=== PATIENT | male | born 1970 | race Caucasian/White ===

== ENCOUNTER 2017-10-30 12:54 | Inpatient (IN) | payer OTHER ==
[2017-10-30 14:54] VITALS: BMI 31.2
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
[2017-10-30] MEDS ORDERED: P-EPHED 60MG/TRIPROLIDI 2.5MG TABLET PO PRN (19:47)
[2017-10-30] MEDS ORDERED: MAG HYDROX/AL HYDROX/SIMETH 30 ML UNIT-DOSE CUP PO PRN (19:47)
[2017-10-30] MEDS ORDERED: MENTHOL/PHENOL 1 EACH UD MM PRN (19:47)
[2017-10-30] MEDS ORDERED: chlordiazePOXIDE HCL 25 MG CAPSULE PO PRN (19:47)
[2017-10-30] MEDS ORDERED: MAGNESIUM CITRATE 300 ML BOTTLE PO PRN (19:47)
[2017-10-30] MEDS ORDERED: hydrOXYzine PAMOATE 50 MG CAPSULE (FP) PO PRN (19:47)
[2017-10-30] MEDS ORDERED: MAGNESIUM HYDROX 2400MG/30ML ORAL SUSPENSION 30 ML CUP PO PRN (19:47)
[2017-10-30] MEDS ORDERED: LOPERAMIDE HCL 2 MG CAPSULE PO PRN (19:47)
[2017-10-30] MEDS ORDERED: guaiFENesin/D-METHORPHAN HB 10 ML UNIT-DOSE CUPS PO PRN (19:47)
[2017-10-30] MEDS ORDERED: NICOTINE POLACRILEX 2 MG GUM BUC PRN (19:47)
[2017-10-30] MEDS ORDERED: chlordiazePOXIDE HCL 25 MG CAPSULE PO ONE (19:47)
[2017-10-30] MEDS ORDERED: HYDROCORTISONE 1% TOPICAL OINT 30 GM TUBE TP PRN (19:55)
[2017-10-30] MEDS: NICOTINE 14 MG/24 HOURS TOPICAL PATCH TD SCH (20:30)
[2017-10-30] MEDS: PHENYTOIN NA EXTENDED 100 MG CAPSULE (FP) PO SCH (22:31)
[2017-10-30] MEDS: THIAMINE HCL 100 MG TABLET (FP) PO SCH (22:31)
[2017-10-30] MEDS: chlordiazePOXIDE HCL 25 MG CAPSULE PO SCH (22:31)
[2017-10-31 01:59] LABS: URINE APPEARANCE CLEAR; URINE BILIRUBIN NEGATIVE (NEGATIVE); URINE BLOOD 1+ (NEGATIVE); URINE COLOR YELLOW; URINE GLUCOSE (UA) NEGATIVE (NEGATIVE); URINE KETONE NEGATIVE (NEGATIVE); URINE LEUK ESTERASE NEGATIVE (NEGATIVE); URINE NITRITE NEGATIVE (NEGATIVE); URINE PROTEIN NEGATIVE (NEGATIVE); URINE UROBILINOGEN 4.0 E.U/dl mg/dL (0.2-1.0)
[2017-10-31 02:25] LABS: URINE HYALINE CAST 13 /lpf; URINE MUCUS MODERATE
[2017-10-31] MEDS: chlordiazePOXIDE HCL 25 MG CAPSULE PO SCH ×4 (05:43→22:42)
[2017-10-31 10:41] LABS: HEMATOCRIT 42.8 % (35.4-49); HEMOGLOBIN 14.3 GM/dL (11.7-16.9); MCH 31.9 pg (25.7-33.7); MCHC 33.4 g/dl (32.0-35.9); MEAN CELL VOLUME 95.7 fl (80-96); MEAN PLT VOLUME 8.7 fl (7.5-11.1); PLATELET COUNT 220 K/MM3 (134-434); RBC 4.47 M/mm3 (4.00-5.60); RDW 13.3 % (11.9-15.9); WHITE BLOOD COUNT 6.9 K/mm3 (4.0-10.0)
[2017-10-31] MEDS: PHENYTOIN NA EXTENDED 100 MG CAPSULE (FP) PO SCH ×2 (10:48→22:42)
[2017-10-31] MEDS: NICOTINE 14 MG/24 HOURS TOPICAL PATCH TD SCH (10:49)
[2017-10-31] MEDS: PRENATAL VITAMINS W/ FOLIC ACID TABLET (FP) PO SCH (10:49)
[2017-10-31] MEDS: AMMONIUM LACTATE 12% LOTION 225 GM BOTTLE TP SCH (10:49)
[2017-10-31 11:13] LABS: ALBUMIN 3.5 g/dl (3.4-5.0); BLOOD UREA NITROGEN 13 mg/dL (7-18); CHLORIDE 104 mmol/L (98-107); POTASSIUM 3.6 mmol/L (3.5-5.1); SODIUM 140 mmol/L (136-145)
[2017-10-31 11:21] LABS: ALK PHOS 110 U/L (45-117); ANION GAP 7 (8-16); BILIRUBIN,TOTAL 0.4 mg/dL (0.2-1.0); CALCIUM 7.8 mg/dL (8.5-10.1); CO2 29 mmol/L (21-32); CREATININE 0.9 mg/dL (0.7-1.3); GLUCOSE,RANDOM 96 mg/dL (74-106); SGOT/AST 19 U/L (15-37); SGPT/ALT 43 U/L (12-78)
[2017-10-31] MEDS ORDERED: FLU VACCINE QUAD 60 MCG/0.5 ML (MDV 17-18) IM ONE (12:00)
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
--- NOTE | 2017-10-31 15:35 | PN ---
S CIWA - CIWA Score Nausea/Vomitin-No Nausea/No Vomiting Muscle Tremors: 4-Moderate,w/Arms Extend Anxiety: 3 Agitation: 3 Paroxysmal Sweats: 3 Orientation: 0-Oriented Tacttile Disturbances: 2-Mild Itch/Numbness/Burn Auditory Disturbances: 0-None Visual Disturbances: 0-None Headache: 3-Moderate CIWA-Ar Total Score: 18 BHS Progress Note (SOAP) Subjective: Anxious, Tremors, Body Aches, H/A, Interrupted Sleep, Fatigue, Sweating. Objective: PT. A & O X 3, OBSERVED AMBULATING ON UNIT. NO ACUTE DISTRESS. 10/31/17 15:33 Vital Signs Temperature 98.9 F 10/31/17 13:27 Pulse Rate 80 10/31/17 13:27 Respiratory Rate 18 10/31/17 13:27 Blood Pressure 110/78 10/31/17 13:27 O2 Sat by Pulse Oximetry (%) Laboratory Tests 10/30/17 10/31/17 10/31/17 22:54 07:50 07:50 WBC 6.9 D RBC 4.47 Hgb 14.3 Hct 42.8 MCV 95.7 MCH 31.9 MCHC 33.4 RDW 13.3 Plt Count 220 MPV 8.7 Sodium Potassium Chloride Carbon Dioxide Anion Gap BUN Creatinine Creat Clearance w eGFR Random Glucose Calcium Total Bilirubin AST ALT Alkaline Phosphatase Total Protein Albumin Urine Color Yellow Urine Appearance Clear Urine pH 6.0 Ur Specific [place] 1.021 Urine Protein Negative Urine Glucose (UA) Negative Urine Ketones Negative Urine Blood 1+ H Urine Nitrite Negative Urine Bilirubin Negative Urine Urobilinogen 4.0 e.u/dl Ur Leukocyte Esterase Negative Urine WBC (Auto) 1 Urine RBC (Auto) 9 Hyaline Casts 13 Urine Mucus Moderate RPR Titer HIV 1&2 Antibody Screen Negative HIV P24 Antigen Negative 10/31/17 10/31/17 07:50 07:50 WBC RBC Hgb Hct MCV MCH MCHC RDW Plt Count MPV Sodium 140 Potassium 3.6 Chloride 104 Carbon Dioxide 29 Anion Gap 7 L BUN 13 Creatinine 0.9 Creat Clearance w eGFR > 60 Random Glucose 96 D Calcium 7.8 L Total Bilirubin 0.4 D AST 19 D ALT 43 D Alkaline Phosphatase 110 D Total Protein 7.0 Albumin 3.5 Urine Color Urine Appearance Urine pH Ur Specific [place] Urine Protein Urine Glucose (UA) Urine Ketones Urine Blood Urine Nitrite Urine Bilirubin Urine Urobilinogen Ur Leukocyte Esterase Urine WBC (Auto) Urine RBC (Auto) Hyaline Casts Urine Mucus RPR Titer Nonreactive HIV 1&2 Antibody Screen HIV P24 Antigen LABS NOTED. HCV AB RESULT PENDING. 10/31/17 15:34 Assessment: 10/31/17 15:34 WITHDRAWAL SYMPTOMS. Plan: CONTINUE DETOX.
[2017-10-31] MEDS ORDERED: HALOPERIDOL 5 MG TABLET (FP) PO SCH (22:00)
[2017-10-31] MEDS: THIAMINE HCL 100 MG TABLET (FP) PO SCH (22:42)
[2017-11-01] MEDS: chlordiazePOXIDE HCL 25 MG CAPSULE PO SCH ×3 (05:26→17:33)
--- NOTE | 2017-11-01 13:21 | EKG ---
Test Reason : Blood Pressure : / mmHG Vent. Rate : 074 BPM Atrial Rate : 074 BPM P-R Int : 130 ms QRS Dur : 086 ms QT Int : 408 ms P-R-T Axes : 006 062 058 degrees QTc Int : 452 ms NORMAL SINUS RHYTHM NORMAL ECG WHEN COMPARED WITH ECG OF 02-OCT-2016 18:15, ST ELEVATION NOW PRESENT IN INFERIOR LEADS CLINICAL CORRELATION IS RECOMMENDED Confirmed by YANETH LAZCANO, FABRICIO ([id number]) on 11/01/2017 1:20:39 PM Referred By: Confirmed By:FABRICIO WOLFE MD
[2017-11-01] MEDS: PHENYTOIN NA EXTENDED 100 MG CAPSULE (FP) PO SCH ×2 (14:13→22:22)
[2017-11-01] MEDS: SERTRALINE HCL 50 MG TABLET (FP) PO SCH (14:14)
[2017-11-01] MEDS: PRENATAL VITAMINS W/ FOLIC ACID TABLET (FP) PO SCH (14:14)
[2017-11-01] MEDS: IBUPROFEN 400 MG TABLET (FP) PO PRN (14:15)
[2017-11-01] MEDS: AMMONIUM LACTATE 12% LOTION 225 GM BOTTLE TP SCH (14:16)
[2017-11-01] MEDS: NICOTINE 14 MG/24 HOURS TOPICAL PATCH TD SCH (14:16)
--- NOTE | 2017-11-01 14:35 | PN ---
S CIWA - CIWA Score Nausea/Vomitin-No Nausea/No Vomiting Muscle Tremors: 3 Anxiety: 3 Agitation: 2 Paroxysmal Sweats: 3 Orientation: 0-Oriented Tacttile Disturbances: 2-Mild Itch/Numbness/Burn Auditory Disturbances: 0-None Visual Disturbances: 0-None Headache: 3-Moderate CIWA-Ar Total Score: 16 BHS Progress Note (SOAP) Subjective: Tremors, Sweating, Tremors, Chills, H/A, Body Aches. Objective: PT A & O X 3, OBSERVED AMBULATING ON UNIT. NO ACUTE DISTRESS. 11/01/17 14:33 Vital Signs Temperature 97.2 F L 11/01/17 06:12 Pulse Rate 59 L 11/01/17 06:12 Respiratory Rate 18 11/01/17 06:12 Blood Pressure 101/67 11/01/17 06:12 O2 Sat by Pulse Oximetry (%) Laboratory Tests 10/30/17 10/31/17 10/31/17 22:54 07:50 07:50 WBC RBC Hgb Hct MCV MCH MCHC RDW Plt Count MPV Sodium Potassium Chloride Carbon Dioxide Anion Gap BUN Creatinine Creat Clearance w eGFR Random Glucose Calcium Total Bilirubin AST ALT Alkaline Phosphatase Total Protein Albumin Urine Color Yellow Urine Appearance Clear Urine pH 6.0 Ur Specific [place] 1.021 Urine Protein Negative Urine Glucose (UA) Negative Urine Ketones Negative Urine Blood 1+ H Urine Nitrite Negative Urine Bilirubin Negative Urine Urobilinogen 4.0 e.u/dl Ur Leukocyte Esterase Negative Urine WBC (Auto) 1 Urine RBC (Auto) 9 Hyaline Casts 13 Urine Mucus Moderate RPR Titer Hepatitis C Antibody 0.2 HIV 1&2 Antibody Screen Negative HIV P24 Antigen Negative 10/31/17 10/31/17 10/31/17 07:50 07:50 07:50 WBC 6.9 D RBC 4.47 Hgb 14.3 Hct 42.8 MCV 95.7 MCH 31.9 MCHC 33.4 RDW 13.3 Plt Count 220 MPV 8.7 Sodium 140 Potassium 3.6 Chloride 104 Carbon Dioxide 29 Anion Gap 7 L BUN 13 Creatinine 0.9 Creat Clearance w eGFR > 60 Random Glucose 96 D Calcium 7.8 L Total Bilirubin 0.4 D AST 19 D ALT 43 D Alkaline Phosphatase 110 D Total Protein 7.0 Albumin 3.5 Urine Color Urine Appearance Urine pH Ur Specific [place] Urine Protein Urine Glucose (UA) Urine Ketones Urine Blood Urine Nitrite Urine Bilirubin Urine Urobilinogen Ur Leukocyte Esterase Urine WBC (Auto) Urine RBC (Auto) Hyaline Casts Urine Mucus RPR Titer Nonreactive Hepatitis C Antibody HIV 1&2 Antibody Screen HIV P24 Antigen LABS NOTED. Assessment: 11/01/17 14:34 WITHDRAWAL SYMPTOMS. Plan: CONTINUE DETOX. INCREASE DAILY PO FLUID INTAKE.
[2017-11-01] MEDS: chlordiazePOXIDE 5 MG CAPSULE PO SCH (22:22)
[2017-11-01] MEDS: THIAMINE HCL 100 MG TABLET (FP) PO SCH (22:22)
[2017-11-01] MEDS: HALOPERIDOL 5 MG TABLET (FP) PO SCH ×2 (22:23→22:24)
[2017-11-02] MEDS: chlordiazePOXIDE 5 MG CAPSULE PO SCH ×3 (05:33→17:00)
[2017-11-02] MEDS: SERTRALINE HCL 50 MG TABLET (FP) PO SCH (10:40)
[2017-11-02] MEDS: PRENATAL VITAMINS W/ FOLIC ACID TABLET (FP) PO SCH (10:41)
[2017-11-02] MEDS: IBUPROFEN 400 MG TABLET (FP) PO PRN ×3 (10:41→23:09)
[2017-11-02] MEDS: NICOTINE 14 MG/24 HOURS TOPICAL PATCH TD SCH (10:44)
[2017-11-02] MEDS: AMMONIUM LACTATE 12% LOTION 225 GM BOTTLE TP SCH (10:44)
[2017-11-02] MEDS: PHENYTOIN NA EXTENDED 100 MG CAPSULE (FP) PO SCH ×2 (11:46→22:40)
--- NOTE | 2017-11-02 13:53 | PN ---
BHS Progress Note (SOAP) Subjective: WEAK POOR APPETITE SHAKES Objective: 11/02/17 13:47 SLEEPING IN BED, AROUSABLE TO VERBAL STIMULI NO ACUTE DISTRESS NOTED Vital Signs Temperature 98.3 F 11/02/17 09:19 Pulse Rate 63 11/02/17 09:19 Respiratory Rate 18 11/02/17 09:19 Blood Pressure 115/79 11/02/17 09:19 O2 Sat by Pulse Oximetry (%) NOTED Assessment: 11/02/17 13:49 WITHDRAWAL SX Plan: CONTINUE DETOX
[2017-11-02] MEDS: THIAMINE HCL 100 MG TABLET (FP) PO SCH (22:40)
[2017-11-02] MEDS: HALOPERIDOL 5 MG TABLET (FP) PO SCH (22:42)
[2017-11-02] MEDS: chlordiazePOXIDE HCL 10 MG CAPSULE PO SCH (22:42)
[2017-11-03] MEDS: ACETAMINOPHEN 325 MG TABLET (FP) PO PRN ×3 (03:15→19:47)
[2017-11-03] MEDS: chlordiazePOXIDE HCL 10 MG CAPSULE PO SCH ×2 (06:19→10:38)
[2017-11-03] MEDS: IBUPROFEN 400 MG TABLET (FP) PO PRN ×3 (06:19→22:27)
[2017-11-03] MEDS: PHENYTOIN NA EXTENDED 100 MG CAPSULE (FP) PO SCH ×2 (10:38→21:22)
[2017-11-03] MEDS: NICOTINE 14 MG/24 HOURS TOPICAL PATCH TD SCH (10:39)
[2017-11-03] MEDS: PRENATAL VITAMINS W/ FOLIC ACID TABLET (FP) PO SCH (10:39)
[2017-11-03] MEDS: AMMONIUM LACTATE 12% LOTION 225 GM BOTTLE TP SCH (10:39)
[2017-11-03] MEDS: SERTRALINE HCL 50 MG TABLET (FP) PO SCH (10:39)
--- NOTE | 2017-11-03 11:34 | DS ---
[facility] Detox Discharge Summary Admission Date: 10/30/17 Discharge Date: 11/03/17 - History Present History: Alcohol Dependence, Cocaine Dependence Additional Comments: PATIENT GOING TO [facility] ([place] [email or web address].[place] FOR AFTERCARE. PATIENT WAS DISCHARGED FROM DETOX UNIT IN STABLE MEDICAL CONDITION. Pertinent Past History: Asthma, Nicotine Dependence, Seizure disorder, Dehydration, History of Cancer, Rash, Depression, Schizoaffective Disorder, Anxiety, GERD, Low Back Pain. - Physical Exam Results Vital Signs: Vital Signs Temperature 98.6 F 11/03/17 09:15 Pulse Rate 63 11/03/17 09:15 Respiratory Rate 18 11/03/17 09:15 Blood Pressure 118/79 11/03/17 09:15 O2 Sat by Pulse Oximetry (%) Pertinent Admission Physical Exam Findings: WITHDRAWAL SYMPTOMS. Laboratory Tests 10/30/17 10/31/17 10/31/17 22:54 07:50 07:50 WBC RBC Hgb Hct MCV MCH MCHC RDW Plt Count MPV Sodium Potassium Chloride Carbon Dioxide Anion Gap BUN Creatinine Creat Clearance w eGFR Random Glucose Calcium Total Bilirubin AST ALT Alkaline Phosphatase Total Protein Albumin Urine Color Yellow Urine Appearance Clear Urine pH 6.0 Ur Specific [place] 1.021 Urine Protein Negative Urine Glucose (UA) Negative Urine Ketones Negative Urine Blood 1+ H Urine Nitrite Negative Urine Bilirubin Negative Urine Urobilinogen 4.0 e.u/dl Ur Leukocyte Esterase Negative Urine WBC (Auto) 1 Urine RBC (Auto) 9 Hyaline Casts 13 Urine Mucus Moderate RPR Titer Hepatitis C Antibody 0.2 HIV 1&2 Antibody Screen Negative HIV P24 Antigen Negative 10/31/17 10/31/17 10/31/17 07:50 07:50 07:50 WBC 6.9 D RBC 4.47 Hgb 14.3 Hct 42.8 MCV 95.7 MCH 31.9 MCHC 33.4 RDW 13.3 Plt Count 220 MPV 8.7 Sodium 140 Potassium 3.6 Chloride 104 Carbon Dioxide 29 Anion Gap 7 L BUN 13 Creatinine 0.9 Creat Clearance w eGFR > 60 Random Glucose 96 D Calcium 7.8 L Total Bilirubin 0.4 D AST 19 D ALT 43 D Alkaline Phosphatase 110 D Total Protein 7.0 Albumin 3.5 Urine Color Urine Appearance Urine pH Ur Specific [place] Urine Protein Urine Glucose (UA) Urine Ketones Urine Blood Urine Nitrite Urine Bilirubin Urine Urobilinogen Ur Leukocyte Esterase Urine WBC (Auto) Urine RBC (Auto) Hyaline Casts Urine Mucus RPR Titer Nonreactive Hepatitis C Antibody HIV 1&2 Antibody Screen HIV P24 Antigen LABS NOTED. - Treatment Hospital Course: Detox Protocol Followed, Detoxed Safely, Responded well, Discharged Condition Good, Rehab Referral Accepted Patient has Accepted a [facility] ([place]). - Medication Discharge Medications: Ambulatory Orders Phenytoin Na Extended [Dilantin -] 300 mg PO DAILY 10/28/17 Sertraline HCl [Zoloft -] 100 mg PO DAILY 10/28/17 Phenytoin Na Extended [Dilantin -] 200 mg PO HS 10/30/17 - Diagnosis (1) Dehydration Current Visit: Yes Status: Acute (2) Nicotine dependence Current Visit: Yes Status: Acute Qualifiers: Nicotine product type: cigarettes Substance use status: uncomplicated Qualified Code(s): F17.210 - Nicotine dependence, cigarettes, uncomplicated (3) Alcohol dependence with uncomplicated withdrawal Current Visit: Yes Status: Acute (4) Gastroesophageal reflux disease Current Visit: Yes Status: Chronic (5) Literacy level of illiterate Current Visit: Yes Status: Chronic (6) Obesity (BMI 30.0-34.9) Current Visit: Yes Status: Chronic (7) Cocaine dependence Current Visit: Yes Status: Acute Qualifiers: Substance use status: uncomplicated Qualified Code(s): F14.20 - Cocaine dependence, uncomplicated (8) Rash Current Visit: Yes Status: Acute (9) Weight loss Current Visit: Yes Status: Acute (10) Mental retardation Current Visit: Yes Status: Chronic (11) asthma Current Visit: Yes Status: Chronic (12) seizure disorder Current Visit: Yes Status: Chronic (13) Anxious mood Current Visit: Yes Status: Acute (14) Low back pain Current Visit: Yes Status: Chronic Qualifiers: Chronicity: chronic Back pain laterality: unspecified Sciatica presence: unspecified whether sciatica present Qualified Code(s): M54.5 - Low back pain ; G89.29 - Other chronic pain; G89.29 - Other chronic pain (15) Substance induced mood disorder Current Visit: Yes Status: Acute (16) Schizoaffective disorder Current Visit: Yes Status: Chronic Qualifiers: Schizoaffective disorder type: depressive Qualified Code(s): F25.1 - Schizoaffective disorder, depressive type - AMA Did Patient Leave Against Medical Advice: No
--- NOTE | 2017-11-03 11:39 | HP ---
ALEXANDER LAZCANO Rehab Assess/Revision - Admission History Admitted to Rehab from: [facility] [place] - Vital signs Vital Signs: Vital Signs Period Temp Pulse Resp BP Sys/Beaulieu Pulse Ox Last 24 Hr 97.4 F-99.1 F 63-79 17-18 110-121/73-83 - Findings Detox History & Physical reviewed: Yes Concur with findings: Yes Comments/Additional Findings: PATIENT'S MEDICAL / MEDICATION HISTORY REVIEWED PRIOR TO DISCHARGE FROM DETOX UNIT. PATIENT WAS DISCHARGED FROM DETOX UNIT TO BE TAKEN TO REHAB UNIT IN STABLE MEDICAL CONDITION. Inpatient Rehab Admission - Initial Determination Are CD services needed?: Yes Free of communicable disease: Yes Not in need of hospitalization: Yes - Rehab Admission Criteria Previous failed treatment: Yes Comorbidities: Yes Patient is meeting Inpatient Rehab admission criteria:: Yes
--- NOTE | 2017-11-03 13:21 | HP ---
Psychiatrist Admission - Data Date of interview: 11/03/17 Admission source: [facility] Identifying data: This is one of multiple inpatient rehabilitation admissions to for this 47 year old male who is single,a father of one, currently homeless and unemployed and supported on SSI benefits. Medical History: Asthma, Seizure, GERD, back pain. Smokes cigaretts 1PPD. Psychiatric History: Patient has long standing history of psychiatric illness, several hospitalizations to [facility], [facility] ([facility]) and most recently on 09/13 at [facility],carriesa diagnosis of Schizoaffective disorder, non-compliant with aftercare and medications, sttaes he obtains his medications visiting ERs, while at [facility] seen by and continued on Zoloft 100 mg po daily and Haldol 5 mg po hs. Patient unsure if he will stay in this treatment. Physical/Sexual Abuse/Trauma History: denies history of sexual, physical and verbal abuse. Vital Signs: Vital Signs - 24 hr 11/02/17 11/02/17 11/03/17 17:47 22:15 00:22 Temperature 97.7 F 99.1 F Pulse Rate 68 79 Respiratory 18 18 18 Rate Blood Pressure 110/73 121/83 11/03/17 11/03/17 11/03/17 03:30 06:38 09:15 Temperature 97.4 F L 98.6 F Pulse Rate 67 63 Respiratory 17 18 18 Rate Blood Pressure 115/82 118/79 Allergies/Adverse Reactions: Allergies Allergy/AdvReac Type Severity Reaction Status Date / Time tomato Allergy Severe Rash Verified 10/02/16 16:58 fish derived Allergy Intermediate Rash Verified 10/30/17 15:27 No Known Drug Allergies Allergy Verified 04/03/16 18:27 tomato sauce Allergy Severe Rash Uncoded 04/03/16 18:27 turkey Allergy Intermediate Rash Uncoded 10/30/17 15:27 Date of last physical exam: 10/30/17 Concur with the findings of this exam: Yes - Substance Abuse/Tx History Hx Alcohol Use: Yes Hx Substance Use: Yes Substance Use Type: Alcohol (vodka 1 pint daily), Cocaine ($80 daily ) Hx Substance Use Treatment: Yes (several detox/reha at [facility]) Mental Status Exam - Mental Status Exam Alert and Oriented to: Time, Place, Person Cognitive Function: Grossly Intact Patient Appearance: Unkempt Mood: Sad, Anxious Patient Behavior: Appropriate, Cooperative Speech Pattern: Clear, Appropriate Voice Loudness: Normal Thought Process: Goal Oriented Thought Disorder: Not Present Hallucinations: Denies Suicidal Ideation: Denies Homicidal Ideation: Denies Insight/Judgement: Fair Sleep: Fair Appetite: Fair Muscle strength/Tone: Normal Gait/Station: Normal Psychiatric Findings - Problem List ([place] 1, 2,3) (1) Cocaine dependence Current Visit: Yes Status: Acute Qualifiers: Substance use status: uncomplicated Qualified Code(s): F14.20 - Cocaine dependence, uncomplicated (2) Nicotine dependence Current Visit: Yes Status: Acute Qualifiers: Nicotine product type: cigarettes Substance use status: uncomplicated Qualified Code(s): F17.210 - Nicotine dependence, cigarettes, uncomplicated (3) Low back pain Current Visit: Yes Status: Chronic Qualifiers: Chronicity: chronic Back pain laterality: unspecified Sciatica presence: unspecified whether sciatica present Qualified Code(s): M54.5 - Low back pain ; G89.29 - Other chronic pain; G89.29 - Other chronic pain (4) Schizoaffective disorder Current Visit: Yes Status: Chronic Qualifiers: Schizoaffective disorder type: depressive Qualified Code(s): F25.1 - Schizoaffective disorder, depressive type (5) asthma Current Visit: Yes Status: Chronic (6) seizure disorder Current Visit: Yes Status: Chronic (7) Alcohol dependence Current Visit: No Status: Active - Initial Treatment Plan Initial Treatment Plan: will continue Haldol and Zoloft, monitor progress as needed.
[2017-11-03] MEDS: THIAMINE HCL 100 MG TABLET (FP) PO SCH (21:22)
[2017-11-03] MEDS: HALOPERIDOL 5 MG TABLET (FP) PO SCH (21:22)
[2017-11-03] MEDS ORDERED: BENZOCAINE 20 % GEL 9 GM TUBE MM PRN (22:48)
[2017-11-03] MEDS ORDERED: LIDOCAINE HCL 4% TOPICAL SOLN (50 ML/BOTTLE) MM ONE (23:05)
[2017-11-03] MEDS: LIDOCAINE VISCOUS 2% ORAL/TOP 20 ML UNIT-DOSE CUP MM PRN (23:21)
[2017-11-04] MEDS: LIDOCAINE VISCOUS 2% ORAL/TOP 20 ML UNIT-DOSE CUP MM PRN (04:30)
[2017-11-04] MEDS: IBUPROFEN 400 MG TABLET (FP) PO PRN (04:30)
[2017-11-04 06:38] VITALS: BP 126/79; PULSE 62; TEMP 98.1
[2017-11-04] MEDS: PRENATAL VITAMINS W/ FOLIC ACID TABLET (FP) PO SCH (09:45)
[2017-11-04] MEDS: SERTRALINE HCL 50 MG TABLET (FP) PO SCH (09:45)
[2017-11-04] MEDS: AMMONIUM LACTATE 12% LOTION 225 GM BOTTLE TP SCH (09:45)
[2017-11-04] MEDS: PHENYTOIN NA EXTENDED 100 MG CAPSULE (FP) PO SCH (09:45)
[2017-11-04] MEDS: NICOTINE 14 MG/24 HOURS TOPICAL PATCH TD SCH (09:45)
--- NOTE | 2017-11-04 09:55 | PN ---
[facility] Progress Note Note: Patient decided to leave treatment amguerrero, met with the patient to explore reasons for terminating treatment, reported that he was waiting for his money and did not plan to come to rehab.,states he will take his money and go to [place] to stay with his 27 year old daughter. Scripts for Zoloft and Haldol e-transferred to [facility]. Patient denies suicidal and homicidal thoughts, was encouraged to stay in treatment but adamant to leave.
== END 2017-11-04 10:05 | disposition left against medical advice (07) | DRG 894 ==
LOC: YASAS 12:54 → Y3N 17:36 → Y5N 11-03 12:29
PROVIDERS: ADMIT Internal Medicine; ATTEND Psychiatry & Neurology Psychiatry
PROC: HZ2ZZZZ Detoxification Services for Substance Abuse Treatment (ICD-10-PCS; principal; 2017-10-30)
PROC: HZ42ZZZ Group Counseling for Substance Abuse Treatment, Cognitive-Behavioral (ICD-10-PCS; 2017-11-03)
DX: F10.230 Alcohol dependence with withdrawal, uncomplicated (principal); F14.20 Cocaine dependence, uncomplicated; F17.210 Nicotine dependence, cigarettes, uncomplicated; F25.1 Schizoaffective disorder, depressive type; F19.24 Other psychoactive substance dependence with psychoactive substance-induced mood disorder; F41.9 Anxiety disorder, unspecified; E86.0 Dehydration; F79 Unspecified intellectual disabilities; J45.909 Unspecified asthma, uncomplicated; M54.5 Low back pain; G89.29 Other chronic pain; G40.909 Epilepsy, unspecified, not intractable, without status epilepticus; K21.9 Gastro-esophageal reflux disease without esophagitis; R21 Rash and other nonspecific skin eruption; E66.9 Obesity, unspecified; Z68.31 Body mass index [BMI] 31.0-31.9, adult; Z85.830 Personal history of malignant neoplasm of bone; Z55.0 Illiteracy and low-level literacy; Z91.013 Allergy to seafood; Z91.018 Allergy to other foods; Z87.898 Personal history of other specified conditions
CPT/HCPCS: 36415; 80053; 81003; 81015; 85027; 86593; 86803; 87389; 90688; 93005; 93010; G0008

== ENCOUNTER 2018-05-31 11:31 | Inpatient (IN) | payer OTHER ==
[2018-05-31 12:45] VITALS: BMI 32.9
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
[2018-05-31] MEDS ORDERED: NICOTINE POLACRILEX 2 MG GUM BC PRN (15:38)
[2018-05-31] MEDS ORDERED: MAGNESIUM HYDROX 2400MG/30ML ORAL SUSPENSION 30 ML CUP PO PRN (15:38)
[2018-05-31] MEDS ORDERED: ACETAMINOPHEN 325 MG TABLET (FP) PO PRN (15:38)
[2018-05-31] MEDS ORDERED: MENTHOL/PHENOL 1 EACH UD MM PRN (15:38)
[2018-05-31] MEDS ORDERED: hydrOXYzine PAMOATE 50 MG CAPSULE (FP) PO PRN (15:38)
[2018-05-31] MEDS ORDERED: LOPERAMIDE HCL 2 MG CAPSULE PO PRN (15:38)
[2018-05-31] MEDS ORDERED: MAGNESIUM CITRATE 300 ML BOTTLE PO PRN (15:38)
[2018-05-31] MEDS ORDERED: chlordiazePOXIDE HCL 25 MG CAPSULE PO PRN (15:38)
[2018-05-31] MEDS ORDERED: IBUPROFEN 400 MG TABLET (FP) PO PRN (15:38)
[2018-05-31] MEDS ORDERED: guaiFENesin/D-METHORPHAN HB 10 ML UNIT-DOSE CUPS PO PRN (15:38)
[2018-05-31] MEDS ORDERED: P-EPHED 60MG/TRIPROLIDI 2.5MG TABLET PO PRN (15:38)
[2018-05-31] MEDS ORDERED: ALBUTEROL SO4 8 GM HFA INHALER IH SCH (15:45)
[2018-05-31] MEDS ORDERED: PHENYTOIN NA EXTENDED 100 MG CAPSULE (FP) PO ONE (16:45)
[2018-05-31] MEDS: ASPIRIN COATED 81 MG TABLET.EC PO SCH (17:28)
[2018-05-31] MEDS: chlordiazePOXIDE HCL 25 MG CAPSULE PO SCH ×2 (17:28→22:27)
[2018-05-31] MEDS: NICOTINE 14 MG/24 HOURS TOPICAL PATCH TD SCH (17:30)
[2018-05-31] MEDS: ALBUTEROL SO4 8 GM HFA INHALER IH PRN (17:40)
[2018-05-31] MEDS: CHOLECALCIFEROL (VITAMIN D3) 1,000 UNIT TABLET (FP) PO SCH (17:48)
[2018-05-31] MEDS: THIAMINE HCL 100 MG TABLET (FP) PO SCH (22:26)
[2018-05-31] MEDS: PHENYTOIN NA EXTENDED 100 MG CAPSULE (FP) PO SCH (22:27)
[2018-06-01 00:16] LABS: URINE APPEARANCE CLEAR; URINE BILIRUBIN NEGATIVE (<2.0 mg/dL); URINE COLOR YELLOW; URINE GLUCOSE (UA) NEGATIVE (NEGATIVE); URINE KETONE NEGATIVE (NEGATIVE); URINE LEUK ESTERASE NEGATIVE (NEGATIVE); URINE NITRITE NEGATIVE (NEGATIVE); URINE PROTEIN NEGATIVE (NEGATIVE); URINE UROBILINOGEN NEGATIVE mg/dL (0.2-1.0)
[2018-06-01] MEDS: chlordiazePOXIDE HCL 25 MG CAPSULE PO SCH ×4 (05:24→22:25)
[2018-06-01] MEDS: ASPIRIN COATED 81 MG TABLET.EC PO SCH (10:05)
[2018-06-01] MEDS: PRENATAL VITAMINS W/ FOLIC ACID TABLET (FP) PO SCH (10:05)
[2018-06-01] MEDS: PHENYTOIN NA EXTENDED 100 MG CAPSULE (FP) PO SCH ×2 (10:05→22:25)
[2018-06-01] MEDS: NICOTINE 14 MG/24 HOURS TOPICAL PATCH TD SCH (10:06)
[2018-06-01 10:15] LABS: HEMATOCRIT 40.8 % (35.4-49); HEMOGLOBIN 13.6 GM/dL (11.7-16.9); MCH 31.5 pg (25.7-33.7); MCHC 33.5 g/dl (32.0-35.9); MEAN CELL VOLUME 94.2 fl (80-96); MEAN PLT VOLUME 8.5 fl (7.5-11.1); PLATELET COUNT 181 K/MM3 (134-434); RBC 4.33 M/mm3 (4.00-5.60); RDW 13.5 % (11.9-15.9); WHITE BLOOD COUNT 5.4 K/mm3 (4.0-10.0)
[2018-06-01] MEDS: CHOLECALCIFEROL (VITAMIN D3) 1,000 UNIT TABLET (FP) PO SCH (10:21)
[2018-06-01] MEDS ORDERED: ONDANSETRON *ODT* 4 MG TABLET SL PRN (10:58)
--- NOTE | 2018-06-01 10:58 | PN ---
S CIWA - CIWA Score Nausea/Vomitin-No Nausea/No Vomiting Muscle Tremors: 4-Moderate,w/Arms Extend Anxiety: 4-Mod. Anxious/Guarded Agitation: 4-Moderately Restless Paroxysmal Sweats: 1-Minimal Palms Moist Orientation: 0-Oriented Tacttile Disturbances: 0-None Auditory Disturbances: 0-None Visual Disturbances: 0-None Headache: 0-None Present CIWA-Ar Total Score: 13 BHS Progress Note (SOAP) Subjective: ANXIETY,SWEATS,BODY ACHES,NAUSEA,INTERMITTENT SLEEP. Objective: 06/01/18 10:57 Vital Signs 06/01/18 06/01/18 06/01/18 03:44 05:54 06:30 Temperature 97.3 F L Pulse Rate 58 L Respiratory 20 18 18 Rate Blood Pressure 111/66 06/01/18 09:39 Temperature 97.4 F L Pulse Rate 73 Respiratory 18 Rate Blood Pressure 124/78 Laboratory Tests 05/31/18 06/01/18 23:27 07:00 WBC 5.4 RBC 4.33 Hgb 13.6 Hct 40.8 MCV 94.2 MCH 31.5 MCHC 33.5 RDW 13.5 Plt Count 181 MPV 8.5 D Urine Color Yellow Urine Appearance Clear Urine pH 5.0 Ur Specific [place] 1.021 Urine Protein Negative Urine Glucose (UA) Negative Urine Ketones Negative Urine Blood Negative Urine Nitrite Negative Urine Bilirubin Negative Urine Urobilinogen Negative Ur Leukocyte Esterase Negative Assessment: 06/01/18 10:57 WITHDRAWAL SX Plan: CONTINUE DETOX MOTRIN PRN ZOFRAN PRN
[2018-06-01 11:05] LABS: ALBUMIN 3.2 g/dl (3.4-5.0); ALK PHOS 84 U/L (45-117); ANION GAP 7 MMOL/L (8-16); BILIRUBIN,TOTAL 0.3 mg/dL (0.2-1.0); BLOOD UREA NITROGEN 11 mg/dL (7-18); CALCIUM 7.8 mg/dL (8.5-10.1); CHLORIDE 106 mmol/L (98-107); CO2 29 mmol/L (21-32); CREATININE 0.8 mg/dL (0.7-1.3); GLUCOSE,RANDOM 87 mg/dL (74-106); POTASSIUM 3.9 mmol/L (3.5-5.1); SGOT/AST 18 U/L (15-37); SGPT/ALT 28 U/L (12-78); SODIUM 142 mmol/L (136-145); TOT PROT 6.7 g/dl (6.4-8.2)
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
--- NOTE | 2018-06-01 16:33 | EKG ---
Test Reason : Blood Pressure : / mmHG Vent. Rate : 077 BPM Atrial Rate : 077 BPM P-R Int : 128 ms QRS Dur : 084 ms QT Int : 406 ms P-R-T Axes : 056 000 019 degrees QTc Int : 459 ms NORMAL SINUS RHYTHM NORMAL ECG WHEN COMPARED WITH ECG OF 04-APR-2018 13:54, NO SIGNIFICANT CHANGE WAS FOUND Confirmed by Marin Lynne ([id number]) on 06/01/2018 4:32:41 PM Referred By: Confirmed By:Marin Lynne
[2018-06-01] MEDS: THIAMINE HCL 100 MG TABLET (FP) PO SCH (22:25)
[2018-06-01] MEDS: traZODone HCL 50 MG TABLET (FP) PO SCH (22:25)
[2018-06-02] MEDS: chlordiazePOXIDE HCL 25 MG CAPSULE PO SCH ×2 (05:21→10:43)
[2018-06-02] MEDS: PRENATAL VITAMINS W/ FOLIC ACID TABLET (FP) PO SCH (10:42)
[2018-06-02] MEDS: NICOTINE 14 MG/24 HOURS TOPICAL PATCH TD SCH (10:42)
[2018-06-02] MEDS: ASPIRIN COATED 81 MG TABLET.EC PO SCH (10:42)
[2018-06-02] MEDS: PHENYTOIN NA EXTENDED 100 MG CAPSULE (FP) PO SCH ×2 (10:42→22:29)
[2018-06-02] MEDS: CHOLECALCIFEROL (VITAMIN D3) 1,000 UNIT TABLET (FP) PO SCH (10:43)
[2018-06-02] MEDS: SERTRALINE HCL 50 MG TABLET (FP) PO SCH (10:43)
--- NOTE | 2018-06-02 12:41 | PN ---
S CIWA - CIWA Score Nausea/Vomitin-No Nausea/No Vomiting Muscle Tremors: 4-Moderate,w/Arms Extend Anxiety: 4-Mod. Anxious/Guarded Agitation: 4-Moderately Restless Paroxysmal Sweats: 1-Minimal Palms Moist Orientation: 0-Oriented Tacttile Disturbances: 0-None Auditory Disturbances: 0-None Visual Disturbances: 0-None Headache: 0-None Present CIWA-Ar Total Score: 13 BHS Progress Note (SOAP) Subjective: ANXIETY,SWEATS,FATIGUE. Objective: 06/02/18 12:40 Vital Signs 06/02/18 06/02/18 06/02/18 06:21 06:30 09:20 Temperature 97.0 F L 98.2 F Pulse Rate 64 64 Respiratory 20 18 18 Rate Blood Pressure 102/57 93/57 Laboratory Tests 05/31/18 06/01/18 06/01/18 23:27 07:00 07:00 WBC 5.4 RBC 4.33 Hgb 13.6 Hct 40.8 MCV 94.2 MCH 31.5 MCHC 33.5 RDW 13.5 Plt Count 181 MPV 8.5 D Sodium Potassium Chloride Carbon Dioxide Anion Gap BUN Creatinine Creat Clearance w eGFR Random Glucose Calcium Total Bilirubin AST ALT Alkaline Phosphatase Total Protein Albumin Urine Color Yellow Urine Appearance Clear Urine pH 5.0 Ur Specific [place] 1.021 Urine Protein Negative Urine Glucose (UA) Negative Urine Ketones Negative Urine Blood Negative Urine Nitrite Negative Urine Bilirubin Negative Urine Urobilinogen Negative Ur Leukocyte Esterase Negative Phenytoin RPR Titer HIV 1&2 Antibody Screen Negative HIV P24 Antigen Negative 06/01/18 06/01/18 06/01/18 07:00 07:00 07:00 WBC RBC Hgb Hct MCV MCH MCHC RDW Plt Count MPV Sodium 142 Potassium 3.9 Chloride 106 Carbon Dioxide 29 Anion Gap 7 L BUN 11 Creatinine 0.8 Creat Clearance w eGFR > 60 Random Glucose 87 D Calcium 7.8 L Total Bilirubin 0.3 AST 18 ALT 28 Alkaline Phosphatase 84 Total Protein 6.7 Albumin 3.2 L Urine Color Urine Appearance Urine pH Ur Specific [place] Urine Protein Urine Glucose (UA) Urine Ketones Urine Blood Urine Nitrite Urine Bilirubin Urine Urobilinogen Ur Leukocyte Esterase Phenytoin 3.9 L D RPR Titer Nonreactive HIV 1&2 Antibody Screen HIV P24 Antigen Assessment: 06/02/18 12:41 WITHDRAWAL SX Plan: CONTINUE DETOX
[2018-06-02] MEDS ORDERED: PHENYTOIN NA EXTENDED 100 MG CAPSULE (FP) PO ONE (15:07)
[2018-06-02] MEDS: chlordiazePOXIDE 5 MG CAPSULE PO SCH ×2 (18:31→22:29)
[2018-06-02] MEDS: THIAMINE HCL 100 MG TABLET (FP) PO SCH (22:27)
[2018-06-02] MEDS: traZODone HCL 50 MG TABLET (FP) PO SCH (22:29)
[2018-06-03] MEDS: chlordiazePOXIDE 5 MG CAPSULE PO SCH (05:35)
[2018-06-03] MEDS: PHENYTOIN NA EXTENDED 100 MG CAPSULE (FP) PO SCH ×2 (10:38→22:12)
[2018-06-03] MEDS: PRENATAL VITAMINS W/ FOLIC ACID TABLET (FP) PO SCH (10:38)
[2018-06-03] MEDS: ASPIRIN COATED 81 MG TABLET.EC PO SCH (10:38)
[2018-06-03] MEDS: SERTRALINE HCL 50 MG TABLET (FP) PO SCH (10:38)
[2018-06-03] MEDS: chlordiazePOXIDE HCL 10 MG CAPSULE PO SCH ×3 (10:38→22:12)
[2018-06-03] MEDS: NICOTINE 14 MG/24 HOURS TOPICAL PATCH TD SCH (10:39)
[2018-06-03] MEDS: CHOLECALCIFEROL (VITAMIN D3) 1,000 UNIT TABLET (FP) PO SCH (10:39)
--- NOTE | 2018-06-03 12:48 | PN ---
BHS Progress Note (SOAP) Subjective: ANXIETY,FATIGUE. OOB AMBULATING WITH STEADY GAIT. DETOX PROCEEDING SWELL. Objective: 06/03/18 12:48 Vital Signs 06/03/18 06/03/18 06/03/18 06:22 06:30 10:31 Temperature 97.8 F 97.4 F L Pulse Rate 63 52 L Respiratory 18 18 18 Rate Blood Pressure 106/70 100/58 Laboratory Tests 05/31/18 06/01/18 06/01/18 23:27 07:00 07:00 WBC 5.4 RBC 4.33 Hgb 13.6 Hct 40.8 MCV 94.2 MCH 31.5 MCHC 33.5 RDW 13.5 Plt Count 181 MPV 8.5 D Sodium Potassium Chloride Carbon Dioxide Anion Gap BUN Creatinine Creat Clearance w eGFR Random Glucose Calcium Total Bilirubin AST ALT Alkaline Phosphatase Total Protein Albumin Urine Color Yellow Urine Appearance Clear Urine pH 5.0 Ur Specific [place] 1.021 Urine Protein Negative Urine Glucose (UA) Negative Urine Ketones Negative Urine Blood Negative Urine Nitrite Negative Urine Bilirubin Negative Urine Urobilinogen Negative Ur Leukocyte Esterase Negative Phenytoin RPR Titer HIV 1&2 Antibody Screen Negative HIV P24 Antigen Negative 06/01/18 06/01/18 06/01/18 07:00 07:00 07:00 WBC RBC Hgb Hct MCV MCH MCHC RDW Plt Count MPV Sodium 142 Potassium 3.9 Chloride 106 Carbon Dioxide 29 Anion Gap 7 L BUN 11 Creatinine 0.8 Creat Clearance w eGFR > 60 Random Glucose 87 D Calcium 7.8 L Total Bilirubin 0.3 AST 18 ALT 28 Alkaline Phosphatase 84 Total Protein 6.7 Albumin 3.2 L Urine Color Urine Appearance Urine pH Ur Specific [place] Urine Protein Urine Glucose (UA) Urine Ketones Urine Blood Urine Nitrite Urine Bilirubin Urine Urobilinogen Ur Leukocyte Esterase Phenytoin 3.9 L D RPR Titer Nonreactive HIV 1&2 Antibody Screen HIV P24 Antigen Assessment: 06/03/18 12:48 WITHDRAWAL SX Plan: CONTINUE DETOX
[2018-06-03] MEDS ORDERED: chlordiazePOXIDE HCL 10 MG CAPSULE PO SCH (17:00)
[2018-06-03] MEDS: traZODone HCL 50 MG TABLET (FP) PO SCH (22:12)
[2018-06-03] MEDS: THIAMINE HCL 100 MG TABLET (FP) PO SCH (22:12)
[2018-06-03] MEDS: CYCLOBENZAPRINE HCL 10 MG TABLET (FP) PO PRN (23:21)
[2018-06-04] MEDS: chlordiazePOXIDE HCL 10 MG CAPSULE PO SCH (07:24)
[2018-06-04] MEDS: NICOTINE 14 MG/24 HOURS TOPICAL PATCH TD SCH (10:56)
[2018-06-04] MEDS: SERTRALINE HCL 50 MG TABLET (FP) PO SCH (10:57)
[2018-06-04] MEDS: PHENYTOIN NA EXTENDED 100 MG CAPSULE (FP) PO SCH ×2 (10:57→22:13)
[2018-06-04] MEDS: ASPIRIN COATED 81 MG TABLET.EC PO SCH (10:57)
[2018-06-04] MEDS: PRENATAL VITAMINS W/ FOLIC ACID TABLET (FP) PO SCH (10:57)
[2018-06-04] MEDS: CHOLECALCIFEROL (VITAMIN D3) 1,000 UNIT TABLET (FP) PO SCH (10:57)
--- NOTE | 2018-06-04 12:39 | PN ---
BHS Progress Note (SOAP) Subjective: DETOX COMPLETED. ALERT O X 3. NAD. PT REFERRED TO REHAB [facility] TODAY. Objective: 06/04/18 12:34 Vital Signs 06/04/18 06/04/18 06/04/18 06:28 06:30 09:48 Temperature 97.6 F 97.4 F L Pulse Rate 70 61 Respiratory 18 18 18 Rate Blood Pressure 100/70 86/55 06/04/18 10:48 Temperature Pulse Rate 65 Respiratory 18 Rate Blood Pressure 114/80 Laboratory Tests 05/31/18 06/01/18 06/01/18 23:27 07:00 07:00 WBC 5.4 RBC 4.33 Hgb 13.6 Hct 40.8 MCV 94.2 MCH 31.5 MCHC 33.5 RDW 13.5 Plt Count 181 MPV 8.5 D Sodium Potassium Chloride Carbon Dioxide Anion Gap BUN Creatinine Creat Clearance w eGFR Random Glucose Calcium Total Bilirubin AST ALT Alkaline Phosphatase Total Protein Albumin Urine Color Yellow Urine Appearance Clear Urine pH 5.0 Ur Specific [place] 1.021 Urine Protein Negative Urine Glucose (UA) Negative Urine Ketones Negative Urine Blood Negative Urine Nitrite Negative Urine Bilirubin Negative Urine Urobilinogen Negative Ur Leukocyte Esterase Negative Phenytoin RPR Titer HIV 1&2 Antibody Screen Negative HIV P24 Antigen Negative 06/01/18 06/01/18 06/01/18 07:00 07:00 07:00 WBC RBC Hgb Hct MCV MCH MCHC RDW Plt Count MPV Sodium 142 Potassium 3.9 Chloride 106 Carbon Dioxide 29 Anion Gap 7 L BUN 11 Creatinine 0.8 Creat Clearance w eGFR > 60 Random Glucose 87 D Calcium 7.8 L Total Bilirubin 0.3 AST 18 ALT 28 Alkaline Phosphatase 84 Total Protein 6.7 Albumin 3.2 L Urine Color Urine Appearance Urine pH Ur Specific [place] Urine Protein Urine Glucose (UA) Urine Ketones Urine Blood Urine Nitrite Urine Bilirubin Urine Urobilinogen Ur Leukocyte Esterase Phenytoin 3.9 L D RPR Titer Nonreactive HIV 1&2 Antibody Screen HIV P24 Antigen Assessment: 06/04/18 12:34 MEDICALLY STABLE Plan: D/C PT TODAY
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
[2018-06-04] MEDS: traZODone HCL 50 MG TABLET (FP) PO SCH (22:13)
[2018-06-04] MEDS: THIAMINE HCL 100 MG TABLET (FP) PO SCH (22:13)
[2018-06-05] MEDS: MAG HYDROX/AL HYDROX/SIMETH 30 ML UNIT-DOSE CUP PO PRN (03:25)
[2018-06-05] MEDS: ASPIRIN COATED 81 MG TABLET.EC PO SCH (09:31)
[2018-06-05] MEDS: NICOTINE 14 MG/24 HOURS TOPICAL PATCH TD SCH (09:31)
[2018-06-05] MEDS: PHENYTOIN NA EXTENDED 100 MG CAPSULE (FP) PO SCH ×2 (09:31→21:16)
[2018-06-05] MEDS: PRENATAL VITAMINS W/ FOLIC ACID TABLET (FP) PO SCH (09:31)
[2018-06-05] MEDS: SERTRALINE HCL 50 MG TABLET (FP) PO SCH (09:31)
[2018-06-05] MEDS: CHOLECALCIFEROL (VITAMIN D3) 1,000 UNIT TABLET (FP) PO SCH (09:31)
[2018-06-05] MEDS: CYCLOBENZAPRINE HCL 10 MG TABLET (FP) PO PRN (09:33)
[2018-06-05] MEDS: THIAMINE HCL 100 MG TABLET (FP) PO SCH (21:16)
[2018-06-05] MEDS: traZODone HCL 50 MG TABLET (FP) PO SCH (21:16)
[2018-06-06] MEDS: MAG HYDROX/AL HYDROX/SIMETH 30 ML UNIT-DOSE CUP PO PRN (02:46)
[2018-06-06] MEDS: ASPIRIN COATED 81 MG TABLET.EC PO SCH (09:30)
[2018-06-06] MEDS: PRENATAL VITAMINS W/ FOLIC ACID TABLET (FP) PO SCH (09:30)
[2018-06-06] MEDS: SERTRALINE HCL 50 MG TABLET (FP) PO SCH (09:30)
[2018-06-06] MEDS: NICOTINE 14 MG/24 HOURS TOPICAL PATCH TD SCH (09:31)
[2018-06-06] MEDS: PHENYTOIN NA EXTENDED 100 MG CAPSULE (FP) PO SCH ×2 (09:31→21:03)
[2018-06-06] MEDS: ALBUTEROL SO4 8 GM HFA INHALER IH PRN (09:31)
[2018-06-06] MEDS: CHOLECALCIFEROL (VITAMIN D3) 1,000 UNIT TABLET (FP) PO SCH (09:31)
[2018-06-06] MEDS: PANTOPRAZOLE 40 MG TABLET (FP) PO SCH (17:06)
[2018-06-06] MEDS: traZODone HCL 50 MG TABLET (FP) PO SCH (21:04)
[2018-06-06] MEDS: THIAMINE HCL 100 MG TABLET (FP) PO SCH (21:04)
[2018-06-06] MEDS: MELATONIN 5 MG TABLETS PO PRN (21:04)
[2018-06-07] MEDS: MAG HYDROX/AL HYDROX/SIMETH 30 ML UNIT-DOSE CUP PO PRN (05:18)
[2018-06-07] MEDS: ALBUTEROL SO4 8 GM HFA INHALER IH PRN ×3 (05:19→21:51)
[2018-06-07] MEDS: NICOTINE 14 MG/24 HOURS TOPICAL PATCH TD SCH (09:41)
[2018-06-07] MEDS: SERTRALINE HCL 50 MG TABLET (FP) PO SCH (09:41)
[2018-06-07] MEDS: PRENATAL VITAMINS W/ FOLIC ACID TABLET (FP) PO SCH (09:41)
[2018-06-07] MEDS: ASPIRIN COATED 81 MG TABLET.EC PO SCH (09:41)
[2018-06-07] MEDS: CHOLECALCIFEROL (VITAMIN D3) 1,000 UNIT TABLET (FP) PO SCH (09:41)
[2018-06-07] MEDS: PANTOPRAZOLE 40 MG TABLET (FP) PO SCH ×2 (09:42→21:50)
[2018-06-07] MEDS: PHENYTOIN NA EXTENDED 100 MG CAPSULE (FP) PO SCH ×2 (09:42→21:50)
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
--- NOTE | 2018-06-07 15:13 | PN ---
S Progress Note Note: Vital Signs Temperature 98.3 F 06/07/18 06:48 Pulse Rate 78 06/07/18 06:48 Respiratory Rate 18 06/07/18 06:48 Blood Pressure 121/85 06/07/18 06:48 O2 Sat by Pulse Oximetry (%) Patient c/o of acid reflux currently on protonix 40mg qd in AM with no relief, reports worsening symptoms in the night hours. Patient Aox3, no distress no adventitious breath sounds full ROM GERD Plan: continue protonix in AM Ranitidine 150 mg at night low acid diet HOB elevated increase po fluids continue to monitor Patient to follow up with primary care provider upon discharge.
[2018-06-07] MEDS: traZODone HCL 50 MG TABLET (FP) PO SCH (21:50)
[2018-06-07] MEDS: THIAMINE HCL 100 MG TABLET (FP) PO SCH (21:50)
[2018-06-07] MEDS: MELATONIN 5 MG TABLETS PO PRN (21:50)
[2018-06-07] MEDS ORDERED: RANITIDINE HCL 150 MG TABLET (FP) PO SCH (22:00)
[2018-06-08] MEDS: PRENATAL VITAMINS W/ FOLIC ACID TABLET (FP) PO SCH (09:58)
[2018-06-08] MEDS: ASPIRIN COATED 81 MG TABLET.EC PO SCH (09:58)
[2018-06-08] MEDS: PHENYTOIN NA EXTENDED 100 MG CAPSULE (FP) PO SCH ×2 (09:58→21:29)
[2018-06-08] MEDS: NICOTINE 14 MG/24 HOURS TOPICAL PATCH TD SCH (09:58)
[2018-06-08] MEDS: CHOLECALCIFEROL (VITAMIN D3) 1,000 UNIT TABLET (FP) PO SCH (09:58)
[2018-06-08] MEDS: PANTOPRAZOLE 40 MG TABLET (FP) PO SCH ×2 (09:58→21:29)
[2018-06-08] MEDS: SERTRALINE HCL 50 MG TABLET (FP) PO SCH (09:58)
[2018-06-08] MEDS: ALBUTEROL SO4 8 GM HFA INHALER IH PRN (09:59)
[2018-06-08] MEDS: MELATONIN 5 MG TABLETS PO PRN (21:28)
[2018-06-08] MEDS: THIAMINE HCL 100 MG TABLET (FP) PO SCH (21:28)
[2018-06-08] MEDS: traZODone HCL 50 MG TABLET (FP) PO SCH (21:29)
[2018-06-09] MEDS: ALBUTEROL SO4 8 GM HFA INHALER IH PRN ×3 (02:13→21:37)
[2018-06-09] MEDS: PANTOPRAZOLE 40 MG TABLET (FP) PO SCH ×2 (09:42→21:36)
[2018-06-09] MEDS: CHOLECALCIFEROL (VITAMIN D3) 1,000 UNIT TABLET (FP) PO SCH (09:42)
[2018-06-09] MEDS: PRENATAL VITAMINS W/ FOLIC ACID TABLET (FP) PO SCH (09:42)
[2018-06-09] MEDS: SERTRALINE HCL 50 MG TABLET (FP) PO SCH (09:42)
[2018-06-09] MEDS: ASPIRIN COATED 81 MG TABLET.EC PO SCH (09:42)
[2018-06-09] MEDS: PHENYTOIN NA EXTENDED 100 MG CAPSULE (FP) PO SCH ×2 (09:42→21:36)
[2018-06-09] MEDS: NICOTINE 14 MG/24 HOURS TOPICAL PATCH TD SCH (09:43)
[2018-06-09] MEDS: traZODone HCL 50 MG TABLET (FP) PO SCH (21:36)
[2018-06-09] MEDS: THIAMINE HCL 100 MG TABLET (FP) PO SCH (21:36)
[2018-06-09] MEDS: CYCLOBENZAPRINE HCL 10 MG TABLET (FP) PO PRN (21:36)
[2018-06-09] MEDS: MELATONIN 5 MG TABLETS PO PRN (21:37)
[2018-06-10 06:43] VITALS: BP 121/78; PULSE 67; TEMP 97.9
[2018-06-10] MEDS: PRENATAL VITAMINS W/ FOLIC ACID TABLET (FP) PO SCH (09:56)
[2018-06-10] MEDS: ASPIRIN COATED 81 MG TABLET.EC PO SCH (09:57)
[2018-06-10] MEDS: CHOLECALCIFEROL (VITAMIN D3) 1,000 UNIT TABLET (FP) PO SCH (09:57)
[2018-06-10] MEDS: PANTOPRAZOLE 40 MG TABLET (FP) PO SCH ×2 (09:57→21:21)
[2018-06-10] MEDS: SERTRALINE HCL 50 MG TABLET (FP) PO SCH (09:57)
[2018-06-10] MEDS: PHENYTOIN NA EXTENDED 100 MG CAPSULE (FP) PO SCH ×2 (09:57→21:22)
[2018-06-10] MEDS: NICOTINE 14 MG/24 HOURS TOPICAL PATCH TD SCH (09:57)
[2018-06-10] MEDS: THIAMINE HCL 100 MG TABLET (FP) PO SCH (21:21)
[2018-06-10] MEDS: MELATONIN 5 MG TABLETS PO PRN (21:22)
[2018-06-10] MEDS: CYCLOBENZAPRINE HCL 10 MG TABLET (FP) PO PRN (21:22)
[2018-06-10] MEDS: traZODone HCL 50 MG TABLET (FP) PO SCH (21:22)
[2018-06-10] MEDS: ALBUTEROL SO4 8 GM HFA INHALER IH PRN (21:23)
--- NOTE | 2018-06-11 09:35 | PN ---
Psychiatric Progress Note Vital Signs: Vital Signs Period Temp Pulse Resp BP Sys/Beaulieu Pulse Ox Last 24 Hr 20-20 Date of Session: 06/11/18 Chief Complaint:: Discharge Note HPI: Patient addressing Alcohol and Cocaine Dependence comorbid with Nicotine Dependence, Substance-Induced Mood Disorder and Substance-Induced Sleep Disorder ROS: Asthma, GERD, LBP, Obesity Current Medications: Active Medications Generic Name Dose Route Start Last Admin Trade Name Freq PRN Reason Stop Dose Admin Acetaminophen 650 mg 05/31/18 15:38 Tylenol - PO Q4H PRN FEVER Al Hydroxide/Mg Hydroxide 30 ml 05/31/18 15:38 06/07/18 05:18 Mylanta Oral Suspension - PO 30 ml Q6H PRN Administration DYSPEPSIA Albuterol Sulfate 2 puff 05/31/18 15:51 06/10/18 21:23 Ventolin Hfa Inhaler - IH 2 puff Q4H PRN Administration SHORTNESS OF BREATH Aspirin 81 mg 05/31/18 15:45 06/10/18 09:57 Ecotrin - PO 81 mg DAILY ANGEL Administration Cholecalciferol 1,000 unit 05/31/18 16:00 06/10/18 09:57 Vitamin D3 - PO 1,000 unit DAILY ANGEL Administration Cyclobenzaprine HCl 10 mg 06/03/18 22:56 06/10/18 21:22 Flexeril - PO 10 mg TID PRN Administration MUSCLE SPASMS Eucalyptus/Menthol/Phenol/Sorbitol 1 each 05/31/18 15:38 Cepastat Lozenge - MM Q4H PRN SORE THROAT Guaifenesin 10 ml 05/31/18 15:38 Robitussin Dm - PO Q6H PRN COUGH Hydroxyzine Pamoate 50 mg 05/31/18 15:38 Vistaril - PO Q4H PRN AGITATION Ibuprofen 400 mg 05/31/18 15:38 Motrin - PO Q6H PRN PAIN LEVEL 4-6 Loperamide HCl 4 mg 05/31/18 15:38 Imodium - PO Q6H PRN DIARRHEA Magnesium Citrate 300 ml 05/31/18 15:38 Citroma - PO Q48H PRN CONSTIPATION Magnesium Hydroxide 30 ml 05/31/18 15:38 Milk Of Magnesia - PO DAILY PRN CONSTIPATION Melatonin 5 mg 05/31/18 22:00 06/10/18 21:22 Melatonin PO 5 mg HS PRN Administration INSOMNIA Nicotine 14 mg 05/31/18 16:45 06/10/18 09:57 Nicoderm Patch - TD Not Given DAILY ANGEL Nicotine Polacrilex 2 mg 05/31/18 15:38 Nicorette Gum - BC Q2H PRN NICOTINE REPLACEMENT RX Pantoprazole Sodium 40 mg 06/07/18 22:00 06/10/18 21:21 Protonix - PO 40 mg BID ANGEL Administration Phenytoin Sodium 300 mg 06/01/18 10:00 06/10/18 09:57 Dilantin - PO 300 mg DAILY ANGEL Administration Phenytoin Sodium 200 mg 05/31/18 22:00 06/10/18 21:22 Dilantin - PO 200 mg HS ANGEL Administration Multivit/Folic Acid/Iron 1 tab 06/01/18 10:00 06/10/18 09:56 Vitamins (Sjr) - PO 1 tab DAILY ANGEL Administration Pseudoephedrine/Triprolidine 1 combo 05/31/18 15:38 Actifed - PO TID PRN NASAL CONGESTION Sertraline HCl 50 mg 06/02/18 10:00 06/10/18 09:57 Zoloft - PO 50 mg DAILY ANGEL Administration Thiamine HCl 100 mg 05/31/18 22:00 06/10/18 21:21 Vitamin B1 - PO 100 mg HS ANGEL Administration Trazodone HCl 50 mg 06/01/18 22:00 06/10/18 21:22 Desyrel - PO 50 mg HS ANGEL Administration Current Side Effect: No Lab tests ordered: Yes Lab tests reviewed: Yes Provider note:: Patient has completed this program today. He has met his treatment goals and will continue to address his issues in outpatient treatment at [facility] 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 He responded well to Trazadone 50 mg po HS. Script for 30 days supply of that medication is electronically transmitted to [facility] pharmacy at [address] [place] [id number]. He is stable for discharge today Total face to face time:: 35 Mental Status Exam - Mental Status Exam Alert and Oriented to: Time, Place, Person Cognitive Function: Fair Patient Appearance: Well Groomed Mood: Hopeful, Euthymic Affect: Appropriate Patient Behavior: Cooperative Speech Pattern: Clear Voice Loudness: Normal Thought Process: Intact, Goal Oriented Thought Disorder: Not Present Hallucinations: Denies Suicidal Ideation: Denies Homicidal Ideation: Denies Insight/Judgement: Fair Sleep: Fair Appetite: Good Muscle strength/Tone: Normal Gait/Station: Normal Psychiatric Treatment Plan - Problem List (1) Alcohol dependence Current Visit: Yes (2) Cocaine dependence Current Visit: Yes Qualifiers: Substance use status: uncomplicated Qualified Code(s): F14.20 - Cocaine dependence, uncomplicated (3) Nicotine dependence Current Visit: Yes Qualifiers: Nicotine product type: cigarettes Substance use status: in withdrawal Qualified Code(s): F17.213 - Nicotine dependence, cigarettes, with withdrawal (4) Schizoaffective disorder Current Visit: No Qualifiers: Schizoaffective disorder type: depressive Qualified Code(s): F25.1 - Schizoaffective disorder, depressive type (5) Substance induced mood disorder Current Visit: Yes (6) Substance-induced sleep disorder Current Visit: Yes (7) Literacy level of illiterate Current Visit: No (8) Mental retardation Current Visit: No (9) Asthma Current Visit: Yes Qualifiers: Asthma severity: unspecified severity Asthma persistence: unspecified Asthma complication type: unspecified Qualified Code(s): J45.909 - Unspecified asthma, uncomplicated (10) Gastroesophageal reflux disease Current Visit: Yes (11) Low back pain Current Visit: Yes Qualifiers: Chronicity: chronic Back pain laterality: unspecified Sciatica presence: unspecified whether sciatica present Qualified Code(s): M54.5 - Low back pain ; G89.29 - Other chronic pain (12) Obesity (BMI 30.0-34.9) Current Visit: Yes (13) seizure disorder Current Visit: Yes Initial treatment plan: Patient will be discharged today and referred to [facility] for outpatient treatment
[2018-06-11] MEDS: PRENATAL VITAMINS W/ FOLIC ACID TABLET (FP) PO SCH (09:54)
[2018-06-11] MEDS: ASPIRIN COATED 81 MG TABLET.EC PO SCH (09:54)
[2018-06-11] MEDS: SERTRALINE HCL 50 MG TABLET (FP) PO SCH (09:54)
[2018-06-11] MEDS: PANTOPRAZOLE 40 MG TABLET (FP) PO SCH (09:54)
[2018-06-11] MEDS: CHOLECALCIFEROL (VITAMIN D3) 1,000 UNIT TABLET (FP) PO SCH (09:54)
[2018-06-11] MEDS: PHENYTOIN NA EXTENDED 100 MG CAPSULE (FP) PO SCH (09:54)
[2018-06-11] MEDS: NICOTINE 14 MG/24 HOURS TOPICAL PATCH TD SCH (09:54)
== END 2018-06-11 09:57 | disposition home or self-care (01) | DRG 895 ==
LOC: YASAS 11:31 → Y3N 16:39 → Y3W 06-04 13:19
PROVIDERS: ATTEND Psychiatry & Neurology Psychiatry
PROC: HZ2ZZZZ Detoxification Services for Substance Abuse Treatment (ICD-10-PCS; 2018-05-31)
PROC: HZ43ZZZ Group Counseling for Substance Abuse Treatment, 12-Step (ICD-10-PCS; principal; 2018-06-04)
DX: F10.20 Alcohol dependence, uncomplicated (principal); F14.20 Cocaine dependence, uncomplicated; F19.282 Other psychoactive substance dependence with psychoactive substance-induced sleep disorder; F17.213 Nicotine dependence, cigarettes, with withdrawal; F19.24 Other psychoactive substance dependence with psychoactive substance-induced mood disorder; F25.1 Schizoaffective disorder, depressive type; F79 Unspecified intellectual disabilities; G47.00 Insomnia, unspecified; G40.909 Epilepsy, unspecified, not intractable, without status epilepticus; J45.909 Unspecified asthma, uncomplicated; K21.9 Gastro-esophageal reflux disease without esophagitis; M54.5 Low back pain; G89.29 Other chronic pain; E66.9 Obesity, unspecified; Z68.32 Body mass index [BMI] 32.0-32.9, adult; Z85.830 Personal history of malignant neoplasm of bone; Z55.0 Illiteracy and low-level literacy; Z91.013 Allergy to seafood; Z91.018 Allergy to other foods
CPT/HCPCS: 36415; 80053; 80185; 81003; 85027; 86593; 87389; 93005; 93010

== ENCOUNTER 2018-09-10 11:57 | Inpatient (IN) | payer OTHER ==
[2018-09-10 12:13] VITALS: BMI 33.5
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
[2018-09-10] MEDS ORDERED: MAGNESIUM HYDROX 2400MG/30ML ORAL SUSPENSION 30 ML CUP PO PRN (13:35)
[2018-09-10] MEDS ORDERED: ACETAMINOPHEN 325 MG TABLET (FP) PO PRN (13:35)
[2018-09-10] MEDS ORDERED: chlordiazePOXIDE HCL 25 MG CAPSULE PO PRN (13:35)
[2018-09-10] MEDS ORDERED: guaiFENesin/D-METHORPHAN HB 10 ML UNIT-DOSE CUPS PO PRN (13:35)
[2018-09-10] MEDS ORDERED: MAGNESIUM CITRATE 300 ML BOTTLE PO PRN (13:35)
[2018-09-10] MEDS ORDERED: MENTHOL/PHENOL 1 EACH UD MM PRN (13:35)
[2018-09-10] MEDS ORDERED: IBUPROFEN 400 MG TABLET (FP) PO PRN (13:35)
[2018-09-10] MEDS ORDERED: P-EPHED 60MG/TRIPROLIDI 2.5MG TABLET PO PRN (13:35)
[2018-09-10] MEDS ORDERED: hydrOXYzine HCL 25 MG TABLET (FP) PO PRN (13:37)
[2018-09-10] MEDS ORDERED: ALBUTEROL SO4 8 GM HFA INHALER IH PRN (13:37)
[2018-09-10] MEDS ORDERED: METOPROLOL TARTRATE 25 MG TABLET (FP) PO ONE (16:00)
[2018-09-10] MEDS: chlordiazePOXIDE HCL 25 MG CAPSULE PO SCH ×2 (17:53→22:36)
[2018-09-10] MEDS ORDERED: MELATONIN 5 MG TABLETS PO PRN (22:00)
[2018-09-10] MEDS: PHENYTOIN NA EXTENDED 100 MG CAPSULE (FP) PO SCH (22:35)
[2018-09-10] MEDS: THIAMINE HCL 100 MG TABLET (FP) PO SCH (22:35)
[2018-09-11] MEDS: chlordiazePOXIDE HCL 25 MG CAPSULE PO SCH ×4 (06:29→22:47)
[2018-09-11] MEDS: PRENATAL VITAMINS W/ FOLIC ACID TABLET (FP) PO SCH (10:46)
[2018-09-11] MEDS: ASPIRIN COATED 81 MG TABLET.EC PO SCH (10:46)
[2018-09-11] MEDS: PHENYTOIN NA EXTENDED 100 MG CAPSULE (FP) PO SCH ×2 (10:46→22:47)
[2018-09-11 10:57] LABS: ALBUMIN 3.9 g/dl (3.4-5.0); ALK PHOS 105 U/L (45-117); ANION GAP 7 MMOL/L (8-16); BILIRUBIN,TOTAL 0.5 mg/dL (0.2-1); BLOOD UREA NITROGEN 14 mg/dL (7-18); CALCIUM 8.7 mg/dL (8.5-10.1); CHLORIDE 105 mmol/L (98-107); CO2 27 mmol/L (21-32); CREATININE 1.2 mg/dL (0.55-1.3); GLUCOSE,RANDOM 119 mg/dL (74-106); SGOT/AST 33 U/L (15-37); SGPT/ALT 33 U/L (13-61); SODIUM 139 mmol/L (136-145); TOT PROT 7.5 g/dl (6.4-8.2)
[2018-09-11 11:04] LABS: HEMATOCRIT 40.7 % (35.4-49); HEMOGLOBIN 14.3 GM/dL (11.7-16.9); MCH 33.1 pg (25.7-33.7); MCHC 35.2 g/dl (32.0-35.9); MEAN CELL VOLUME 94.2 fl (80-96); MEAN PLT VOLUME 10.2 fl (7.5-11.1); PLATELET COUNT 237 K/MM3 (134-434); RBC 4.32 M/mm3 (4.00-5.60); RDW 13.5 % (11.9-15.9); WHITE BLOOD COUNT 8.1 K/mm3 (4.0-10.0)
--- NOTE | 2018-09-11 14:46 | PN ---
S CIWA - CIWA Score Nausea/Vomitin-Mild Nausea/No Vomiting Muscle Tremors: 4-Moderate,w/Arms Extend Anxiety: 1-Mildly Anxious Agitation: 2 Paroxysmal Sweats: 2 Orientation: 0-Oriented Tacttile Disturbances: 0-None Auditory Disturbances: 0-None Visual Disturbances: 0-None Headache: 1-Very Mild CIWA-Ar Total Score: 11 [facility] Progress Note (SOAP) Subjective: Pt states he is feeling tremulous- on alcohol detox protocol, day #1 Vital Signs - 24 hr 09/10/18 09/10/18 09/11/18 18:40 22:16 00:30 Temperature 98.4 F 97.8 F Pulse Rate 77 68 Respiratory 18 18 18 Rate Blood Pressure 137/83 132/81 09/11/18 09/11/18 09/11/18 03:30 06:58 09:48 Temperature 98.4 F Pulse Rate 63 62 Respiratory 18 18 20 Rate Blood Pressure 115/50 L 103/53 L 09/11/18 14:23 Temperature 98.1 F Pulse Rate 65 Respiratory 18 Rate Blood Pressure 107/54 L Laboratory Tests 09/11/18 09/11/18 05:30 05:30 WBC 8.1 RBC 4.32 Hgb 14.3 Hct 40.7 MCV 94.2 MCH 33.1 MCHC 35.2 RDW 13.5 Plt Count 237 D MPV 10.2 D Sodium 139 Potassium 4.0 Chloride 105 Carbon Dioxide 27 Anion Gap 7 L BUN 14 Creatinine 1.2 Creat Clearance w eGFR > 60 Random Glucose 119 H Calcium 8.7 Total Bilirubin 0.5 AST 33 ALT 33 Alkaline Phosphatase 105 Total Protein 7.5 Albumin 3.9 a/p: AUD: continue alcohol detox protocol, prn clonidine and vistaril for Sx
[2018-09-11] MEDS ORDERED: cloNIDine HCL 0.1 MG TABLET PO PRN (15:10)
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
[2018-09-11] MEDS: traZODone HCL 50 MG TABLET (FP) PO SCH (22:46)
[2018-09-11] MEDS: BENZTROPINE MESYLATE 1 MG TABLET (FP) PO SCH (22:46)
[2018-09-11] MEDS: HALOPERIDOL 1 MG TABLET (FP) PO SCH (22:47)
[2018-09-11] MEDS: THIAMINE HCL 100 MG TABLET (FP) PO SCH (23:13)
[2018-09-12] MEDS: chlordiazePOXIDE HCL 25 MG CAPSULE PO SCH ×2 (06:14→10:41)
--- NOTE | 2018-09-12 10:08 | PN ---
[facility] CIWA - CIWA Score Nausea/Vomitin-Mild Nausea/No Vomiting Muscle Tremors: 3 Anxiety: 2 Agitation: 3 Paroxysmal Sweats: 1-Minimal Palms Moist Orientation: 0-Oriented Tacttile Disturbances: 0-None Auditory Disturbances: 0-None Visual Disturbances: 0-None Headache: 1-Very Mild CIWA-Ar Total Score: 11 S Progress Note (SOAP) Subjective: tremor sweat headaches seizure since age 3 with unknown origin last seizure episode "I do not know" Objective: 09/12/18 10:06 Vital Signs Temperature 97.7 F 09/12/18 04:00 Pulse Rate 69 09/12/18 04:00 Respiratory Rate 20 09/12/18 04:00 Blood Pressure 105/63 09/12/18 04:00 O2 Sat by Pulse Oximetry (%) Laboratory Last Values WBC 8.1 K/mm3 (4.0-10.0) 09/11/18 05:30 RBC 4.32 M/mm3 (4.00-5.60) 09/11/18 05:30 Hgb 14.3 GM/dL (11.7-16.9) 09/11/18 05:30 Hct 40.7 % (35.4-49) 09/11/18 05:30 MCV 94.2 fl (80-96) 09/11/18 05:30 MCH 33.1 pg (25.7-33.7) 09/11/18 05:30 MCHC 35.2 g/dl (32.0-35.9) 09/11/18 05:30 RDW 13.5 % (11.9-15.9) 09/11/18 05:30 Plt Count 237 K/MM3 (134-434) D 09/11/18 05:30 MPV 10.2 fl (7.5-11.1) D 09/11/18 05:30 Sodium 139 mmol/L (136-145) 09/11/18 05:30 Potassium 4.0 mmol/L (3.5-5.1) 09/11/18 05:30 Chloride 105 mmol/L (98-107) 09/11/18 05:30 Carbon Dioxide 27 mmol/L (21-32) 09/11/18 05:30 Anion Gap 7 MMOL/L (8-16) L 09/11/18 05:30 BUN 14 mg/dL (7-18) 09/11/18 05:30 Creatinine 1.2 mg/dL (0.55-1.3) 09/11/18 05:30 Creat Clearance w eGFR > 60 (>60) 09/11/18 05:30 Random Glucose 119 mg/dL (74-106) H 09/11/18 05:30 Calcium 8.7 mg/dL (8.5-10.1) 09/11/18 05:30 Total Bilirubin 0.5 mg/dL (0.2-1) 09/11/18 05:30 AST 33 U/L (15-37) 09/11/18 05:30 ALT 33 U/L (13-61) 09/11/18 05:30 Alkaline Phosphatase 105 U/L (45-117) 09/11/18 05:30 Total Protein 7.5 g/dl (6.4-8.2) 09/11/18 05:30 Albumin 3.9 g/dl (3.4-5.0) 09/11/18 05:30 lab noted dilantin serum level pending Assessment: 09/12/18 10:07 alcohol withdrawal sx Plan: continue alcohol detox dilantin level pending
[2018-09-12] MEDS: PRENATAL VITAMINS W/ FOLIC ACID TABLET (FP) PO SCH (10:40)
[2018-09-12] MEDS: HALOPERIDOL 1 MG TABLET (FP) PO SCH ×2 (10:41→22:11)
[2018-09-12] MEDS: PHENYTOIN NA EXTENDED 100 MG CAPSULE (FP) PO SCH ×2 (10:41→22:12)
[2018-09-12] MEDS: SERTRALINE HCL 50 MG TABLET (FP) PO SCH (10:41)
[2018-09-12] MEDS: ASPIRIN COATED 81 MG TABLET.EC PO SCH (10:41)
[2018-09-12] MEDS: BENZTROPINE MESYLATE 1 MG TABLET (FP) PO SCH ×2 (10:42→22:11)
[2018-09-12] MEDS: chlordiazePOXIDE 5 MG CAPSULE PO SCH ×2 (17:03→22:11)
[2018-09-12] MEDS: THIAMINE HCL 100 MG TABLET (FP) PO SCH (22:11)
[2018-09-12] MEDS: traZODone HCL 50 MG TABLET (FP) PO SCH (22:11)
[2018-09-13] MEDS: MAG HYDROX/AL HYDROX/SIMETH 30 ML UNIT-DOSE CUP PO PRN (00:54)
[2018-09-13] MEDS: chlordiazePOXIDE 5 MG CAPSULE PO SCH ×2 (06:08→10:27)
[2018-09-13] MEDS: PRENATAL VITAMINS W/ FOLIC ACID TABLET (FP) PO SCH (10:27)
[2018-09-13] MEDS: PHENYTOIN NA EXTENDED 100 MG CAPSULE (FP) PO SCH ×2 (10:27→22:24)
[2018-09-13] MEDS: HALOPERIDOL 1 MG TABLET (FP) PO SCH ×2 (10:27→22:24)
[2018-09-13] MEDS: SERTRALINE HCL 50 MG TABLET (FP) PO SCH (10:28)
[2018-09-13] MEDS: BENZTROPINE MESYLATE 1 MG TABLET (FP) PO SCH ×2 (10:28→22:24)
[2018-09-13] MEDS: ASPIRIN COATED 81 MG TABLET.EC PO SCH (10:28)
--- NOTE | 2018-09-13 10:57 | PN ---
[facility] Progress Note Note: PATIENT CONTINUES WITH DETOX REGIMEN. PATIENT C/O NIGHT SWEATS, ANXIETY AND INTERRUPTED SLEEP. Vital Signs Temperature 96.8 F L 09/13/18 09:03 Pulse Rate 68 09/13/18 09:03 Respiratory Rate 18 09/13/18 09:03 Blood Pressure 103/56 L 09/13/18 09:03 O2 Sat by Pulse Oximetry (%) Laboratory Tests 09/11/18 09/11/18 09/11/18 05:30 05:30 05:30 WBC 8.1 RBC 4.32 Hgb 14.3 Hct 40.7 MCV 94.2 MCH 33.1 MCHC 35.2 RDW 13.5 Plt Count 237 D MPV 10.2 D Sodium 139 Potassium 4.0 Chloride 105 Carbon Dioxide 27 Anion Gap 7 L BUN 14 Creatinine 1.2 Creat Clearance w eGFR > 60 Random Glucose 119 H Calcium 8.7 Total Bilirubin 0.5 AST 33 ALT 33 Alkaline Phosphatase 105 Total Protein 7.5 Albumin 3.9 Phenytoin RPR Titer Nonreactive 09/13/18 07:00 WBC RBC Hgb Hct MCV MCH MCHC RDW Plt Count MPV Sodium Potassium Chloride Carbon Dioxide Anion Gap BUN Creatinine Creat Clearance w eGFR Random Glucose Calcium Total Bilirubin AST ALT Alkaline Phosphatase Total Protein Albumin Phenytoin 6.2 L RPR Titer PE: ALERT AND ORIENTED X 3 SKIN WARM, MILD MOISTURE TO BACK AND CHEST EXT FULL ROM, MILD TREMORS FELT AMB AD LEXA +ANXIETY A/P: WITHDRAWAL SX CONTINUE DETOX REGIMEN ENCOURAGE ORAL FLUIDS CONTINUE TO MONITOR FOR D/C IN AM
[2018-09-13] MEDS: chlordiazePOXIDE HCL 10 MG CAPSULE PO SCH ×2 (17:18→22:24)
[2018-09-13] MEDS: traZODone HCL 50 MG TABLET (FP) PO SCH (22:24)
[2018-09-13] MEDS: THIAMINE HCL 100 MG TABLET (FP) PO SCH (22:24)
[2018-09-14] MEDS: MAG HYDROX/AL HYDROX/SIMETH 30 ML UNIT-DOSE CUP PO PRN (01:02)
[2018-09-14] MEDS: chlordiazePOXIDE HCL 10 MG CAPSULE PO SCH ×2 (06:38→10:13)
--- NOTE | 2018-09-14 08:50 | DS ---
[facility] Discharge Summary Admission Date: 09/10/18 Discharge Date: 09/14/18 - History Present History: Alcohol Dependence, Cocaine Dependence - Physical Exam Results Vital Signs: Vital Signs Temperature 97.7 F 09/14/18 06:10 Pulse Rate 73 09/14/18 06:10 Respiratory Rate 18 09/14/18 06:10 Blood Pressure 139/85 09/14/18 06:10 O2 Sat by Pulse Oximetry (%) - Treatment Hospital Course: Detox Protocol Followed, Detoxed Safely, Responded well, Discharged Condition Good, Rehab Referral Accepted - Medication Discharge Medications: Ambulatory Orders Folic Acid - 1 mg PO DAILY 05/31/18 Sertraline HCl [Zoloft -] 50 mg PO DAILY 05/31/18 Cholecalciferol (Vitamin D3) [Vitamin D3 -] 1,000 unit PO DAILY #30 tab Ibuprofen 600 mg PO Q6H PRN #90 tablet 06/11/18 Omeprazole 40 mg PO DAILY #30 capsule. 06/11/18 traZODone HCL [Trazodone HCl] 50 mg PO HS #30 tablet 06/11/18 Albuterol Sulfate Inhaler - [Ventolin HFA Inhaler -] 1 - 2 inh PO Q4H #1 inhaler 09/13/18 Aspirin [Aspirin EC] 81 mg PO DAILY #14 tablet. 09/13/18 Phenytoin Na Extended [Dilantin -] 200 mg PO HS #14 capsule 09/13/18 Phenytoin Na Extended [Dilantin -] 300 mg PO DAILY #30 capsule 09/13/18 - AMA Did Patient Leave Against Medical Advice: No (referred to inpatient rehab)
[2018-09-14] MEDS: PRENATAL VITAMINS W/ FOLIC ACID TABLET (FP) PO SCH (09:16)
[2018-09-14] MEDS: BENZTROPINE MESYLATE 1 MG TABLET (FP) PO SCH (09:17)
[2018-09-14] MEDS: PHENYTOIN NA EXTENDED 100 MG CAPSULE (FP) PO SCH (09:18)
[2018-09-14] MEDS: HALOPERIDOL 1 MG TABLET (FP) PO SCH (09:18)
[2018-09-14] MEDS: ASPIRIN COATED 81 MG TABLET.EC PO SCH (09:18)
[2018-09-14] MEDS: SERTRALINE HCL 50 MG TABLET (FP) PO SCH (09:19)
[2018-09-14 09:23] VITALS: BP 129/96; PULSE 80; TEMP 97.9
== END 2018-09-14 13:18 | disposition home or self-care (01) | DRG 897 ==
LOC: YASAS 11:57 → Y6N 15:50
PROC: HZ2ZZZZ Detoxification Services for Substance Abuse Treatment (ICD-10-PCS; principal; 2018-09-10)
DX: F19.230 Other psychoactive substance dependence with withdrawal, uncomplicated (principal); F14.20 Cocaine dependence, uncomplicated; F10.230 Alcohol dependence with withdrawal, uncomplicated; F17.213 Nicotine dependence, cigarettes, with withdrawal; F25.9 Schizoaffective disorder, unspecified; F19.24 Other psychoactive substance dependence with psychoactive substance-induced mood disorder; G40.909 Epilepsy, unspecified, not intractable, without status epilepticus; G47.00 Insomnia, unspecified; J45.909 Unspecified asthma, uncomplicated; K21.9 Gastro-esophageal reflux disease without esophagitis; M54.5 Low back pain; G89.29 Other chronic pain; R00.0 Tachycardia, unspecified; Z85.830 Personal history of malignant neoplasm of bone; Z91.14 Patient's other noncompliance with medication regimen; Z86.14 Personal history of Methicillin resistant Staphylococcus aureus infection; Z91.013 Allergy to seafood
CPT/HCPCS: 36415; 80053; 80185; 85027; 86593; J0735

== ENCOUNTER 2018-12-02 18:38 | Inpatient (IN) | payer MEDICARE, OTHER ==
[2018-12-02 20:15] VITALS: BMI 34.5
[2018-12-02] MEDS ORDERED: MELATONIN 5 MG TABLETS PO PRN (22:00)
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
[2018-12-02] MEDS ORDERED: guaiFENesin 200 MG/10 ML 10 ML UNIT-DOSE CUPS PO PRN (23:32)
[2018-12-02] MEDS ORDERED: MENTHOL/PHENOL 1 EACH UD MM PRN (23:32)
[2018-12-02] MEDS ORDERED: MAGNESIUM CITRATE 300 ML BOTTLE PO PRN (23:32)
[2018-12-02] MEDS ORDERED: NICOTINE POLACRILEX 2 MG GUM BC PRN (23:32)
[2018-12-02] MEDS ORDERED: LOPERAMIDE HCL 2 MG CAPSULE PO PRN (23:32)
[2018-12-02] MEDS ORDERED: P-EPHED 60MG/TRIPROLIDI 2.5MG TABLET PO PRN (23:32)
[2018-12-02] MEDS ORDERED: MAGNESIUM HYDROX 2400MG/30ML ORAL SUSPENSION 30 ML CUP PO PRN (23:32)
[2018-12-03] MEDS ORDERED: TUBERCULIN PPD 5 TU/0.1ML VIAL ID ONE (07:05)
[2018-12-03] MEDS: MAG HYDROX/AL HYDROX/SIMETH 30 ML UNIT-DOSE CUP PO PRN (08:33)
[2018-12-03] MEDS ORDERED: PT OWN MED DRAWER 7, Y5N ONE ×3 (08:49→15:26)
[2018-12-03] MEDS: ASPIRIN COATED 81 MG TABLET.EC PO SCH (10:14)
[2018-12-03] MEDS: PRENATAL VITAMINS W/ FOLIC ACID TABLET (FP) PO SCH (10:14)
[2018-12-03] MEDS: ALBUTEROL SO4 8 GM HFA INHALER IH PRN (10:17)
[2018-12-03] MEDS: NICOTINE 14 MG/24 HOURS TOPICAL PATCH TD SCH (10:18)
[2018-12-03] MEDS: CHOLECALCIFEROL (VITAMIN D3) 1,000 UNIT TABLET (FP) PO SCH (10:31)
[2018-12-03 10:58] LABS: HEMATOCRIT 41.8 % (35.4-49); HEMOGLOBIN 14.9 GM/dL (11.7-16.9); MCH 33.9 pg (25.7-33.7); MCHC 35.6 g/dl (32.0-35.9); MEAN CELL VOLUME 95.3 fl (80-96); PLATELET COUNT 208 K/MM3 (134-434); RBC 4.39 M/mm3 (4.00-5.60); WHITE BLOOD COUNT 6.2 K/mm3 (4.0-10.0)
[2018-12-03 11:17] LABS: ALBUMIN 3.4 g/dl (3.4-5.0); ALK PHOS 95 U/L (45-117); ANION GAP 5 MMOL/L (8-16); BILIRUBIN,TOTAL 0.2 mg/dL (0.2-1); BLOOD UREA NITROGEN 7 mg/dL (7-18); CALCIUM 7.9 mg/dL (8.5-10.1); CHLORIDE 106 mmol/L (98-107); CO2 30 mmol/L (21-32); GLUCOSE,RANDOM 94 mg/dL (74-106); POTASSIUM 4.3 mmol/L (3.5-5.1); SGOT/AST 12 U/L (15-37); SGPT/ALT 21 U/L (13-61); SODIUM 142 mmol/L (136-145); TOT PROT 6.7 g/dl (6.4-8.2)
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
[2018-12-03] MEDS ORDERED: HALOPERIDOL 2 MG TABLET PO PRN (13:47)
[2018-12-03] MEDS ORDERED: PHENYTOIN NA EXTENDED 100 MG CAPSULE (FP) PO SCH ×2 (14:30→22:00)
[2018-12-03] MEDS: PHENYTOIN NA EXTENDED 100 MG CAPSULE (FP) PO SCH ×2 (15:42→23:29)
[2018-12-03] MEDS: FLUTICASONE PROP 0.05% 16 GM NASAL SPRAY NS SCH (15:42)
--- NOTE | 2018-12-03 16:30 | PN ---
[facility] Progress Note Note: PATIENT REPORTED HAVING MEDICATIONS IN BELONGINGS AND STATED HE TAKES DILANTIN 300MG QAM AND 200MG QPM TO TOTAL 500MG DAILY. PATIENT'S MEDICATIONS REVIEWED AND FOLLOWING PRESCRIPTIONS FROM [facility] RECONCILED: FLUTICASONE NASAL SPRAY, PEPCID 20MG BID (FORMULARY PROTONIX 40MG DAILY ORDERED), DILANTIN 100MG-TAKE 5 CAPSULES DAILY. DATES ON PRESCRIPTION BOTTLES 11/13/[address] ESPINAL. MEDICATIONS RECONCILE. DILANTIN LEVEL ORDERED. Vital Signs Temperature 97.9 F 12/03/18 07:07 Pulse Rate 78 12/03/18 07:07 Respiratory Rate 18 12/03/18 07:07 Blood Pressure 125/84 12/03/18 07:07 O2 Sat by Pulse Oximetry (%) Laboratory Tests 12/03/18 12/03/18 08:00 08:00 WBC 6.2 RBC 4.39 Hgb 14.9 Hct 41.8 MCV 95.3 MCH 33.9 H MCHC 35.6 RDW 13.0 Plt Count 208 MPV 9.0 D Sodium 142 Potassium 4.3 Chloride 106 Carbon Dioxide 30 Anion Gap 5 L BUN 7 Creatinine 1.0 Creat Clearance w eGFR > 60 Random Glucose 94 Calcium 7.9 L Total Bilirubin 0.2 AST 12 L ALT 21 Alkaline Phosphatase 95 Total Protein 6.7 Albumin 3.4
[2018-12-03] MEDS: BENZTROPINE MESYLATE 0.5 MG TABLET (FP) PO SCH (23:29)
[2018-12-03] MEDS: traZODone HCL 50 MG TABLET (FP) PO SCH (23:29)
[2018-12-03] MEDS: THIAMINE HCL 100 MG TABLET (FP) PO SCH (23:30)
[2018-12-04] MEDS: IBUPROFEN 400 MG TABLET (FP) PO PRN ×2 (00:28→23:22)
[2018-12-04 01:16] LABS: URINE APPEARANCE SLCLOUDY; URINE BILIRUBIN NEGATIVE (<2.0 mg/dL); URINE COLOR YELLOW; URINE GLUCOSE (UA) NEGATIVE (NEGATIVE); URINE KETONE NEGATIVE (NEGATIVE); URINE LEUK ESTERASE NEGATIVE (NEGATIVE); URINE NITRITE NEGATIVE (NEGATIVE); URINE PROTEIN NEGATIVE (NEGATIVE); URINE UROBILINOGEN NEGATIVE mg/dL (0.2-1.0)
[2018-12-04] MEDS: ASPIRIN COATED 81 MG TABLET.EC PO SCH (09:41)
[2018-12-04] MEDS: PRENATAL VITAMINS W/ FOLIC ACID TABLET (FP) PO SCH (09:41)
[2018-12-04] MEDS: PHENYTOIN NA EXTENDED 100 MG CAPSULE (FP) PO SCH ×2 (09:41→21:52)
[2018-12-04] MEDS: PANTOPRAZOLE 40 MG TABLET (FP) PO SCH (09:41)
[2018-12-04] MEDS: FLUTICASONE PROP 0.05% 16 GM NASAL SPRAY NS SCH (09:41)
[2018-12-04] MEDS: SERTRALINE HCL 50 MG TABLET (FP) PO SCH (09:41)
[2018-12-04] MEDS: CHOLECALCIFEROL (VITAMIN D3) 1,000 UNIT TABLET (FP) PO SCH (09:41)
[2018-12-04] MEDS: ALBUTEROL SO4 8 GM HFA INHALER IH PRN (09:42)
[2018-12-04] MEDS: NICOTINE 14 MG/24 HOURS TOPICAL PATCH TD SCH (09:44)
[2018-12-04] MEDS: BENZTROPINE MESYLATE 0.5 MG TABLET (FP) PO SCH ×2 (10:58→21:51)
[2018-12-04] MEDS: THIAMINE HCL 100 MG TABLET (FP) PO SCH (21:51)
[2018-12-04] MEDS: traZODone HCL 50 MG TABLET (FP) PO SCH (21:51)
[2018-12-05] MEDS: MAG HYDROX/AL HYDROX/SIMETH 30 ML UNIT-DOSE CUP PO PRN (03:41)
[2018-12-05] MEDS: CHOLECALCIFEROL (VITAMIN D3) 1,000 UNIT TABLET (FP) PO SCH (09:53)
[2018-12-05] MEDS: SERTRALINE HCL 50 MG TABLET (FP) PO SCH (09:53)
[2018-12-05] MEDS: ASPIRIN COATED 81 MG TABLET.EC PO SCH (09:53)
[2018-12-05] MEDS: PHENYTOIN NA EXTENDED 100 MG CAPSULE (FP) PO SCH ×2 (09:53→21:56)
[2018-12-05] MEDS: PRENATAL VITAMINS W/ FOLIC ACID TABLET (FP) PO SCH (09:53)
[2018-12-05] MEDS: FLUTICASONE PROP 0.05% 16 GM NASAL SPRAY NS SCH (09:53)
[2018-12-05] MEDS: BENZTROPINE MESYLATE 0.5 MG TABLET (FP) PO SCH ×2 (09:54→21:53)
[2018-12-05] MEDS: PANTOPRAZOLE 40 MG TABLET (FP) PO SCH (09:54)
[2018-12-05] MEDS: NICOTINE 14 MG/24 HOURS TOPICAL PATCH TD SCH (09:54)
--- NOTE | 2018-12-05 11:14 | PN ---
[facility] Progress Note Note: Vital Signs Temperature 97.2 F L 12/05/18 07:19 Pulse Rate 71 12/05/18 07:19 Respiratory Rate 18 12/05/18 07:19 Blood Pressure 127/91 12/05/18 07:19 O2 Sat by Pulse Oximetry (%) Laboratory Last Values WBC 6.2 K/mm3 (4.0-10.0) 12/03/18 08:00 RBC 4.39 M/mm3 (4.00-5.60) 12/03/18 08:00 Hgb 14.9 GM/dL (11.7-16.9) 12/03/18 08:00 Hct 41.8 % (35.4-49) 12/03/18 08:00 MCV 95.3 fl (80-96) 12/03/18 08:00 MCH 33.9 pg (25.7-33.7) H 12/03/18 08:00 MCHC 35.6 g/dl (32.0-35.9) 12/03/18 08:00 RDW 13.0 % (11.9-15.9) 12/03/18 08:00 Plt Count 208 K/MM3 (134-434) 12/03/18 08:00 MPV 9.0 fl (7.5-11.1) D 12/03/18 08:00 Sodium 142 mmol/L (136-145) 12/03/18 08:00 Potassium 4.3 mmol/L (3.5-5.1) 12/03/18 08:00 Chloride 106 mmol/L (98-107) 12/03/18 08:00 Carbon Dioxide 30 mmol/L (21-32) 12/03/18 08:00 Anion Gap 5 MMOL/L (8-16) L 12/03/18 08:00 BUN 7 mg/dL (7-18) 12/03/18 08:00 Creatinine 1.0 mg/dL (0.55-1.3) 12/03/18 08:00 Creat Clearance w eGFR > 60 (>60) 12/03/18 08:00 Random Glucose 94 mg/dL (74-106) 12/03/18 08:00 Calcium 7.9 mg/dL (8.5-10.1) L 12/03/18 08:00 Total Bilirubin 0.2 mg/dL (0.2-1) 12/03/18 08:00 AST 12 U/L (15-37) L 12/03/18 08:00 ALT 21 U/L (13-61) 12/03/18 08:00 Alkaline Phosphatase 95 U/L (45-117) 12/03/18 08:00 Total Protein 6.7 g/dl (6.4-8.2) 12/03/18 08:00 Albumin 3.4 g/dl (3.4-5.0) 12/03/18 08:00 Urine Color Yellow 12/04/18 00:30 Urine Appearance Slcloudy 12/04/18 00:30 Urine pH 6.0 (5.0-8.0) 12/04/18 00:30 Ur Specific [place] 1.021 (1.010-1.035) 12/04/18 00:30 Urine Protein Negative (NEGATIVE) 12/04/18 00:30 Urine Glucose (UA) Negative (NEGATIVE) 12/04/18 00:30 Urine Ketones Negative (NEGATIVE) 12/04/18 00:30 Urine Blood Negative (NEGATIVE) 12/04/18 00:30 Urine Nitrite Negative (NEGATIVE) 12/04/18 00:30 Urine Bilirubin Negative (<2.0 mg/dL) 12/04/18 00:30 Urine Urobilinogen Negative mg/dL (0.2-1.0) 12/04/18 00:30 Ur Leukocyte Esterase Negative (NEGATIVE) 12/04/18 00:30 Phenytoin 4.5 ug/ml (10.0-20.0) L 12/05/18 08:00 RPR Titer Nonreactive (NONREACTIVE) 12/03/18 08:00 HIV 1&2 Antibody Screen Negative 12/04/18 10:00 HIV P24 Antigen Negative 12/04/18 10:00 repeat dialantin levels in AM
[2018-12-05] MEDS: traZODone HCL 50 MG TABLET (FP) PO SCH (21:53)
[2018-12-05] MEDS: THIAMINE HCL 100 MG TABLET (FP) PO SCH (21:53)
[2018-12-06] MEDS: ACETAMINOPHEN 325 MG TABLET (FP) PO PRN ×2 (00:18→11:53)
[2018-12-06] MEDS: PHENYTOIN NA EXTENDED 100 MG CAPSULE (FP) PO SCH ×2 (10:27→21:31)
[2018-12-06] MEDS: PRENATAL VITAMINS W/ FOLIC ACID TABLET (FP) PO SCH (10:27)
[2018-12-06] MEDS: FLUTICASONE PROP 0.05% 16 GM NASAL SPRAY NS SCH (10:27)
[2018-12-06] MEDS: SERTRALINE HCL 50 MG TABLET (FP) PO SCH (10:28)
[2018-12-06] MEDS: PANTOPRAZOLE 40 MG TABLET (FP) PO SCH (10:28)
[2018-12-06] MEDS: BENZTROPINE MESYLATE 0.5 MG TABLET (FP) PO SCH (10:28)
[2018-12-06] MEDS: NICOTINE 14 MG/24 HOURS TOPICAL PATCH TD SCH (10:28)
[2018-12-06] MEDS: ASPIRIN COATED 81 MG TABLET.EC PO SCH (10:28)
[2018-12-06] MEDS ORDERED: PT OWN MED DRAWER 7, Y5N ONE (10:32)
[2018-12-06] MEDS ORDERED: COLLOIDAL OATMEAL 1 BAR EACH TP PRN (11:40)
[2018-12-06] MEDS: CHOLECALCIFEROL (VITAMIN D3) 1,000 UNIT TABLET (FP) PO SCH (11:54)
--- NOTE | 2018-12-06 11:59 | PN ---
S Progress Note Note: PATIENT C/O ITCHING TO OLD SCAR SITES ON LEFT ANTERIOR SIDE OF CHEST AREA AND DRY SKIN. PATIENT STATES SOAP PROVIDED WORSENS SYMPTOMS. Vital Signs Temperature 98 F 12/06/18 07:03 Pulse Rate 72 12/06/18 07:03 Respiratory Rate 18 12/06/18 07:03 Blood Pressure 120/85 12/06/18 07:03 O2 Sat by Pulse Oximetry (%) Laboratory Tests 12/03/18 12/03/18 12/03/18 08:00 08:00 08:00 WBC 6.2 RBC 4.39 Hgb 14.9 Hct 41.8 MCV 95.3 MCH 33.9 H MCHC 35.6 RDW 13.0 Plt Count 208 MPV 9.0 D Sodium 142 Potassium 4.3 Chloride 106 Carbon Dioxide 30 Anion Gap 5 L BUN 7 Creatinine 1.0 Creat Clearance w eGFR > 60 Random Glucose 94 Calcium 7.9 L Total Bilirubin 0.2 AST 12 L ALT 21 Alkaline Phosphatase 95 Total Protein 6.7 Albumin 3.4 Urine Color Urine Appearance Urine pH Ur Specific [place] Urine Protein Urine Glucose (UA) Urine Ketones Urine Blood Urine Nitrite Urine Bilirubin Urine Urobilinogen Ur Leukocyte Esterase Phenytoin RPR Titer Nonreactive HIV 1&2 Antibody Screen HIV P24 Antigen 12/04/18 12/04/18 12/05/18 00:30 10:00 08:00 WBC RBC Hgb Hct MCV MCH MCHC RDW Plt Count MPV Sodium Potassium Chloride Carbon Dioxide Anion Gap BUN Creatinine Creat Clearance w eGFR Random Glucose Calcium Total Bilirubin AST ALT Alkaline Phosphatase Total Protein Albumin Urine Color Yellow Urine Appearance Slcloudy Urine pH 6.0 Ur Specific [place] 1.021 Urine Protein Negative Urine Glucose (UA) Negative Urine Ketones Negative Urine Blood Negative Urine Nitrite Negative Urine Bilirubin Negative Urine Urobilinogen Negative Ur Leukocyte Esterase Negative Phenytoin 4.5 L RPR Titer HIV 1&2 Antibody Screen Negative HIV P24 Antigen Negative PE: ALERT AND ORIENTED X 3 SKIN WARM AND DRY, + OLD SCAR SITES WITH MILD SURROUNDING REDNESS @ LEFT ANTERIOR CHEST WALL AREA. NO VISIBLE OPEN AREAS NOTED, +DRY PATCHES ON ARMS EXT FULL ROM AMB AD LEXA A/P: PRURITIS DRY SKIN WILL ORDER HYDROCORTISONE 0.5% CREAM BID AVEENO SOAP MONITOR CLINICALLY
[2018-12-06] MEDS: HYDROCORTISONE 0.5% TOPICAL OINTMENT TUBE TP SCH ×2 (13:59→21:33)
--- NOTE | 2018-12-06 16:00 | PN ---
[facility] Progress Note Note: DILANTIN LEVEL INCREASED TO 7.3. STILL MILDLY LOW. WILL REPEAT LEVEL 12/09/18. Laboratory Tests 12/03/18 12/03/18 12/03/18 08:00 08:00 08:00 WBC 6.2 RBC 4.39 Hgb 14.9 Hct 41.8 MCV 95.3 MCH 33.9 H MCHC 35.6 RDW 13.0 Plt Count 208 MPV 9.0 D Sodium 142 Potassium 4.3 Chloride 106 Carbon Dioxide 30 Anion Gap 5 L BUN 7 Creatinine 1.0 Creat Clearance w eGFR > 60 Random Glucose 94 Calcium 7.9 L Total Bilirubin 0.2 AST 12 L ALT 21 Alkaline Phosphatase 95 Total Protein 6.7 Albumin 3.4 Urine Color Urine Appearance Urine pH Ur Specific [place] Urine Protein Urine Glucose (UA) Urine Ketones Urine Blood Urine Nitrite Urine Bilirubin Urine Urobilinogen Ur Leukocyte Esterase Phenytoin RPR Titer Nonreactive HIV 1&2 Antibody Screen HIV P24 Antigen 12/04/18 12/04/18 12/05/18 00:30 10:00 08:00 WBC RBC Hgb Hct MCV MCH MCHC RDW Plt Count MPV Sodium Potassium Chloride Carbon Dioxide Anion Gap BUN Creatinine Creat Clearance w eGFR Random Glucose Calcium Total Bilirubin AST ALT Alkaline Phosphatase Total Protein Albumin Urine Color Yellow Urine Appearance Slcloudy Urine pH 6.0 Ur Specific [place] 1.021 Urine Protein Negative Urine Glucose (UA) Negative Urine Ketones Negative Urine Blood Negative Urine Nitrite Negative Urine Bilirubin Negative Urine Urobilinogen Negative Ur Leukocyte Esterase Negative Phenytoin 4.5 L RPR Titer HIV 1&2 Antibody Screen Negative HIV P24 Antigen Negative 12/06/18 08:30 WBC RBC Hgb Hct MCV MCH MCHC RDW Plt Count MPV Sodium Potassium Chloride Carbon Dioxide Anion Gap BUN Creatinine Creat Clearance w eGFR Random Glucose Calcium Total Bilirubin AST ALT Alkaline Phosphatase Total Protein Albumin Urine Color Urine Appearance Urine pH Ur Specific [place] Urine Protein Urine Glucose (UA) Urine Ketones Urine Blood Urine Nitrite Urine Bilirubin Urine Urobilinogen Ur Leukocyte Esterase Phenytoin 7.3 L RPR Titer HIV 1&2 Antibody Screen HIV P24 Antigen
[2018-12-06] MEDS: THIAMINE HCL 100 MG TABLET (FP) PO SCH (21:30)
[2018-12-06] MEDS: IBUPROFEN 400 MG TABLET (FP) PO PRN (21:30)
[2018-12-06] MEDS: traZODone HCL 50 MG TABLET (FP) PO SCH (21:31)
[2018-12-06] MEDS: BENZTROPINE MESYLATE 1 MG TABLET (FP) PO SCH (21:33)
[2018-12-07 06:41] VITALS: BP 114/72; PULSE 61; TEMP 97.6
[2018-12-07] MEDS: HYDROCORTISONE 0.5% TOPICAL OINTMENT TUBE TP SCH (10:28)
[2018-12-07] MEDS: ASPIRIN COATED 81 MG TABLET.EC PO SCH (10:28)
[2018-12-07] MEDS: FLUTICASONE PROP 0.05% 16 GM NASAL SPRAY NS SCH (10:28)
[2018-12-07] MEDS: PRENATAL VITAMINS W/ FOLIC ACID TABLET (FP) PO SCH (10:28)
[2018-12-07] MEDS: PHENYTOIN NA EXTENDED 100 MG CAPSULE (FP) PO SCH (10:28)
[2018-12-07] MEDS: CHOLECALCIFEROL (VITAMIN D3) 1,000 UNIT TABLET (FP) PO SCH (10:28)
[2018-12-07] MEDS: PANTOPRAZOLE 40 MG TABLET (FP) PO SCH (10:28)
[2018-12-07] MEDS: SERTRALINE HCL 50 MG TABLET (FP) PO SCH (10:28)
[2018-12-07] MEDS: NICOTINE 14 MG/24 HOURS TOPICAL PATCH TD SCH (10:29)
[2018-12-07] MEDS: BENZTROPINE MESYLATE 1 MG TABLET (FP) PO SCH (10:29)
[2018-12-07] MEDS: IBUPROFEN 400 MG TABLET (FP) PO PRN (10:31)
[2018-12-07] MEDS ORDERED: HALOPERIDOL 5 MG TABLET (FP) PO PRN (10:48)
[2018-12-07] MEDS ORDERED: MINERAL OIL/PETROLAT/WATER TOPICAL CREAM 113 GM JAR TP PRN (15:03)
[2018-12-07] MEDS ORDERED: PT OWN MED DRAWER 7, Y5N ONE (20:32)
[2018-12-07] MEDS ORDERED: TOLNAFTATE 1% POWDER 45 GM POW TP SCH (22:00)
--- NOTE | 2018-12-07 23:51 | PN ---
S Progress Note Note: Vital Signs Temperature 97.6 F 12/07/18 06:40 Pulse Rate 61 12/07/18 06:40 Respiratory Rate 18 12/07/18 06:40 Blood Pressure 114/72 12/07/18 06:40 O2 Sat by Pulse Oximetry (%) Patient left AMA. Patient to follow up with attached referrals out patient . Patient in stable medical condition.
[2018-12-10] MEDS ORDERED: RISPERIDONE MICROSPHERES 25 MG/2 ML VIAL IM ONE (10:00)
== END 2018-12-07 20:30 | disposition left against medical advice (07) | DRG 894 ==
LOC: YASAS 18:38 → Y3W 23:41
PROVIDERS: ADMIT Neuromusculoskeletal Medicine & OMM; ATTEND Neuromusculoskeletal Medicine & OMM
PROC: HZ42ZZZ Group Counseling for Substance Abuse Treatment, Cognitive-Behavioral (ICD-10-PCS; principal; 2018-12-02)
DX: F10.20 Alcohol dependence, uncomplicated (principal); F14.20 Cocaine dependence, uncomplicated; F19.282 Other psychoactive substance dependence with psychoactive substance-induced sleep disorder; F17.210 Nicotine dependence, cigarettes, uncomplicated; F19.24 Other psychoactive substance dependence with psychoactive substance-induced mood disorder; F25.1 Schizoaffective disorder, depressive type; F31.9 Bipolar disorder, unspecified; J45.909 Unspecified asthma, uncomplicated; K21.9 Gastro-esophageal reflux disease without esophagitis; L85.3 Xerosis cutis; L29.8 Other pruritus; E66.9 Obesity, unspecified; Z68.34 Body mass index [BMI] 34.0-34.9, adult; Z91.018 Allergy to other foods; Z91.013 Allergy to seafood; Z86.69 Personal history of other diseases of the nervous system and sense organs
CPT/HCPCS: 36415; 80053; 80185; 81003; 85027; 86593; 87389; 90686; G0008

== ENCOUNTER 2019-01-31 20:07 | Inpatient (IN) | payer MEDICARE, OTHER ==
[2019-01-31 21:39] VITALS: BMI 32.1
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
[2019-02-01] MEDS ORDERED: BISMUTH SUBSALICYLATE 524 MG/30 ML UD PO PRN (01:21)
[2019-02-01] MEDS ORDERED: MAGNESIUM CITRATE 300 ML BOTTLE PO PRN (01:21)
[2019-02-01] MEDS ORDERED: MAGNESIUM HYDROX 2400MG/30ML ORAL SUSPENSION 30 ML CUP PO PRN (01:21)
[2019-02-01] MEDS ORDERED: chlordiazePOXIDE HCL 25 MG CAPSULE PO PRN (01:21)
[2019-02-01] MEDS ORDERED: MENTHOL/PHENOL 1 EACH UD MM PRN (01:21)
[2019-02-01] MEDS ORDERED: ACETAMINOPHEN 325 MG TABLET (FP) PO PRN ×2 (01:21)
[2019-02-01] MEDS ORDERED: MAG HYDROX/AL HYDROX/SIMETH 30 ML UNIT-DOSE CUP PO PRN (01:21)
[2019-02-01] MEDS ORDERED: hydrOXYzine PAMOATE 25 MG CAPSULE (FP) PO PRN (01:21)
[2019-02-01] MEDS: MELATONIN 5 MG TABLETS PO PRN (02:13)
[2019-02-01] MEDS: IBUPROFEN 400 MG TABLET (FP) PO PRN ×2 (02:14→22:48)
[2019-02-01] MEDS: ALBUTEROL SO4 8 GM HFA INHALER IH SCH ×6 (04:47→22:51)
[2019-02-01] MEDS: chlordiazePOXIDE HCL 25 MG CAPSULE PO SCH ×4 (06:16→22:46)
[2019-02-01] MEDS ORDERED: LIDOCAINE VISCOUS 2% ORAL/TOP 20 ML UNIT-DOSE CUP MM PRN (08:46)
[2019-02-01] MEDS: PHENYTOIN NA EXTENDED 100 MG CAPSULE (FP) PO SCH ×2 (10:08→22:46)
[2019-02-01] MEDS: PRENATAL VITAMINS W/ FOLIC ACID TABLET (FP) PO SCH (10:09)
[2019-02-01] MEDS: ASPIRIN COATED 81 MG TABLET.EC PO SCH (10:09)
[2019-02-01] MEDS: AMOXICILLIN 500 MG CAPSULE (FP) PO SCH ×2 (10:12→22:46)
--- NOTE | 2019-02-01 10:17 | PN ---
S CIWA - CIWA Score Nausea/Vomitin-Mild Nausea/No Vomiting Muscle Tremors: 4-Moderate,w/Arms Extend Anxiety: 3 Agitation: 2 Paroxysmal Sweats: 1-Minimal Palms Moist Orientation: 1-Uncertain about Date Tacttile Disturbances: 0-None Auditory Disturbances: 0-None Visual Disturbances: 0-None Headache: 2-Mild CIWA-Ar Total Score: 14 [facility] Progress Note (SOAP) Subjective: right lower tooth cracked x "months" no bleed mild swell erythematous, 5/10 pain amoxicillin 500 mg + lidocain oral rinse can chew regular food and tolerate fluid well Objective: 02/01/19 10:16 Vital Signs Temperature 97.2 F L 02/01/19 09:12 Pulse Rate 79 02/01/19 09:12 Respiratory Rate 20 02/01/19 09:12 Blood Pressure 132/88 02/01/19 09:12 O2 Sat by Pulse Oximetry (%) 02/01/19 10:16 lab pending Assessment: 02/01/19 10:16 alcohol withdrawal sx 02/01/19 10:17 gum abscess Plan: continue detox
[2019-02-01] MEDS: CHOLECALCIFEROL (VITAMIN D3) 1,000 UNIT TABLET (FP) PO SCH (10:36)
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
[2019-02-01] MEDS: THIAMINE HCL 100 MG TABLET (FP) PO SCH (22:46)
[2019-02-02] MEDS: ALBUTEROL SO4 8 GM HFA INHALER IH SCH ×6 (04:06→22:46)
[2019-02-02] MEDS: chlordiazePOXIDE HCL 25 MG CAPSULE PO SCH ×4 (06:07→22:41)
[2019-02-02] MEDS: AMOXICILLIN 500 MG CAPSULE (FP) PO SCH (10:56)
[2019-02-02] MEDS: SERTRALINE HCL 50 MG TABLET (FP) PO SCH (11:00)
[2019-02-02] MEDS: CHOLECALCIFEROL (VITAMIN D3) 1,000 UNIT TABLET (FP) PO SCH (11:00)
[2019-02-02] MEDS: ASPIRIN COATED 81 MG TABLET.EC PO SCH (11:00)
[2019-02-02] MEDS: PRENATAL VITAMINS W/ FOLIC ACID TABLET (FP) PO SCH (11:00)
[2019-02-02] MEDS: PHENYTOIN NA EXTENDED 100 MG CAPSULE (FP) PO SCH ×2 (11:00→22:41)
[2019-02-02 12:32] LABS: ALBUMIN 3.4 g/dl (3.4-5.0); ALK PHOS 71 U/L (45-117); ANION GAP 7 MMOL/L (8-16); BILIRUBIN,TOTAL 0.5 mg/dL (0.2-1); BLOOD UREA NITROGEN 8 mg/dL (7-18); CALCIUM 8.1 mg/dL (8.5-10.1); CHLORIDE 108 mmol/L (98-107); CO2 28 mmol/L (21-32); GLUCOSE,RANDOM 86 mg/dL (74-106); POTASSIUM 3.5 mmol/L (3.5-5.1); SGOT/AST 14 U/L (15-37); SGPT/ALT 23 U/L (13-61); SODIUM 143 mmol/L (136-145); TOT PROT 6.6 g/dl (6.4-8.2)
[2019-02-02 12:49] LABS: HEMATOCRIT 40.9 % (35.4-49); HEMOGLOBIN 13.8 GM/dL (11.7-16.9); MCH 32.4 pg (25.7-33.7); MCHC 33.8 g/dl (32.0-35.9); MEAN CELL VOLUME 95.9 fl (80-96); PLATELET COUNT 267 K/MM3 (134-434); RBC 4.26 M/mm3 (4.00-5.60); RDW 14.7 % (11.9-15.9); WHITE BLOOD COUNT 5.4 K/mm3 (4.0-10.0)
--- NOTE | 2019-02-02 13:53 | PN ---
[facility] - CIWA Score Nausea/Vomitin-No Nausea/No Vomiting Muscle Tremors: 2 Anxiety: 4-Mod. Anxious/Guarded Agitation: 0-Normal Activity Paroxysmal Sweats: 2 Orientation: 2-Disoriented Date<2 days Tacttile Disturbances: 2-Mild Itch/Numbness/Burn Auditory Disturbances: 0-None Visual Disturbances: 1-Very Mild Sensitivity Headache: 0-None Present CIWA-Ar Total Score: 13 BHS Progress Note (SOAP) Subjective: Sweating, Anxious, Tremors. Objective: PATIENT A & O X 2 (UNCERTAIN ABOUT CURRENT DAY / DATE). IN NO ACUTE DISTRESS. 02/02/19 13:54 Vital Signs Temperature 98.5 F 02/02/19 10:54 Pulse Rate 73 02/02/19 10:54 Respiratory Rate 18 02/02/19 10:54 Blood Pressure 112/87 02/02/19 10:54 O2 Sat by Pulse Oximetry (%) Laboratory Tests 02/02/19 02/02/19 07:30 07:30 WBC 5.4 RBC 4.26 Hgb 13.8 Hct 40.9 MCV 95.9 MCH 32.4 MCHC 33.8 RDW 14.7 D Plt Count 267 D MPV 9.0 Sodium 143 Potassium 3.5 Chloride 108 H Carbon Dioxide 28 Anion Gap 7 L BUN 8 Creatinine 1.0 Creat Clearance w eGFR 79.09 Random Glucose 86 Calcium 8.1 L Total Bilirubin 0.5 AST 14 L ALT 23 Alkaline Phosphatase 71 Total Protein 6.6 Albumin 3.4 LABS NOTED. Assessment: 02/02/19 13:55 WITHDRAWAL SYMPTOMS. HYPOCALCEMIA. 02/02/19 13:56 Plan: CONTINUE DETOX. INCREASE DAILY PO FLUID / WATER INTAKE. OSCAL, 500 MG PO BID FOR HYPOCALCEMIA.
[2019-02-02] MEDS: IBUPROFEN 400 MG TABLET (FP) PO PRN ×2 (14:20→22:43)
[2019-02-02] MEDS: CALCIUM 500MG/VIT-D 200 UNITS COMBO TABLET (FP) PO SCH ×2 (15:39→22:42)
[2019-02-02] MEDS: METHOCARBAMOL 500 MG TABLET PO PRN (22:42)
[2019-02-02] MEDS: THIAMINE HCL 100 MG TABLET (FP) PO SCH (22:42)
[2019-02-02] MEDS: MELATONIN 5 MG TABLETS PO PRN (22:42)
[2019-02-03] MEDS: ALBUTEROL SO4 8 GM HFA INHALER IH SCH ×2 (02:09→06:10)
[2019-02-03] MEDS ORDERED: chlordiazePOXIDE HCL 10 MG CAPSULE PO PRN (05:00)
[2019-02-03] MEDS: chlordiazePOXIDE HCL 10 MG CAPSULE PO SCH ×4 (06:09→22:19)
[2019-02-03] MEDS ORDERED: ALBUTEROL SO4 8 GM HFA INHALER IH PRN (08:35)
[2019-02-03] MEDS: SERTRALINE HCL 50 MG TABLET (FP) PO SCH (10:30)
[2019-02-03] MEDS: PRENATAL VITAMINS W/ FOLIC ACID TABLET (FP) PO SCH (10:30)
[2019-02-03] MEDS: CALCIUM 500MG/VIT-D 200 UNITS COMBO TABLET (FP) PO SCH ×2 (10:30→22:20)
[2019-02-03] MEDS: CHOLECALCIFEROL (VITAMIN D3) 1,000 UNIT TABLET (FP) PO SCH (10:30)
[2019-02-03] MEDS: ASPIRIN COATED 81 MG TABLET.EC PO SCH (10:30)
[2019-02-03] MEDS: PHENYTOIN NA EXTENDED 100 MG CAPSULE (FP) PO SCH ×2 (10:30→22:20)
[2019-02-03] MEDS: IBUPROFEN 400 MG TABLET (FP) PO PRN ×2 (10:32→22:19)
--- NOTE | 2019-02-03 10:50 | PN ---
S CIWA - CIWA Score Nausea/Vomitin-Mild Nausea/No Vomiting Muscle Tremors: 3 Anxiety: 1-Mildly Anxious Agitation: 2 Paroxysmal Sweats: 1-Minimal Palms Moist Orientation: 1-Uncertain about Date Tacttile Disturbances: 0-None Auditory Disturbances: 0-None Visual Disturbances: 0-None Headache: 1-Very Mild CIWA-Ar Total Score: 10 S Progress Note (SOAP) Subjective: doing ok with librium protocol Objective: 02/03/19 10:52 Vital Signs Temperature 97.4 F L 02/03/19 09:01 Pulse Rate 75 02/03/19 09:01 Respiratory Rate 18 02/03/19 09:01 Blood Pressure 128/89 02/03/19 09:01 O2 Sat by Pulse Oximetry (%) Laboratory Last Values WBC 5.4 K/mm3 (4.0-10.0) 02/02/19 07:30 RBC 4.26 M/mm3 (4.00-5.60) 02/02/19 07:30 Hgb 13.8 GM/dL (11.7-16.9) 02/02/19 07:30 Hct 40.9 % (35.4-49) 02/02/19 07:30 MCV 95.9 fl (80-96) 02/02/19 07:30 MCH 32.4 pg (25.7-33.7) 02/02/19 07:30 MCHC 33.8 g/dl (32.0-35.9) 02/02/19 07:30 RDW 14.7 % (11.9-15.9) D 02/02/19 07:30 Plt Count 267 K/MM3 (134-434) D 02/02/19 07:30 MPV 9.0 fl (7.5-11.1) 02/02/19 07:30 Sodium 143 mmol/L (136-145) 02/02/19 07:30 Potassium 3.5 mmol/L (3.5-5.1) 02/02/19 07:30 Chloride 108 mmol/L (98-107) H 02/02/19 07:30 Carbon Dioxide 28 mmol/L (21-32) 02/02/19 07:30 Anion Gap 7 MMOL/L (8-16) L 02/02/19 07:30 BUN 8 mg/dL (7-18) 02/02/19 07:30 Creatinine 1.0 mg/dL (0.55-1.3) 02/02/19 07:30 Creat Clearance w eGFR 79.09 (>60) 02/02/19 07:30 Random Glucose 86 mg/dL (74-106) 02/02/19 07:30 Calcium 8.1 mg/dL (8.5-10.1) L 02/02/19 07:30 Total Bilirubin 0.5 mg/dL (0.2-1) 02/02/19 07:30 AST 14 U/L (15-37) L 02/02/19 07:30 ALT 23 U/L (13-61) 02/02/19 07:30 Alkaline Phosphatase 71 U/L (45-117) 02/02/19 07:30 Total Protein 6.6 g/dl (6.4-8.2) 02/02/19 07:30 Albumin 3.4 g/dl (3.4-5.0) 02/02/19 07:30 RPR Titer Nonreactive (NONREACTIVE) 02/02/19 07:30 lab noted Assessment: 02/03/19 10:52 alcohol withdrawal sx 02/03/19 10:52 asthma Plan: continue detox ventolin prn
[2019-02-03] MEDS: THIAMINE HCL 100 MG TABLET (FP) PO SCH (22:19)
[2019-02-03] MEDS: METHOCARBAMOL 500 MG TABLET PO PRN (22:19)
[2019-02-03] MEDS: MELATONIN 5 MG TABLETS PO PRN (22:20)
[2019-02-04] MEDS ORDERED: chlordiazePOXIDE HCL 10 MG CAPSULE PO SCH (05:00)
[2019-02-04 09:24] VITALS: BP 126/88; PULSE 64; TEMP 98.2
[2019-02-04] MEDS: CALCIUM 500MG/VIT-D 200 UNITS COMBO TABLET (FP) PO SCH (09:25)
[2019-02-04] MEDS: PHENYTOIN NA EXTENDED 100 MG CAPSULE (FP) PO SCH (09:26)
[2019-02-04] MEDS: ASPIRIN COATED 81 MG TABLET.EC PO SCH (09:26)
[2019-02-04] MEDS: PRENATAL VITAMINS W/ FOLIC ACID TABLET (FP) PO SCH (09:27)
[2019-02-04] MEDS: CHOLECALCIFEROL (VITAMIN D3) 1,000 UNIT TABLET (FP) PO SCH (09:27)
[2019-02-04] MEDS: SERTRALINE HCL 50 MG TABLET (FP) PO SCH (09:27)
[2019-02-04] MEDS: IBUPROFEN 400 MG TABLET (FP) PO PRN (09:34)
--- NOTE | 2019-02-04 17:49 | PN ---
S CIWA - CIWA Score Nausea/Vomitin-No Nausea/No Vomiting Muscle Tremors: None Anxiety: 3 Agitation: 2 Paroxysmal Sweats: 1-Minimal Palms Moist Orientation: 0-Oriented Tacttile Disturbances: 1-Very Mild Itch/Numbness Auditory Disturbances: 0-None Visual Disturbances: 1-Very Mild Sensitivity Headache: 0-None Present CIWA-Ar Total Score: 8 BHS Progress Note (SOAP) Subjective: Anxious, Sweating. Objective: PATIENT A & O X 3, OBSERVED AMBULATING ON UNIT UNASSISTED. IN NO ACUTE DISTRESS. 02/04/19 17:47 Vital Signs Temperature 98.2 F 02/04/19 09:24 Pulse Rate 64 02/04/19 09:24 Respiratory Rate 18 02/04/19 09:24 Blood Pressure 126/88 02/04/19 09:24 O2 Sat by Pulse Oximetry (%) Laboratory Tests 02/02/19 02/02/19 02/02/19 07:30 07:30 07:30 WBC 5.4 RBC 4.26 Hgb 13.8 Hct 40.9 MCV 95.9 MCH 32.4 MCHC 33.8 RDW 14.7 D Plt Count 267 D MPV 9.0 Sodium 143 Potassium 3.5 Chloride 108 H Carbon Dioxide 28 Anion Gap 7 L BUN 8 Creatinine 1.0 Creat Clearance w eGFR 79.09 Random Glucose 86 Calcium 8.1 L Total Bilirubin 0.5 AST 14 L ALT 23 Alkaline Phosphatase 71 Total Protein 6.6 Albumin 3.4 RPR Titer Nonreactive LABS NOTED. Assessment: 02/04/19 17:47 COMPLETION OF DETOX REGIMEN. Plan: PATIENT REPORTS THAT CURRENT WITHDRAWAL / DETOX SYMPTOMS ARE MILD IN DEGREE AND THAT HE IS TOLERATING THEM WELL. PATIENT ELECTS TO LEAVE DETOX UNIT TODAY.
--- NOTE | 2019-02-04 17:55 | DS ---
[facility] Detox Discharge Summary Admission Date: 01/31/19 Discharge Date: 02/04/19 - History Present History: Alcohol Dependence, Cocaine Dependence Additional Comments: PATIENT REFERRED TO [facility] [employer] [facility] ([place], [place]) FOR AFTERCARE AND TO [facility] ([place], [place]) FOR HOUSING. PATIENT ADVISED TO FOLLOW-UP WITH JIG INSPECTOR SOON POSSIBLE AFTER DISCHARGE FROM DETOX UNIT FOR GENERAL MEDICAL ASSESSMENT AND FOR HISTORY OF SEIZURES. PATIENT VERBALIZED UNDERSTANDING OF RECOMMENDATION. PRESCRIPTION FOR PHENYTOIN (BOTH FOR AM AND HS DOSES) SENT TO [email or web address] ([place], [place] ), AT PATIENT'S REQUEST FOR AFTERCARE UNTIL HE IS ABLE TO GET IN FOR CONSULTATION WITH JIG INSPECTOR. PATIENT WAS DISCHARGED FROM DETOX UNIT IN STABLE MEDICAL CONDITION. Pertinent Past History: History Of Seizure, Asthma, Depression, G.E.R.D., History Of Bone Cancer, Asthma , Bipolar Disorder, Nicotine Dependence, Schizoaffective Disorder. - Physical Exam Results Vital Signs: Vital Signs Temperature 98.2 F 02/04/19 09:24 Pulse Rate 64 02/04/19 09:24 Respiratory Rate 18 02/04/19 09:24 Blood Pressure 126/88 02/04/19 09:24 O2 Sat by Pulse Oximetry (%) Pertinent Admission Physical Exam Findings: WITHDRAWAL SYMPTOMS. Laboratory Tests 02/02/19 02/02/19 02/02/19 07:30 07:30 07:30 WBC 5.4 RBC 4.26 Hgb 13.8 Hct 40.9 MCV 95.9 MCH 32.4 MCHC 33.8 RDW 14.7 D Plt Count 267 D MPV 9.0 Sodium 143 Potassium 3.5 Chloride 108 H Carbon Dioxide 28 Anion Gap 7 L BUN 8 Creatinine 1.0 Creat Clearance w eGFR 79.09 Random Glucose 86 Calcium 8.1 L Total Bilirubin 0.5 AST 14 L ALT 23 Alkaline Phosphatase 71 Total Protein 6.6 Albumin 3.4 RPR Titer Nonreactive LABS NOTED. - Treatment Hospital Course: Detox Protocol Followed, Detoxed Safely, Responded well, Discharged Condition Good Patient has Accepted a Rehab Referral to: PT. REFERRED TO [facility] ([place], [place]) - Medication Discharge Medications: Ambulatory Orders Folic Acid - 1 mg PO DAILY 05/31/18 Sertraline HCl [Zoloft -] 50 mg PO DAILY 05/31/18 Cholecalciferol (Vitamin D3) [Vitamin D3 -] 1,000 unit PO DAILY #30 tab Ibuprofen 600 mg PO Q6H PRN #90 tablet 06/11/18 Omeprazole 40 mg PO DAILY #30 capsule. 06/11/18 traZODone HCL [Trazodone HCl] 50 mg PO HS #30 tablet 06/11/18 Aspirin [Aspirin EC] 81 mg PO DAILY #14 tablet. 09/13/18 Albuterol Sulfate Inhaler - [Ventolin HFA Inhaler -] 1 - 2 inh PO Q4H PRN #1 inhaler 02/04/19 Phenytoin Na Extended [Dilantin -] 200 mg PO HS #30 capsule 02/04/19 Phenytoin Na Extended [Dilantin -] 300 mg PO DAILY #30 capsule 02/04/19 - Diagnosis (1) Alcohol dependence with uncomplicated withdrawal Status: Acute (2) Asthma Status: Chronic Qualifiers: Asthma severity: unspecified severity Asthma persistence: unspecified Asthma complication type: unspecified Qualified Code(s): J45.909 - Unspecified asthma, uncomplicated (3) Cocaine dependence Status: Chronic Qualifiers: Substance use status: uncomplicated Qualified Code(s): F14.20 - Cocaine dependence, uncomplicated (4) Depression Status: Chronic Qualifiers: Depression Type: unspecified Qualified Code(s): F32.9 - Major depressive disorder, single episode, unspecified (5) GERD (gastroesophageal reflux disease) Status: Chronic Qualifiers: Esophagitis presence: without esophagitis Qualified Code(s): K21.9 - Gastro -esophageal reflux disease without esophagitis (6) Noncompliance by refusing intervention or support Status: Chronic (7) Seizures Status: Chronic (8) Nicotine dependence Status: Chronic Qualifiers: Nicotine product type: cigarettes Substance use status: uncomplicated Qualified Code(s): F17.210 - Nicotine dependence, cigarettes, uncomplicated (9) Non-compliant patient Status: Chronic (10) Schizoaffective disorder Status: Chronic Qualifiers: Schizoaffective disorder type: depressive Qualified Code(s): F25.1 - Schizoaffective disorder, depressive type (11) Substance induced mood disorder Status: Chronic - AMA Did Patient Leave Against Medical Advice: No
== END 2019-02-04 09:42 | disposition home or self-care (01) | DRG 897 ==
LOC: YASAS 20:07 → Y3N 23:58
PROVIDERS: ADMIT Surgery; ATTEND Surgery
PROC: HZ2ZZZZ Detoxification Services for Substance Abuse Treatment (ICD-10-PCS; principal; 2019-01-31)
DX: F10.230 Alcohol dependence with withdrawal, uncomplicated (principal); F14.20 Cocaine dependence, uncomplicated; K12.2 Cellulitis and abscess of mouth; C41.9 Malignant neoplasm of bone and articular cartilage, unspecified; F17.210 Nicotine dependence, cigarettes, uncomplicated; F32.9 Major depressive disorder, single episode, unspecified; F25.9 Schizoaffective disorder, unspecified; F19.24 Other psychoactive substance dependence with psychoactive substance-induced mood disorder; K21.9 Gastro-esophageal reflux disease without esophagitis; G40.909 Epilepsy, unspecified, not intractable, without status epilepticus; E83.51 Hypocalcemia; J45.909 Unspecified asthma, uncomplicated; Z91.19 Patient's noncompliance with other medical treatment and regimen; Z91.013 Allergy to seafood; Z91.048 Other nonmedicinal substance allergy status
CPT/HCPCS: 36415; 80053; 85027; 86593

== ENCOUNTER 2019-02-06 19:00 | Inpatient (IN) | payer MEDICARE, OTHER ==
[2019-02-06 19:23] VITALS: BMI 33.2
--- NOTE | 2019-02-06 20:02 | HP ---
[facility]EX[facility]CANO Rehab Assess/Revision - Admission History Admitted to Rehab from: [facility] Date of Admission to Rehab: 02/06/19 - Vital signs Vital Signs: Vital Signs Period Temp Pulse Resp BP Sys/Beaulieu Pulse Ox Last 24 Hr 98.2 F-98.2 F 74-74 18-18 134-134/92-92 - Findings Detox History & Physical reviewed: Yes Concur with findings: Yes Comments/Additional Findings: patient completed detox from alcohol and cocaine dependence at [facility] from. 01/31/19 to 02/04/19 ,history of seizure,astma,gerd, depression. patient returned for further level of care,medically clear to be admitted to rehab Inpatient Rehab Admission - Rehab Decision to Admit Inpatient rehab admission?: Yes - Initial Determination Are CD services needed?: Yes Free of communicable disease: Yes Not in need of hospitalization: Yes - Rehab Admission Criteria Previous failed treatment: Yes Poor recovery environment: Yes Comorbidities: Yes Lacks judgement: No Patient is meeting Inpatient Rehab admission criteria:: Yes
[2019-02-06] MEDS ORDERED: LOPERAMIDE HCL 2 MG CAPSULE PO PRN (20:14)
[2019-02-06] MEDS ORDERED: MAGNESIUM HYDROX 2400MG/30ML ORAL SUSPENSION 30 ML CUP PO PRN (20:14)
[2019-02-06] MEDS ORDERED: IBUPROFEN 400 MG TABLET (FP) PO PRN (20:14)
[2019-02-06] MEDS ORDERED: MAGNESIUM CITRATE 300 ML BOTTLE PO PRN (20:14)
[2019-02-06] MEDS ORDERED: P-EPHED 60MG/TRIPROLIDI 2.5MG TABLET PO PRN (20:14)
[2019-02-06] MEDS ORDERED: guaiFENesin 200 MG/10 ML 10 ML UNIT-DOSE CUPS PO PRN (20:14)
[2019-02-06] MEDS ORDERED: MENTHOL/PHENOL 1 EACH UD MM PRN (20:14)
[2019-02-06] MEDS ORDERED: ACETAMINOPHEN 325 MG TABLET (FP) PO PRN (20:14)
[2019-02-06] MEDS: traZODone HCL 50 MG TABLET (FP) PO SCH (22:30)
[2019-02-06] MEDS: THIAMINE HCL 100 MG TABLET (FP) PO SCH (22:30)
[2019-02-06] MEDS: PHENYTOIN NA EXTENDED 100 MG CAPSULE (FP) PO SCH (22:30)
[2019-02-07] MEDS: IBUPROFEN 600 MG TABLET (FP) PO PRN ×2 (00:59→22:51)
[2019-02-07] MEDS: ASPIRIN COATED 81 MG TABLET.EC PO SCH (10:03)
[2019-02-07] MEDS: SERTRALINE HCL 50 MG TABLET (FP) PO SCH (10:03)
[2019-02-07] MEDS: PRENATAL VITAMINS W/ FOLIC ACID TABLET (FP) PO SCH (10:05)
[2019-02-07] MEDS: NICOTINE 21 MG/24 HOURS TOPICAL PATCH TD SCH (10:05)
[2019-02-07] MEDS: ALBUTEROL SO4 8 GM HFA INHALER IH PRN (10:05)
--- NOTE | 2019-02-07 10:46 | PN ---
[facility] Progress Note Note: LAB NOTIFICATION DILANTIN LEVEL 2.9. PATIENT ON TREATMENT FOR SZD WITH DILANTIN 200MG DAILY, 300MG HS. ASYMPTOMATIC. WILL REPEAT LEVEL IN AM. Laboratory Tests 02/07/19 08:20 Phenytoin 2.9 L Laboratory Tests 02/07/19 08:20 Phenytoin 2.9 L Vital Signs Temperature 97.3 F L 02/07/19 07:19 Pulse Rate 69 02/07/19 07:19 Respiratory Rate 18 02/07/19 07:19 Blood Pressure 127/80 02/07/19 07:19 O2 Sat by Pulse Oximetry (%)
[2019-02-07] MEDS: PHENYTOIN NA EXTENDED 100 MG CAPSULE (FP) PO SCH ×2 (11:52→21:55)
[2019-02-07] MEDS: CHOLECALCIFEROL (VIT D3) 1,000 UNIT (25 MCG) TABLET PO SCH (11:52)
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
[2019-02-07] MEDS: risperiDONE 1 MG TABLET (FP) PO SCH (14:58)
[2019-02-07] MEDS: THIAMINE HCL 100 MG TABLET (FP) PO SCH (21:55)
[2019-02-07] MEDS: traZODone HCL 50 MG TABLET (FP) PO SCH (21:55)
[2019-02-08] MEDS: MAG HYDROX/AL HYDROX/SIMETH 30 ML UNIT-DOSE CUP PO PRN (01:16)
[2019-02-08] MEDS: PHENYTOIN NA EXTENDED 100 MG CAPSULE (FP) PO SCH ×2 (09:54→21:29)
[2019-02-08] MEDS: CHOLECALCIFEROL (VIT D3) 1,000 UNIT (25 MCG) TABLET PO SCH (09:55)
[2019-02-08] MEDS: SERTRALINE HCL 50 MG TABLET (FP) PO SCH (09:55)
[2019-02-08] MEDS: risperiDONE 1 MG TABLET (FP) PO SCH (09:55)
[2019-02-08] MEDS: PRENATAL VITAMINS W/ FOLIC ACID TABLET (FP) PO SCH (09:55)
[2019-02-08] MEDS: NICOTINE 21 MG/24 HOURS TOPICAL PATCH TD SCH (09:55)
[2019-02-08] MEDS: ASPIRIN COATED 81 MG TABLET.EC PO SCH (09:55)
[2019-02-08] MEDS: traZODone HCL 50 MG TABLET (FP) PO SCH (21:28)
[2019-02-08] MEDS: THIAMINE HCL 100 MG TABLET (FP) PO SCH (21:28)
[2019-02-08] MEDS: IBUPROFEN 600 MG TABLET (FP) PO PRN (21:29)
[2019-02-08] MEDS: MELATONIN 5 MG TABLETS PO PRN (21:29)
[2019-02-09] MEDS: MAG HYDROX/AL HYDROX/SIMETH 30 ML UNIT-DOSE CUP PO PRN ×2 (02:11→21:23)
[2019-02-09] MEDS: CHOLECALCIFEROL (VIT D3) 1,000 UNIT (25 MCG) TABLET PO SCH (09:58)
[2019-02-09] MEDS: ASPIRIN COATED 81 MG TABLET.EC PO SCH (09:58)
[2019-02-09] MEDS: PRENATAL VITAMINS W/ FOLIC ACID TABLET (FP) PO SCH (09:58)
[2019-02-09] MEDS: SERTRALINE HCL 50 MG TABLET (FP) PO SCH (09:58)
[2019-02-09] MEDS: risperiDONE 1 MG TABLET (FP) PO SCH (09:59)
[2019-02-09] MEDS: PHENYTOIN NA EXTENDED 100 MG CAPSULE (FP) PO SCH ×2 (09:59→21:22)
[2019-02-09] MEDS: NICOTINE 21 MG/24 HOURS TOPICAL PATCH TD SCH (09:59)
[2019-02-09] MEDS: MELATONIN 5 MG TABLETS PO PRN (21:21)
[2019-02-09] MEDS: THIAMINE HCL 100 MG TABLET (FP) PO SCH (21:21)
[2019-02-09] MEDS: traZODone HCL 50 MG TABLET (FP) PO SCH (21:22)
[2019-02-09] MEDS: IBUPROFEN 600 MG TABLET (FP) PO PRN (22:08)
[2019-02-10] MEDS ORDERED: PT OWN MED DRAWER 7, Y5N ONE ×2 (09:20→10:06)
[2019-02-10] MEDS: SODIUM CHLORIDE NASAL SPRAY 44 ML BOTTLE NS PRN (10:00)
[2019-02-10] MEDS: PRENATAL VITAMINS W/ FOLIC ACID TABLET (FP) PO SCH (10:02)
[2019-02-10] MEDS: IBUPROFEN 600 MG TABLET (FP) PO PRN ×2 (10:02→21:11)
[2019-02-10] MEDS: SERTRALINE HCL 50 MG TABLET (FP) PO SCH (10:02)
[2019-02-10] MEDS: NICOTINE 21 MG/24 HOURS TOPICAL PATCH TD SCH (10:02)
[2019-02-10] MEDS: PHENYTOIN NA EXTENDED 100 MG CAPSULE (FP) PO SCH ×2 (10:03→21:10)
[2019-02-10] MEDS: ASPIRIN COATED 81 MG TABLET.EC PO SCH (10:03)
[2019-02-10] MEDS: CHOLECALCIFEROL (VIT D3) 1,000 UNIT (25 MCG) TABLET PO SCH (10:03)
[2019-02-10] MEDS: risperiDONE 1 MG TABLET (FP) PO SCH (10:31)
[2019-02-10] MEDS: THIAMINE HCL 100 MG TABLET (FP) PO SCH (21:10)
[2019-02-10] MEDS: traZODone HCL 50 MG TABLET (FP) PO SCH (21:10)
[2019-02-10] MEDS: MELATONIN 5 MG TABLETS PO PRN (21:11)
[2019-02-10] MEDS: MAG HYDROX/AL HYDROX/SIMETH 30 ML UNIT-DOSE CUP PO PRN (22:47)
--- NOTE | 2019-02-11 09:36 | PN ---
[facility] Progress Note Note: PATIENT SEEN FOR C/O OPEN AREA TO LEFT PLANTAR ASPECT OF FOOT. PATIENT STATES PRIOR TO ADMISSION HE WAS WEARING WET SNEAKERS WHICH CAUSED BLISTER TO FOOT WHICH HAS NOW OPENED. PATIENT DENIES REDNESS, SWELLING AND PAIN TO LEFT FOOT. Laboratory Tests 02/07/19 02/08/19 08:20 08:00 Phenytoin 2.9 L 4.2 L Vital Signs Temperature 98.2 F 02/11/19 07:12 Pulse Rate 61 02/11/19 07:12 Respiratory Rate 18 02/11/19 07:12 Blood Pressure 131/78 02/11/19 07:12 O2 Sat by Pulse Oximetry (%) PE: ALERT AND ORIENTED X 3 SKIN WARM AND DRY +PERRLA, EOMS INTACT BL EXT FULL ROM, SMALL OPEN BLISTER TO PLANTAR ASPECT OF FOOT, NO LOCALIZED SWELLING REDNESS OR DISCHARGE A/P: WILL START BACITRACIN TP TO OPEN BLISTER DAILY X 7 DAYS OPEN TOE SHOE LABS APPRECIATED WILL REPEAT DILANTIN LEVEL IN AM MONITOR CLINICALLY
[2019-02-11] MEDS: NICOTINE 21 MG/24 HOURS TOPICAL PATCH TD SCH (09:38)
[2019-02-11] MEDS: PRENATAL VITAMINS W/ FOLIC ACID TABLET (FP) PO SCH (09:39)
[2019-02-11] MEDS: SERTRALINE HCL 50 MG TABLET (FP) PO SCH (09:39)
[2019-02-11] MEDS: CHOLECALCIFEROL (VIT D3) 1,000 UNIT (25 MCG) TABLET PO SCH (09:39)
[2019-02-11] MEDS: risperiDONE 1 MG TABLET (FP) PO SCH (09:39)
[2019-02-11] MEDS: PHENYTOIN NA EXTENDED 100 MG CAPSULE (FP) PO SCH ×2 (09:39→21:25)
[2019-02-11] MEDS: ASPIRIN COATED 81 MG TABLET.EC PO SCH (09:39)
[2019-02-11] MEDS: IBUPROFEN 600 MG TABLET (FP) PO PRN ×2 (09:41→21:25)
[2019-02-11] MEDS: ALBUTEROL SO4 8 GM HFA INHALER IH PRN (09:42)
[2019-02-11] MEDS: BACITRACIN 0.9 GM PACKET TP SCH (10:50)
[2019-02-11] MEDS: THIAMINE HCL 100 MG TABLET (FP) PO SCH (21:24)
[2019-02-11] MEDS: traZODone HCL 50 MG TABLET (FP) PO SCH (21:25)
[2019-02-11] MEDS: MELATONIN 5 MG TABLETS PO PRN (21:25)
[2019-02-12] MEDS: MAG HYDROX/AL HYDROX/SIMETH 30 ML UNIT-DOSE CUP PO PRN (00:36)
[2019-02-12] MEDS: SERTRALINE HCL 50 MG TABLET (FP) PO SCH (09:45)
[2019-02-12] MEDS: NICOTINE 21 MG/24 HOURS TOPICAL PATCH TD SCH (09:45)
[2019-02-12] MEDS: PRENATAL VITAMINS W/ FOLIC ACID TABLET (FP) PO SCH (09:46)
[2019-02-12] MEDS: PHENYTOIN NA EXTENDED 100 MG CAPSULE (FP) PO SCH ×2 (09:46→21:14)
[2019-02-12] MEDS: ASPIRIN COATED 81 MG TABLET.EC PO SCH (09:46)
[2019-02-12] MEDS: risperiDONE 1 MG TABLET (FP) PO SCH (09:46)
[2019-02-12] MEDS: CHOLECALCIFEROL (VIT D3) 1,000 UNIT (25 MCG) TABLET PO SCH (09:47)
[2019-02-12] MEDS: IBUPROFEN 600 MG TABLET (FP) PO PRN ×2 (09:49→21:15)
[2019-02-12] MEDS: BACITRACIN 0.9 GM PACKET TP SCH (11:00)
[2019-02-12] MEDS: traZODone HCL 50 MG TABLET (FP) PO SCH (21:14)
[2019-02-12] MEDS: THIAMINE HCL 100 MG TABLET (FP) PO SCH (21:14)
[2019-02-13] MEDS: MAG HYDROX/AL HYDROX/SIMETH 30 ML UNIT-DOSE CUP PO PRN ×2 (00:33→23:19)
[2019-02-13] MEDS: NICOTINE 21 MG/24 HOURS TOPICAL PATCH TD SCH (09:46)
[2019-02-13] MEDS: BACITRACIN 0.9 GM PACKET TP SCH (09:46)
[2019-02-13] MEDS: CHOLECALCIFEROL (VIT D3) 1,000 UNIT (25 MCG) TABLET PO SCH (09:47)
[2019-02-13] MEDS: PHENYTOIN NA EXTENDED 100 MG CAPSULE (FP) PO SCH ×2 (09:47→21:41)
[2019-02-13] MEDS: ASPIRIN COATED 81 MG TABLET.EC PO SCH (09:47)
[2019-02-13] MEDS: risperiDONE 1 MG TABLET (FP) PO SCH (09:47)
[2019-02-13] MEDS: SERTRALINE HCL 50 MG TABLET (FP) PO SCH (09:47)
[2019-02-13] MEDS: IBUPROFEN 600 MG TABLET (FP) PO PRN ×2 (09:48→21:41)
[2019-02-13] MEDS: PRENATAL VITAMINS W/ FOLIC ACID TABLET (FP) PO SCH (09:48)
[2019-02-13] MEDS: MELATONIN 5 MG TABLETS PO PRN (21:39)
[2019-02-13] MEDS: THIAMINE HCL 100 MG TABLET (FP) PO SCH (21:39)
[2019-02-13] MEDS: traZODone HCL 50 MG TABLET (FP) PO SCH (21:39)
[2019-02-14] MEDS ORDERED: PT OWN MED DRAWER 7, Y5N ONE (09:02)
[2019-02-14] MEDS: BACITRACIN 0.9 GM PACKET TP SCH (10:22)
[2019-02-14] MEDS: risperiDONE 1 MG TABLET (FP) PO SCH (10:22)
[2019-02-14] MEDS: NICOTINE 21 MG/24 HOURS TOPICAL PATCH TD SCH (10:22)
[2019-02-14] MEDS: SERTRALINE HCL 50 MG TABLET (FP) PO SCH (10:22)
[2019-02-14] MEDS: SODIUM CHLORIDE NASAL SPRAY 44 ML BOTTLE NS PRN (10:22)
[2019-02-14] MEDS: CHOLECALCIFEROL (VIT D3) 1,000 UNIT (25 MCG) TABLET PO SCH (10:22)
[2019-02-14] MEDS: ASPIRIN COATED 81 MG TABLET.EC PO SCH (10:22)
[2019-02-14] MEDS: PRENATAL VITAMINS W/ FOLIC ACID TABLET (FP) PO SCH (10:22)
[2019-02-14] MEDS: PHENYTOIN NA EXTENDED 100 MG CAPSULE (FP) PO SCH ×2 (10:22→21:41)
[2019-02-14] MEDS: PANTOPRAZOLE 40 MG TABLET (FP) PO SCH (10:23)
[2019-02-14] MEDS: IBUPROFEN 600 MG TABLET (FP) PO PRN ×2 (10:25→23:21)
[2019-02-14] MEDS: THIAMINE HCL 100 MG TABLET (FP) PO SCH (21:41)
[2019-02-14] MEDS: traZODone HCL 50 MG TABLET (FP) PO SCH (21:42)
[2019-02-14] MEDS: MELATONIN 5 MG TABLETS PO PRN (21:42)
[2019-02-14] MEDS: MAG HYDROX/AL HYDROX/SIMETH 30 ML UNIT-DOSE CUP PO PRN (23:22)
[2019-02-15] MEDS: PRENATAL VITAMINS W/ FOLIC ACID TABLET (FP) PO SCH (10:00)
[2019-02-15] MEDS: risperiDONE 1 MG TABLET (FP) PO SCH (10:00)
[2019-02-15] MEDS: PANTOPRAZOLE 40 MG TABLET (FP) PO SCH (10:00)
[2019-02-15] MEDS: ASPIRIN COATED 81 MG TABLET.EC PO SCH (10:00)
[2019-02-15] MEDS: SERTRALINE HCL 50 MG TABLET (FP) PO SCH (10:01)
[2019-02-15] MEDS: CHOLECALCIFEROL (VIT D3) 1,000 UNIT (25 MCG) TABLET PO SCH (10:01)
[2019-02-15] MEDS: NICOTINE 21 MG/24 HOURS TOPICAL PATCH TD SCH (10:01)
[2019-02-15] MEDS: PHENYTOIN NA EXTENDED 100 MG CAPSULE (FP) PO SCH ×2 (10:01→21:41)
[2019-02-15] MEDS: SODIUM CHLORIDE NASAL SPRAY 44 ML BOTTLE NS PRN (10:02)
[2019-02-15] MEDS: ALBUTEROL SO4 8 GM HFA INHALER IH PRN (10:03)
[2019-02-15] MEDS: BACITRACIN 0.9 GM PACKET TP SCH (10:05)
[2019-02-15] MEDS: IBUPROFEN 600 MG TABLET (FP) PO PRN (14:31)
--- NOTE | 2019-02-15 16:16 | PN ---
[facility] Progress Note (SOAP) Subjective: Complaining of rash to back and arms. Objective: Rash on back and arms. On arms it is circular and appears to be related to wherever the nicoderm patch was applied. On his back there is red raised bumps scattered across shoulders. Laboratory Last Values Phenytoin 9.4 ug/ml (10.0-20.0) L 02/14/19 08:35 Vital Signs (72 hours) 02/13/19 02/13/19 02/14/19 03:30 07:30 00:30 Temperature 98.5 F Pulse Rate 73 Respiratory 18 18 20 Rate Blood Pressure 159/98 02/14/19 02/14/19 02/15/19 03:30 07:47 03:30 Temperature 97.2 F L Pulse Rate 62 Respiratory 20 18 20 Rate Blood Pressure 134/91 02/15/19 07:46 Temperature 96.5 F L Pulse Rate 63 Respiratory 18 Rate Blood Pressure 133/81 02/15/19 16:13 Assessment: allergic rash 02/15/19 16:15 Plan: Benadryl rash given and nicoderm patch discontinued.
[2019-02-15] MEDS: hydrOXYzine PAMOATE 50 MG CAPSULE (FP) PO PRN (21:40)
[2019-02-15] MEDS: MELATONIN 5 MG TABLETS PO PRN (21:40)
[2019-02-15] MEDS: traZODone HCL 50 MG TABLET (FP) PO SCH (21:41)
[2019-02-15] MEDS: NICOTINE 14 MG/24 HOURS TOPICAL PATCH TD SCH (21:42)
[2019-02-15] MEDS: THIAMINE HCL 100 MG TABLET (FP) PO SCH (21:42)
[2019-02-16] MEDS: IBUPROFEN 600 MG TABLET (FP) PO PRN ×2 (00:37→21:37)
[2019-02-16] MEDS: MAG HYDROX/AL HYDROX/SIMETH 30 ML UNIT-DOSE CUP PO PRN (00:38)
[2019-02-16] MEDS: PRENATAL VITAMINS W/ FOLIC ACID TABLET (FP) PO SCH (09:53)
[2019-02-16] MEDS: ASPIRIN COATED 81 MG TABLET.EC PO SCH (09:53)
[2019-02-16] MEDS: SERTRALINE HCL 50 MG TABLET (FP) PO SCH (09:53)
[2019-02-16] MEDS: CHOLECALCIFEROL (VIT D3) 1,000 UNIT (25 MCG) TABLET PO SCH (09:53)
[2019-02-16] MEDS: PANTOPRAZOLE 40 MG TABLET (FP) PO SCH (09:53)
[2019-02-16] MEDS: PHENYTOIN NA EXTENDED 100 MG CAPSULE (FP) PO SCH ×2 (09:53→21:36)
[2019-02-16] MEDS: risperiDONE 1 MG TABLET (FP) PO SCH (09:53)
[2019-02-16] MEDS: SODIUM CHLORIDE NASAL SPRAY 44 ML BOTTLE NS PRN (09:55)
[2019-02-16] MEDS: ALBUTEROL SO4 8 GM HFA INHALER IH PRN (09:55)
[2019-02-16] MEDS: NICOTINE 14 MG/24 HOURS TOPICAL PATCH TD SCH (10:12)
[2019-02-16] MEDS: BACITRACIN 0.9 GM PACKET TP SCH (11:35)
[2019-02-16] MEDS: MELATONIN 5 MG TABLETS PO PRN (21:35)
[2019-02-16] MEDS: hydrOXYzine PAMOATE 50 MG CAPSULE (FP) PO PRN (21:35)
[2019-02-16] MEDS: THIAMINE HCL 100 MG TABLET (FP) PO SCH (21:35)
[2019-02-16] MEDS: traZODone HCL 50 MG TABLET (FP) PO SCH (22:59)
[2019-02-17] MEDS: MAG HYDROX/AL HYDROX/SIMETH 30 ML UNIT-DOSE CUP PO PRN (00:54)
[2019-02-17] MEDS: risperiDONE 1 MG TABLET (FP) PO SCH (09:53)
[2019-02-17] MEDS: ASPIRIN COATED 81 MG TABLET.EC PO SCH (09:53)
[2019-02-17] MEDS: NICOTINE 14 MG/24 HOURS TOPICAL PATCH TD SCH (09:53)
[2019-02-17] MEDS: SERTRALINE HCL 50 MG TABLET (FP) PO SCH (09:53)
[2019-02-17] MEDS: PANTOPRAZOLE 40 MG TABLET (FP) PO SCH (09:53)
[2019-02-17] MEDS: BACITRACIN 0.9 GM PACKET TP SCH (09:53)
[2019-02-17] MEDS: PRENATAL VITAMINS W/ FOLIC ACID TABLET (FP) PO SCH (09:53)
[2019-02-17] MEDS: hydrOXYzine PAMOATE 50 MG CAPSULE (FP) PO PRN (09:53)
[2019-02-17] MEDS: PHENYTOIN NA EXTENDED 100 MG CAPSULE (FP) PO SCH ×2 (09:54→21:35)
[2019-02-17] MEDS: SODIUM CHLORIDE NASAL SPRAY 44 ML BOTTLE NS PRN ×2 (09:56→21:34)
[2019-02-17] MEDS: CHOLECALCIFEROL (VIT D3) 1,000 UNIT (25 MCG) TABLET PO SCH (11:01)
[2019-02-17] MEDS: IBUPROFEN 600 MG TABLET (FP) PO PRN ×2 (12:02→21:34)
[2019-02-17] MEDS: THIAMINE HCL 100 MG TABLET (FP) PO SCH (21:32)
[2019-02-17] MEDS: traZODone HCL 50 MG TABLET (FP) PO SCH (21:34)
[2019-02-17] MEDS: ALBUTEROL SO4 8 GM HFA INHALER IH PRN (21:36)
[2019-02-17] MEDS: MELATONIN 5 MG TABLETS PO PRN (21:36)
[2019-02-18] MEDS: ASPIRIN COATED 81 MG TABLET.EC PO SCH (09:42)
[2019-02-18] MEDS: SERTRALINE HCL 50 MG TABLET (FP) PO SCH (09:42)
[2019-02-18] MEDS: IBUPROFEN 600 MG TABLET (FP) PO PRN ×2 (09:42→21:46)
[2019-02-18] MEDS: CHOLECALCIFEROL (VIT D3) 1,000 UNIT (25 MCG) TABLET PO SCH (09:42)
[2019-02-18] MEDS: PHENYTOIN NA EXTENDED 100 MG CAPSULE (FP) PO SCH ×2 (09:42→21:45)
[2019-02-18] MEDS: risperiDONE 1 MG TABLET (FP) PO SCH (09:43)
[2019-02-18] MEDS: PANTOPRAZOLE 40 MG TABLET (FP) PO SCH (09:44)
[2019-02-18] MEDS: PRENATAL VITAMINS W/ FOLIC ACID TABLET (FP) PO SCH (09:44)
[2019-02-18] MEDS: hydrOXYzine PAMOATE 50 MG CAPSULE (FP) PO PRN ×2 (09:44→21:44)
[2019-02-18] MEDS: NICOTINE 14 MG/24 HOURS TOPICAL PATCH TD SCH (09:44)
[2019-02-18] MEDS: SODIUM CHLORIDE NASAL SPRAY 44 ML BOTTLE NS PRN (09:46)
[2019-02-18] MEDS: MELATONIN 5 MG TABLETS PO PRN (21:44)
[2019-02-18] MEDS: THIAMINE HCL 100 MG TABLET (FP) PO SCH (21:45)
[2019-02-18] MEDS: traZODone HCL 50 MG TABLET (FP) PO SCH (21:46)
[2019-02-19] MEDS: IBUPROFEN 600 MG TABLET (FP) PO PRN ×3 (03:26→21:29)
[2019-02-19] MEDS: PRENATAL VITAMINS W/ FOLIC ACID TABLET (FP) PO SCH (10:01)
[2019-02-19] MEDS: PHENYTOIN NA EXTENDED 100 MG CAPSULE (FP) PO SCH ×2 (10:01→21:28)
[2019-02-19] MEDS: risperiDONE 1 MG TABLET (FP) PO SCH (10:01)
[2019-02-19] MEDS: ASPIRIN COATED 81 MG TABLET.EC PO SCH (10:01)
[2019-02-19] MEDS: PANTOPRAZOLE 40 MG TABLET (FP) PO SCH (10:01)
[2019-02-19] MEDS: NICOTINE 14 MG/24 HOURS TOPICAL PATCH TD SCH (10:01)
[2019-02-19] MEDS: CHOLECALCIFEROL (VIT D3) 1,000 UNIT (25 MCG) TABLET PO SCH (10:01)
[2019-02-19] MEDS: SERTRALINE HCL 50 MG TABLET (FP) PO SCH (10:01)
[2019-02-19] MEDS: SODIUM CHLORIDE NASAL SPRAY 44 ML BOTTLE NS PRN (10:04)
[2019-02-19] MEDS: ALBUTEROL SO4 8 GM HFA INHALER IH PRN (10:04)
[2019-02-19] MEDS: traZODone HCL 50 MG TABLET (FP) PO SCH (21:28)
[2019-02-19] MEDS: THIAMINE HCL 100 MG TABLET (FP) PO SCH (21:31)
[2019-02-20] MEDS: IBUPROFEN 600 MG TABLET (FP) PO PRN ×3 (03:22→21:48)
[2019-02-20] MEDS: PHENYTOIN NA EXTENDED 100 MG CAPSULE (FP) PO SCH ×2 (09:58→21:46)
[2019-02-20] MEDS: SERTRALINE HCL 50 MG TABLET (FP) PO SCH (09:58)
[2019-02-20] MEDS: CHOLECALCIFEROL (VIT D3) 1,000 UNIT (25 MCG) TABLET PO SCH (09:58)
[2019-02-20] MEDS: risperiDONE 1 MG TABLET (FP) PO SCH (09:58)
[2019-02-20] MEDS: ASPIRIN COATED 81 MG TABLET.EC PO SCH (09:58)
[2019-02-20] MEDS: PANTOPRAZOLE 40 MG TABLET (FP) PO SCH (09:58)
[2019-02-20] MEDS: NICOTINE 14 MG/24 HOURS TOPICAL PATCH TD SCH (09:58)
[2019-02-20] MEDS: PRENATAL VITAMINS W/ FOLIC ACID TABLET (FP) PO SCH (09:58)
[2019-02-20] MEDS: ALBUTEROL SO4 8 GM HFA INHALER IH PRN ×2 (09:59→21:46)
[2019-02-20] MEDS: SODIUM CHLORIDE NASAL SPRAY 44 ML BOTTLE NS PRN (10:00)
[2019-02-20] MEDS: THIAMINE HCL 100 MG TABLET (FP) PO SCH (21:46)
[2019-02-20] MEDS: traZODone HCL 50 MG TABLET (FP) PO SCH (21:47)
[2019-02-21] MEDS: MAG HYDROX/AL HYDROX/SIMETH 30 ML UNIT-DOSE CUP PO PRN (01:24)
[2019-02-21] MEDS: IBUPROFEN 600 MG TABLET (FP) PO PRN ×2 (06:40→19:57)
[2019-02-21] MEDS: PRENATAL VITAMINS W/ FOLIC ACID TABLET (FP) PO SCH (09:49)
[2019-02-21] MEDS: PHENYTOIN NA EXTENDED 100 MG CAPSULE (FP) PO SCH ×2 (09:49→21:22)
[2019-02-21] MEDS: ASPIRIN COATED 81 MG TABLET.EC PO SCH (09:49)
[2019-02-21] MEDS: SERTRALINE HCL 50 MG TABLET (FP) PO SCH (09:49)
[2019-02-21] MEDS: ALBUTEROL SO4 8 GM HFA INHALER IH PRN (09:50)
[2019-02-21] MEDS: CHOLECALCIFEROL (VIT D3) 1,000 UNIT (25 MCG) TABLET PO SCH (09:50)
[2019-02-21] MEDS: SODIUM CHLORIDE NASAL SPRAY 44 ML BOTTLE NS PRN (09:50)
[2019-02-21] MEDS: PANTOPRAZOLE 40 MG TABLET (FP) PO SCH (09:50)
[2019-02-21] MEDS: risperiDONE 1 MG TABLET (FP) PO SCH (09:50)
[2019-02-21] MEDS: NICOTINE 14 MG/24 HOURS TOPICAL PATCH TD SCH (10:28)
[2019-02-21] MEDS: THIAMINE HCL 100 MG TABLET (FP) PO SCH (21:21)
[2019-02-21] MEDS: traZODone HCL 50 MG TABLET (FP) PO SCH (21:22)
[2019-02-21] MEDS: MELATONIN 5 MG TABLETS PO PRN (21:22)
[2019-02-22] MEDS: IBUPROFEN 600 MG TABLET (FP) PO PRN ×3 (02:47→21:33)
[2019-02-22] MEDS: hydrOXYzine PAMOATE 50 MG CAPSULE (FP) PO PRN ×2 (04:05→09:59)
[2019-02-22] MEDS ORDERED: COLLOIDAL OATMEAL 1 BAR EACH TP PRN (09:03)
[2019-02-22] MEDS: SERTRALINE HCL 50 MG TABLET (FP) PO SCH (09:59)
[2019-02-22] MEDS: PANTOPRAZOLE 40 MG TABLET (FP) PO SCH (09:59)
[2019-02-22] MEDS: risperiDONE 1 MG TABLET (FP) PO SCH (09:59)
[2019-02-22] MEDS: PRENATAL VITAMINS W/ FOLIC ACID TABLET (FP) PO SCH (09:59)
[2019-02-22] MEDS: CHOLECALCIFEROL (VIT D3) 1,000 UNIT (25 MCG) TABLET PO SCH (09:59)
[2019-02-22] MEDS: PHENYTOIN NA EXTENDED 100 MG CAPSULE (FP) PO SCH ×2 (09:59→21:32)
[2019-02-22] MEDS: NICOTINE 14 MG/24 HOURS TOPICAL PATCH TD SCH (10:00)
[2019-02-22] MEDS: ASPIRIN COATED 81 MG TABLET.EC PO SCH (10:00)
[2019-02-22] MEDS: THIAMINE HCL 100 MG TABLET (FP) PO SCH (21:31)
[2019-02-22] MEDS: traZODone HCL 50 MG TABLET (FP) PO SCH (21:32)
[2019-02-22] MEDS: MELATONIN 5 MG TABLETS PO PRN (21:32)
[2019-02-23] MEDS: MAG HYDROX/AL HYDROX/SIMETH 30 ML UNIT-DOSE CUP PO PRN (00:40)
[2019-02-23] MEDS: IBUPROFEN 600 MG TABLET (FP) PO PRN ×3 (03:20→21:16)
[2019-02-23] MEDS: PHENYTOIN NA EXTENDED 100 MG CAPSULE (FP) PO SCH ×2 (09:55→21:15)
[2019-02-23] MEDS: ASPIRIN COATED 81 MG TABLET.EC PO SCH (09:55)
[2019-02-23] MEDS: risperiDONE 1 MG TABLET (FP) PO SCH (09:55)
[2019-02-23] MEDS: CHOLECALCIFEROL (VIT D3) 1,000 UNIT (25 MCG) TABLET PO SCH (09:55)
[2019-02-23] MEDS: PANTOPRAZOLE 40 MG TABLET (FP) PO SCH (09:55)
[2019-02-23] MEDS: PRENATAL VITAMINS W/ FOLIC ACID TABLET (FP) PO SCH (09:55)
[2019-02-23] MEDS: SERTRALINE HCL 50 MG TABLET (FP) PO SCH (09:55)
[2019-02-23] MEDS: SODIUM CHLORIDE NASAL SPRAY 44 ML BOTTLE NS PRN (09:56)
[2019-02-23] MEDS: ALBUTEROL SO4 8 GM HFA INHALER IH PRN ×2 (09:56→21:16)
[2019-02-23] MEDS: NICOTINE 14 MG/24 HOURS TOPICAL PATCH TD SCH (09:59)
--- NOTE | 2019-02-23 11:47 | PN ---
[facility] Progress Note Note: Evaluation of rash: resolving- no redness noted, patient reports decreased itchiness with benadryl cream. Continue treatment of allergic dermatitis.
[2019-02-23] MEDS: THIAMINE HCL 100 MG TABLET (FP) PO SCH (21:14)
[2019-02-23] MEDS: MELATONIN 5 MG TABLETS PO PRN (21:15)
[2019-02-23] MEDS: traZODone HCL 50 MG TABLET (FP) PO SCH (21:16)
[2019-02-24] MEDS: ALBUTEROL SO4 8 GM HFA INHALER IH PRN ×2 (03:28→09:48)
[2019-02-24] MEDS: IBUPROFEN 600 MG TABLET (FP) PO PRN ×3 (03:28→21:29)
[2019-02-24] MEDS: CHOLECALCIFEROL (VIT D3) 1,000 UNIT (25 MCG) TABLET PO SCH (09:44)
[2019-02-24] MEDS: PRENATAL VITAMINS W/ FOLIC ACID TABLET (FP) PO SCH (09:44)
[2019-02-24] MEDS: risperiDONE 1 MG TABLET (FP) PO SCH (09:44)
[2019-02-24] MEDS: PHENYTOIN NA EXTENDED 100 MG CAPSULE (FP) PO SCH ×2 (09:44→21:28)
[2019-02-24] MEDS: PANTOPRAZOLE 40 MG TABLET (FP) PO SCH (09:45)
[2019-02-24] MEDS: NICOTINE 14 MG/24 HOURS TOPICAL PATCH TD SCH (09:45)
[2019-02-24] MEDS: SERTRALINE HCL 50 MG TABLET (FP) PO SCH (09:45)
[2019-02-24] MEDS: ASPIRIN COATED 81 MG TABLET.EC PO SCH (09:45)
[2019-02-24] MEDS: hydrOXYzine PAMOATE 50 MG CAPSULE (FP) PO PRN ×2 (09:46→21:28)
[2019-02-24] MEDS: SODIUM CHLORIDE NASAL SPRAY 44 ML BOTTLE NS PRN (09:48)
--- NOTE | 2019-02-24 12:13 | PN ---
[facility] Progress Note (SOAP) Subjective: patient is being discharged tomorrow. Objective: A+O x3; No neurological deficits noted, heart sounds regular, lungs clear, ABD obese, non-tender, non-distended, +BS 02/24/19 12:12 Vital Signs (72 hours) 02/22/19 02/22/19 02/23/19 03:30 06:36 07:00 Temperature 98.6 F 97.9 F Pulse Rate 64 69 Respiratory 18 18 18 Rate Blood Pressure 119/80 123/87 02/24/19 02/24/19 07:13 09:54 Temperature 98 F Pulse Rate 71 76 Respiratory 18 17 Rate Blood Pressure 127/89 129/78 Assessment: Medically stable for discharge Discharge DX; Bone cancer ETOH dependence Seizure GERD LBP Plan: Plans on going to [place] and will seek aftercare and medical care there. Prescriptions transmitted to pharmacy.
--- NOTE | 2019-02-24 15:10 | PN ---
[facility] Progress Note Note: Patient is scheduled for discharge tomorrow. Scripts for 30 days supply of medications(Zoloft 50 mg/day, Trazadone 50 mg/hs, Risperdal 1 mg/day) will be electronically transmitted to [facility] at [address] [place] [address]
[2019-02-24] MEDS: traZODone HCL 50 MG TABLET (FP) PO SCH (21:28)
[2019-02-24] MEDS: MELATONIN 5 MG TABLETS PO PRN (21:28)
[2019-02-24] MEDS: THIAMINE HCL 100 MG TABLET (FP) PO SCH (21:28)
[2019-02-25] MEDS: SODIUM CHLORIDE NASAL SPRAY 44 ML BOTTLE NS PRN (02:10)
[2019-02-25 06:40] VITALS: BP 126/86; PULSE 75; TEMP 98.5
== END 2019-02-25 06:45 | disposition home or self-care (01) | DRG 895 ==
LOC: YASAS 19:00 → Y3W 20:01
PROVIDERS: ADMIT Neuromusculoskeletal Medicine & OMM; ATTEND Neuromusculoskeletal Medicine & OMM
PROC: HZ42ZZZ Group Counseling for Substance Abuse Treatment, Cognitive-Behavioral (ICD-10-PCS; principal; 2019-02-06)
DX: F10.20 Alcohol dependence, uncomplicated (principal); F14.20 Cocaine dependence, uncomplicated; F19.282 Other psychoactive substance dependence with psychoactive substance-induced sleep disorder; F17.210 Nicotine dependence, cigarettes, uncomplicated; F25.1 Schizoaffective disorder, depressive type; F19.24 Other psychoactive substance dependence with psychoactive substance-induced mood disorder; G40.909 Epilepsy, unspecified, not intractable, without status epilepticus; K21.9 Gastro-esophageal reflux disease without esophagitis; J45.909 Unspecified asthma, uncomplicated; M54.5 Low back pain; G89.29 Other chronic pain; R21 Rash and other nonspecific skin eruption; E66.9 Obesity, unspecified; Z68.33 Body mass index [BMI] 33.0-33.9, adult; Z85.830 Personal history of malignant neoplasm of bone
CPT/HCPCS: 36415; 80185; J2794

== ENCOUNTER 2019-03-19 15:26 | Inpatient (IN) | payer MEDICARE, OTHER ==
[2019-03-19 17:45] VITALS: BMI 33.9
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
[2019-03-19] MEDS ORDERED: MAGNESIUM CITRATE 300 ML BOTTLE PO PRN (20:39)
[2019-03-19] MEDS ORDERED: IBUPROFEN 400 MG TABLET (FP) PO PRN (20:39)
[2019-03-19] MEDS ORDERED: NICOTINE POLACRILEX 2 MG GUM BUC PRN (20:39)
[2019-03-19] MEDS ORDERED: MAG HYDROX/AL HYDROX/SIMETH 30 ML UNIT-DOSE CUP PO PRN (20:39)
[2019-03-19] MEDS ORDERED: METHOCARBAMOL 500 MG TABLET PO PRN (20:39)
[2019-03-19] MEDS ORDERED: MAGNESIUM HYDROX 2400MG/30ML ORAL SUSPENSION 30 ML CUP PO PRN (20:39)
[2019-03-19] MEDS ORDERED: BISMUTH SUBSALICYLATE 524 MG/30 ML UD PO PRN (20:39)
[2019-03-19] MEDS ORDERED: MENTHOL/PHENOL 1 EACH UD MM PRN (20:39)
[2019-03-19] MEDS ORDERED: hydrOXYzine PAMOATE 25 MG CAPSULE (FP) PO PRN (20:39)
[2019-03-19] MEDS ORDERED: ACETAMINOPHEN 325 MG TABLET (FP) PO PRN ×2 (20:39)
[2019-03-19] MEDS ORDERED: chlordiazePOXIDE HCL 25 MG CAPSULE PO PRN (20:39)
[2019-03-19] MEDS ORDERED: ALBUTEROL SO4 8 GM HFA INHALER IH PRN (20:44)
[2019-03-19] MEDS ORDERED: MELATONIN 5 MG TABLETS PO PRN (22:00)
[2019-03-19] MEDS: chlordiazePOXIDE HCL 25 MG CAPSULE PO SCH (22:04)
[2019-03-19] MEDS: THIAMINE HCL 100 MG TABLET (FP) PO SCH (22:04)
[2019-03-19] MEDS: PHENYTOIN NA EXTENDED 100 MG CAPSULE (FP) PO SCH (22:04)
[2019-03-20] MEDS: chlordiazePOXIDE HCL 25 MG CAPSULE PO SCH ×4 (06:33→22:18)
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
[2019-03-20] MEDS: PRENATAL VITAMINS W/ FOLIC ACID TABLET (FP) PO SCH (10:19)
[2019-03-20] MEDS: PHENYTOIN NA EXTENDED 100 MG CAPSULE (FP) PO SCH ×2 (10:19→22:19)
[2019-03-20] MEDS: NICOTINE 21 MG/24 HOURS TOPICAL PATCH TD SCH (10:20)
[2019-03-20] MEDS: ASPIRIN COATED 81 MG TABLET.EC PO SCH (10:20)
[2019-03-20 10:35] LABS: HEMATOCRIT 41.3 % (35.4-49); HEMOGLOBIN 14.1 GM/dL (11.7-16.9); MCH 32.6 pg (25.7-33.7); MCHC 34.1 g/dl (32.0-35.9); MEAN CELL VOLUME 95.5 fl (80-96); MEAN PLT VOLUME 9.1 fl (7.5-11.1); PLATELET COUNT 219 K/MM3 (134-434); RBC 4.33 M/mm3 (4.00-5.60); RDW 13.4 % (11.9-15.9); WHITE BLOOD COUNT 6.4 K/mm3 (4.0-10.0)
[2019-03-20 10:57] LABS: ALBUMIN 3.3 g/dl (3.4-5.0); BILIRUBIN,TOTAL 0.3 mg/dL (0.2-1); BLOOD UREA NITROGEN 8.4 mg/dL (7-18); CALCIUM 8.1 mg/dL (8.5-10.1); CREATININE 0.9 mg/dL (0.55-1.3); POTASSIUM 3.8 mmol/L (3.5-5.1); TOT PROT 6.5 g/dl (6.4-8.2)
--- NOTE | 2019-03-20 13:17 | PN ---
S CIWA - CIWA Score Nausea/Vomitin-Mild Nausea/No Vomiting Muscle Tremors: 2 Anxiety: 2 Agitation: 2 Paroxysmal Sweats: No Perspiration Orientation: 0-Oriented Tacttile Disturbances: 0-None Auditory Disturbances: 0-None Visual Disturbances: 1-Very Mild Sensitivity Headache: 1-Very Mild CIWA-Ar Total Score: 9 BHS Progress Note (SOAP) Subjective: anxious, sweating, poor sleep Objective: 03/20/19 13:15 Vital Signs - 24 hr 03/19/19 03/19/19 03/20/19 17:30 22:13 00:32 Temperature 97.7 F 97.8 F Pulse Rate 72 63 Respiratory 16 18 18 Rate Blood Pressure 109/68 129/90 03/20/19 03/20/19 03/20/19 03:30 06:28 09:18 Temperature 97.9 F 97.0 F L Pulse Rate 63 72 Respiratory 18 20 18 Rate Blood Pressure 96/60 128/89 03/20/19 13:10 Temperature 98.6 F Pulse Rate 79 Respiratory 18 Rate Blood Pressure 133/94 Laboratory Tests 03/20/19 03/20/19 03/20/19 08:00 08:00 08:00 WBC 6.4 RBC 4.33 Hgb 14.1 Hct 41.3 MCV 95.5 MCH 32.6 MCHC 34.1 RDW 13.4 Plt Count 219 MPV 9.1 Sodium 143 Potassium 3.8 Chloride 109 H Carbon Dioxide 28 Anion Gap 6 L BUN 8.4 Creatinine 0.9 Est GFR (CKD-EPI)AfAm 115.02 Est GFR (CKD-EPI)NonAf 99.24 Random Glucose 111 H Calcium 8.1 L Total Bilirubin 0.3 AST 22 ALT 26 Alkaline Phosphatase 88 Total Protein 6.5 Albumin 3.3 L Phenytoin RPR Titer Nonreactive HIV 1&2 Antibody Screen HIV P24 Antigen 03/20/19 03/20/19 08:00 08:00 WBC RBC Hgb Hct MCV MCH MCHC RDW Plt Count MPV Sodium Potassium Chloride Carbon Dioxide Anion Gap BUN Creatinine Est GFR (CKD-EPI)AfAm Est GFR (CKD-EPI)NonAf Random Glucose Calcium Total Bilirubin AST ALT Alkaline Phosphatase Total Protein Albumin Phenytoin 1.6 L RPR Titer HIV 1&2 Antibody Screen Negative HIV P24 Antigen Negative NOTE LOW DILANTIN Assessment: 06/23/19 13:16 ACUTE WITHDRAWAL SUBTHERAPEUTIC DILANTIN Plan: CONTINUE TAPER CONTINUE DILANTIN LOAD
[2019-03-20] MEDS: CHOLECALCIFEROL (VIT D3) 1,000 UNIT (25 MCG) TABLET PO SCH (14:47)
[2019-03-20] MEDS: traZODone HCL 50 MG TABLET (FP) PO SCH (22:18)
[2019-03-20] MEDS: THIAMINE HCL 100 MG TABLET (FP) PO SCH (22:18)
[2019-03-21] MEDS: chlordiazePOXIDE HCL 25 MG CAPSULE PO SCH ×3 (05:48→17:35)
[2019-03-21] MEDS: PRENATAL VITAMINS W/ FOLIC ACID TABLET (FP) PO SCH (10:41)
[2019-03-21] MEDS: risperiDONE 1 MG TABLET (FP) PO SCH (10:42)
[2019-03-21] MEDS: SERTRALINE HCL 50 MG TABLET (FP) PO SCH (10:42)
[2019-03-21] MEDS: PHENYTOIN NA EXTENDED 100 MG CAPSULE (FP) PO SCH ×2 (10:42→22:19)
[2019-03-21] MEDS: ASPIRIN COATED 81 MG TABLET.EC PO SCH (10:42)
[2019-03-21] MEDS: NICOTINE 21 MG/24 HOURS TOPICAL PATCH TD SCH (10:44)
[2019-03-21] MEDS: CHOLECALCIFEROL (VIT D3) 1,000 UNIT (25 MCG) TABLET PO SCH (11:42)
--- NOTE | 2019-03-21 14:50 | PN ---
S CIWA - CIWA Score Nausea/Vomitin-No Nausea/No Vomiting Muscle Tremors: 3 Anxiety: 2 Agitation: 1-Slight > Activity Paroxysmal Sweats: 3 Orientation: 0-Oriented Tacttile Disturbances: 2-Mild Itch/Numbness/Burn Auditory Disturbances: 1-Very Mild Visual Disturbances: 0-None Headache: 0-None Present CIWA-Ar Total Score: 12 BHS Progress Note (SOAP) Subjective: Sweating, Tremors, Interrupted Sleep. Objective: PATIENT A & O X 3, OBSERVED AMBULATING ON UNIT UNASSISTED. IN NO ACUTE DISTRESS. 03/21/19 14:51 Vital Signs Temperature 98.2 F 03/21/19 13:19 Pulse Rate 71 03/21/19 13:19 Respiratory Rate 18 03/21/19 13:19 Blood Pressure 120/75 03/21/19 13:19 O2 Sat by Pulse Oximetry (%) Laboratory Tests 03/20/19 03/20/19 03/20/19 08:00 08:00 08:00 WBC 6.4 RBC 4.33 Hgb 14.1 Hct 41.3 MCV 95.5 MCH 32.6 MCHC 34.1 RDW 13.4 Plt Count 219 MPV 9.1 Sodium 143 Potassium 3.8 Chloride 109 H Carbon Dioxide 28 Anion Gap 6 L BUN 8.4 Creatinine 0.9 Est GFR (CKD-EPI)AfAm 115.02 Est GFR (CKD-EPI)NonAf 99.24 Random Glucose 111 H Calcium 8.1 L Total Bilirubin 0.3 AST 22 ALT 26 Alkaline Phosphatase 88 Total Protein 6.5 Albumin 3.3 L Phenytoin RPR Titer Nonreactive HIV 1&2 Antibody Screen HIV P24 Antigen 03/20/19 03/20/19 08:00 08:00 WBC RBC Hgb Hct MCV MCH MCHC RDW Plt Count MPV Sodium Potassium Chloride Carbon Dioxide Anion Gap BUN Creatinine Est GFR (CKD-EPI)AfAm Est GFR (CKD-EPI)NonAf Random Glucose Calcium Total Bilirubin AST ALT Alkaline Phosphatase Total Protein Albumin Phenytoin 1.6 L RPR Titer HIV 1&2 Antibody Screen Negative HIV P24 Antigen Negative LABS NOTED. Assessment: 03/21/19 14:54 WITHDRAWAL SYMPTOMS. HYPOCALCEMIA. Plan: CONTINUE DETOX. OSCAL, 500 MG PO ATUL FOR LOW ADMISSION CALCIUM LEVEL.
[2019-03-21] MEDS: THIAMINE HCL 100 MG TABLET (FP) PO SCH (22:19)
[2019-03-21] MEDS: chlordiazePOXIDE HCL 10 MG CAPSULE PO SCH (22:19)
[2019-03-21] MEDS: CALCIUM 500MG/VIT-D 200 UNITS COMBO TABLET (FP) PO SCH (22:19)
[2019-03-21] MEDS: traZODone HCL 50 MG TABLET (FP) PO SCH (22:19)
[2019-03-21] MEDS ORDERED: chlordiazePOXIDE HCL 10 MG CAPSULE PO PRN (23:00)
[2019-03-22] MEDS: chlordiazePOXIDE HCL 10 MG CAPSULE PO SCH ×2 (05:40→10:09)
[2019-03-22] MEDS: PRENATAL VITAMINS W/ FOLIC ACID TABLET (FP) PO SCH (10:09)
[2019-03-22] MEDS: CALCIUM 500MG/VIT-D 200 UNITS COMBO TABLET (FP) PO SCH ×2 (10:09→21:27)
[2019-03-22] MEDS: PHENYTOIN NA EXTENDED 100 MG CAPSULE (FP) PO SCH ×2 (10:09→20:24)
[2019-03-22] MEDS: ASPIRIN COATED 81 MG TABLET.EC PO SCH (10:09)
[2019-03-22] MEDS: SERTRALINE HCL 50 MG TABLET (FP) PO SCH (10:09)
[2019-03-22] MEDS: risperiDONE 1 MG TABLET (FP) PO SCH ×2 (10:09→21:27)
[2019-03-22] MEDS: CHOLECALCIFEROL (VIT D3) 1,000 UNIT (25 MCG) TABLET PO SCH (10:10)
[2019-03-22] MEDS: NICOTINE 21 MG/24 HOURS TOPICAL PATCH TD SCH (10:11)
--- NOTE | 2019-03-22 11:15 | PN ---
S CIWA - CIWA Score Nausea/Vomitin-No Nausea/No Vomiting Muscle Tremors: None Anxiety: 2 Agitation: 2 Paroxysmal Sweats: 2 Orientation: 0-Oriented Tacttile Disturbances: 0-None Auditory Disturbances: 0-None Visual Disturbances: 0-None Headache: 0-None Present CIWA-Ar Total Score: 6 BHS Progress Note (SOAP) Subjective: Sweating, Interrupted Sleep. Patient reports that Current Withdrawal Symptoms are Mild in Degree and that he is currently them Relatively well. Objective: PATIENT A & X 3, OBSERVED AMBULATING ON UNIT. IN NO ACUTE DISTRESS. 03/22/19 11:16 Vital Signs Temperature 98.1 F 03/22/19 09:29 Pulse Rate 69 03/22/19 09:29 Respiratory Rate 18 03/22/19 09:29 Blood Pressure 127/92 03/22/19 09:29 O2 Sat by Pulse Oximetry (%) Laboratory Tests 03/20/19 03/20/19 03/20/19 08:00 08:00 08:00 WBC 6.4 RBC 4.33 Hgb 14.1 Hct 41.3 MCV 95.5 MCH 32.6 MCHC 34.1 RDW 13.4 Plt Count 219 MPV 9.1 Sodium 143 Potassium 3.8 Chloride 109 H Carbon Dioxide 28 Anion Gap 6 L BUN 8.4 Creatinine 0.9 Est GFR (CKD-EPI)AfAm 115.02 Est GFR (CKD-EPI)NonAf 99.24 Random Glucose 111 H Calcium 8.1 L Total Bilirubin 0.3 AST 22 ALT 26 Alkaline Phosphatase 88 Total Protein 6.5 Albumin 3.3 L Phenytoin RPR Titer Nonreactive HIV 1&2 Antibody Screen HIV P24 Antigen 03/20/19 03/20/19 08:00 08:00 WBC RBC Hgb Hct MCV MCH MCHC RDW Plt Count MPV Sodium Potassium Chloride Carbon Dioxide Anion Gap BUN Creatinine Est GFR (CKD-EPI)AfAm Est GFR (CKD-EPI)NonAf Random Glucose Calcium Total Bilirubin AST ALT Alkaline Phosphatase Total Protein Albumin Phenytoin 1.6 L RPR Titer HIV 1&2 Antibody Screen Negative HIV P24 Antigen Negative LABS NOTED. Assessment: 03/22/19 11:18 COMPLETION OF DETOX REGIMEN. Plan: SINCE PATIENT REPORTS THAT CURRENT WITHDRAWAL / DETOX SYMPTOMS ARE MINIMAL IN DEGREE AND THAT HE FEELS WELL OVERALL, AT PATIENTS REQUEST, HE WAS GRANTED AN EARLY DISCHARGE FROM DETOX UNIT TODAY SO THAT HE MAY PROCEED ON TO AFTERCARE PLAN - [facility] ([facility]).
--- NOTE | 2019-03-22 11:30 | DS ---
[facility] Detox Discharge Summary Admission Date: 03/19/19 Discharge Date: 03/22/19 - History Present History: Alcohol Dependence, Cocaine Dependence Additional Comments: PATIENT REPORTS THAT CURRENT WITHDRAWAL / DETOX SYMPTOMS ARE MINIMAL IN DEGREE AND THAT HE FEELS WELL OVERALL AT TIME OF DISCHARGE FROM DETOX UNIT. PATIENT GOING TO [facility] ([place], [place]) FOR AFTERCARE. PATIENT WAS DISCHARGED FROM DETOX UNIT TO BE TAKEN OVER TO REHAB UNIT IN STABLE MEDICAL CONDITION. Pertinent Past History: History Of Seizures, History Of lower Back Pain, History Of Bone Cancer, G.E.R.D., Schizoaffective Disorder (Bipolar Type), Asthma, Depression, Bipolar Disorder. - Physical Exam Results Vital Signs: Vital Signs Temperature 98.1 F 03/22/19 09:29 Pulse Rate 69 03/22/19 09:29 Respiratory Rate 18 03/22/19 09:29 Blood Pressure 127/92 03/22/19 09:29 O2 Sat by Pulse Oximetry (%) Pertinent Admission Physical Exam Findings: WITHDRAWAL SYMPTOMS. Laboratory Tests 03/20/19 03/20/19 03/20/19 08:00 08:00 08:00 WBC 6.4 RBC 4.33 Hgb 14.1 Hct 41.3 MCV 95.5 MCH 32.6 MCHC 34.1 RDW 13.4 Plt Count 219 MPV 9.1 Sodium 143 Potassium 3.8 Chloride 109 H Carbon Dioxide 28 Anion Gap 6 L BUN 8.4 Creatinine 0.9 Est GFR (CKD-EPI)AfAm 115.02 Est GFR (CKD-EPI)NonAf 99.24 Random Glucose 111 H Calcium 8.1 L Total Bilirubin 0.3 AST 22 ALT 26 Alkaline Phosphatase 88 Total Protein 6.5 Albumin 3.3 L Phenytoin RPR Titer Nonreactive HIV 1&2 Antibody Screen HIV P24 Antigen 03/20/19 03/20/19 08:00 08:00 WBC RBC Hgb Hct MCV MCH MCHC RDW Plt Count MPV Sodium Potassium Chloride Carbon Dioxide Anion Gap BUN Creatinine Est GFR (CKD-EPI)AfAm Est GFR (CKD-EPI)NonAf Random Glucose Calcium Total Bilirubin AST ALT Alkaline Phosphatase Total Protein Albumin Phenytoin 1.6 L RPR Titer HIV 1&2 Antibody Screen Negative HIV P24 Antigen Negative LABS NOTED. - Treatment Hospital Course: Detox Protocol Followed, Detoxed Safely, Responded well, Discharged Condition Good, Rehab Referral Accepted Patient has Accepted a Rehab Referral to: [facility] ([place], [place]). - Medication Discharge Medications: Ambulatory Orders traZODone HCL [Trazodone HCl] 50 mg PO HS #30 tablet 06/11/18 Albuterol Sulfate Inhaler - [Ventolin HFA Inhaler -] 1 - 2 inh PO Q4H PRN #1 inhaler 02/24/19 Aspirin [Aspirin EC] 81 mg PO DAILY #14 tablet. 02/24/19 Cholecalciferol (Vitamin D3) [Vitamin D3 -] 1,000 unit PO DAILY #30 tab Folic Acid - 1 mg PO DAILY #30 tablet 02/24/19 Ibuprofen 600 mg PO Q6H PRN #90 tablet 02/24/19 Omeprazole 40 mg PO DAILY #30 capsule. 02/24/19 Phenytoin Na Extended [Dilantin -] 200 mg PO HS #30 capsule 02/24/19 Phenytoin Na Extended [Dilantin -] 300 mg PO DAILY #30 capsule 02/24/19 Risperidone [Risperdal -] 1 mg PO DAILY #30 tablet 02/24/19 Sertraline HCl [Zoloft -] 50 mg PO DAILY #30 tablet 02/24/19 - Diagnosis (1) Alcohol dependence with uncomplicated withdrawal Current Visit: Yes Status: Acute (2) Asthma Current Visit: Yes Status: Chronic Qualifiers: Asthma severity: unspecified severity Asthma persistence: unspecified Asthma complication type: unspecified Qualified Code(s): J45.909 - Unspecified asthma, uncomplicated (3) Cocaine dependence Current Visit: Yes Status: Chronic Qualifiers: Substance use status: uncomplicated Qualified Code(s): F14.20 - Cocaine dependence, uncomplicated (4) Depression Current Visit: Yes Status: Chronic Qualifiers: Depression Type: unspecified Qualified Code(s): F32.9 - Major depressive disorder, single episode, unspecified (5) GERD (gastroesophageal reflux disease) Current Visit: Yes Status: Chronic Qualifiers: Esophagitis presence: without esophagitis Qualified Code(s): K21.9 - Gastro -esophageal reflux disease without esophagitis (6) Low back pain Current Visit: Yes Status: Chronic Qualifiers: Chronicity: chronic Back pain laterality: unspecified Sciatica presence: unspecified whether sciatica present Qualified Code(s): M54.5 - Low back pain ; G89.29 - Other chronic pain (7) Nicotine dependence Current Visit: Yes Status: Chronic Qualifiers: Nicotine product type: cigarettes Substance use status: uncomplicated Qualified Code(s): F17.210 - Nicotine dependence, cigarettes, uncomplicated (8) Obesity (BMI 30.0-34.9) Current Visit: Yes Status: Chronic (9) depression Current Visit: Yes Status: Chronic (10) seizure disorder Current Visit: Yes Status: Chronic (11) Bone cancer Current Visit: No Status: Resolved Qualifiers: Malignant neoplasm of bone location: unspecified location Qualified Code(s) : C41.9 - Malignant neoplasm of bone and articular cartilage, unspecified (12) Substance induced mood disorder Current Visit: Yes Status: Acute (13) Schizoaffective disorder, bipolar type Current Visit: Yes Status: Chronic - AMA Did Patient Leave Against Medical Advice: No
--- NOTE | 2019-03-22 11:38 | HP ---
[facility] Rehab Assess/Revision - Admission History Admitted to Rehab from: [facility] Date of Admission to Rehab: 03/22/2019 - Vital signs Vital Signs: Vital Signs Period Temp Pulse Resp BP Sys/Beaulieu Pulse Ox Last 24 Hr 97.3 F-98.7 F 60-80 18-18 117-127/75-92 - Findings Detox History & Physical reviewed: Yes Concur with findings: Yes Comments/Additional Findings: PATIENT'S MEDICAL / MEDICATION HISTORY REVIEWED PRIOR TO DISCHARGE FROM DETOX UNIT. PATIENT WAS DISCHARGED FROM DETOX UNIT TO BE TAKEN OVER TO REHAB UNIT IN STABLE MEDICAL CONDITION. Inpatient Rehab Admission - Rehab Decision to Admit Inpatient rehab admission?: Yes - Initial Determination Are CD services needed?: Yes Free of communicable disease: Yes Not in need of hospitalization: Yes - Rehab Admission Criteria Previous failed treatment: Yes Poor recovery environment: Yes Comorbidities: Yes Lacks judgement: No Patient is meeting Inpatient Rehab admission criteria:: Yes
[2019-03-22] MEDS ORDERED: MELATONIN 5 MG TABLETS PO PRN (14:43)
[2019-03-22] MEDS ORDERED: MAGNESIUM CITRATE 300 ML BOTTLE PO PRN (14:43)
[2019-03-22] MEDS ORDERED: BISMUTH SUBSALICYLATE 524 MG/30 ML UD PO PRN (14:43)
[2019-03-22] MEDS ORDERED: NICOTINE POLACRILEX 2 MG GUM BUC PRN (14:43)
[2019-03-22] MEDS ORDERED: MAGNESIUM HYDROX 2400MG/30ML ORAL SUSPENSION 30 ML CUP PO PRN (14:43)
[2019-03-22] MEDS ORDERED: ACETAMINOPHEN 325 MG TABLET (FP) PO PRN ×2 (14:43)
[2019-03-22] MEDS ORDERED: MENTHOL/PHENOL 1 EACH UD MM PRN (14:43)
[2019-03-22] MEDS: ALBUTEROL SO4 8 GM HFA INHALER IH PRN (21:25)
[2019-03-22] MEDS: THIAMINE HCL 100 MG TABLET (FP) PO SCH (21:25)
[2019-03-22] MEDS: traZODone HCL 50 MG TABLET (FP) PO SCH (21:28)
[2019-03-22] MEDS ORDERED: chlordiazePOXIDE HCL 10 MG CAPSULE PO SCH (23:00)
[2019-03-23] MEDS: MAG HYDROX/AL HYDROX/SIMETH 30 ML UNIT-DOSE CUP PO PRN (04:29)
[2019-03-23] MEDS: PHENYTOIN NA EXTENDED 100 MG CAPSULE (FP) PO SCH ×2 (07:18→22:16)
[2019-03-23] MEDS: ASPIRIN COATED 81 MG TABLET.EC PO SCH (10:22)
[2019-03-23] MEDS: CHOLECALCIFEROL (VIT D3) 1,000 UNIT (25 MCG) TABLET PO SCH (10:23)
[2019-03-23] MEDS: PRENATAL VITAMINS W/ FOLIC ACID TABLET (FP) PO SCH (10:24)
[2019-03-23] MEDS: CALCIUM 500MG/VIT-D 200 UNITS COMBO TABLET (FP) PO SCH ×2 (10:24→22:17)
[2019-03-23] MEDS: SERTRALINE HCL 50 MG TABLET (FP) PO SCH (10:25)
[2019-03-23] MEDS: NICOTINE 21 MG/24 HOURS TOPICAL PATCH TD SCH (11:25)
[2019-03-23] MEDS: IBUPROFEN 400 MG TABLET (FP) PO PRN (11:36)
[2019-03-23] MEDS: risperiDONE 1 MG TABLET (FP) PO SCH (22:17)
[2019-03-23] MEDS: traZODone HCL 50 MG TABLET (FP) PO SCH (22:17)
[2019-03-23] MEDS: THIAMINE HCL 100 MG TABLET (FP) PO SCH (22:18)
[2019-03-24] MEDS: MAG HYDROX/AL HYDROX/SIMETH 30 ML UNIT-DOSE CUP PO PRN (02:51)
[2019-03-24] MEDS: PHENYTOIN NA EXTENDED 100 MG CAPSULE (FP) PO SCH ×2 (07:27→19:57)
[2019-03-24] MEDS: ASPIRIN COATED 81 MG TABLET.EC PO SCH (09:50)
[2019-03-24] MEDS: CALCIUM 500MG/VIT-D 200 UNITS COMBO TABLET (FP) PO SCH ×2 (09:50→21:31)
[2019-03-24] MEDS: SERTRALINE HCL 50 MG TABLET (FP) PO SCH (09:50)
[2019-03-24] MEDS: PRENATAL VITAMINS W/ FOLIC ACID TABLET (FP) PO SCH (09:50)
[2019-03-24] MEDS: CHOLECALCIFEROL (VIT D3) 1,000 UNIT (25 MCG) TABLET PO SCH (09:50)
[2019-03-24] MEDS: ALBUTEROL SO4 8 GM HFA INHALER IH PRN (09:51)
[2019-03-24] MEDS: NICOTINE 21 MG/24 HOURS TOPICAL PATCH TD SCH (09:52)
--- NOTE | 2019-03-24 13:54 | PN ---
[facility] Progress Note Note: pt refusing nicotine patch due to skin irritation. Vital Signs - 24 hr 03/24/19 03/24/19 03/24/19 00:30 03:30 06:40 Temperature 97.6 F Pulse Rate 70 Respiratory 18 20 18 Rate Blood Pressure 138/93 Laboratory Tests 03/20/19 03/20/19 03/20/19 08:00 08:00 08:00 WBC 6.4 RBC 4.33 Hgb 14.1 Hct 41.3 MCV 95.5 MCH 32.6 MCHC 34.1 RDW 13.4 Plt Count 219 MPV 9.1 Sodium 143 Potassium 3.8 Chloride 109 H Carbon Dioxide 28 Anion Gap 6 L BUN 8.4 Creatinine 0.9 Est GFR (CKD-EPI)AfAm 115.02 Est GFR (CKD-EPI)NonAf 99.24 Random Glucose 111 H Calcium 8.1 L Total Bilirubin 0.3 AST 22 ALT 26 Alkaline Phosphatase 88 Total Protein 6.5 Albumin 3.3 L Phenytoin RPR Titer Nonreactive HIV 1&2 Antibody Screen HIV P24 Antigen 03/20/19 03/20/19 08:00 08:00 WBC RBC Hgb Hct MCV MCH MCHC RDW Plt Count MPV Sodium Potassium Chloride Carbon Dioxide Anion Gap BUN Creatinine Est GFR (CKD-EPI)AfAm Est GFR (CKD-EPI)NonAf Random Glucose Calcium Total Bilirubin AST ALT Alkaline Phosphatase Total Protein Albumin Phenytoin 1.6 L RPR Titer HIV 1&2 Antibody Screen Negative HIV P24 Antigen Negative Skin:Left deltoid area with echymotic rash. No open skin or drainage. d/c nicotine patch.
[2019-03-24] MEDS: risperiDONE 1 MG TABLET (FP) PO SCH (21:31)
[2019-03-24] MEDS: traZODone HCL 50 MG TABLET (FP) PO SCH (21:31)
[2019-03-24] MEDS: THIAMINE HCL 100 MG TABLET (FP) PO SCH (21:31)
[2019-03-25] MEDS: MAG HYDROX/AL HYDROX/SIMETH 30 ML UNIT-DOSE CUP PO PRN (01:55)
[2019-03-25] MEDS: IBUPROFEN 400 MG TABLET (FP) PO PRN ×2 (06:03→23:38)
[2019-03-25] MEDS: PHENYTOIN NA EXTENDED 100 MG CAPSULE (FP) PO SCH ×2 (07:03→20:00)
[2019-03-25] MEDS: CHOLECALCIFEROL (VIT D3) 1,000 UNIT (25 MCG) TABLET PO SCH (10:02)
[2019-03-25] MEDS: ASPIRIN COATED 81 MG TABLET.EC PO SCH (10:02)
[2019-03-25] MEDS: CALCIUM 500MG/VIT-D 200 UNITS COMBO TABLET (FP) PO SCH (10:02)
[2019-03-25] MEDS: PRENATAL VITAMINS W/ FOLIC ACID TABLET (FP) PO SCH (10:02)
[2019-03-25] MEDS: SERTRALINE HCL 50 MG TABLET (FP) PO SCH (10:03)
[2019-03-25] MEDS: traZODone HCL 50 MG TABLET (FP) PO SCH (21:19)
[2019-03-25] MEDS: risperiDONE 1 MG TABLET (FP) PO SCH (21:19)
[2019-03-25] MEDS: THIAMINE HCL 100 MG TABLET (FP) PO SCH (21:19)
[2019-03-26] MEDS: MAG HYDROX/AL HYDROX/SIMETH 30 ML UNIT-DOSE CUP PO PRN (01:26)
[2019-03-26] MEDS: PHENYTOIN NA EXTENDED 100 MG CAPSULE (FP) PO SCH ×2 (07:39→21:52)
[2019-03-26] MEDS: IBUPROFEN 400 MG TABLET (FP) PO PRN ×2 (07:40→21:54)
[2019-03-26] MEDS: PRENATAL VITAMINS W/ FOLIC ACID TABLET (FP) PO SCH (09:40)
[2019-03-26] MEDS: ALBUTEROL SO4 8 GM HFA INHALER IH PRN (09:40)
[2019-03-26] MEDS: CHOLECALCIFEROL (VIT D3) 1,000 UNIT (25 MCG) TABLET PO SCH (09:40)
[2019-03-26] MEDS: SERTRALINE HCL 50 MG TABLET (FP) PO SCH (09:40)
[2019-03-26] MEDS: ASPIRIN COATED 81 MG TABLET.EC PO SCH (09:40)
[2019-03-26] MEDS: THIAMINE HCL 100 MG TABLET (FP) PO SCH (21:53)
[2019-03-26] MEDS: risperiDONE 1 MG TABLET (FP) PO SCH (21:53)
[2019-03-26] MEDS: traZODone HCL 50 MG TABLET (FP) PO SCH (21:53)
[2019-03-27] MEDS: MAG HYDROX/AL HYDROX/SIMETH 30 ML UNIT-DOSE CUP PO PRN (02:38)
[2019-03-27] MEDS: IBUPROFEN 400 MG TABLET (FP) PO PRN ×2 (06:21→19:13)
[2019-03-27] MEDS: ALBUTEROL SO4 8 GM HFA INHALER IH PRN ×2 (06:22→21:33)
[2019-03-27] MEDS: PHENYTOIN NA EXTENDED 100 MG CAPSULE (FP) PO SCH ×2 (07:01→21:30)
[2019-03-27] MEDS: CHOLECALCIFEROL (VIT D3) 1,000 UNIT (25 MCG) TABLET PO SCH (10:41)
[2019-03-27] MEDS: ASPIRIN COATED 81 MG TABLET.EC PO SCH (10:41)
[2019-03-27] MEDS: PRENATAL VITAMINS W/ FOLIC ACID TABLET (FP) PO SCH (10:41)
[2019-03-27] MEDS: SERTRALINE HCL 50 MG TABLET (FP) PO SCH (10:41)
[2019-03-27] MEDS: risperiDONE 1 MG TABLET (FP) PO SCH (21:32)
[2019-03-27] MEDS: traZODone HCL 50 MG TABLET (FP) PO SCH (21:32)
[2019-03-27] MEDS: THIAMINE HCL 100 MG TABLET (FP) PO SCH (21:32)
[2019-03-28] MEDS: MAG HYDROX/AL HYDROX/SIMETH 30 ML UNIT-DOSE CUP PO PRN (00:41)
[2019-03-28] MEDS: IBUPROFEN 400 MG TABLET (FP) PO PRN (05:54)
[2019-03-28] MEDS: ALBUTEROL SO4 8 GM HFA INHALER IH PRN (05:56)
[2019-03-28 06:56] VITALS: BP 116/78; PULSE 68; TEMP 98.2
[2019-03-28] MEDS: PHENYTOIN NA EXTENDED 100 MG CAPSULE (FP) PO SCH (07:22)
[2019-03-28] MEDS: PRENATAL VITAMINS W/ FOLIC ACID TABLET (FP) PO SCH (09:04)
[2019-03-28] MEDS: CHOLECALCIFEROL (VIT D3) 1,000 UNIT (25 MCG) TABLET PO SCH (09:04)
[2019-03-28] MEDS: SERTRALINE HCL 50 MG TABLET (FP) PO SCH (09:04)
--- NOTE | 2019-03-28 12:35 | PN ---
[facility] Progress Note Note: NOTIFIED BY RN PATIENT REQUESTED TO SIGN OUT AMA. PATIENT ADMITTED TO REHAB FOR ETOH DEPENDENCE AFTER COMPLETING DETOX HERE AT [facility]. PATIENT STATED TO BROKE MAN " I WANT TO GO. I AM TIRED OF BEING HERE". PATIENT ENCOURAGED TO STAY IN REHAB AND COMPLETE TREATMENT AND EXPLAINED RISK FACTORS WITH SIGNING OUT AMA ( RELAPSE , OVERDOSE AND ) BUT PATIENT REFUSED TO STAY IN TREATMENT. PATIENT REVIEWED LABS AND INFORMED DILANTIN LEVEL WAS LOW AND RISKS OF SEIZURES WITH NONCOMPLIANCE. PATIENT REPORTED TO BROKE MAN HE WILL FOLLOW UP WITH PCP TODAY. PATIENT IS MEDICALLY STABLE AT THIS TIME AND DENIES SI/HI. PATIENT ENCOURAGE TO ATTEND GROUP MEETINGS/AA AND TO SEEK MEDICAL ATTENTION FOR SEIZURES, CHEST PAIN , SOB AND DIZZINESS. Vital Signs Temperature 98.2 F 03/28/19 06:55 Pulse Rate 68 03/28/19 06:55 Respiratory Rate 18 03/28/19 06:55 Blood Pressure 116/78 03/28/19 06:55 O2 Sat by Pulse Oximetry (%) Laboratory Tests 03/20/19 03/20/19 03/20/19 08:00 08:00 08:00 WBC 6.4 RBC 4.33 Hgb 14.1 Hct 41.3 MCV 95.5 MCH 32.6 MCHC 34.1 RDW 13.4 Plt Count 219 MPV 9.1 Sodium 143 Potassium 3.8 Chloride 109 H Carbon Dioxide 28 Anion Gap 6 L BUN 8.4 Creatinine 0.9 Est GFR (CKD-EPI)AfAm 115.02 Est GFR (CKD-EPI)NonAf 99.24 Random Glucose 111 H Calcium 8.1 L Total Bilirubin 0.3 AST 22 ALT 26 Alkaline Phosphatase 88 Total Protein 6.5 Albumin 3.3 L Phenytoin RPR Titer Nonreactive HIV 1&2 Antibody Screen HIV P24 Antigen 03/20/19 03/20/19 08:00 08:00 WBC RBC Hgb Hct MCV MCH MCHC RDW Plt Count MPV Sodium Potassium Chloride Carbon Dioxide Anion Gap BUN Creatinine Est GFR (CKD-EPI)AfAm Est GFR (CKD-EPI)NonAf Random Glucose Calcium Total Bilirubin AST ALT Alkaline Phosphatase Total Protein Albumin Phenytoin 1.6 L RPR Titer HIV 1&2 Antibody Screen Negative HIV P24 Antigen Negative Ambulatory Orders traZODone HCL [Trazodone HCl] 50 mg PO HS #30 tablet 06/11/18 Aspirin [Aspirin EC] 81 mg PO DAILY #14 tablet. 02/24/19 Cholecalciferol (Vitamin D3) [Vitamin D3 -] 1,000 unit PO DAILY #30 tab Folic Acid - 1 mg PO DAILY #30 tablet 02/24/19 Ibuprofen 600 mg PO Q6H PRN #90 tablet 02/24/19 Omeprazole 40 mg PO DAILY #30 capsule. 02/24/19 Risperidone [Risperdal -] 1 mg PO DAILY #30 tablet 02/24/19 Sertraline HCl [Zoloft -] 50 mg PO DAILY #30 tablet 02/24/19 Albuterol Sulfate Inhaler - [Ventolin HFA Inhaler -] 1 - 2 inh PO Q4H PRN #1 inhaler 03/28/19 Multivit-Min/Iron/Folic Acid/K [Multi-Day Plus Minerals Tablet] 1 each PO DAILY #30 tablet 03/28/19 Phenytoin Na Extended [Dilantin -] 200 mg PO HS #30 capsule 03/28/19 Phenytoin Na Extended [Dilantin -] 300 mg PO DAILY #30 capsule 03/28/19
== END 2019-03-28 09:10 | disposition left against medical advice (07) | DRG 894 ==
LOC: YASAS 15:26 → Y3N 21:08 → Y3W 03-22 12:37
PROVIDERS: ADMIT Surgery; ATTEND Psychiatry & Neurology Psychiatry
PROC: HZ2ZZZZ Detoxification Services for Substance Abuse Treatment (ICD-10-PCS; principal; 2019-03-19)
PROC: HZ42ZZZ Group Counseling for Substance Abuse Treatment, Cognitive-Behavioral (ICD-10-PCS; 2019-03-22)
DX: F10.230 Alcohol dependence with withdrawal, uncomplicated (principal); F14.20 Cocaine dependence, uncomplicated; F17.210 Nicotine dependence, cigarettes, uncomplicated; F32.9 Major depressive disorder, single episode, unspecified; F25.0 Schizoaffective disorder, bipolar type; F19.24 Other psychoactive substance dependence with psychoactive substance-induced mood disorder; G40.909 Epilepsy, unspecified, not intractable, without status epilepticus; J45.909 Unspecified asthma, uncomplicated; K21.9 Gastro-esophageal reflux disease without esophagitis; M54.5 Low back pain; G89.29 Other chronic pain; E83.51 Hypocalcemia; E66.9 Obesity, unspecified; Z68.33 Body mass index [BMI] 33.0-33.9, adult; Z85.830 Personal history of malignant neoplasm of bone; Z92.21 Personal history of antineoplastic chemotherapy; Z91.013 Allergy to seafood
CPT/HCPCS: 36415; 80053; 80185; 85027; 86593; 87389; J2794

== ENCOUNTER 2019-09-06 22:35 | Inpatient (IN) | payer BC, MEDICARE, OTHER ==
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
[2019-09-06] MEDS ORDERED: MAGNESIUM CITRATE 300 ML BOTTLE PO PRN (23:01)
[2019-09-06] MEDS ORDERED: MENTHOL/PHENOL 1 EACH UD MM PRN (23:01)
[2019-09-06] MEDS ORDERED: guaiFENesin 200 MG/10 ML 10 ML UNIT-DOSE CUPS PO PRN (23:01)
[2019-09-06] MEDS ORDERED: METHOCARBAMOL 500 MG TABLET PO PRN (23:01)
[2019-09-06] MEDS ORDERED: ACETAMINOPHEN 325 MG TABLET (FP) PO PRN (23:01)
[2019-09-06] MEDS ORDERED: ONDANSETRON *ODT* 4 MG TABLET SL PRN (23:01)
[2019-09-06] MEDS ORDERED: MELATONIN 5 MG TABLETS PO PRN (23:01)
[2019-09-06] MEDS ORDERED: LORazepam 1 MG TABLET PO PRN (23:01)
[2019-09-06] MEDS ORDERED: DICYCLOMINE HCL 10 MG CAPSULE PO PRN (23:01)
[2019-09-06] MEDS ORDERED: BISMUTH SUBSALICYLATE 524 MG/30 ML UD PO PRN (23:01)
[2019-09-06] MEDS ORDERED: IBUPROFEN 400 MG TABLET (FP) PO PRN (23:01)
[2019-09-06] MEDS ORDERED: MAGNESIUM HYDROX 2400MG/30ML ORAL SUSPENSION 30 ML CUP PO PRN (23:01)
[2019-09-06] MEDS ORDERED: P-EPHED 60MG/TRIPROLIDI 2.5MG TABLET PO PRN (23:01)
[2019-09-06] MEDS ORDERED: MAG HYDROX/AL HYDROX/SIMETH 30 ML UNIT-DOSE CUP PO PRN (23:01)
[2019-09-06] MEDS ORDERED: hydrOXYzine PAMOATE 25 MG CAPSULE (FP) PO PRN (23:01)
[2019-09-06] MEDS ORDERED: NICOTINE POLACRILEX 2 MG GUM BUC PRN (23:01)
[2019-09-06 23:11] VITALS: BMI 31.5
[2019-09-07] MEDS: LORazepam 2 MG TABLET PO SCH ×5 (00:38→22:29)
--- NOTE | 2019-09-07 10:11 | PN ---
S CIWA - CIWA Score Nausea/Vomitin-Mild Nausea/No Vomiting Muscle Tremors: 2 Anxiety: 2 Agitation: 2 Paroxysmal Sweats: No Perspiration Orientation: 0-Oriented Tacttile Disturbances: 1-Very Mild Itch/Numbness Auditory Disturbances: 0-None Visual Disturbances: 0-None Headache: 2-Mild CIWA-Ar Total Score: 10 BHS Progress Note (SOAP) Subjective: alert,irritable,anxious,interrupted sleep,tremor,pain in the body Objective: 09/07/19 10:09 Vital Signs Temperature 97.5 F L 09/07/19 09:23 Pulse Rate 61 09/07/19 09:23 Respiratory Rate 20 09/07/19 09:23 Blood Pressure 122/65 09/07/19 09:23 O2 Sat by Pulse Oximetry (%) 09/07/19 10:10 lab pending Assessment: 09/07/19 10:10 withdrawal symptom Plan: continue detox ativan regimen
[2019-09-07] MEDS: NICOTINE 21 MG/24 HOURS TOPICAL PATCH TD SCH (10:21)
[2019-09-07] MEDS: PRENATAL VITAMINS W/ FOLIC ACID TABLET (FP) PO SCH (10:21)
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
[2019-09-07 11:46] LABS: HEMATOCRIT 42.5 % (35.4-49); HEMOGLOBIN 14.5 GM/dL (11.7-16.9); MCH 32.9 pg (25.7-33.7); MCHC 34.1 g/dl (32.0-35.9); MEAN CELL VOLUME 96.4 fl (80-96); MEAN PLT VOLUME 9.2 fl (7.5-11.1); PLATELET COUNT 218 K/MM3 (134-434); RDW 13.4 % (11.9-15.9); WHITE BLOOD COUNT 6.4 K/mm3 (4.0-10.0)
--- NOTE | 2019-09-07 11:51 | EKG ---
Test Reason : Blood Pressure : / mmHG Vent. Rate : 063 BPM Atrial Rate : 063 BPM P-R Int : 122 ms QRS Dur : 082 ms QT Int : 422 ms P-R-T Axes : 064 009 008 degrees QTc Int : 431 ms NORMAL SINUS RHYTHM NORMAL ECG WHEN COMPARED WITH ECG OF 31-MAY-2018 17:07, NO SIGNIFICANT CHANGE WAS FOUND Confirmed by TATYANA ESTRADA MD ([id number]) on 09/07/2019 11:51:31 AM Referred By: Arun Alex Confirmed By:TATYANA ESTRADA MD
[2019-09-07 11:54] LABS: ALBUMIN 3.2 g/dl (3.4-5.0); BILIRUBIN,TOTAL 0.2 mg/dL (0.2-1); CALCIUM 7.8 mg/dL (8.5-10.1); CREATININE 0.8 mg/dL (0.55-1.3); POTASSIUM 3.7 mmol/L (3.5-5.1); TOT PROT 5.9 g/dl (6.4-8.2)
[2019-09-07] MEDS: SERTRALINE HCL 50 MG TABLET (FP) PO SCH (12:33)
[2019-09-07] MEDS: risperiDONE 1 MG TABLET (FP) PO SCH (12:33)
[2019-09-07] MEDS: traZODone HCL 50 MG TABLET (FP) PO SCH (22:29)
[2019-09-07] MEDS: THIAMINE HCL 100 MG TABLET (FP) PO SCH (22:29)
[2019-09-08] MEDS: LORazepam 1 MG TABLET PO SCH ×4 (06:38→22:27)
--- NOTE | 2019-09-08 10:51 | PN ---
[facility] CIWA - CIWA Score Nausea/Vomitin-Mild Nausea/No Vomiting Muscle Tremors: 3 Anxiety: 2 Agitation: 2 Paroxysmal Sweats: No Perspiration Orientation: 0-Oriented Tacttile Disturbances: 1-Very Mild Itch/Numbness Auditory Disturbances: 0-None Visual Disturbances: 0-None Headache: 2-Mild CIWA-Ar Total Score: 11 S Progress Note (SOAP) Subjective: alert,irritable,anxious,interrupted sleep,tremor Objective: 09/08/19 10:54 Vital Signs Temperature 97.9 F 09/08/19 10:00 Pulse Rate 68 09/08/19 10:00 Respiratory Rate 18 09/08/19 10:00 Blood Pressure 135/75 09/08/19 10:00 O2 Sat by Pulse Oximetry (%) 09/08/19 10:56 Laboratory Last Values WBC 6.4 K/mm3 (4.0-10.0) 09/07/19 08:00 RBC 4.40 M/mm3 (4.00-5.60) 09/07/19 08:00 Hgb 14.5 GM/dL (11.7-16.9) 09/07/19 08:00 Hct 42.5 % (35.4-49) 09/07/19 08:00 MCV 96.4 fl (80-96) H 09/07/19 08:00 MCH 32.9 pg (25.7-33.7) 09/07/19 08:00 MCHC 34.1 g/dl (32.0-35.9) 09/07/19 08:00 RDW 13.4 % (11.9-15.9) 09/07/19 08:00 Plt Count 218 K/MM3 (134-434) 09/07/19 08:00 MPV 9.2 fl (7.5-11.1) 09/07/19 08:00 Sodium 142 mmol/L (136-145) 09/07/19 08:00 Potassium 3.7 mmol/L (3.5-5.1) 09/07/19 08:00 Chloride 107 mmol/L (98-107) 09/07/19 08:00 Carbon Dioxide 29 mmol/L (21-32) 09/07/19 08:00 Anion Gap 5 MMOL/L (8-16) L 09/07/19 08:00 BUN 8.0 mg/dL (7-18) 09/07/19 08:00 Creatinine 0.8 mg/dL (0.55-1.3) 09/07/19 08:00 Est GFR (CKD-EPI)AfAm 119.88 09/07/19 08:00 Est GFR (CKD-EPI)NonAf 103.43 09/07/19 08:00 Random Glucose 90 mg/dL (74-106) 09/07/19 08:00 Calcium 7.8 mg/dL (8.5-10.1) L 09/07/19 08:00 Total Bilirubin 0.2 mg/dL (0.2-1) 09/07/19 08:00 AST 20 U/L (15-37) 09/07/19 08:00 ALT 34 U/L (13-61) 09/07/19 08:00 Alkaline Phosphatase 68 U/L (45-117) 09/07/19 08:00 Total Protein 5.9 g/dl (6.4-8.2) L 09/07/19 08:00 Albumin 3.2 g/dl (3.4-5.0) L 09/07/19 08:00 RPR Titer Nonreactive (NONREACTIVE) 09/07/19 08:00 Assessment: 09/08/19 10:56 withdrawal symptom Plan: continue detox ativan regimen
[2019-09-08] MEDS: NICOTINE 21 MG/24 HOURS TOPICAL PATCH TD SCH (11:00)
[2019-09-08] MEDS: risperiDONE 1 MG TABLET (FP) PO SCH (11:00)
[2019-09-08] MEDS: PRENATAL VITAMINS W/ FOLIC ACID TABLET (FP) PO SCH (11:00)
[2019-09-08] MEDS: SERTRALINE HCL 50 MG TABLET (FP) PO SCH (11:00)
[2019-09-08 17:02] LABS: PH,URINE 7.5 (5.0-8.0); URINE APPEARANCE CLEAR; URINE BILIRUBIN NEGATIVE (NEGATIVE); URINE COLOR YELLOW; URINE GLUCOSE (UA) NEGATIVE (NEGATIVE); URINE KETONE NEGATIVE (NEGATIVE); URINE LEUK ESTERASE NEGATIVE (NEGATIVE); URINE NITRITE NEGATIVE (NEGATIVE); URINE PROTEIN NEGATIVE (NEGATIVE)
[2019-09-08] MEDS: traZODone HCL 50 MG TABLET (FP) PO SCH (22:27)
[2019-09-08] MEDS: THIAMINE HCL 100 MG TABLET (FP) PO SCH (22:27)
[2019-09-08] MEDS ORDERED: PHENYTOIN NA EXTENDED 100 MG CAPSULE (FP) PO ONE (23:34)
[2019-09-09] MEDS ORDERED: LORazepam 0.5 MG TABLET PO PRN
[2019-09-09] MEDS: LORazepam 0.5 MG TABLET PO SCH ×4 (06:40→22:34)
[2019-09-09] MEDS: SERTRALINE HCL 50 MG TABLET (FP) PO SCH (10:21)
[2019-09-09] MEDS: risperiDONE 1 MG TABLET (FP) PO SCH (10:21)
[2019-09-09] MEDS: PRENATAL VITAMINS W/ FOLIC ACID TABLET (FP) PO SCH (10:21)
[2019-09-09] MEDS: NICOTINE 21 MG/24 HOURS TOPICAL PATCH TD SCH (10:21)
[2019-09-09] MEDS ORDERED: ALBUTEROL SO4 8 GM HFA INHALER IH PRN (11:02)
[2019-09-09] MEDS ORDERED: PHENYTOIN NA EXTENDED 100 MG CAPSULE (FP) PO ONE (15:15)
--- NOTE | 2019-09-09 15:19 | PN ---
[facility] Progress Note Note: pt states he has a h/o seizure and his last one was over a year ago. His last dilantin result is 1.6. a discussion was made and pt has no PCP in [facility] his last PCP is in [place]. Pt will be place on Dilantin 100mg tid. pt will be d/c tomorrow and is encouraged to see a PCP or connect with a PCP in [facility]. pt in agreement.
--- NOTE | 2019-09-09 15:26 | PN ---
S CIWA - CIWA Score Nausea/Vomitin-No Nausea/No Vomiting Muscle Tremors: 2 Anxiety: 1-Mildly Anxious Agitation: 1-Slight > Activity Paroxysmal Sweats: No Perspiration Orientation: 0-Oriented Tacttile Disturbances: 0-None Auditory Disturbances: 0-None Visual Disturbances: 0-None Headache: 0-None Present CIWA-Ar Total Score: 4 BHS Progress Note (SOAP) Subjective: feeling better I need my dilantin Objective: 09/09/19 15:25 Vital Signs Temperature 98.3 F 09/09/19 13:55 Pulse Rate 58 L 09/09/19 13:55 Respiratory Rate 18 09/09/19 13:55 Blood Pressure 114/69 09/09/19 13:55 O2 Sat by Pulse Oximetry (%) Laboratory Tests 09/07/19 09/07/19 09/07/19 08:00 08:00 08:00 WBC 6.4 RBC 4.40 Hgb 14.5 Hct 42.5 MCV 96.4 H MCH 32.9 MCHC 34.1 RDW 13.4 Plt Count 218 MPV 9.2 Sodium 142 Potassium 3.7 Chloride 107 Carbon Dioxide 29 Anion Gap 5 L BUN 8.0 Creatinine 0.8 Est GFR (CKD-EPI)AfAm 119.88 Est GFR (CKD-EPI)NonAf 103.43 Random Glucose 90 Calcium 7.8 L Total Bilirubin 0.2 AST 20 ALT 34 Alkaline Phosphatase 68 Total Protein 5.9 L Albumin 3.2 L Urine Color Urine Appearance Urine pH Ur Specific [place] Urine Protein Urine Glucose (UA) Urine Ketones Urine Blood Urine Nitrite Urine Bilirubin Urine Urobilinogen Ur Leukocyte Esterase Phenytoin RPR Titer Nonreactive 09/08/19 09/09/19 16:00 08:43 WBC RBC Hgb Hct MCV MCH MCHC RDW Plt Count MPV Sodium Potassium Chloride Carbon Dioxide Anion Gap BUN Creatinine Est GFR (CKD-EPI)AfAm Est GFR (CKD-EPI)NonAf Random Glucose Calcium Total Bilirubin AST ALT Alkaline Phosphatase Total Protein Albumin Urine Color Yellow Urine Appearance Clear Urine pH 7.5 D Ur Specific [place] 1.020 Urine Protein Negative Urine Glucose (UA) Negative Urine Ketones Negative Urine Blood Negative Urine Nitrite Negative Urine Bilirubin Negative Urine Urobilinogen 1.0 Ur Leukocyte Esterase Negative Phenytoin 1.6 RPR Titer labs noted aaox3 ambulating no acute distress Assessment: 09/09/19 15:25 mild withdrawals Plan: continue detox dilantin ordered d/c in am
[2019-09-09] MEDS: PHENYTOIN NA EXTENDED 100 MG CAPSULE (FP) PO SCH (22:34)
[2019-09-09] MEDS: traZODone HCL 50 MG TABLET (FP) PO SCH (22:34)
[2019-09-09] MEDS: THIAMINE HCL 100 MG TABLET (FP) PO SCH (22:34)
[2019-09-10] MEDS ORDERED: LORazepam 0.5 MG TABLET PO ONE (05:00)
[2019-09-10] MEDS: PHENYTOIN NA EXTENDED 100 MG CAPSULE (FP) PO SCH (05:08)
[2019-09-10 05:54] VITALS: BP 120/74; PULSE 57; TEMP 97.7
[2019-09-10] MEDS: NICOTINE 21 MG/24 HOURS TOPICAL PATCH TD SCH (10:22)
[2019-09-10] MEDS: risperiDONE 1 MG TABLET (FP) PO SCH (10:24)
[2019-09-10] MEDS: SERTRALINE HCL 50 MG TABLET (FP) PO SCH (10:24)
[2019-09-10] MEDS: PRENATAL VITAMINS W/ FOLIC ACID TABLET (FP) PO SCH (10:24)
--- NOTE | 2019-09-10 11:43 | DS ---
[facility] Detox Discharge Summary Admission Date: 09/06/19 Discharge Date: 09/10/19 - History Present History: Alcohol Dependence Pertinent Past History: Pt here for alcohol detox. Says he came here directly from [place] where he is currently residing- homeless. Pt states that he has no medicare insurance. Pt states he has no money to pay for medications. Says he would like to go to rehab- and plans to come back next week. pt on dilantin- no recent seizures and h/o asthma - Physical Exam Results Vital Signs: Vital Signs Temperature 97.7 F 09/10/19 05:52 Pulse Rate 57 L 09/10/19 06:26 Respiratory Rate 20 09/10/19 06:26 Blood Pressure 120/74 09/10/19 05:52 O2 Sat by Pulse Oximetry (%) - Treatment Hospital Course: Detox Protocol Followed, Detoxed Safely - Medication Discharge Medications: Ambulatory Orders traZODone HCL [Trazodone HCl] 50 mg PO HS #30 tablet 06/11/18 Aspirin [Aspirin EC] 81 mg PO DAILY #14 tablet. 02/24/19 Cholecalciferol (Vitamin D3) [Vitamin D3 -] 1,000 unit PO DAILY #30 tab Folic Acid - 1 mg PO DAILY #30 tablet 02/24/19 Ibuprofen 600 mg PO Q6H PRN #90 tablet 02/24/19 Omeprazole 40 mg PO DAILY #30 capsule. 02/24/19 Risperidone [Risperdal -] 1 mg PO DAILY #30 tablet 02/24/19 Sertraline HCl [Zoloft -] 50 mg PO DAILY #30 tablet 02/24/19 Albuterol Sulfate Inhaler - [Ventolin HFA Inhaler -] 1 - 2 inh PO Q4H PRN #1 inhaler 03/28/19 Multivit-Min/Iron/Folic Acid/K [Multi-Day Plus Minerals Tablet] 1 each PO DAILY #30 tablet 03/28/19 Phenytoin Na Extended [Dilantin -] 200 mg PO HS #30 capsule 03/28/19 Phenytoin Na Extended [Dilantin -] 300 mg PO DAILY #30 capsule 03/28/19 - AMA Did Patient Leave Against Medical Advice: No
== END 2019-09-10 12:00 | disposition home or self-care (01) | DRG 897 ==
LOC: YASAS 22:35 → Y6N 23:34
PROVIDERS: ADMIT Allergy & Immunology; ATTEND Allergy & Immunology
PROC: HZ2ZZZZ Detoxification Services for Substance Abuse Treatment (ICD-10-PCS; principal; 2019-09-06)
DX: F10.230 Alcohol dependence with withdrawal, uncomplicated (principal); F14.20 Cocaine dependence, uncomplicated; F19.282 Other psychoactive substance dependence with psychoactive substance-induced sleep disorder; F17.210 Nicotine dependence, cigarettes, uncomplicated; F25.1 Schizoaffective disorder, depressive type; F19.24 Other psychoactive substance dependence with psychoactive substance-induced mood disorder; J45.909 Unspecified asthma, uncomplicated; K21.9 Gastro-esophageal reflux disease without esophagitis; G40.909 Epilepsy, unspecified, not intractable, without status epilepticus; M54.5 Low back pain; G89.29 Other chronic pain; E66.9 Obesity, unspecified; Z68.31 Body mass index [BMI] 31.0-31.9, adult; Z85.830 Personal history of malignant neoplasm of bone; Z92.21 Personal history of antineoplastic chemotherapy; Z91.013 Allergy to seafood; Z91.018 Allergy to other foods; Z59.0 Homelessness
CPT/HCPCS: 36415; 80053; 80185; 81003; 85027; 86593; 93005; 93010; J2794

== ENCOUNTER 2019-09-19 15:41 | Inpatient (IN) | payer BC ==
[2019-09-19 17:54] VITALS: BMI 30.8
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
[2019-09-19] MEDS ORDERED: ALBUTEROL SO4 8 GM HFA INHALER IH PRN (21:55)
[2019-09-19] MEDS ORDERED: chlordiazePOXIDE HCL 10 MG CAPSULE PO PRN (21:56)
[2019-09-19] MEDS ORDERED: BISMUTH SUBSALICYLATE 524 MG/30 ML UD PO PRN (21:56)
[2019-09-19] MEDS ORDERED: MAG HYDROX/AL HYDROX/SIMETH 30 ML UNIT-DOSE CUP PO PRN (21:56)
[2019-09-19] MEDS ORDERED: MAGNESIUM HYDROX 2400MG/30ML ORAL SUSPENSION 30 ML CUP PO PRN (21:56)
[2019-09-19] MEDS ORDERED: IBUPROFEN 400 MG TABLET (FP) PO PRN (21:56)
[2019-09-19] MEDS ORDERED: NICOTINE POLACRILEX 2 MG GUM BUC PRN (21:56)
[2019-09-19] MEDS ORDERED: MELATONIN 5 MG TABLETS PO PRN (21:56)
[2019-09-19] MEDS ORDERED: MAGNESIUM CITRATE 300 ML BOTTLE PO PRN (21:56)
[2019-09-19] MEDS ORDERED: ACETAMINOPHEN 325 MG TABLET (FP) PO PRN ×2 (21:56)
[2019-09-19] MEDS: PHENYTOIN NA EXTENDED 100 MG CAPSULE (FP) PO SCH (22:56)
[2019-09-19] MEDS: guaiFENesin 200 MG/10 ML 10 ML UNIT-DOSE CUPS PO SCH (22:56)
[2019-09-19] MEDS: chlordiazePOXIDE HCL 25 MG CAPSULE PO SCH (22:56)
[2019-09-19] MEDS: METHOCARBAMOL 500 MG TABLET PO PRN (22:56)
[2019-09-19] MEDS: THIAMINE HCL 100 MG TABLET (FP) PO SCH (22:57)
[2019-09-19] MEDS: ALBUTEROL SO4 2.5/IPRATROPIUM 0.5 INH SOL 3 ML VIAL.NEB. NEB SCH (23:27)
[2019-09-20] MEDS: chlordiazePOXIDE HCL 25 MG CAPSULE PO SCH ×3 (05:39→22:39)
[2019-09-20] MEDS: guaiFENesin 200 MG/10 ML 10 ML UNIT-DOSE CUPS PO SCH ×4 (05:39→22:40)
[2019-09-20] MEDS: ALBUTEROL SO4 2.5/IPRATROPIUM 0.5 INH SOL 3 ML VIAL.NEB. NEB SCH (05:41)
[2019-09-20] MEDS: PHENYTOIN NA EXTENDED 100 MG CAPSULE (FP) PO SCH ×2 (10:26→22:40)
[2019-09-20] MEDS: PRENATAL VITAMINS W/ FOLIC ACID TABLET (FP) PO SCH (10:26)
[2019-09-20] MEDS: NICOTINE 14 MG/24 HOURS TOPICAL PATCH TD SCH (10:27)
--- NOTE | 2019-09-20 11:09 | PN ---
S CIWA - CIWA Score Nausea/Vomitin-No Nausea/No Vomiting Muscle Tremors: 2 Anxiety: 3 Agitation: 2 Paroxysmal Sweats: 3 Orientation: 0-Oriented Tacttile Disturbances: 0-None Auditory Disturbances: 0-None Visual Disturbances: 0-None Headache: 2-Mild CIWA-Ar Total Score: 12 BHS Progress Note (SOAP) Subjective: c/o sweats, interrupted sleep, anxiety, and headache. Objective: 09/20/19 11:07 Vital Signs 09/20/19 09/20/19 06:15 09:08 Temperature 97.0 F L 96.8 F L Pulse Rate 65 72 Respiratory 18 17 Rate Blood Pressure 120/81 121/78 Assessment: 09/20/19 11:08 AOX3, in no acute respiratory distress. Full ROM, ambulating in the unit. Withdrawal symptoms. Plan: continue detox.
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
[2019-09-20] MEDS: traZODone HCL 50 MG TABLET (FP) PO SCH (22:39)
[2019-09-20] MEDS: METHOCARBAMOL 500 MG TABLET PO PRN (22:40)
[2019-09-20] MEDS: THIAMINE HCL 100 MG TABLET (FP) PO SCH (22:40)
[2019-09-21] MEDS: chlordiazePOXIDE 5 MG CAPSULE PO SCH ×3 (05:33→22:40)
[2019-09-21] MEDS: guaiFENesin 200 MG/10 ML 10 ML UNIT-DOSE CUPS PO SCH ×3 (05:34→17:41)
[2019-09-21] MEDS: PHENYTOIN NA EXTENDED 100 MG CAPSULE (FP) PO SCH ×2 (10:23→22:40)
[2019-09-21] MEDS: PRENATAL VITAMINS W/ FOLIC ACID TABLET (FP) PO SCH (10:23)
[2019-09-21] MEDS: NICOTINE 14 MG/24 HOURS TOPICAL PATCH TD SCH (10:23)
[2019-09-21] MEDS: risperiDONE 1 MG TABLET (FP) PO SCH (10:23)
[2019-09-21] MEDS: SERTRALINE HCL 50 MG TABLET (FP) PO SCH (10:24)
--- NOTE | 2019-09-21 11:01 | PN ---
S CIWA - CIWA Score Nausea/Vomitin-Mild Nausea/No Vomiting Muscle Tremors: 3 Anxiety: 2 Agitation: 1-Slight > Activity Paroxysmal Sweats: 2 Orientation: 0-Oriented Tacttile Disturbances: 0-None Auditory Disturbances: 0-None Visual Disturbances: 0-None Headache: 0-None Present CIWA-Ar Total Score: 9 BHS Progress Note (SOAP) Subjective: 49 years old male admitted on 09/19/19 for alcohol withdrawal sx management treating with librium detox regimen feeling ok today encourage the patient to attend groups and meetings that behavior and psychosocial therapies are part of recovery Objective: 09/21/19 11:04 Vital Signs Temperature 96.4 F L 09/21/19 09:13 Pulse Rate 72 09/21/19 09:13 Respiratory Rate 18 09/21/19 09:13 Blood Pressure 125/81 09/21/19 09:13 O2 Sat by Pulse Oximetry (%) 09/21/19 11:05 lab see 09/07/19 09/21/19 11:06 repeat admission lab is not necessary at this time Assessment: 09/21/19 11:06 alcohol withdrawal Plan: librium regimen
[2019-09-21] MEDS: traZODone HCL 50 MG TABLET (FP) PO SCH (22:40)
[2019-09-21] MEDS: METHOCARBAMOL 500 MG TABLET PO PRN (22:40)
[2019-09-21] MEDS: THIAMINE HCL 100 MG TABLET (FP) PO SCH (22:40)
[2019-09-21] MEDS: MENTHOL/PHENOL 1 EACH UD MM PRN (22:44)
[2019-09-22] MEDS ORDERED: chlordiazePOXIDE HCL 10 MG CAPSULE PO PRN
[2019-09-22] MEDS: chlordiazePOXIDE HCL 10 MG CAPSULE PO SCH ×3 (06:01→22:39)
[2019-09-22] MEDS: MENTHOL/PHENOL 1 EACH UD MM PRN ×2 (06:02→10:56)
--- NOTE | 2019-09-22 10:45 | PN ---
S CIWA - CIWA Score Nausea/Vomitin-No Nausea/No Vomiting Muscle Tremors: None Anxiety: 2 Agitation: 0-Normal Activity Paroxysmal Sweats: 2 Orientation: 0-Oriented Tacttile Disturbances: 0-None Auditory Disturbances: 0-None Visual Disturbances: 0-None Headache: 0-None Present CIWA-Ar Total Score: 4 BHS Progress Note (SOAP) Subjective: c/o mild withdrawal symptoms. Objective: 09/22/19 10:40 Vital Signs 09/22/19 09/22/19 09/22/19 03:30 06:04 09:16 Temperature 97.5 F L 97.8 F Pulse Rate 54 L 63 Respiratory 18 18 18 Rate Blood Pressure 121/78 119/83 Assessment: 09/22/19 10:40 AOX3, in no acute respiratory distress. Full ROM, ambulating in the unit. Mild Withdrawal symptoms. For d/c tomorrow. Plan: continue detox. D/C in AM.
[2019-09-22] MEDS: NICOTINE 14 MG/24 HOURS TOPICAL PATCH TD SCH (10:51)
[2019-09-22] MEDS: PRENATAL VITAMINS W/ FOLIC ACID TABLET (FP) PO SCH (10:51)
[2019-09-22] MEDS: risperiDONE 1 MG TABLET (FP) PO SCH (10:52)
[2019-09-22] MEDS: SERTRALINE HCL 50 MG TABLET (FP) PO SCH (10:52)
[2019-09-22] MEDS: PHENYTOIN NA EXTENDED 100 MG CAPSULE (FP) PO SCH ×2 (12:41→22:38)
[2019-09-22] MEDS: traZODone HCL 50 MG TABLET (FP) PO SCH (22:38)
[2019-09-22] MEDS: THIAMINE HCL 100 MG TABLET (FP) PO SCH (22:39)
[2019-09-23] MEDS ORDERED: chlordiazePOXIDE HCL 10 MG CAPSULE PO ONE (05:00)
[2019-09-23 09:21] VITALS: BP 117/79; PULSE 64
[2019-09-23] MEDS: SERTRALINE HCL 50 MG TABLET (FP) PO SCH (10:37)
[2019-09-23] MEDS: risperiDONE 1 MG TABLET (FP) PO SCH (10:37)
[2019-09-23] MEDS: PRENATAL VITAMINS W/ FOLIC ACID TABLET (FP) PO SCH (10:37)
[2019-09-23] MEDS: PHENYTOIN NA EXTENDED 100 MG CAPSULE (FP) PO SCH (10:37)
[2019-09-23] MEDS: NICOTINE 14 MG/24 HOURS TOPICAL PATCH TD SCH (10:39)
[2019-09-23] MEDS: METHOCARBAMOL 500 MG TABLET PO PRN (10:53)
--- NOTE | 2019-09-23 11:17 | DS ---
[facility] Detox Discharge Summary Admission Date: 09/19/19 Discharge Date: 09/23/19 - History Present History: Alcohol Dependence, Cocaine Dependence Additional Comments: Pt is medically cleared and discharged to [facility] for continued management. Pt completed the detox protocol. Pt is encouraged to follow through with the rehab protocol. Pt verbalized understanding. Pt is alert and verbally responsive and in no acute respiratory distress. Pertinent Past History: h/o asthma, seizures, alcohol, and cocaine use disorder. - Physical Exam Results Vital Signs: Vital Signs Temperature 99.1 F 09/23/19 09:20 Pulse Rate 64 09/23/19 09:20 Respiratory Rate 18 09/23/19 09:20 Blood Pressure 117/79 09/23/19 09:20 O2 Sat by Pulse Oximetry (%) Vital Signs 09/23/19 09/23/19 09/23/19 03:30 06:10 09:20 Temperature 97 F L 99.1 F Pulse Rate 54 L 64 Respiratory 18 18 18 Rate Blood Pressure 105/70 117/79 Vital Signs 09/23/19 09/23/19 09:20 13:15 Temperature 99.1 F 98.0 F Pulse Rate 64 64 Respiratory 18 18 Rate Blood Pressure 117/79 117/79 Pertinent Admission Physical Exam Findings: withdrawal symptoms. - Treatment Hospital Course: Detox Protocol Followed, Detoxed Safely, Responded well, Discharged Condition Good, Rehab Referral Accepted Patient has Accepted a Rehab Referral to: [facility]. - Medication Discharge Medications: Ambulatory Orders traZODone HCL [Trazodone HCl] 50 mg PO HS #30 tablet 06/11/18 Ibuprofen 600 mg PO Q6H PRN #90 tablet 02/24/19 Omeprazole 40 mg PO DAILY #30 capsule. 02/24/19 Risperidone [Risperdal -] 1 mg PO DAILY #30 tablet 02/24/19 Sertraline HCl [Zoloft -] 50 mg PO DAILY #30 tablet 02/24/19 Phenytoin Na Extended [Dilantin -] 300 mg PO DAILY #30 capsule 03/28/19 Albuterol Sulfate Inhaler - [Ventolin HFA Inhaler -] 1 - 2 inh PO Q4H PRN #1 inhaler 09/10/19 Multivit-Min/Iron/Folic Acid/K [Multi-Day Plus Minerals Tablet] 1 each PO DAILY #30 tablet 09/10/19 Phenytoin Na Extended [Dilantin -] 200 mg PO HS #30 capsule 09/10/19 - Diagnosis (1) Alcohol dependence with uncomplicated withdrawal Current Visit: Yes Status: Acute (2) Asthma Current Visit: Yes Status: Acute Qualifiers: Asthma severity: mild Asthma persistence: unspecified Asthma complication type: unspecified Qualified Code(s): J45.909 - Unspecified asthma , uncomplicated (3) Cocaine dependence Current Visit: Yes Status: Chronic Qualifiers: Substance use status: uncomplicated Qualified Code(s): F14.20 - Cocaine dependence, uncomplicated (4) Gastroesophageal reflux disease Current Visit: Yes Status: Chronic (5) Nicotine dependence Current Visit: Yes Status: Chronic Qualifiers: Nicotine product type: cigarettes Substance use status: uncomplicated Qualified Code(s): F17.210 - Nicotine dependence, cigarettes, uncomplicated (6) seizure disorder Current Visit: Yes Status: Chronic (7) Low back pain Current Visit: No Status: Chronic Qualifiers: Chronicity: chronic Back pain laterality: unspecified Sciatica presence: unspecified whether sciatica present Qualified Code(s): M54.5 - Low back pain ; G89.29 - Other chronic pain (8) Bone cancer Current Visit: No Status: Resolved Qualifiers: Malignant neoplasm of bone location: unspecified location Qualified Code(s) : C41.9 - Malignant neoplasm of bone and articular cartilage, unspecified (9) Mental retardation Current Visit: No Status: Ruled-out - AMA Did Patient Leave Against Medical Advice: No
[2019-09-23 13:16] VITALS: TEMP 98
== END 2019-09-23 13:46 | disposition other institution (70) | DRG 897 ==
LOC: YASAS 15:41 → Y3N 21:21
PROVIDERS: ADMIT Allergy & Immunology; ATTEND Allergy & Immunology
PROC: HZ2ZZZZ Detoxification Services for Substance Abuse Treatment (ICD-10-PCS; principal; 2019-09-19)
DX: F10.230 Alcohol dependence with withdrawal, uncomplicated (principal); F14.20 Cocaine dependence, uncomplicated; F17.210 Nicotine dependence, cigarettes, uncomplicated; F19.24 Other psychoactive substance dependence with psychoactive substance-induced mood disorder; F25.9 Schizoaffective disorder, unspecified; J45.909 Unspecified asthma, uncomplicated; K21.9 Gastro-esophageal reflux disease without esophagitis; M54.5 Low back pain; G89.29 Other chronic pain; G40.909 Epilepsy, unspecified, not intractable, without status epilepticus; G47.00 Insomnia, unspecified; Z85.830 Personal history of malignant neoplasm of bone; E66.9 Obesity, unspecified; Z68.30 Body mass index [BMI] 30.0-30.9, adult; Z91.018 Allergy to other foods; Z91.19 Patient's noncompliance with other medical treatment and regimen; Z56.0 Unemployment, unspecified; Z59.0 Homelessness
CPT/HCPCS: 94640; J2794

== ENCOUNTER 2019-10-02 12:08 | Inpatient (IN) | payer BC ==
[2019-10-02 12:49] VITALS: BMI 29.7
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
[2019-10-02] MEDS ORDERED: chlordiazePOXIDE HCL 25 MG CAPSULE PO PRN (15:10)
[2019-10-02] MEDS ORDERED: BISMUTH SUBSALICYLATE 524 MG/30 ML UD PO PRN (15:10)
[2019-10-02] MEDS ORDERED: MAG HYDROX/AL HYDROX/SIMETH 30 ML UNIT-DOSE CUP PO PRN (15:10)
[2019-10-02] MEDS ORDERED: MAGNESIUM CITRATE 300 ML BOTTLE PO PRN (15:10)
[2019-10-02] MEDS ORDERED: MAGNESIUM HYDROX 2400MG/30ML ORAL SUSPENSION 30 ML CUP PO PRN (15:10)
[2019-10-02] MEDS ORDERED: ACETAMINOPHEN 325 MG TABLET (FP) PO PRN ×2 (15:10)
[2019-10-02] MEDS ORDERED: hydrOXYzine PAMOATE 25 MG CAPSULE (FP) PO PRN (15:10)
[2019-10-02] MEDS ORDERED: MELATONIN 5 MG TABLETS PO PRN (15:10)
[2019-10-02] MEDS ORDERED: IBUPROFEN 400 MG TABLET (FP) PO PRN (15:10)
[2019-10-02] MEDS ORDERED: METHOCARBAMOL 500 MG TABLET PO PRN (15:10)
[2019-10-02] MEDS ORDERED: ALBUTEROL SO4 8 GM HFA INHALER IH PRN (15:17)
[2019-10-02] MEDS ORDERED: PHENYTOIN NA EXTENDED 100 MG CAPSULE (FP) PO ONE (16:15)
[2019-10-02] MEDS: chlordiazePOXIDE HCL 25 MG CAPSULE PO SCH ×2 (17:15→22:40)
[2019-10-02] MEDS: THIAMINE HCL 100 MG TABLET (FP) PO SCH (22:40)
[2019-10-02] MEDS: PHENYTOIN NA EXTENDED 100 MG CAPSULE (FP) PO SCH (22:40)
[2019-10-02] MEDS: MENTHOL/PHENOL 1 EACH UD MM PRN (23:35)
[2019-10-03] MEDS: MENTHOL/PHENOL 1 EACH UD MM PRN (05:21)
[2019-10-03] MEDS: chlordiazePOXIDE HCL 25 MG CAPSULE PO SCH ×4 (05:21→22:11)
[2019-10-03 09:53] LABS: HEMATOCRIT 44.4 % (35.4-49); HEMOGLOBIN 14.9 GM/dL (11.7-16.9); MCH 32.9 pg (25.7-33.7); MCHC 33.7 g/dl (32.0-35.9); MEAN CELL VOLUME 97.8 fl (80-96); MEAN PLT VOLUME 9.1 fl (7.5-11.1); PLATELET COUNT 252 K/MM3 (134-434); RBC 4.54 M/mm3 (4.00-5.60); RDW 14.3 % (11.9-15.9); WHITE BLOOD COUNT 9.3 K/mm3 (4.0-10.0)
[2019-10-03 10:03] LABS: ALBUMIN 3.3 g/dl (3.4-5.0); BILIRUBIN,TOTAL 0.4 mg/dL (0.2-1); BLOOD UREA NITROGEN 7.7 mg/dL (7-18); CALCIUM 8.7 mg/dL (8.5-10.1); CREATININE 0.9 mg/dL (0.55-1.3); POTASSIUM 3.9 mmol/L (3.5-5.1); TOT PROT 6.6 g/dl (6.4-8.2)
[2019-10-03] MEDS: PRENATAL VITAMINS W/ FOLIC ACID TABLET (FP) PO SCH (10:15)
[2019-10-03] MEDS: NICOTINE 21 MG/24 HOURS TOPICAL PATCH TD SCH (10:16)
[2019-10-03] MEDS: PHENYTOIN NA EXTENDED 100 MG CAPSULE (FP) PO SCH ×2 (10:16→22:09)
[2019-10-03] MEDS: FAMOTIDINE 20 MG TABLET PO SCH (10:16)
--- NOTE | 2019-10-03 12:18 | PN ---
[facility] CIWA - CIWA Score Nausea/Vomitin-Mild Nausea/No Vomiting Muscle Tremors: 2 Anxiety: 4-Mod. Anxious/Guarded Agitation: 3 Paroxysmal Sweats: 2 Orientation: 1-Uncertain about Date Tacttile Disturbances: 0-None Auditory Disturbances: 0-None Visual Disturbances: 0-None Headache: 0-None Present CIWA-Ar Total Score: 13 S Progress Note (SOAP) Subjective: 49 years old male admitted on 10/02/19 for alcohol withdrawal sx management treating with librium detox regimen doing ok today ate breakfast and lunch tolerated food and fluid well feeling tired resting in bed encourage to attend groups and meetings while in detox Objective: 10/03/19 12:17 Vital Signs Temperature 97.0 F L 10/03/19 09:01 Pulse Rate 64 10/03/19 09:01 Respiratory Rate 18 10/03/19 09:01 Blood Pressure 119/77 10/03/19 09:01 O2 Sat by Pulse Oximetry (%) Laboratory Last Values WBC 9.3 K/mm3 (4.0-10.0) 10/03/19 08:15 RBC 4.54 M/mm3 (4.00-5.60) 10/03/19 08:15 Hgb 14.9 GM/dL (11.7-16.9) 10/03/19 08:15 Hct 44.4 % (35.4-49) 10/03/19 08:15 MCV 97.8 fl (80-96) H 10/03/19 08:15 MCH 32.9 pg (25.7-33.7) 10/03/19 08:15 MCHC 33.7 g/dl (32.0-35.9) 10/03/19 08:15 RDW 14.3 % (11.9-15.9) 10/03/19 08:15 Plt Count 252 K/MM3 (134-434) 10/03/19 08:15 MPV 9.1 fl (7.5-11.1) 10/03/19 08:15 Sodium 142 mmol/L (136-145) 10/03/19 08:15 Potassium 3.9 mmol/L (3.5-5.1) 10/03/19 08:15 Chloride 108 mmol/L (98-107) H 10/03/19 08:15 Carbon Dioxide 29 mmol/L (21-32) 10/03/19 08:15 Anion Gap 6 MMOL/L (8-16) L 10/03/19 08:15 BUN 7.7 mg/dL (7-18) 10/03/19 08:15 Creatinine 0.9 mg/dL (0.55-1.3) 10/03/19 08:15 Est GFR (CKD-EPI)AfAm 114.21 10/03/19 08:15 Est GFR (CKD-EPI)NonAf 98.54 10/03/19 08:15 Random Glucose 93 mg/dL (74-106) 10/03/19 08:15 Calcium 8.7 mg/dL (8.5-10.1) 10/03/19 08:15 Total Bilirubin 0.4 mg/dL (0.2-1) 10/03/19 08:15 AST 24 U/L (15-37) 10/03/19 08:15 ALT 37 U/L (13-61) 10/03/19 08:15 Alkaline Phosphatase 86 U/L (45-117) 10/03/19 08:15 Total Protein 6.6 g/dl (6.4-8.2) 10/03/19 08:15 Albumin 3.3 g/dl (3.4-5.0) L 10/03/19 08:15 Phenytoin 4.2 10/03/19 08:15 RPR Titer Nonreactive (NONREACTIVE) 10/03/19 08:15 lab noted Assessment: 10/03/19 12:18 alcohol withdrawal Plan: librium regimen
[2019-10-03 15:09] LABS: PH,URINE 6.5 (5.0-8.0); URINE APPEARANCE CLEAR; URINE BILIRUBIN NEGATIVE (NEGATIVE); URINE COLOR YELLOW; URINE GLUCOSE (UA) NEGATIVE (NEGATIVE); URINE KETONE NEGATIVE (NEGATIVE); URINE LEUK ESTERASE NEGATIVE (NEGATIVE); URINE NITRITE NEGATIVE (NEGATIVE); URINE PROTEIN NEGATIVE (NEGATIVE); URINE UROBILINOGEN 0.2 mg/dL (0.2-1.0)
[2019-10-03] MEDS: THIAMINE HCL 100 MG TABLET (FP) PO SCH (22:09)
[2019-10-04] MEDS: MENTHOL/PHENOL 1 EACH UD MM PRN ×2 (03:40→10:28)
[2019-10-04] MEDS: chlordiazePOXIDE HCL 25 MG CAPSULE PO SCH ×4 (04:54→22:28)
[2019-10-04] MEDS: FAMOTIDINE 20 MG TABLET PO SCH (10:26)
[2019-10-04] MEDS: NICOTINE 21 MG/24 HOURS TOPICAL PATCH TD SCH (10:26)
[2019-10-04] MEDS: PHENYTOIN NA EXTENDED 100 MG CAPSULE (FP) PO SCH ×2 (10:26→22:27)
[2019-10-04] MEDS: PRENATAL VITAMINS W/ FOLIC ACID TABLET (FP) PO SCH (10:26)
--- NOTE | 2019-10-04 11:38 | PN ---
[facility] CIWA - CIWA Score Nausea/Vomitin-No Nausea/No Vomiting Muscle Tremors: 1-None Visible, but [place] Anxiety: 4-Mod. Anxious/Guarded Agitation: 3 Paroxysmal Sweats: 1-Minimal Palms Moist Orientation: 0-Oriented Tacttile Disturbances: 3-Moderate Itch/Numb/Burn Auditory Disturbances: 0-None Visual Disturbances: 0-None Headache: 0-None Present CIWA-Ar Total Score: 12 S Progress Note (SOAP) Subjective: 49 years old male admitted on 09/30/19 for alcohol withdrawal sx mangement treating with librium detox regimenb ate breakfast ambulating on hallway feeling ok today less anxious Objective: 10/04/19 11:30 Vital Signs Temperature 96.2 F L 10/04/19 09:20 Pulse Rate 66 10/04/19 09:20 Respiratory Rate 18 10/04/19 09:20 Blood Pressure 110/78 10/04/19 09:20 O2 Sat by Pulse Oximetry (%) Laboratory Last Values WBC 9.3 K/mm3 (4.0-10.0) 10/03/19 08:15 RBC 4.54 M/mm3 (4.00-5.60) 10/03/19 08:15 Hgb 14.9 GM/dL (11.7-16.9) 10/03/19 08:15 Hct 44.4 % (35.4-49) 10/03/19 08:15 MCV 97.8 fl (80-96) H 10/03/19 08:15 MCH 32.9 pg (25.7-33.7) 10/03/19 08:15 MCHC 33.7 g/dl (32.0-35.9) 10/03/19 08:15 RDW 14.3 % (11.9-15.9) 10/03/19 08:15 Plt Count 252 K/MM3 (134-434) 10/03/19 08:15 MPV 9.1 fl (7.5-11.1) 10/03/19 08:15 Sodium 142 mmol/L (136-145) 10/03/19 08:15 Potassium 3.9 mmol/L (3.5-5.1) 10/03/19 08:15 Chloride 108 mmol/L (98-107) H 10/03/19 08:15 Carbon Dioxide 29 mmol/L (21-32) 10/03/19 08:15 Anion Gap 6 MMOL/L (8-16) L 10/03/19 08:15 BUN 7.7 mg/dL (7-18) 10/03/19 08:15 Creatinine 0.9 mg/dL (0.55-1.3) 10/03/19 08:15 Est GFR (CKD-EPI)AfAm 114.21 10/03/19 08:15 Est GFR (CKD-EPI)NonAf 98.54 10/03/19 08:15 Random Glucose 93 mg/dL (74-106) 10/03/19 08:15 Calcium 8.7 mg/dL (8.5-10.1) 10/03/19 08:15 Total Bilirubin 0.4 mg/dL (0.2-1) 10/03/19 08:15 AST 24 U/L (15-37) 10/03/19 08:15 ALT 37 U/L (13-61) 10/03/19 08:15 Alkaline Phosphatase 86 U/L (45-117) 10/03/19 08:15 Total Protein 6.6 g/dl (6.4-8.2) 10/03/19 08:15 Albumin 3.3 g/dl (3.4-5.0) L 10/03/19 08:15 Urine Color Yellow 10/03/19 10:45 Urine Appearance Clear 10/03/19 10:45 Urine pH 6.5 (5.0-8.0) 10/03/19 10:45 Ur Specific [place] 1.010 (1.010-1.035) 10/03/19 10:45 Urine Protein Negative (NEGATIVE) 10/03/19 10:45 Urine Glucose (UA) Negative (NEGATIVE) 10/03/19 10:45 Urine Ketones Negative (NEGATIVE) 10/03/19 10:45 Urine Blood Negative (NEGATIVE) 10/03/19 10:45 Urine Nitrite Negative (NEGATIVE) 10/03/19 10:45 Urine Bilirubin Negative (NEGATIVE) 10/03/19 10:45 Urine Urobilinogen 0.2 mg/dL (0.2-1.0) 10/03/19 10:45 Ur Leukocyte Esterase Negative (NEGATIVE) 10/03/19 10:45 Phenytoin 4.2 10/03/19 08:15 RPR Titer Nonreactive (NONREACTIVE) 10/03/19 08:15 lab noted 10/04/19 11:38 dilantin serum 4.2 300 mg po dilantin x 1 repeat tomorrow Assessment: 10/04/19 11:38 alcohol withdrawal Plan: librium regimen
[2019-10-04] MEDS ORDERED: PHENYTOIN NA EXTENDED 100 MG CAPSULE (FP) PO ONE (12:05)
[2019-10-04] MEDS: THIAMINE HCL 100 MG TABLET (FP) PO SCH (22:27)
[2019-10-05] MEDS ORDERED: chlordiazePOXIDE HCL 10 MG CAPSULE PO PRN
[2019-10-05] MEDS: chlordiazePOXIDE HCL 10 MG CAPSULE PO SCH ×2 (06:18→10:13)
[2019-10-05] MEDS: FAMOTIDINE 20 MG TABLET PO SCH (10:13)
[2019-10-05] MEDS: PHENYTOIN NA EXTENDED 100 MG CAPSULE (FP) PO SCH (10:13)
[2019-10-05] MEDS: PRENATAL VITAMINS W/ FOLIC ACID TABLET (FP) PO SCH (10:13)
[2019-10-05] MEDS: NICOTINE 21 MG/24 HOURS TOPICAL PATCH TD SCH (10:15)
--- NOTE | 2019-10-05 11:22 | PN ---
[facility] CIWA - CIWA Score Nausea/Vomitin-Mild Nausea/No Vomiting Muscle Tremors: 2 Anxiety: 2 Agitation: 2 Paroxysmal Sweats: 1-Minimal Palms Moist Orientation: 0-Oriented Tacttile Disturbances: 0-None Auditory Disturbances: 0-None Visual Disturbances: 0-None Headache: 0-None Present CIWA-Ar Total Score: 8 S Progress Note (SOAP) Subjective: 49 years old male admitted on 10/02/19 for alcohol withdrawal sx management treating with librium detox regimen long history of seizure disorder treated with dilantin repeat toxicology pending Objective: 10/05/19 11:22 Vital Signs Temperature 97.6 F 10/05/19 09:20 Pulse Rate 63 10/05/19 09:20 Respiratory Rate 18 10/05/19 09:20 Blood Pressure 98/52 L 10/05/19 09:20 O2 Sat by Pulse Oximetry (%) Laboratory Last Values WBC 9.3 K/mm3 (4.0-10.0) 10/03/19 08:15 RBC 4.54 M/mm3 (4.00-5.60) 10/03/19 08:15 Hgb 14.9 GM/dL (11.7-16.9) 10/03/19 08:15 Hct 44.4 % (35.4-49) 10/03/19 08:15 MCV 97.8 fl (80-96) H 10/03/19 08:15 MCH 32.9 pg (25.7-33.7) 10/03/19 08:15 MCHC 33.7 g/dl (32.0-35.9) 10/03/19 08:15 RDW 14.3 % (11.9-15.9) 10/03/19 08:15 Plt Count 252 K/MM3 (134-434) 10/03/19 08:15 MPV 9.1 fl (7.5-11.1) 10/03/19 08:15 Sodium 142 mmol/L (136-145) 10/03/19 08:15 Potassium 3.9 mmol/L (3.5-5.1) 10/03/19 08:15 Chloride 108 mmol/L (98-107) H 10/03/19 08:15 Carbon Dioxide 29 mmol/L (21-32) 10/03/19 08:15 Anion Gap 6 MMOL/L (8-16) L 10/03/19 08:15 BUN 7.7 mg/dL (7-18) 10/03/19 08:15 Creatinine 0.9 mg/dL (0.55-1.3) 10/03/19 08:15 Est GFR (CKD-EPI)AfAm 114.21 10/03/19 08:15 Est GFR (CKD-EPI)NonAf 98.54 10/03/19 08:15 Random Glucose 93 mg/dL (74-106) 10/03/19 08:15 Calcium 8.7 mg/dL (8.5-10.1) 10/03/19 08:15 Total Bilirubin 0.4 mg/dL (0.2-1) 10/03/19 08:15 AST 24 U/L (15-37) 10/03/19 08:15 ALT 37 U/L (13-61) 10/03/19 08:15 Alkaline Phosphatase 86 U/L (45-117) 10/03/19 08:15 Total Protein 6.6 g/dl (6.4-8.2) 10/03/19 08:15 Albumin 3.3 g/dl (3.4-5.0) L 10/03/19 08:15 Urine Color Yellow 10/03/19 10:45 Urine Appearance Clear 10/03/19 10:45 Urine pH 6.5 (5.0-8.0) 10/03/19 10:45 Ur Specific [place] 1.010 (1.010-1.035) 10/03/19 10:45 Urine Protein Negative (NEGATIVE) 10/03/19 10:45 Urine Glucose (UA) Negative (NEGATIVE) 10/03/19 10:45 Urine Ketones Negative (NEGATIVE) 10/03/19 10:45 Urine Blood Negative (NEGATIVE) 10/03/19 10:45 Urine Nitrite Negative (NEGATIVE) 10/03/19 10:45 Urine Bilirubin Negative (NEGATIVE) 10/03/19 10:45 Urine Urobilinogen 0.2 mg/dL (0.2-1.0) 10/03/19 10:45 Ur Leukocyte Esterase Negative (NEGATIVE) 10/03/19 10:45 Phenytoin 4.2 10/03/19 08:15 RPR Titer Nonreactive (NONREACTIVE) 10/03/19 08:15 lab noted Assessment: 10/05/19 11:22 alcohol withdrawal Plan: librium regimen
[2019-10-05 13:17] VITALS: BP 119/86; PULSE 74; TEMP 97.5
--- NOTE | 2019-10-05 14:07 | DS ---
[facility] Detox Discharge Summary Admission Date: 10/02/19 Discharge Date: 10/05/19 - History Present History: Alcohol Dependence Additional Comments: 49 years old male admitted on 10/02/19 for alcohol withdrawal sx management treating with librium detox regimen patient is alert oriented x 3 speech clearly coherently ambulating with steady gait patient insists to leave the detox unit without apparent reason case discussed with the nurse against medical advice is appropriated - Physical Exam Results Vital Signs: Vital Signs Temperature 97.5 F L 10/05/19 13:14 Pulse Rate 74 10/05/19 13:14 Respiratory Rate 18 10/05/19 13:14 Blood Pressure 119/86 10/05/19 13:14 O2 Sat by Pulse Oximetry (%) Pertinent Admission Physical Exam Findings: alcohol withdrawal Laboratory Last Values WBC 9.3 K/mm3 (4.0-10.0) 10/03/19 08:15 RBC 4.54 M/mm3 (4.00-5.60) 10/03/19 08:15 Hgb 14.9 GM/dL (11.7-16.9) 10/03/19 08:15 Hct 44.4 % (35.4-49) 10/03/19 08:15 MCV 97.8 fl (80-96) H 10/03/19 08:15 MCH 32.9 pg (25.7-33.7) 10/03/19 08:15 MCHC 33.7 g/dl (32.0-35.9) 10/03/19 08:15 RDW 14.3 % (11.9-15.9) 10/03/19 08:15 Plt Count 252 K/MM3 (134-434) 10/03/19 08:15 MPV 9.1 fl (7.5-11.1) 10/03/19 08:15 Sodium 142 mmol/L (136-145) 10/03/19 08:15 Potassium 3.9 mmol/L (3.5-5.1) 10/03/19 08:15 Chloride 108 mmol/L (98-107) H 10/03/19 08:15 Carbon Dioxide 29 mmol/L (21-32) 10/03/19 08:15 Anion Gap 6 MMOL/L (8-16) L 10/03/19 08:15 BUN 7.7 mg/dL (7-18) 10/03/19 08:15 Creatinine 0.9 mg/dL (0.55-1.3) 10/03/19 08:15 Est GFR (CKD-EPI)AfAm 114.21 10/03/19 08:15 Est GFR (CKD-EPI)NonAf 98.54 10/03/19 08:15 Random Glucose 93 mg/dL (74-106) 10/03/19 08:15 Calcium 8.7 mg/dL (8.5-10.1) 10/03/19 08:15 Total Bilirubin 0.4 mg/dL (0.2-1) 10/03/19 08:15 AST 24 U/L (15-37) 10/03/19 08:15 ALT 37 U/L (13-61) 10/03/19 08:15 Alkaline Phosphatase 86 U/L (45-117) 10/03/19 08:15 Total Protein 6.6 g/dl (6.4-8.2) 10/03/19 08:15 Albumin 3.3 g/dl (3.4-5.0) L 10/03/19 08:15 Urine Color Yellow 10/03/19 10:45 Urine Appearance Clear 10/03/19 10:45 Urine pH 6.5 (5.0-8.0) 10/03/19 10:45 Ur Specific [place] 1.010 (1.010-1.035) 10/03/19 10:45 Urine Protein Negative (NEGATIVE) 10/03/19 10:45 Urine Glucose (UA) Negative (NEGATIVE) 10/03/19 10:45 Urine Ketones Negative (NEGATIVE) 10/03/19 10:45 Urine Blood Negative (NEGATIVE) 10/03/19 10:45 Urine Nitrite Negative (NEGATIVE) 10/03/19 10:45 Urine Bilirubin Negative (NEGATIVE) 10/03/19 10:45 Urine Urobilinogen 0.2 mg/dL (0.2-1.0) 10/03/19 10:45 Ur Leukocyte Esterase Negative (NEGATIVE) 10/03/19 10:45 Phenytoin 4.2 10/03/19 08:15 RPR Titer Nonreactive (NONREACTIVE) 10/03/19 08:15 lab noted phenytoin repeat pending - Treatment Hospital Course: Detox Protocol Followed Patient has Accepted a Rehab Referral to: community support approach - Medication Discharge Medications: Ambulatory Orders traZODone HCL [Trazodone HCl] 50 mg PO HS #30 tablet 06/11/18 Ibuprofen 600 mg PO Q6H PRN #90 tablet 02/24/19 Omeprazole 40 mg PO DAILY #30 capsule. 02/24/19 Risperidone [Risperdal -] 1 mg PO DAILY #30 tablet 02/24/19 Sertraline HCl [Zoloft -] 50 mg PO DAILY #30 tablet 02/24/19 Phenytoin Na Extended [Dilantin -] 300 mg PO DAILY #30 capsule 03/28/19 Albuterol Sulfate Inhaler - [Ventolin HFA Inhaler -] 1 - 2 inh PO Q4H PRN #1 inhaler 09/10/19 Multivit-Min/Iron/Folic Acid/K [Multi-Day Plus Minerals Tablet] 1 each PO DAILY #30 tablet 09/10/19 Phenytoin Na Extended [Dilantin -] 200 mg PO HS #30 capsule 09/10/19 - Diagnosis (1) Alcohol dependence with uncomplicated withdrawal Current Visit: Yes Status: Acute (2) Asthma Current Visit: Yes Status: Chronic Qualifiers: Asthma severity: mild Asthma persistence: intermittent Asthma complication type: unspecified Qualified Code(s): J45.20 - Mild intermittent asthma, uncomplicated (3) GERD (gastroesophageal reflux disease) Current Visit: Yes Status: Chronic Qualifiers: Esophagitis presence: without esophagitis Qualified Code(s): K21.9 - Gastro -esophageal reflux disease without esophagitis (4) Nicotine dependence Current Visit: Yes Status: Acute Qualifiers: Nicotine product type: cigarettes Substance use status: in withdrawal Qualified Code(s): F17.213 - Nicotine dependence, cigarettes, with withdrawal (5) Seizures Current Visit: Yes Status: Chronic (6) Substance induced mood disorder Current Visit: Yes Status: Suspected (7) Uncomplicated alcohol withdrawal without perceptual disturbances Current Visit: Yes Status: Acute - AMA Did Patient Leave Against Medical Advice: Yes
[2019-10-06] MEDS ORDERED: chlordiazePOXIDE HCL 10 MG CAPSULE PO SCH (05:00)
[2019-10-07] MEDS ORDERED: chlordiazePOXIDE HCL 10 MG CAPSULE PO ONE (05:00)
== END 2019-10-05 12:20 | disposition left against medical advice (07) | DRG 894 ==
LOC: YASAS 12:08 → Y3N 16:06
PROVIDERS: ADMIT Allergy & Immunology; ATTEND Allergy & Immunology
PROC: HZ2ZZZZ Detoxification Services for Substance Abuse Treatment (ICD-10-PCS; principal; 2019-10-02)
DX: F10.230 Alcohol dependence with withdrawal, uncomplicated (principal); F14.20 Cocaine dependence, uncomplicated; C41.9 Malignant neoplasm of bone and articular cartilage, unspecified; F17.210 Nicotine dependence, cigarettes, uncomplicated; F31.9 Bipolar disorder, unspecified; F19.24 Other psychoactive substance dependence with psychoactive substance-induced mood disorder; G40.909 Epilepsy, unspecified, not intractable, without status epilepticus; J45.20 Mild intermittent asthma, uncomplicated; K21.9 Gastro-esophageal reflux disease without esophagitis; E86.0 Dehydration; G47.00 Insomnia, unspecified; Z91.018 Allergy to other foods; Z59.0 Homelessness
CPT/HCPCS: 36415; 80053; 80185; 81003; 85027; 86593

== ENCOUNTER 2019-11-12 08:12 | Inpatient (IN) | payer OTHER ==
--- NOTE | 2019-11-12 08:41 | BHS.RME ---
Substance Use & Tx History - Substance Use History Alcohol Substance amount: 3pints of vodka/6 packs of 16 ozs of beer Frequency of use: Daily Substance route: Oral Date of Last Use: 11/12/19 Cocaine (Crack) Substance amount: 200$ Frequency of use: Less than 3 times per week Substance route: Inhalation (ex: sniffing or snorting) Date of Last Use: 11/12/19 Physical/Psych/Mental Status - Behavior Eye Contact: Normal - Cooperativeness Cooperativeness: Cooperative - Thinking Thought Processes: Logical Thought content: Future oriented - Physical Health Problems Is patient presently having any pain?: Yes Does patient presently have any injuries (include location): No Does patient currently have a fever: No CIWA Nausea/Vomitin-Mild Nausea/No Vomiting (inpatient detox from alcohol) Muscle Tremors: 2 Anxiety: 3 Agitation: 3 Paroxysmal Sweats: 1-Minimal Palms Moist Orientation: 0-Oriented Tacttile Disturbances: 1-Very Mild Itch/Numbness Auditory Disturbances: 0-None Visual Disturbances: 0-None Headache: 2-Mild CIWA-Ar Total Score: 13
[2019-11-12 09:17] VITALS: BMI 29.2
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
[2019-11-12] MEDS ORDERED: hydrOXYzine PAMOATE 25 MG CAPSULE (FP) PO PRN (09:40)
[2019-11-12] MEDS ORDERED: chlordiazePOXIDE HCL 25 MG CAPSULE PO ONE (09:40)
[2019-11-12] MEDS ORDERED: MAGNESIUM HYDROX 2400MG/30ML ORAL SUSPENSION 30 ML CUP PO PRN (09:40)
[2019-11-12] MEDS ORDERED: chlordiazePOXIDE HCL 25 MG CAPSULE PO PRN (09:40)
[2019-11-12] MEDS ORDERED: BISMUTH SUBSALICYLATE 524 MG/30 ML UD PO PRN (09:40)
[2019-11-12] MEDS ORDERED: ACETAMINOPHEN 325 MG TABLET (FP) PO PRN ×2 (09:40)
[2019-11-12] MEDS ORDERED: MELATONIN 5 MG TABLETS PO PRN (09:40)
[2019-11-12] MEDS ORDERED: MENTHOL/PHENOL 1 EACH UD MM PRN (09:40)
[2019-11-12] MEDS ORDERED: MAGNESIUM CITRATE 300 ML BOTTLE PO PRN (09:40)
[2019-11-12] MEDS ORDERED: METHOCARBAMOL 500 MG TABLET PO PRN (09:40)
[2019-11-12] MEDS ORDERED: MAG HYDROX/AL HYDROX/SIMETH 30 ML UNIT-DOSE CUP PO PRN (09:40)
[2019-11-12] MEDS ORDERED: ALBUTEROL SO4 HFA INHALER IH PRN (09:43)
[2019-11-12] MEDS ORDERED: COLLOIDAL OATMEAL 1 BAR EACH TP PRN (09:45)
[2019-11-12] MEDS: PANTOPRAZOLE 20 MG TABLET PO SCH (11:39)
[2019-11-12] MEDS: PHENYTOIN NA EXTENDED 100 MG CAPSULE (FP) PO SCH ×2 (11:40→22:28)
[2019-11-12] MEDS: chlordiazePOXIDE HCL 25 MG CAPSULE PO SCH ×3 (11:40→22:28)
[2019-11-12] MEDS: ASPIRIN 81 MG CHEWABLE TABLETS PO SCH (11:40)
[2019-11-12] MEDS: PRENATAL VITAMINS W/ FOLIC ACID TABLET (FP) PO SCH (11:41)
[2019-11-12] MEDS: NICOTINE 21 MG/24 HOURS TOPICAL PATCH TD SCH (11:41)
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
[2019-11-12 17:01] LABS: HEMATOCRIT 40.7 % (35.4-49); MCHC 34.5 g/dl (32.0-35.9); MEAN CELL VOLUME 95.6 fl (80-96); MEAN PLT VOLUME 10.3 fl (7.5-11.1); PLATELET COUNT 222 K/MM3 (134-434); RBC 4.25 M/mm3 (4.00-5.60); RDW 13.4 % (11.9-15.9); WHITE BLOOD COUNT 10.8 K/mm3 (4.0-10.0)
[2019-11-12 17:12] LABS: BILIRUBIN,TOTAL 0.7 mg/dL (0.2-1); BLOOD UREA NITROGEN 12.6 mg/dL (7-18); CALCIUM 8.5 mg/dL (8.5-10.1); POTASSIUM 3.7 mmol/L (3.5-5.1); TOT PROT 7.4 g/dl (6.4-8.2)
[2019-11-12] MEDS: THIAMINE HCL 100 MG TABLET (FP) PO SCH (22:28)
[2019-11-13] MEDS: chlordiazePOXIDE HCL 25 MG CAPSULE PO SCH ×4 (06:28→22:47)
[2019-11-13] MEDS: PANTOPRAZOLE 20 MG TABLET PO SCH (10:41)
[2019-11-13] MEDS: ASPIRIN 81 MG CHEWABLE TABLETS PO SCH (10:41)
[2019-11-13] MEDS: NICOTINE 21 MG/24 HOURS TOPICAL PATCH TD SCH (10:42)
[2019-11-13] MEDS: PRENATAL VITAMINS W/ FOLIC ACID TABLET (FP) PO SCH (10:42)
[2019-11-13] MEDS: PHENYTOIN NA EXTENDED 100 MG CAPSULE (FP) PO SCH ×2 (11:00→22:46)
--- NOTE | 2019-11-13 15:02 | PN ---
S CIWA - CIWA Score Nausea/Vomitin-Mild Nausea/No Vomiting Muscle Tremors: 4-Moderate,w/Arms Extend Anxiety: 3 Agitation: 0-Normal Activity Paroxysmal Sweats: 2 Orientation: 0-Oriented Tacttile Disturbances: 0-None Auditory Disturbances: 0-None Visual Disturbances: 1-Very Mild Sensitivity Headache: 1-Very Mild CIWA-Ar Total Score: 12 BHS Progress Note (SOAP) Subjective: 49 years old male admitted on 11/12/19 for alcohol withdrawal sx management treating with librum detox regiment feeling ok today ambulating on hallway social with peers in day room long history of seizure disorder treated with dilantin dilantin serum level ordered will adjust dosage accordingly Objective: 11/13/19 15:05 Vital Signs Temperature 98.3 F 11/13/19 13:19 Pulse Rate 83 11/13/19 13:19 Respiratory Rate 18 11/13/19 13:19 Blood Pressure 116/81 11/13/19 13:19 O2 Sat by Pulse Oximetry (%) Laboratory Last Values WBC 10.8 K/mm3 (4.0-10.0) H 11/12/19 09:50 RBC 4.25 M/mm3 (4.00-5.60) 11/12/19 09:50 Hgb 14.0 GM/dL (11.7-16.9) 11/12/19 09:50 Hct 40.7 % (35.4-49) 11/12/19 09:50 MCV 95.6 fl (80-96) 11/12/19 09:50 MCH 33.0 pg (25.7-33.7) 11/12/19 09:50 MCHC 34.5 g/dl (32.0-35.9) 11/12/19 09:50 RDW 13.4 % (11.9-15.9) 11/12/19 09:50 Plt Count 222 K/MM3 (134-434) 11/12/19 09:50 MPV 10.3 fl (7.5-11.1) D 11/12/19 09:50 Sodium 137 mmol/L (136-145) 11/12/19 09:50 Potassium 3.7 mmol/L (3.5-5.1) 11/12/19 09:50 Chloride 104 mmol/L (98-107) 11/12/19 09:50 Carbon Dioxide 26 mmol/L (21-32) 11/12/19 09:50 Anion Gap 8 MMOL/L (8-16) 11/12/19 09:50 BUN 12.6 mg/dL (7-18) 11/12/19 09:50 Creatinine 1.0 mg/dL (0.55-1.3) 11/12/19 09:50 Est GFR (CKD-EPI)AfAm 100.55 11/12/19 09:50 Est GFR (CKD-EPI)NonAf 86.76 11/12/19 09:50 Random Glucose 132 mg/dL (74-106) H 11/12/19 09:50 Calcium 8.5 mg/dL (8.5-10.1) 11/12/19 09:50 Total Bilirubin 0.7 mg/dL (0.2-1) 11/12/19 09:50 AST 53 U/L (15-37) H 11/12/19 09:50 ALT 39 U/L (13-61) 11/12/19 09:50 Alkaline Phosphatase 99 U/L (45-117) 11/12/19 09:50 Total Protein 7.4 g/dl (6.4-8.2) 11/12/19 09:50 Albumin 4.0 g/dl (3.4-5.0) 11/12/19 09:50 RPR Titer Nonreactive (NONREACTIVE) 11/12/19 09:50 lab noted Assessment: 11/13/19 15:06 alcohol withdrawal Plan: librium regiment
[2019-11-13] MEDS: THIAMINE HCL 100 MG TABLET (FP) PO SCH (22:46)
[2019-11-14] MEDS: chlordiazePOXIDE HCL 25 MG CAPSULE PO SCH ×4 (06:01→22:21)
[2019-11-14] MEDS: PANTOPRAZOLE 20 MG TABLET PO SCH (10:05)
[2019-11-14] MEDS: ASPIRIN 81 MG CHEWABLE TABLETS PO SCH (10:05)
[2019-11-14] MEDS: PRENATAL VITAMINS W/ FOLIC ACID TABLET (FP) PO SCH (10:06)
[2019-11-14] MEDS: NICOTINE 21 MG/24 HOURS TOPICAL PATCH TD SCH (10:08)
[2019-11-14] MEDS: PHENYTOIN NA EXTENDED 100 MG CAPSULE (FP) PO SCH ×2 (11:19→22:20)
--- NOTE | 2019-11-14 13:22 | PN ---
[facility] CIWA - CIWA Score Nausea/Vomitin-No Nausea/No Vomiting Muscle Tremors: 3 Anxiety: 3 Agitation: 0-Normal Activity Paroxysmal Sweats: 2 Orientation: 1-Uncertain about Date Tacttile Disturbances: 0-None Auditory Disturbances: 0-None Visual Disturbances: 1-Very Mild Sensitivity Headache: 0-None Present CIWA-Ar Total Score: 10 S Progress Note (SOAP) Subjective: 49 years old male admitted on 11/12/19 for alcohol withdrawal sx management treating with librium detox regiment reports taking dilantin for seizure taking 300mg am 200mg hs toxicology 1.9 300mg dilantin po x 1 repeat serum level Objective: 11/14/19 13:28 Vital Signs Temperature 97.5 F L 11/14/19 12:44 Pulse Rate 81 11/14/19 12:44 Respiratory Rate 16 11/14/19 12:44 Blood Pressure 125/83 11/14/19 12:44 O2 Sat by Pulse Oximetry (%) Laboratory Last Values WBC 10.8 K/mm3 (4.0-10.0) H 11/12/19 09:50 RBC 4.25 M/mm3 (4.00-5.60) 11/12/19 09:50 Hgb 14.0 GM/dL (11.7-16.9) 11/12/19 09:50 Hct 40.7 % (35.4-49) 11/12/19 09:50 MCV 95.6 fl (80-96) 11/12/19 09:50 MCH 33.0 pg (25.7-33.7) 11/12/19 09:50 MCHC 34.5 g/dl (32.0-35.9) 11/12/19 09:50 RDW 13.4 % (11.9-15.9) 11/12/19 09:50 Plt Count 222 K/MM3 (134-434) 11/12/19 09:50 MPV 10.3 fl (7.5-11.1) D 11/12/19 09:50 Sodium 137 mmol/L (136-145) 11/12/19 09:50 Potassium 3.7 mmol/L (3.5-5.1) 11/12/19 09:50 Chloride 104 mmol/L (98-107) 11/12/19 09:50 Carbon Dioxide 26 mmol/L (21-32) 11/12/19 09:50 Anion Gap 8 MMOL/L (8-16) 11/12/19 09:50 BUN 12.6 mg/dL (7-18) 11/12/19 09:50 Creatinine 1.0 mg/dL (0.55-1.3) 11/12/19 09:50 Est GFR (CKD-EPI)AfAm 100.55 11/12/19 09:50 Est GFR (CKD-EPI)NonAf 86.76 11/12/19 09:50 Random Glucose 132 mg/dL (74-106) H 11/12/19 09:50 Calcium 8.5 mg/dL (8.5-10.1) 11/12/19 09:50 Total Bilirubin 0.7 mg/dL (0.2-1) 11/12/19 09:50 AST 53 U/L (15-37) H 11/12/19 09:50 ALT 39 U/L (13-61) 11/12/19 09:50 Alkaline Phosphatase 99 U/L (45-117) 11/12/19 09:50 Total Protein 7.4 g/dl (6.4-8.2) 11/12/19 09:50 Albumin 4.0 g/dl (3.4-5.0) 11/12/19 09:50 Phenytoin 1.9 11/14/19 05:30 RPR Titer Nonreactive (NONREACTIVE) 11/12/19 09:50 lab noted Assessment: 11/14/19 13:29 alcohol withdrawal Plan: librium regiment
[2019-11-14] MEDS ORDERED: PHENYTOIN NA EXTENDED 100 MG CAPSULE (FP) PO SCH (13:55)
[2019-11-14] MEDS ORDERED: PHENYTOIN NA EXTENDED 100 MG CAPSULE (FP) PO ONE (14:00)
[2019-11-14] MEDS: THIAMINE HCL 100 MG TABLET (FP) PO SCH (22:20)
[2019-11-15] MEDS ORDERED: chlordiazePOXIDE HCL 10 MG CAPSULE PO PRN
[2019-11-15] MEDS ORDERED: chlordiazePOXIDE HCL 10 MG CAPSULE PO SCH (05:00)
--- NOTE | 2019-11-15 09:08 | PN ---
S CIWA - CIWA Score Nausea/Vomitin-No Nausea/No Vomiting Muscle Tremors: 1-None Visible, but [place] Anxiety: 1-Mildly Anxious Agitation: 3 Paroxysmal Sweats: 1-Minimal Palms Moist Orientation: 0-Oriented Tacttile Disturbances: 0-None Auditory Disturbances: 0-None Visual Disturbances: 0-None Headache: 0-None Present CIWA-Ar Total Score: 6 BHS Progress Note (SOAP) Subjective: 49 years old male admitted on 11/12/19 for alcohol withdrawal sx management treating with librium detox regiment ate breakfast tolerated food and fluid well "I am resting" limited conversation with staff irritable Objective: 11/15/19 09:07 Vital Signs Temperature 97.1 F L 11/15/19 06:09 Pulse Rate 62 11/15/19 06:09 Respiratory Rate 18 11/15/19 06:30 Blood Pressure 100/66 11/15/19 06:09 O2 Sat by Pulse Oximetry (%) Laboratory Last Values WBC 10.8 K/mm3 (4.0-10.0) H 11/12/19 09:50 RBC 4.25 M/mm3 (4.00-5.60) 11/12/19 09:50 Hgb 14.0 GM/dL (11.7-16.9) 11/12/19 09:50 Hct 40.7 % (35.4-49) 11/12/19 09:50 MCV 95.6 fl (80-96) 11/12/19 09:50 MCH 33.0 pg (25.7-33.7) 11/12/19 09:50 MCHC 34.5 g/dl (32.0-35.9) 11/12/19 09:50 RDW 13.4 % (11.9-15.9) 11/12/19 09:50 Plt Count 222 K/MM3 (134-434) 11/12/19 09:50 MPV 10.3 fl (7.5-11.1) D 11/12/19 09:50 Sodium 137 mmol/L (136-145) 11/12/19 09:50 Potassium 3.7 mmol/L (3.5-5.1) 11/12/19 09:50 Chloride 104 mmol/L (98-107) 11/12/19 09:50 Carbon Dioxide 26 mmol/L (21-32) 11/12/19 09:50 Anion Gap 8 MMOL/L (8-16) 11/12/19 09:50 BUN 12.6 mg/dL (7-18) 11/12/19 09:50 Creatinine 1.0 mg/dL (0.55-1.3) 11/12/19 09:50 Est GFR (CKD-EPI)AfAm 100.55 11/12/19 09:50 Est GFR (CKD-EPI)NonAf 86.76 11/12/19 09:50 Random Glucose 132 mg/dL (74-106) H 11/12/19 09:50 Calcium 8.5 mg/dL (8.5-10.1) 11/12/19 09:50 Total Bilirubin 0.7 mg/dL (0.2-1) 11/12/19 09:50 AST 53 U/L (15-37) H 11/12/19 09:50 ALT 39 U/L (13-61) 11/12/19 09:50 Alkaline Phosphatase 99 U/L (45-117) 11/12/19 09:50 Total Protein 7.4 g/dl (6.4-8.2) 11/12/19 09:50 Albumin 4.0 g/dl (3.4-5.0) 11/12/19 09:50 Phenytoin 1.9 11/14/19 05:30 RPR Titer Nonreactive (NONREACTIVE) 11/12/19 09:50 lab noted Assessment: 11/15/19 09:07 alcohol withdrawal Plan: librium regiment
[2019-11-15 09:23] VITALS: BP 111/80; PULSE 61; TEMP 97.4
--- NOTE | 2019-11-15 14:26 | DS ---
[facility] Detox Discharge Summary Admission Date: 11/12/19 Discharge Date: 11/15/19 - History Present History: Alcohol Dependence Additional Comments: 49 years old male admitted on 11/12/19 for alcohol withdrawal sx management treated wtih librium detox regiment according to 3N counselor clinical chemical supervisor that upon admission contract for safety was signed to maintain therapeutic environment patient has seizure treated with dilantin, patient reject repeat dilantin serum level "I do not like needle" patient did not attend behavior and psychosocial therapies groups and meetings while in detox patient demands to use the phone 20/04 disregard medication times and group times multiple verbal warning patient refuses to give up the phone multidisciplinary team (nurse procedure manager, counselor chemical supervisor, the nurse, the counselor) approach toe deescalate the patient patient is alert oriented x 3 goal -directed behavior speech clearly coherently reengage with the patient to support Mr Kraus's detox process patient became aggressive threatening and verbally abusive to staffers patient became violent and unable to calm refuses to meet with the staff encourage to follow up with [facility] was called and the nurse prepared necessary paper work and escorted off the unit members of the team agree that administrative discharge is necessary at this time for the safety of the staff and other patients on board Pertinent Past History: time for discharge 1 hour 18 minutes - Physical Exam Results Vital Signs: Vital Signs Temperature 97.4 F L 11/15/19 08:43 Pulse Rate 61 11/15/19 08:43 Respiratory Rate 18 11/15/19 08:43 Blood Pressure 111/80 11/15/19 08:43 O2 Sat by Pulse Oximetry (%) Pertinent Admission Physical Exam Findings: alcohol withdrawal Laboratory Last Values WBC 10.8 K/mm3 (4.0-10.0) H 11/12/19 09:50 RBC 4.25 M/mm3 (4.00-5.60) 11/12/19 09:50 Hgb 14.0 GM/dL (11.7-16.9) 11/12/19 09:50 Hct 40.7 % (35.4-49) 11/12/19 09:50 MCV 95.6 fl (80-96) 11/12/19 09:50 MCH 33.0 pg (25.7-33.7) 11/12/19 09:50 MCHC 34.5 g/dl (32.0-35.9) 11/12/19 09:50 RDW 13.4 % (11.9-15.9) 11/12/19 09:50 Plt Count 222 K/MM3 (134-434) 11/12/19 09:50 MPV 10.3 fl (7.5-11.1) D 11/12/19 09:50 Sodium 137 mmol/L (136-145) 11/12/19 09:50 Potassium 3.7 mmol/L (3.5-5.1) 11/12/19 09:50 Chloride 104 mmol/L (98-107) 11/12/19 09:50 Carbon Dioxide 26 mmol/L (21-32) 11/12/19 09:50 Anion Gap 8 MMOL/L (8-16) 11/12/19 09:50 BUN 12.6 mg/dL (7-18) 11/12/19 09:50 Creatinine 1.0 mg/dL (0.55-1.3) 11/12/19 09:50 Est GFR (CKD-EPI)AfAm 100.55 11/12/19 09:50 Est GFR (CKD-EPI)NonAf 86.76 11/12/19 09:50 Random Glucose 132 mg/dL (74-106) H 11/12/19 09:50 Calcium 8.5 mg/dL (8.5-10.1) 11/12/19 09:50 Total Bilirubin 0.7 mg/dL (0.2-1) 11/12/19 09:50 AST 53 U/L (15-37) H 11/12/19 09:50 ALT 39 U/L (13-61) 11/12/19 09:50 Alkaline Phosphatase 99 U/L (45-117) 11/12/19 09:50 Total Protein 7.4 g/dl (6.4-8.2) 11/12/19 09:50 Albumin 4.0 g/dl (3.4-5.0) 11/12/19 09:50 Phenytoin 9.5 11/15/19 09:10 RPR Titer Nonreactive (NONREACTIVE) 11/12/19 09:50 Vital Signs Temperature 97.4 F L 11/15/19 08:43 Pulse Rate 61 11/15/19 08:43 Respiratory Rate 18 11/15/19 08:43 Blood Pressure 111/80 11/15/19 08:43 O2 Sat by Pulse Oximetry (%) lab noted - Treatment Hospital Course: Detox Protocol Followed, Detoxed Safely, Responded well, Discharged Condition Good, Rehab Referral Accepted Patient has Accepted a Rehab Referral to: [facility] - Medication Discharge Medications: Ambulatory Orders traZODone HCL [Trazodone HCl] 50 mg PO HS #30 tablet 06/11/18 Ibuprofen 600 mg PO Q6H PRN #90 tablet 02/24/19 Omeprazole 40 mg PO DAILY #30 capsule. 02/24/19 Risperidone [Risperdal -] 1 mg PO DAILY #30 tablet 02/24/19 Sertraline HCl [Zoloft -] 50 mg PO DAILY #30 tablet 02/24/19 Phenytoin Na Extended [Dilantin -] 300 mg PO DAILY #30 capsule 03/28/19 Albuterol Sulfate Inhaler - [Ventolin HFA Inhaler -] 1 - 2 inh PO Q4H PRN #1 inhaler 09/10/19 Multivit-Min/Iron/Folic Acid/K [Multi-Day Plus Minerals Tablet] 1 each PO DAILY #30 tablet 09/10/19 Phenytoin Na Extended [Dilantin -] 200 mg PO HS #30 capsule 09/10/19 Aspirin [ASA -] 81 mg PO DAILY 11/12/19 - Diagnosis (1) Alcohol dependence with uncomplicated withdrawal Status: Acute (2) Asthma Status: Chronic Qualifiers: Asthma severity: mild Asthma persistence: intermittent Asthma complication type: unspecified Qualified Code(s): J45.20 - Mild intermittent asthma, uncomplicated (3) GERD (gastroesophageal reflux disease) Status: Chronic Qualifiers: Esophagitis presence: without esophagitis Qualified Code(s): K21.9 - Gastro -esophageal reflux disease without esophagitis (4) Nicotine dependence Status: Acute Qualifiers: Nicotine product type: cigarettes Substance use status: in withdrawal Qualified Code(s): F17.213 - Nicotine dependence, cigarettes, with withdrawal (5) Substance induced mood disorder Status: Suspected (6) seizure disorder Status: Chronic (7) Substance induced mood disorder Status: Suspected - AMA Did Patient Leave Against Medical Advice: No CIWA Score - CIWA Score Nausea/Vomitin-No Nausea/No Vomiting Muscle Tremors: 1-None Visible, but [place] Anxiety: 0-No Anxiety, at Ease Agitation: 2 Paroxysmal Sweats: 1-Minimal Palms Moist Orientation: 0-Oriented Tacttile Disturbances: 0-None Auditory Disturbances: 0-None Visual Disturbances: 0-None Headache: 0-None Present CIWA-Ar Total Score: 4
[2019-11-16] MEDS ORDERED: chlordiazePOXIDE HCL 10 MG CAPSULE PO SCH (05:00)
[2019-11-17] MEDS ORDERED: chlordiazePOXIDE HCL 10 MG CAPSULE PO ONE (05:00)
== END 2019-11-15 12:27 | disposition home or self-care (01) | DRG 897 ==
LOC: YASAS 08:12 → Y3N 10:28
PROVIDERS: ADMIT Allergy & Immunology; ATTEND Allergy & Immunology
PROC: HZ2ZZZZ Detoxification Services for Substance Abuse Treatment (ICD-10-PCS; principal; 2019-11-12)
DX: F10.230 Alcohol dependence with withdrawal, uncomplicated (principal); F14.20 Cocaine dependence, uncomplicated; F17.213 Nicotine dependence, cigarettes, with withdrawal; F19.24 Other psychoactive substance dependence with psychoactive substance-induced mood disorder; F25.9 Schizoaffective disorder, unspecified; F91.8 Other conduct disorders; K21.9 Gastro-esophageal reflux disease without esophagitis; G40.909 Epilepsy, unspecified, not intractable, without status epilepticus; J45.909 Unspecified asthma, uncomplicated; M54.5 Low back pain; G89.29 Other chronic pain; R21 Rash and other nonspecific skin eruption; Z85.830 Personal history of malignant neoplasm of bone; Z92.23 Personal history of estrogen therapy; Z91.14 Patient's other noncompliance with medication regimen; Z91.018 Allergy to other foods; Z91.5 Personal history of self-harm
CPT/HCPCS: 36415; 80053; 80185; 85027; 86593

== ENCOUNTER 2020-04-23 13:27 | Inpatient (IN) | payer BC, OTHER ==
--- NOTE | 2020-04-23 14:09 | BHS.RME ---
Substance Use & Tx History - Substance Use History Barbiturate Substance amount: 3/5 vodka Frequency of use: Daily Substance route: Oral Date of Last Use: 04/23/20 Nicotine Substance amount: 1 pack Frequency of use: Daily Substance route: Oral Date of Last Use: 04/23/20 Physical/Psych/Mental Status - Behavior General Behavior: Increased activity (restlessness, agitation) Eye Contact: Normal - Cooperativeness Cooperativeness: Cooperative - Thinking Thought Processes: Tight, Logical, Goal Directed - Physical Health Problems Is patient presently having any pain?: No Does patient presently have any injuries (include location): No Does patient currently have a fever: No Is patient : No CIWA Nausea/Vomitin-No Nausea/No Vomiting Muscle Tremors: 1-None Visible, but [place] Anxiety: 0-No Anxiety, at Ease Agitation: 0-Normal Activity Paroxysmal Sweats: 1-Minimal Palms Moist Orientation: 0-Oriented Tacttile Disturbances: 0-None Auditory Disturbances: 0-None Visual Disturbances: 0-None Headache: 0-None Present CIWA-Ar Total Score: 2
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
[2020-04-23] MEDS ORDERED: ALBUTEROL SO4 HFA INHALER IH PRN (15:45)
[2020-04-23] MEDS ORDERED: IBUPROFEN 400 MG TABLET (FP) PO PRN (15:47)
[2020-04-23] MEDS ORDERED: MAGNESIUM CITRATE 300 ML BOTTLE PO PRN (15:47)
[2020-04-23] MEDS ORDERED: BISMUTH SUBSALICYLATE 524 MG/30 ML UD PO PRN (15:47)
[2020-04-23] MEDS ORDERED: ONDANSETRON *ODT* 4 MG TABLET SL PRN (15:47)
[2020-04-23] MEDS ORDERED: MAGNESIUM HYDROX 2400MG/30ML ORAL SUSPENSION 30 ML CUP PO PRN (15:47)
[2020-04-23] MEDS ORDERED: ACETAMINOPHEN 325 MG TABLET (FP) PO PRN ×2 (15:47)
[2020-04-23] MEDS ORDERED: MENTHOL/PHENOL 1 EACH UD MM PRN (15:47)
[2020-04-23] MEDS ORDERED: chlordiazePOXIDE HCL 25 MG CAPSULE PO PRN (15:47)
[2020-04-23] MEDS ORDERED: NICOTINE POLACRILEX 2 MG GUM BUC PRN (15:47)
[2020-04-23] MEDS ORDERED: MAG HYDROX/AL HYDROX/SIMETH 30 ML UNIT-DOSE CUP PO PRN (15:47)
[2020-04-23] MEDS ORDERED: METHOCARBAMOL 500 MG TABLET PO PRN (15:47)
[2020-04-23 16:50] VITALS: BMI 34.8
[2020-04-23] MEDS: hydrOXYzine PAMOATE 25 MG CAPSULE (FP) PO SCH ×2 (17:52→23:00)
[2020-04-23] MEDS: chlordiazePOXIDE HCL 25 MG CAPSULE PO SCH ×2 (17:52→23:45)
[2020-04-23] MEDS: ASPIRIN 81 MG CHEWABLE TABLETS PO SCH (17:52)
[2020-04-23] MEDS: BETAMETHASONE DIPR 0.05% CREAM 15 GM TUBE TP SCH (23:00)
[2020-04-23] MEDS: THIAMINE HCL 100 MG TABLET (FP) PO SCH (23:00)
[2020-04-23] MEDS: MELATONIN 5 MG TABLETS PO SCH (23:00)
[2020-04-24] MEDS: hydrOXYzine PAMOATE 25 MG CAPSULE (FP) PO SCH (05:40)
[2020-04-24] MEDS: chlordiazePOXIDE HCL 25 MG CAPSULE PO SCH ×4 (05:40→22:25)
[2020-04-24] MEDS ORDERED: ALBUTEROL SO4 HFA INHALER IH PRN (08:53)
--- NOTE | 2020-04-24 09:02 | PN ---
S CIWA - CIWA Score Nausea/Vomitin-No Nausea/No Vomiting Muscle Tremors: 2 Anxiety: 2 Agitation: 3 Paroxysmal Sweats: 3 Orientation: 0-Oriented Tacttile Disturbances: 0-None Auditory Disturbances: 0-None Visual Disturbances: 0-None Headache: 0-None Present CIWA-Ar Total Score: 10 S Progress Note (SOAP) Subjective: sweats restless interrupted sleep agitation Objective: 04/24/20 08:57 Vital Signs Temperature 97.5 F L 04/24/20 05:23 Pulse Rate 56 L 04/24/20 05:23 Respiratory Rate 18 04/24/20 05:23 Blood Pressure 111/67 04/24/20 05:23 O2 Sat by Pulse Oximetry (%) 98 04/24/20 05:23 labs pending [id number] ambulating no acute distress Assessment: 04/24/20 08:57 withdrawals Plan: continue detox pending labs
[2020-04-24 10:00] LABS: HEMATOCRIT 42.1 % (35.4-49); MCH 31.9 pg (25.7-33.7); MCHC 33.2 g/dl (32.0-35.9); MEAN CELL VOLUME 96.1 fl (80-96); MEAN PLT VOLUME 9.7 fl (7.5-11.1); PLATELET COUNT 212 K/MM3 (134-434); RBC 4.38 M/mm3 (4.00-5.60); RDW 13.8 % (11.9-15.9); WHITE BLOOD COUNT 6.1 K/mm3 (4.0-10.0)
[2020-04-24 10:04] LABS: ALBUMIN 3.1 g/dl (3.4-5.0); BILIRUBIN,TOTAL 0.3 mg/dL (0.2-1); BLOOD UREA NITROGEN 9.5 mg/dL (7-18); CALCIUM 8.4 mg/dL (8.5-10.1); CREATININE 0.8 mg/dL (0.55-1.3); POTASSIUM 3.9 mmol/L (3.5-5.1); TOT PROT 6.4 g/dl (6.4-8.2)
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
[2020-04-24] MEDS: SERTRALINE HCL 50 MG TABLET (FP) PO SCH (10:50)
[2020-04-24] MEDS: PANTOPRAZOLE 40 MG TABLET PO SCH (10:50)
[2020-04-24] MEDS: ASPIRIN 81 MG CHEWABLE TABLETS PO SCH (10:50)
[2020-04-24] MEDS: PHENYTOIN NA EXTENDED 100 MG CAPSULE (FP) PO SCH (10:50)
[2020-04-24] MEDS: PRENATAL VITAMINS W/ FOLIC ACID TABLET (FP) PO SCH (10:51)
[2020-04-24] MEDS: BETAMETHASONE DIPR 0.05% CREAM 15 GM TUBE TP SCH ×2 (14:21→22:24)
[2020-04-24] MEDS: THIAMINE HCL 100 MG TABLET (FP) PO SCH (22:25)
[2020-04-24] MEDS: MELATONIN 5 MG TABLETS PO SCH (22:25)
[2020-04-24] MEDS: risperiDONE 2 MG TABLET PO SCH (22:25)
[2020-04-24] MEDS: ATORVASTATIN CA 20 MG TABLET (FP) PO SCH (22:25)
[2020-04-25] MEDS: chlordiazePOXIDE HCL 25 MG CAPSULE PO SCH ×4 (05:19→22:06)
[2020-04-25] MEDS ORDERED: PHENYTOIN NA EXTENDED 100 MG CAPSULE (FP) PO ONE (08:44)
--- NOTE | 2020-04-25 10:26 | PN ---
S CIWA - CIWA Score Nausea/Vomitin Muscle Tremors: 2 Anxiety: 2 Agitation: 2 Paroxysmal Sweats: No Perspiration Orientation: 0-Oriented Tacttile Disturbances: 1-Very Mild Itch/Numbness Auditory Disturbances: 0-None Visual Disturbances: 0-None Headache: 1-Very Mild CIWA-Ar Total Score: 10 S Progress Note (SOAP) Subjective: alert,irritable,anxious,interrupted sleep,tremor,nausea,interrupted sleep Objective: 04/25/20 10:23 Vital Signs Temperature 98.2 F 04/25/20 08:40 Pulse Rate 62 04/25/20 08:40 Respiratory Rate 20 04/25/20 08:40 Blood Pressure 119/79 04/25/20 08:40 O2 Sat by Pulse Oximetry (%) 98 04/25/20 08:40 Laboratory Last Values WBC 6.1 K/mm3 (4.0-10.0) 04/24/20 08:00 RBC 4.38 M/mm3 (4.00-5.60) 04/24/20 08:00 Hgb 14.0 GM/dL (11.7-16.9) 04/24/20 08:00 Hct 42.1 % (35.4-49) 04/24/20 08:00 MCV 96.1 fl (80-96) H 04/24/20 08:00 MCH 31.9 pg (25.7-33.7) 04/24/20 08:00 MCHC 33.2 g/dl (32.0-35.9) 04/24/20 08:00 RDW 13.8 % (11.9-15.9) 04/24/20 08:00 Plt Count 212 K/MM3 (134-434) 04/24/20 08:00 MPV 9.7 fl (7.5-11.1) D 04/24/20 08:00 Sodium 142 mmol/L (136-145) 04/24/20 08:00 Potassium 3.9 mmol/L (3.5-5.1) 04/24/20 08:00 Chloride 109 mmol/L (98-107) H 04/24/20 08:00 Carbon Dioxide 28 mmol/L (21-32) 04/24/20 08:00 Anion Gap 5 MMOL/L (8-16) L 04/24/20 08:00 BUN 9.5 mg/dL (7-18) 04/24/20 08:00 Creatinine 0.8 mg/dL (0.55-1.3) 04/24/20 08:00 Est GFR (CKD-EPI)AfAm 119.88 04/24/20 08:00 Est GFR (CKD-EPI)NonAf 103.43 04/24/20 08:00 Random Glucose 85 mg/dL (74-106) 04/24/20 08:00 Calcium 8.4 mg/dL (8.5-10.1) L 04/24/20 08:00 Total Bilirubin 0.3 mg/dL (0.2-1) 04/24/20 08:00 AST 18 U/L (15-37) 04/24/20 08:00 ALT 17 U/L (13-61) 04/24/20 08:00 Alkaline Phosphatase 69 U/L (45-117) 04/24/20 08:00 Total Protein 6.4 g/dl (6.4-8.2) 04/24/20 08:00 Albumin 3.1 g/dl (3.4-5.0) L 04/24/20 08:00 Phenytoin <3.0 04/24/20 08:00 Syphilis Serology Non-reactive (NONREACTIVE) 04/24/20 08:00 COVID-19 (ALEXIA) Not detected (Not Detected) 04/23/20 17:30 Assessment: 04/25/20 10:24 withdrawal symptom Plan: continue detox librium regimen,dilantin level is < 3,to give loading dose of dilantin 300 mgs po now then 100 mgs po tid,seizure precaution,repeat ilantin level in am
[2020-04-25] MEDS: ASPIRIN 81 MG CHEWABLE TABLETS PO SCH (11:14)
[2020-04-25] MEDS: SERTRALINE HCL 50 MG TABLET (FP) PO SCH (11:14)
[2020-04-25] MEDS: PHENYTOIN NA EXTENDED 100 MG CAPSULE (FP) PO SCH (11:14)
[2020-04-25] MEDS: BETAMETHASONE DIPR 0.05% CREAM 15 GM TUBE TP SCH ×2 (11:15→22:05)
[2020-04-25] MEDS: PANTOPRAZOLE 40 MG TABLET PO SCH (11:15)
[2020-04-25] MEDS: PRENATAL VITAMINS W/ FOLIC ACID TABLET (FP) PO SCH (11:15)
[2020-04-25] MEDS: risperiDONE 2 MG TABLET PO SCH (22:05)
[2020-04-25] MEDS: ATORVASTATIN CA 20 MG TABLET (FP) PO SCH (22:05)
[2020-04-25] MEDS: THIAMINE HCL 100 MG TABLET (FP) PO SCH (22:05)
[2020-04-25] MEDS: MELATONIN 5 MG TABLETS PO SCH (22:14)
[2020-04-26] MEDS ORDERED: chlordiazePOXIDE HCL 10 MG CAPSULE PO PRN
[2020-04-26] MEDS: chlordiazePOXIDE HCL 10 MG CAPSULE PO SCH ×3 (05:27→18:00)
[2020-04-26] MEDS: PHENYTOIN NA EXTENDED 100 MG CAPSULE (FP) PO SCH (10:43)
[2020-04-26] MEDS: ASPIRIN 81 MG CHEWABLE TABLETS PO SCH (10:44)
[2020-04-26] MEDS: PANTOPRAZOLE 40 MG TABLET PO SCH (10:44)
[2020-04-26] MEDS: PRENATAL VITAMINS W/ FOLIC ACID TABLET (FP) PO SCH (10:44)
[2020-04-26] MEDS: SERTRALINE HCL 50 MG TABLET (FP) PO SCH (10:44)
[2020-04-26] MEDS: BETAMETHASONE DIPR 0.05% CREAM 15 GM TUBE TP SCH (10:45)
--- NOTE | 2020-04-26 11:52 | PN ---
S CIWA - CIWA Score Nausea/Vomitin-Mild Nausea/No Vomiting Muscle Tremors: 2 Anxiety: 2 Agitation: 2 Paroxysmal Sweats: No Perspiration Orientation: 0-Oriented Tacttile Disturbances: 1-Very Mild Itch/Numbness Auditory Disturbances: 0-None Visual Disturbances: 0-None Headache: 1-Very Mild CIWA-Ar Total Score: 9 BHS Progress Note (SOAP) Subjective: alert,irritable,anxious,interrupted sleep,tremor Objective: 04/26/20 11:49 Vital Signs Temperature 98.2 F 04/26/20 09:07 Pulse Rate 67 04/26/20 09:07 Respiratory Rate 04/26/20 09:07 Blood Pressure 129/86 04/26/20 09:07 O2 Sat by Pulse Oximetry (%) 97 04/26/20 09:07 04/26/20 11:54 dilantin level 0.4 Assessment: 04/26/20 11:52 withdrawal symptom Plan: continue detox librium regimen,dilantin 300 mgs po daily,seizure precaution
[2020-04-26 18:17] VITALS: BP 145/90; PULSE 68; TEMP 97.8
--- NOTE | 2020-04-26 19:58 | DS ---
[facility] Detox Discharge Summary Admission Date: 04/23/20 Discharge Date: 04/26/20 (AMA) - History Present History: Alcohol Dependence, Cocaine Dependence Additional Comments: Patient seen and examined, alert and oriented x 3. Full ROM, ambulatory without assistance. Skin warm to touch. Wants to leave to leave now because he has things to do. Pertinent Past History: History of GERD, Seizure, asthma, Bone cancer, Throat cancer, Osteoarthritis, alcohol, cocaine and nicotine use disorder. - Physical Exam Results Vital Signs: Vital Signs Temperature 97.8 F 04/26/20 17:05 Pulse Rate 68 04/26/20 17:05 Respiratory Rate 04/26/20 17:05 Blood Pressure 145/90 04/26/20 17:05 O2 Sat by Pulse Oximetry (%) 98 04/26/20 17:05 Pertinent Admission Physical Exam Findings: Withdrawal symptoms. - Medication Discharge Medications: Ambulatory Orders Ibuprofen 600 mg PO Q6H PRN #90 tablet 02/24/19 Sertraline HCl [Zoloft -] 50 mg PO DAILY #30 tablet 02/24/19 Phenytoin Na Extended [Dilantin -] 300 mg PO DAILY #30 capsule 03/28/19 Albuterol Sulfate Inhaler - [Ventolin HFA Inhaler -] 1 - 2 inh PO Q4H PRN #1 inhaler 09/10/19 Multivit-Min/Iron/Folic Acid/K [Multi-Day Plus Minerals Tablet] 1 each PO DAILY #30 tablet 09/10/19 Aspirin [ASA -] 81 mg PO DAILY 11/12/19 Pantoprazole Sodium [Protonix -] 40 mg PO DAILY tablet.ec 01/04/20 Atorvastatin Calcium [Lipitor] 20 mg PO HS 04/23/20 Famotidine 20 mg PO BID 04/23/20 Risperidone [Risperdal] 2 mg PO HS 04/23/20 - Diagnosis (1) Alcohol dependence with uncomplicated withdrawal Current Visit: No Status: Acute (2) Nicotine dependence Current Visit: No Status: Chronic Qualifiers: Nicotine product type: cigarettes Substance use status: uncomplicated Qualified Code(s): F17.210 - Nicotine dependence, cigarettes, uncomplicated (3) Alcohol dependence Current Visit: No Status: Chronic (4) Cocaine dependence Current Visit: No Status: Chronic Qualifiers: Substance use status: uncomplicated Qualified Code(s): F14.20 - Cocaine dependence, uncomplicated (5) GERD (gastroesophageal reflux disease) Current Visit: No Status: Chronic Qualifiers: Esophagitis presence: without esophagitis Qualified Code(s): K21.9 - Gastro-esophageal reflux disease without esophagitis (6) Seizures Current Visit: No Status: Chronic (7) Bone cancer Current Visit: No Status: Resolved Qualifiers: Malignant neoplasm of bone location: unspecified location Qualified Code(s): C41.9 - Malignant neoplasm of bone and articular cartilage, unspecified - AMA Did Patient Leave Against Medical Advice: Yes
[2020-04-27] MEDS ORDERED: chlordiazePOXIDE HCL 10 MG CAPSULE PO SCH (05:00)
[2020-04-28] MEDS ORDERED: chlordiazePOXIDE HCL 10 MG CAPSULE PO ONE (05:00)
== END 2020-04-26 20:07 | disposition left against medical advice (07) | DRG 894 ==
LOC: YASAS 13:27 → Y6N 16:41
PROVIDERS: ADMIT Allergy & Immunology; ATTEND Allergy & Immunology
PROC: HZ2ZZZZ Detoxification Services for Substance Abuse Treatment (ICD-10-PCS; principal; 2020-04-23)
DX: F10.230 Alcohol dependence with withdrawal, uncomplicated (principal); F14.20 Cocaine dependence, uncomplicated; F19.282 Other psychoactive substance dependence with psychoactive substance-induced sleep disorder; F17.210 Nicotine dependence, cigarettes, uncomplicated; F25.9 Schizoaffective disorder, unspecified; F19.24 Other psychoactive substance dependence with psychoactive substance-induced mood disorder; G40.909 Epilepsy, unspecified, not intractable, without status epilepticus; K21.9 Gastro-esophageal reflux disease without esophagitis; J45.20 Mild intermittent asthma, uncomplicated; M19.042 Primary osteoarthritis, left hand; M19.041 Primary osteoarthritis, right hand; E78.5 Hyperlipidemia, unspecified; R21 Rash and other nonspecific skin eruption; E66.9 Obesity, unspecified; Z68.34 Body mass index [BMI] 34.0-34.9, adult; Z85.830 Personal history of malignant neoplasm of bone; Z85.818 Personal history of malignant neoplasm of other sites of lip, oral cavity, and pharynx; Z91.5 Personal history of self-harm; Z91.018 Allergy to other foods
CPT/HCPCS: 36415; 80053; 80185; 85027; 86780; U0003

== ENCOUNTER 2020-05-30 19:18 | Inpatient (IN) | payer BC, OTHER ==
[2020-05-30 19:54] VITALS: BMI 31.9
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
[2020-05-30] MEDS ORDERED: chlordiazePOXIDE HCL 25 MG CAPSULE PO PRN (20:57)
[2020-05-30] MEDS ORDERED: MAG HYDROX/AL HYDROX/SIMETH 30 ML UNIT-DOSE CUP PO PRN (20:57)
[2020-05-30] MEDS ORDERED: NICOTINE POLACRILEX 2 MG GUM BUC PRN (20:57)
[2020-05-30] MEDS ORDERED: MAGNESIUM HYDROX 2400MG/30ML ORAL SUSPENSION 30 ML CUP PO PRN (20:57)
[2020-05-30] MEDS ORDERED: METHOCARBAMOL 500 MG TABLET PO PRN (20:57)
[2020-05-30] MEDS ORDERED: MAGNESIUM CITRATE 300 ML BOTTLE PO PRN (20:57)
[2020-05-30] MEDS ORDERED: MENTHOL/PHENOL 1 EACH UD MM PRN (20:57)
[2020-05-30] MEDS ORDERED: ACETAMINOPHEN 325 MG TABLET (FP) PO PRN ×2 (20:57)
[2020-05-30] MEDS ORDERED: IBUPROFEN 400 MG TABLET (FP) PO PRN (20:57)
[2020-05-30] MEDS ORDERED: BISMUTH SUBSALICYLATE 524 MG/30 ML UD PO PRN (20:57)
[2020-05-30] MEDS ORDERED: hydrOXYzine PAMOATE 25 MG CAPSULE (FP) PO PRN (20:57)
[2020-05-30] MEDS ORDERED: COLCHICINE 0.6 MG CAP PO ONE (21:08)
[2020-05-30] MEDS ORDERED: ALBUTEROL SO4 HFA INHALER IH PRN (22:35)
[2020-05-31] MEDS: chlordiazePOXIDE HCL 25 MG CAPSULE PO SCH ×5 (01:08→23:19)
[2020-05-31] MEDS: ONDANSETRON *ODT* 4 MG TABLET SL ONE ×2 (01:08→01:09)
[2020-05-31] MEDS: THIAMINE HCL 100 MG TABLET (FP) PO SCH ×2 (01:09→23:19)
[2020-05-31] MEDS: MELATONIN 5 MG TABLETS PO SCH ×2 (01:12→23:19)
[2020-05-31] MEDS ORDERED: COLCHICINE 0.6 MG CAP PO ONE (06:00)
[2020-05-31] MEDS: PRENATAL VITAMINS W/ FOLIC ACID TABLET (FP) PO SCH (10:24)
[2020-05-31] MEDS: PHENYTOIN NA EXTENDED 100 MG CAPSULE (FP) PO SCH (10:24)
[2020-05-31] MEDS: ASPIRIN 81 MG CHEWABLE TABLETS PO SCH (10:25)
[2020-05-31] MEDS: NICOTINE 21 MG/24 HOURS TOPICAL PATCH TD SCH (10:25)
[2020-05-31] MEDS: PANTOPRAZOLE 40 MG TABLET PO SCH (10:25)
[2020-05-31 11:01] LABS: HEMATOCRIT 42.3 % (35.4-49); HEMOGLOBIN 14.2 GM/dL (11.7-16.9); MCH 33.4 pg (25.7-33.7); MCHC 33.7 g/dl (32.0-35.9); MEAN CELL VOLUME 99.1 fl (80-96); PLATELET COUNT 202 K/MM3 (134-434); RBC 4.26 M/mm3 (4.00-5.60); RDW 14.1 % (11.9-15.9); WHITE BLOOD COUNT 5.6 K/mm3 (4.0-10.0)
[2020-05-31 11:05] LABS: ALBUMIN 3.2 g/dl (3.4-5.0); BILIRUBIN,TOTAL 0.2 mg/dL (0.2-1); BLOOD UREA NITROGEN 11.4 mg/dL (7-18); CALCIUM 8.3 mg/dL (8.5-10.1); CREATININE 0.9 mg/dL (0.55-1.3); TOT PROT 6.4 g/dl (6.4-8.2)
--- NOTE | 2020-05-31 14:12 | PN ---
S CIWA - CIWA Score Nausea/Vomitin Muscle Tremors: 2 Anxiety: 2 Agitation: 2 Paroxysmal Sweats: 1-Minimal Palms Moist Orientation: 0-Oriented Tacttile Disturbances: 1-Very Mild Itch/Numbness Auditory Disturbances: 0-None Visual Disturbances: 0-None Headache: 2-Mild CIWA-Ar Total Score: 12 S Progress Note (SOAP) Subjective: alert,irritable,anxious,interrupted sleep,tremor,aching pain in the body and back,nausea Objective: 05/31/20 14:11 Vital Signs Temperature 97.8 F 05/31/20 12:59 Pulse Rate 58 L 05/31/20 12:59 Respiratory Rate 18 05/31/20 12:59 Blood Pressure 117/68 05/31/20 12:59 O2 Sat by Pulse Oximetry (%) 96 05/31/20 12:59 Laboratory Last Values WBC 5.6 K/mm3 (4.0-10.0) 05/31/20 08:10 RBC 4.26 M/mm3 (4.00-5.60) 05/31/20 08:10 Hgb 14.2 GM/dL (11.7-16.9) 05/31/20 08:10 Hct 42.3 % (35.4-49) 05/31/20 08:10 MCV 99.1 fl (80-96) H 05/31/20 08:10 MCH 33.4 pg (25.7-33.7) 05/31/20 08:10 MCHC 33.7 g/dl (32.0-35.9) 05/31/20 08:10 RDW 14.1 % (11.9-15.9) 05/31/20 08:10 Plt Count 202 K/MM3 (134-434) 05/31/20 08:10 MPV 10.0 fl (7.5-11.1) 05/31/20 08:10 Sodium 142 mmol/L (136-145) 05/31/20 08:10 Potassium 4.0 mmol/L (3.5-5.1) 05/31/20 08:10 Chloride 109 mmol/L (98-107) H 05/31/20 08:10 Carbon Dioxide 27 mmol/L (21-32) 05/31/20 08:10 Anion Gap 6 MMOL/L (8-16) L 05/31/20 08:10 BUN 11.4 mg/dL (7-18) 05/31/20 08:10 Creatinine 0.9 mg/dL (0.55-1.3) 05/31/20 08:10 Est GFR (CKD-EPI)AfAm 114.21 05/31/20 08:10 Est GFR (CKD-EPI)NonAf 98.54 05/31/20 08:10 Random Glucose 94 mg/dL (74-106) 05/31/20 08:10 Calcium 8.3 mg/dL (8.5-10.1) L 05/31/20 08:10 Total Bilirubin 0.2 mg/dL (0.2-1) 05/31/20 08:10 AST 21 U/L (15-37) 05/31/20 08:10 ALT 31 U/L (13-61) 05/31/20 08:10 Alkaline Phosphatase 68 U/L (45-117) 05/31/20 08:10 Total Protein 6.4 g/dl (6.4-8.2) 05/31/20 08:10 Albumin 3.2 g/dl (3.4-5.0) L 05/31/20 08:10 Syphilis Serology Non-reactive (NONREACTIVE) 05/31/20 08:10 Assessment: 05/31/20 14:12 withdrawal symptom Plan: continue detox librium regimen,seizure precaution,dilantin 300 mgs po daily,dilantin level pending,hydration,fluid
[2020-05-31 21:39] LABS: PH,URINE 5.5 (5.0-8.0); URINE APPEARANCE CLEAR; URINE BILIRUBIN NEGATIVE (NEGATIVE); URINE COLOR YELLOW; URINE GLUCOSE (UA) NEGATIVE (NEGATIVE); URINE KETONE NEGATIVE (NEGATIVE); URINE LEUK ESTERASE NEGATIVE (NEGATIVE); URINE NITRITE NEGATIVE (NEGATIVE); URINE PROTEIN NEGATIVE (NEGATIVE)
[2020-05-31] MEDS ORDERED: ATORVASTATIN CA 20 MG TABLET (FP) PO SCH (22:00)
[2020-05-31] MEDS: COLCHICINE 0.6 MG CAP PO SCH (23:19)
[2020-06-01] MEDS: chlordiazePOXIDE HCL 25 MG CAPSULE PO SCH ×2 (06:10→15:01)
[2020-06-01 09:26] VITALS: BP 103/62; PULSE 61; TEMP 98.2
[2020-06-01] MEDS: PANTOPRAZOLE 40 MG TABLET PO SCH (10:37)
[2020-06-01] MEDS: COLCHICINE 0.6 MG CAP PO SCH (10:37)
[2020-06-01] MEDS: ASPIRIN 81 MG CHEWABLE TABLETS PO SCH (10:37)
[2020-06-01] MEDS: PRENATAL VITAMINS W/ FOLIC ACID TABLET (FP) PO SCH (10:37)
[2020-06-01] MEDS: PHENYTOIN NA EXTENDED 100 MG CAPSULE (FP) PO SCH (10:37)
--- NOTE | 2020-06-01 13:44 | PN ---
[facility] Progress Note Note: patient misbehave ,aggressive behavior,disruptive the unit,threatening the staff,conference call,Alexander Shrestha,counselor,Tala Khan [employer] involuntary discharged escort off the unit by securities left the unit in stable condition
--- NOTE | 2020-06-01 13:45 | DS ---
[facility] Detox Discharge Summary Admission Date: 05/30/20 Discharge Date: 06/01/20 - History Present History: Alcohol Dependence Additional Comments: patient misbehave,aggressive behavior,disruptive the unit,threatening the staff,conference called,business development director Tala Talamantes , Alexander Shrestha counselor,Zaida Pitts, patient refused to see Dr Mata escorted off the unit by securities involuntary discharge Pertinent Past History: seizure gerd - Physical Exam Results Vital Signs: Vital Signs Temperature 98.2 F 06/01/20 08:35 Pulse Rate 61 06/01/20 08:35 Respiratory Rate 18 06/01/20 08:35 Blood Pressure 103/62 06/01/20 08:35 O2 Sat by Pulse Oximetry (%) 99 06/01/20 06:00 Pertinent Admission Physical Exam Findings: withdrawal sign and symptom Vital Signs Temperature 98.2 F 06/01/20 08:35 Pulse Rate 61 06/01/20 08:35 Respiratory Rate 18 06/01/20 08:35 Blood Pressure 103/62 06/01/20 08:35 O2 Sat by Pulse Oximetry (%) 99 06/01/20 06:00 Laboratory Last Values WBC 5.6 K/mm3 (4.0-10.0) 05/31/20 08:10 RBC 4.26 M/mm3 (4.00-5.60) 05/31/20 08:10 Hgb 14.2 GM/dL (11.7-16.9) 05/31/20 08:10 Hct 42.3 % (35.4-49) 05/31/20 08:10 MCV 99.1 fl (80-96) H 05/31/20 08:10 MCH 33.4 pg (25.7-33.7) 05/31/20 08:10 MCHC 33.7 g/dl (32.0-35.9) 05/31/20 08:10 RDW 14.1 % (11.9-15.9) 05/31/20 08:10 Plt Count 202 K/MM3 (134-434) 05/31/20 08:10 MPV 10.0 fl (7.5-11.1) 05/31/20 08:10 Sodium 142 mmol/L (136-145) 05/31/20 08:10 Potassium 4.0 mmol/L (3.5-5.1) 05/31/20 08:10 Chloride 109 mmol/L (98-107) H 05/31/20 08:10 Carbon Dioxide 27 mmol/L (21-32) 05/31/20 08:10 Anion Gap 6 MMOL/L (8-16) L 05/31/20 08:10 BUN 11.4 mg/dL (7-18) 05/31/20 08:10 Creatinine 0.9 mg/dL (0.55-1.3) 05/31/20 08:10 Est GFR (CKD-EPI)AfAm 114.21 05/31/20 08:10 Est GFR (CKD-EPI)NonAf 98.54 05/31/20 08:10 Random Glucose 94 mg/dL (74-106) 05/31/20 08:10 Calcium 8.3 mg/dL (8.5-10.1) L 05/31/20 08:10 Total Bilirubin 0.2 mg/dL (0.2-1) 05/31/20 08:10 AST 21 U/L (15-37) 05/31/20 08:10 ALT 31 U/L (13-61) 05/31/20 08:10 Alkaline Phosphatase 68 U/L (45-117) 05/31/20 08:10 Total Protein 6.4 g/dl (6.4-8.2) 05/31/20 08:10 Albumin 3.2 g/dl (3.4-5.0) L 05/31/20 08:10 Urine Color Yellow 05/31/20 17:56 Urine Appearance Clear 05/31/20 17:56 Urine pH 5.5 (5.0-8.0) 05/31/20 17:56 Ur Specific Blum 1.020 (1.010-1.035) 05/31/20 17:56 Urine Protein Negative (NEGATIVE) 05/31/20 17:56 Urine Glucose (UA) Negative (NEGATIVE) 05/31/20 17:56 Urine Ketones Negative (NEGATIVE) 05/31/20 17:56 Urine Blood Negative (NEGATIVE) 05/31/20 17:56 Urine Nitrite Negative (NEGATIVE) 05/31/20 17:56 Urine Bilirubin Negative (NEGATIVE) 05/31/20 17:56 Urine Urobilinogen 1.0 mg/dL (0.2-1.0) 05/31/20 17:56 Ur Leukocyte Esterase Negative (NEGATIVE) 05/31/20 17:56 Phenytoin <0.4 05/31/20 08:55 Syphilis Serology Non-reactive (NONREACTIVE) 05/31/20 08:10 COVID-19 (ALEXIA) Not detected (Not Detected) 05/30/20 22:40 - Medication Discharge Medications: Ambulatory Orders Ibuprofen 600 mg PO Q6H PRN #90 tablet 02/24/19 Sertraline HCl [Zoloft -] 50 mg PO DAILY #30 tablet 02/24/19 Phenytoin Na Extended [Dilantin -] 300 mg PO DAILY #30 capsule 03/28/19 Albuterol Sulfate Inhaler - [Ventolin HFA Inhaler -] 1 - 2 inh PO Q4H PRN #1 inhaler 09/10/19 Multivit-Min/Iron/Folic Acid/K [Multi-Day Plus Minerals Tablet] 1 each PO DAILY #30 tablet 09/10/19 Aspirin [ASA -] 81 mg PO DAILY 11/12/19 Pantoprazole Sodium [Protonix -] 40 mg PO DAILY tablet.ec 01/04/20 Atorvastatin Calcium [Lipitor] 20 mg PO HS 04/23/20 Risperidone [Risperdal] 2 mg PO HS 04/23/20 - Diagnosis (1) Alcohol dependence with uncomplicated withdrawal Current Visit: Yes Status: Acute (2) Non compliance w medication regimen Current Visit: Yes Status: Chronic (3) History of bipolar disorder Current Visit: Yes Status: Acute (4) Cocaine dependence Current Visit: Yes Status: Chronic Qualifiers: Substance use status: uncomplicated Qualified Code(s): F14.20 - Cocaine dependence, uncomplicated (5) GERD (gastroesophageal reflux disease) Current Visit: Yes Status: Chronic Qualifiers: Esophagitis presence: without esophagitis Qualified Code(s): K21.9 - Gastro-esophageal reflux disease without esophagitis (6) History of asthma Current Visit: Yes Status: Chronic (7) Nicotine dependence Current Visit: Yes Status: Chronic Qualifiers: Nicotine product type: cigarettes Substance use status: uncomplicated Qualified Code(s): F17.210 - Nicotine dependence, cigarettes, uncomplicated (8) seizure disorder Current Visit: Yes Status: Chronic - AMA Did Patient Leave Against Medical Advice: No
[2020-06-01] MEDS: NICOTINE 21 MG/24 HOURS TOPICAL PATCH TD SCH (15:00)
[2020-06-02] MEDS ORDERED: chlordiazePOXIDE HCL 10 MG CAPSULE PO PRN
[2020-06-02] MEDS ORDERED: chlordiazePOXIDE HCL 10 MG CAPSULE PO SCH (05:00)
[2020-06-03] MEDS ORDERED: chlordiazePOXIDE HCL 10 MG CAPSULE PO SCH (05:00)
[2020-06-04] MEDS ORDERED: chlordiazePOXIDE HCL 10 MG CAPSULE PO ONE (05:00)
== END 2020-06-01 13:38 | disposition left against medical advice (07) | DRG 897 ==
LOC: YASAS 19:18 → Y3N 21:37
PROVIDERS: ADMIT Allergy & Immunology; ATTEND Allergy & Immunology
PROC: HZ2ZZZZ Detoxification Services for Substance Abuse Treatment (ICD-10-PCS; principal; 2020-05-30)
DX: F10.230 Alcohol dependence with withdrawal, uncomplicated (principal); F14.20 Cocaine dependence, uncomplicated; F17.210 Nicotine dependence, cigarettes, uncomplicated; F31.9 Bipolar disorder, unspecified; F20.9 Schizophrenia, unspecified; G40.909 Epilepsy, unspecified, not intractable, without status epilepticus; K21.9 Gastro-esophageal reflux disease without esophagitis; E86.0 Dehydration; J45.909 Unspecified asthma, uncomplicated; M19.041 Primary osteoarthritis, right hand; M19.042 Primary osteoarthritis, left hand; M79.674 Pain in right toe(s); Z91.14 Patient's other noncompliance with medication regimen; Z91.018 Allergy to other foods; Z56.0 Unemployment, unspecified; Z59.0 Homelessness; F91.8 Other conduct disorders
CPT/HCPCS: 36415; 80053; 80185; 81003; 85027; 86780; Q0162; U0003

== ENCOUNTER 2020-06-27 04:09 | Emergency (ER) | payer BC, OTHER ==
[2020-06-27 04:17] VITALS: BMI 29.2
--- OUTSIDE RECORDS SUMMARY | 2020-06-27 04:20 | XMS ---
:1970 Author Organization [facility] Care Team Providers Name Role Phone [id number], [id number] Unavailable Unavailable [facility] Unavailable Unavailable ED STAFF PHYSICIAN Unavailable Unavailable ED STAFF PHYSICIAN, STAFF Unavailable Unavailable ZUNASSIGNED Unavailable Unavailable HUE OLVERA Unavailable Unavailable Re-disclosure Warning The records that you are about to access may contain information from federally- assisted alcohol or drug abuse programs. If such information is present, then the following federally mandated warning applies: This information has been disclosed to you from records protected by federal confidentiality rules (42 CFR part 2). The federal rules prohibit you from making any further disclosure of this information unless further disclosure is expressly permitted by the written consent of the person to whom it pertains or as otherwise permitted by 42 CFR part 2. A general authorization for the release of medical or other information is NOT sufficient for this purpose. The Federal rules restrict any use of the information to criminally investigate or prosecute any alcohol or drug abuse patient.The records that you are about to access may contain highly sensitive health information, the redisclosure of which is protected by Article 27-F of the [place] State Public Health law. If you continue you may haveaccess to information: Regarding HIV / AIDS; Provided by facilities licensed or operated by the [facility] Office of Mental Health; or Provided by the [facility] Office for People With Developmental Disabilities. If such information is present, then the following [facility] mandated warning applies: This information has been disclosed to you from confidential records which are protected by state law. State law prohibits you from making any further disclosure of this information without the specific written consent of the person to whom it pertains, or as otherwise permitted by law. Any unauthorized further disclosure in violation of state law may result in a fine or longterm sentence or both. A general authorization for the release of medical or other information is NOT sufficient authorization for further disclosure. Encounters Encounter Providers Location Date Indications Data Source(s ) Emergency Attender: ED STAFF H 06/27/2020 [facility] PHYSICIANAttender: 01:02:00 AM [facility] STAFF ED STAFF EDT - PHYSICIANAdmitter: ED 06/27/2020 STAFF 02:29:00 AM PHYSICIANReferrer: EDT ZUNASSIGNED Patient discharged. Inpatient Attender: HUE HOLLOWAY H-HAL6 06/16/2020 08:20:00 [facility] TOMMIEWAttender: STAFF ED AM EDT - 06/19/2020 [facility] STAFF PHYSICIANAdmitter: 02:15:00 PM EDT HUE JACKSONeferrer: HUE REILLYW Patient discharged. Inpatient Attender: SOFIYA MCFARLANE H-HAL5 06/04/2020 10:50:00 [place] CHILDEBERTAttender: STAFF ED AM EDT - [address] [place] [address] Center STAFF PHYSICIANAdmitter: 02:45:00 PM EDT SOFIYA MCFARLANE CHILDEBERTReferrer: SOFIYA [facility]ANE [facility] Patient [facility]. Attender: [id number] 2017 05:37:00 Juan Miguel DIONNE_6766 [facility] Hospital Attender: [id number] 2017 02:07:00 [id number] Hospital Attender: [id number] 2012 12:28:00 [facility] Miguel WHITAKERT_[id number] PM EDT Hospital Attender: [id number] 2010 05:07:00 [facility] WHITAKERT_6766 PM EDT Hospital Attender: [id number] 2007 05:44:00 [facility] TRUONG_[id number] PM EST Hospital Attender: [id number] 2003 07:00:00 [facility] TRUONG_[id number] PM EDT Hospital Immunizations Vaccine Date Status Description Data Source(s) pneumococcal 06/18/2020 completed [facility] Carrion edical polysaccharide PPV23 06:30:00 AM EDT [facility] er New in 2011. IIV4 06/17/2020 completed [facility] Medical 02:21:00 PM EDT Center Medications Medication Brand Start Product Dose Route Administrative Pharmacy [facility] Indications Reaction Description Data Name Date Form Instructions Instructions Source(s) Sertraline Sertra ORAL complet Sertral ine - [facility] 50 MG Oral line - 2018 Table ed 50 MG ORAL [facility] Tablet 50 MG 12:00: t Tablet Hospital ORAL 00 AM Tablet EST Haloperidol Halope ORAL complet [place]ope ridol [facility] 2 MG Oral ridol 2017 Table ed - 2 MG ORAL [facility] Tablet - 2 MG 12:00: t Tablet Hospita l ORAL 00 AM Tablet EST Sertraline Sertra ORAL complet Sertral ine - [facility] 50 MG Oral line - 2018 Table ed 50 MG ORAL [facility] Tablet 50 MG 12:00: t Tablet Hospital ORAL 00 AM Tablet EST Trazodone traZOD ORAL complet traZODon e [facility] Hydrochlori one 2018 Christel ed hydrochlorid [facility] de 50 MG hydroc 12:00: gram e - 50 MG Ho spital Oral Tablet hlorid 00 AM ORAL Table t e - 50 EST MG ORAL Tablet Haloperidol [place]ope ORAL complet [place] ridol [facility] 2 MG Oral ridol 2017 Table ed - 2 MG ORAL [facility] Tablet - 2 MG 12:00: t Tablet Hospita l ORAL 00 AM Tablet EST Phenytoin Dilant ORAL complet Dilantin - [facility] sodium 100 in - 2018 Capsu ed 100 MG ORAL [facility] MG Extended 100 MG 12:00: le Capsule, Hospital Release ORAL 00 AM Extended Oral Capsul EST Release Capsule e, [Dilantin] Extend ed Releas e Phenytoin phenyt 3 complet [facility] sodium 100 oin ed [facility] MG Extended sodium Medica l Release extend Center Oral ed 100 Capsule mg phenytoin Capsul sodium e, extended Ordere 100 mg d By: Hue Costa Ordered By: Jewel Ordonez MDDire MDDirection ctions s: 3 : 3 capsule capsul oral daily e oral daily multivitami 1 complet [facility] n with ed [place] foLIC Acid Medical 400 mcg Center Tablet, Ordered By: Lakhwinder Ward s: 1 tablet oral daily Phenytoin phenyt 2 complet [facility] sodium 100 oin ed [place] MG Extended sodium Medica l Release extend Center Oral ed 100 Capsule mg phenytoin Capsul sodium e, extended Ordere 100 mg d By: Mukesh Costa Ordered By: Carri Acharya MDDire MDDirection ctions s: 2 : 2 capsule capsul oral hs e oral hs Omeprazole omepra 1 complet Casey t 40 MG zole ed [facility] Delayed 40 mg Medical Release capsul Center Oral e,teri Capsule yed omeprazole releas 40 mg e(/Zandra costa,del C), ayed Ordere release(DR/ d By: EC)Hue Ordered By: Jewel Ordonez MDDire MDDirection ctions s: 1 : 1 capsule capsul oral daily e oral daily albuterol 1 complet [facility] sulfate 90 ed [facility] Aerosol Center Inhaler, Ordered By: Lakhwinder Tomas s: 1 puff by inhalation every six hours PRN SHORTNESS OF BREATH albuterol 1 complet [facility] sulfate 90 ed [facility] Aerosol Center Inhaler, Ordered By: Lakhwinder Ward s: 1 puff by inhalation every six hours PRN SHORTNESS OF BREATH 60 ACTUAT flutic 1 complet [facility] Fluticasone asone ed [place] propionate propio Medical 0.25 n-salm Center MG/ACTUAT / eterol salmeterol 250 0.05 mcg-50 MG/ACTUAT mcg/Do Dry Powder se Inhaler bliste fluticasone r with propion-tyler device meterol 250 , mcg-50 Ordere mcg/Dose d By: caleb Mayorga with Demardas device, , Ordered By: Nehemiah Christina, : 1 MDDirection puff s: 1 puff by by inhala inhalation tion twice a day twice a day 60 ACTUAT flutic 1 complet [facility] Fluticasone asone ed [place] propionate propio Medical 0.25 n-salm Center MG/ACTUAT / eterol salmeterol 250 0.05 mcg-50 MG/ACTUAT mcg/Do Dry Powder se Inhaler bliste fluticasone r with propion-tyler device meterol 250 , mcg-50 Ordere mcg/Dose d By: caleb Sesay with Yoly weeks, ia, Ordered By: Nehemiah Holloway, : 1 MDDirection puff s: 1 puff by by inhala inhalation tion twice a day twice a day Phenytoin phenyt 2 complet [facility] sodium 100 oin ed [place] MG Extended sodium Medica l Release extend Center Oral ed 100 Capsule mg phenytoin Capsul sodium e, extended Ordere 100 mg d By: Hue Costa Ordered By: Jewel Ordonez MDDire MDDirection ctions s: 2 : 2 capsule capsul oral hs e oral hs methylPREDN 1 complet [facility] ISolone 4 ed [place] mg Medical tablets,dos Center e pack, Ordered By: Lakhwinder Tomas s: 1 tablet oral daily Phenytoin phenyt 3 complet [facility] sodium 100 oin ed [place] MG Extended sodium Medica l Release extend Center Oral ed 100 Capsule mg phenytoin Capsul sodium e, extended Ordere 100 mg d By: Mukesh Costa Ordered By: Carri Acharya MDDire MDDirection ctions s: 3 : 3 capsule capsul oral daily e oral daily Insurance Providers Payer name Policy type Policy ID Covered Covered green party's Policy P dhaval / Coverage green party ID relationship to Jeffrey Inf ormation type jeffrey BLUE CROSS [id number] SP [id number] SENIOR PLAN MEDICAID [id number] SP [id number] JACQUELINE MEDICARE [id number] SP [id number] BLUE CROSS [id number] SP [id number] [facility] [id number] SP [id number] [facility] [id number] SP [id number] HEALTHCARE (MEDICARE) MEDIBLUE OP O [id number] MEDIBLUE OP O [id number] 01 [id number] MEDIBLUE IP O [id number] 01 [id number] M [id number] 01 [id number] 01 [id number] MEDIBLUE IP O [id number] 01 [id number] M [id number] 01 [id number] A BLUE CROSS [id number] SP [id number] HMOMEDIBLUE DUAL AD [place] [id number] SP [id number] HEALTHCARE (MEDICARE) BLUE CROSS [id number] SP [id number] SENIOR PLAN [employer] OPTIONS JACQUELINE MEDICARE [id number] SP [id number] BLUE CROSS [id number] SP [id number] SENIOR PLAN MEDICARE [id number] SP [id number] BLUE CROSS [id number] SP [id number] SENIOR PLAN MEDIBLUE [id number] SP [id number] ADVANTAGE PLAN MEDICARE PART [id number] SP [id number] MEDIBLUE [id number] SP [id number] ADVANTAGE PLAN MEDICARE [id number] SP [id number] [place]ICARE [place] [id number] [place] [id number] Problems, Conditions, and Diagnoses Code Display Name Description Problem Type Effective Data Dates Source(s) 27241893 Psychotic disorder Psychotic disorder Complaint 8 [facility] (disorder) 12:00:00 PM [facility] [id number] Depressive Depressive Complaint 09/14/2018 [facility] disorder disorder 12:00:00 PM [facility] (disorder) [facility] [id number] Severe alcohol Severe alcohol Complaint 09/14/2018 [facility] dependence dependence 12:00:00 PM [facility] (disorder) [facility] [id number] Psychotic disorder Psychotic disorder Complaint 8 [facility] (disorder) 12:00:00 PM [facility] [id number] Depressive Depressive Complaint 09/14/2018 [facility] disorder disorder 12:00:00 PM [facility] (disorder) [facility] [id number] Severe alcohol Severe alcohol Complaint 09/14/2018 [facility] dependence dependence 12:00:00 PM [facility] (disorder) [facility] [id number] Psychotic disorder Psychotic disorder Complaint 8 [facility] (disorder) 12:00:00 PM [facility] [id number] Depressive Depressive Complaint 09/14/2018 [facility] disorder disorder 12:00:00 PM [facility] (disorder) [facility] [id number] Severe alcohol Severe alcohol Complaint 09/14/2018 [facility] dependence dependence 12:00:00 PM [facility] (disorder) [facility] Y90.5 Blood alcohol BLOOD ALCOHOL Diagnosis 06/19/2020 [facility] sephs level of 100-119 LEVEL OF 100-119 02:15:00 PM M edical mg/100 ml MG/100 ML EDT Center F14.10 Cocaine abuse, COCAINE ABUSE, Diagnosis 06/19/2020 [facility] uncomplicated UNCOMPLICATED 02:15:00 PM Medical EDT Center J45.909 Unspecified UNSPECIFIED Diagnosis 06/19/2020 [facility] [place] s asthma, ASTHMA, 02:15:00 PM Medical uncomplicated UNCOMPLICATED EDT Center F32.9 Major depressive MAJOR DEPRESSIVE Diagnosis 06/19/2020 [facility] disorder, single DISORDER, SINGLE 02:15:00 PM M edical episode, EPISODE, EDT Center unspecified UNSPECIFIED G40.909 Epilepsy, EPILEPSY, UNSP, Diagnosis 06/19/2020 [facility] ephs unspecified, not NOT INTRACTABLE, 02:15:00 PM M edical intractable, WITHOUT STATUS EDT Center without status EPILEPTICUS epilepticus F10.239 Alcohol dependence ALCOHOL DEPENDENCE Diagnosis 0 [facility] with withdrawal, WITH WITHDRAWAL, 02:15:00 PM M edical unspecified UNSPECIFIED EDT Center Z91.018 Allergy to other ALLERGY TO OTHER Diagnosis 06/19/2020 [facility] foods FOODS 02:15:00 PM Medical EDT Center Z91.013 Allergy to seafood ALLERGY TO SEAFOOD Diagnosis 0 [facility] 02:15:00 PM Medical EDT Center F10.20 Alcohol ALCOHOL Diagnosis 06/16/2020 [facility] dependence, DEPENDENCE, 08:20:00 AM Medical uncomplicated UNCOMPLICATED EDT Center Y90.0 Blood alcohol BLOOD ALCOHOL Diagnosis 06/08/2020 [facility] sephs level of less than LEVEL OF LESS THAN 02:45:00 PM Medical 20 mg/100 ml 20 MG/100 ML EDT Center I95.9 Hypotension, HYPOTENSION, Diagnosis 06/08/2020 [facility] unspecified UNSPECIFIED 02:45:00 PM Medical EDT Center R00.0 Tachycardia, TACHYCARDIA, Diagnosis 06/08/2020 [facility] unspecified UNSPECIFIED 02:45:00 PM Medical EDT Center F17.210 Nicotine NICOTINE Diagnosis 06/08/2020 [facility] dependence, DEPENDENCE, 02:45:00 PM Medical cigarettes, CIGARETTES, EDT Center uncomplicated UNCOMPLICATED F14.90 Cocaine use, COCAINE USE, Diagnosis 06/08/2020 [facility] unspecified, UNSPECIFIED, 02:45:00 PM Medical uncomplicated UNCOMPLICATED EDT Center J45.901 Unspecified asthma UNSPECIFIED ASTHMA Diagnosis 0 [facility] with (acute) WITH (ACUTE) 02:45:00 PM Medical exacerbation EXACERBATION EDT Center J44.1 Chronic CHRONIC Diagnosis 06/08/2020 [facility] obstructive OBSTRUCTIVE 02:45:00 PM Medical pulmonary disease PULMONARY DISEASE EDT Center with (acute) W (ACUTE) exacerbation EXACERBATION R06.02 Shortness of SHORTNESS OF Diagnosis 06/04/2020 [facility] breath BREATH 10:50:00 AM Medical EDT Center 309.3 ADJUSTMENT Adjustment Diagnosis 02/29/2004 [facility] DISORDER WITH disorder w conduct 10:15:00 AM Vi ncents DISTURBANCE OF disturbance EDT Hospital CONDUCT Results ID Date Data Source Liver 06/27/2020 01:45:00 AM EDT [facility] Profile.[id number] Name Value Range Interpretation Description Data Sup porting Code Source(s) Document(s ) Aspartate 17-59 Above high <content [facility] aminotransferase normal styleCode="Bold"> Sancho hs [Enzymatic Aspartate Medical activity/volume] Aminotransferase Center in Serum or Plasma (AST) </content>64 IU/L H<content styleCode="Italic s"> (17-59 IU/L)</content> Alkaline 38-126 <content [facility] phosphatase styleCode="Bold"> [facility] [Enzymatic Alkaline Medical activity/volume] Phosphatase (ALP) Cente r in Serum or Plasma </content>85 IU/L<content styleCode="Italic s"> (38-126 IU/L)</content> Albumin 3.5-5.0 <content [facility] [Mass/volume] in styleCode="Bold"> Sancho hs Serum or Plasma Albumin Medical </content>4.5 Center G/DL<content styleCode="Italic s"> (3.5-5.0 G/DL)</content> Bilirubin.total 0.2-1.3 <content [facility] [Mass/volume] in styleCode="Bold"> Sancho hs Serum or Plasma Bilirubin Total Medical </content>0.5 Center MG/DL<content styleCode="Italic s"> (0.2-1.3 MG/DL)</content> Alanine 7-50 Above high <content [facility] aminotransferase normal styleCode="Bold"> Sancho hs [Enzymatic Alanine Medical activity/volume] Aminotransferase Center in Serum or Plasma (ALT) </content>76 IU/L H<content styleCode="Italic s"> (7-50 IU/L)</content> ID Date Data Source HematologyRou.[id number] 06/27/2020 01:45:00 AM EDT [facility] 0400 Name Value Range Interpretation Description Data Sup porting Code Source(s) Document(s ) Leukocytes 4.4-11.0 <content [facility] [#/volume] in styleCode="Bold [place] Blood by ">White Blood Medical Automated count Cell Count Center </content>7.21 KCUMM<content styleCode="Ital ics"> (4.4-11.0 KCUMM)</content > Erythrocytes 4.4-5.9 <content [facility] [#/volume] in styleCode="Bold [place] Blood by ">Red Blood Medical Automated count Cell Count Center </content>4.44 MCUMM<content styleCode="Ital ics"> (4.4-5.9 MCUMM)</content > Hemoglobin 13.5-17. <content [facility] [Mass/volume] in 5 styleCode="Bold [place]ash[facility] Blood ">Hemoglobin Medical </content>14.5 Center G/DL<content styleCode="Ital ics"> (13.5-17.5 G/DL)</content> Erythrocyte mean 32.0-37. <content [facility] corpuscular 0 styleCode="Bold [place] hemoglobin ">Mean Corpus. Medical concentration Hgb Center [Mass/volume] by Concentration Automated count (MCHC) </content>34.4 G/DL<content styleCode="Ital ics"> (32.0-37.0 G/DL)</content> Erythrocyte mean 26.0-34. <content [facility] corpuscular 0 styleCode="Bold [place] hemoglobin ">Mean Medical [Entitic mass] Corposcular Center by Automated Hemoglobin count </content>32.7 PG<content styleCode="Ital ics"> (26.0-34.0 PG)</content> Erythrocyte mean 80.0-100 <content [facility] corpuscular .0 styleCode="Bold [place] volume [Entitic ">Mean Medical volume] by Corpuscular Center Automated count Volume </content>94.8 FL<content styleCode="Ital ics"> (80.0-100.0 FL)</content> Hematocrit 41.0-53. <content [facility] [Volume 0 styleCode="Bold [place] Fraction] of ">Hematocrit Medical Blood by </content>42.1 Center Automated count %<content styleCode="Ital ics"> (41.0-53.0 %)</content> Platelet mean 8.0-11.0 <content [facility] volume [Entitic styleCode="Bold [place] volume] in Blood ">Mean Platelet Medical by Automated Volume Center count </content>10.1 FL<content styleCode="Ital ics"> (8.0-11.0 FL)</content> Neutrophils 36-66 <content [facility] [#/volume] in styleCode="Bold [place] Blood by ">Neutrophil Medical Automated count </content>59.8 Center %<content styleCode="Ital ics"> (36-66 %)</content> Erythrocyte 11.5-14. <content [facility] distribution 5 styleCode="Bold [place] width [Ratio] by ">Red Cell Medical Automated count Distribution Center Width </content>12.5 %<content styleCode="Ital ics"> (11.5-14.5 %)</content> Platelets 130-400 <content [facility] [#/volume] in styleCode="Bold [place] Blood by ">Platelet Medical Automated count Count Center </content>251 KCUMM<content styleCode="Ital ics"> (130-400 KCUMM)</content > UNK 1.6-7.3 <content Saint styleCode="Bold [place] ">Neutrophil Medical Count Center </content>4.31 KCUMM<content styleCode="Ital ics"> (1.6-7.3 KCUMM)</content > UNK 0.2-0.9 <content [facility] styleCode="Bold [place] ">Monocyte Medical Count Center </content>0.76 KCUMM<content styleCode="Ital ics"> (0.2-0.9 KCUMM)</content > Lymphocytes 24.0-44. <content [facility] [#/volume] in 0 styleCode="Bold [place] Blood by ">Lymphocyte Medical Automated count </content>25.5 Center %<content styleCode="Ital ics"> (24.0-44.0 %)</content> Eosinophils 0-5.0 <content [facility] [#/volume] in styleCode="Bold [place] Blood by ">Eosinophil Medical Automated count </content>2.9 Center %<content styleCode="Ital ics"> (0-5.0 %)</content> Monocytes 3.0-10.0 Above high <content [facility] [#/volume] in normal styleCode="Bold [place] Blood by ">Monocyte Medical Automated count </content>10.5 Center % H<content styleCode="Ital ics"> (3.0-10.0 %)</content> UNK 1.0-4.8 <content Saint styleCode="Bold [place] ">Lymphocyte Medical Count Center </content>1.84 KCUMM<content styleCode="Ital ics"> (1.0-4.8 KCUMM)</content > UNK 0.0 <content Saint styleCode="Bold [place] ">Nucleated Red Medical Blood Cell Center Count </content>0.00 KCUMM<content styleCode="Ital ics"> (0.0 KCUMM)</content > Basophils 0.0-1.0 <content [facility] [#/volume] in styleCode="Bold [place] Blood by ">Basophil Medical Automated count </content>1.0 Center %<content styleCode="Ital ics"> (0.0-1.0 %)</content> UNK 0.0-0.3 <content Saint styleCode="Bold [place] ">Basophil Medical Count Center </content>0.07 KCUMM<content styleCode="Ital ics"> (0.0-0.3 KCUMM)</content > UNK 0.0-0.6 <content [facility] styleCode="Bold [place] ">Eosinophil Medical Count Center </content>0.21 KCUMM<content styleCode="Ital ics"> (0.0-0.6 KCUMM)</content > UNK 0 <content Saint styleCode="Bold [place] ">Nucleated Red Medical Blood Cell Center </content>0.0 /100<content styleCode="Ital ics"> (0 /100)</content> UNK < 1 <content Saint styleCode="Bold [place] ">Immature Medical Granulocyte Center Ratio </content>0.3 %<content styleCode="Ital ics"> (< 1 %)</content> UNK 0-0.1 <content Saint styleCode="Bold [place] ">Immature Medical Granulocyte Center Count </content>0.02 KCUMM<content styleCode="Ital ics"> (0-0.1 KCUMM)</content > ID Date Data Source GFR(Creatinine).[id number] 06/27/2020 01:45:00 AM EDT [facility] 0-0400 Name Value Range Interpretation Code Description Data Denise rce(s) Supporting Document(s ) UNK > 60 <content [facility] styleCode="Bold"> Medical Cent er EGFR </content>84 GFR<content styleCode="Italic s"> (> 60 GFR)</content> ID Date Data Source CHMROUTINECCDA.[id number] 06/27/2020 01:45:00 AM EDT [facility] -0400 Name Value Range Interpretation Description Data Sup porting Code Source(s) Document(s ) UNK 2.3-3.5 <content [facility] styleCode="Bold Medical ">Globulin Center </content>3.2 G/DL<content styleCode="Ital ics"> (2.3-3.5 G/DL)</content> UNK >= 1.0 <content [facility] styleCode="Bold Medical ">AG Ratio Center </content>1.4 <content styleCode="Ital ics"> (>= 1.0 )</content> Protein 6.3-8.2 <content [facility] [Mass/volum styleCode="Bold Medical e] in Serum ">Total Protein Center or Plasma </content>7.7 G/DL<content styleCode="Ital ics"> (6.3-8.2 G/DL)</content> ID Date Data Source [facility].[id number] 06/27/2020 01:45:00 AM EDT [facility] Name Value Range Interpretation Description Data Sup porting Code Source(s) Document(s ) Sodium 137-145 <content [facility] [Moles/volume] in styleCode="Bold"> Dagoberto phs Serum or Plasma Sodium Medical </content>140 Center MEQ/L<content styleCode="Italic s"> (137-145 MEQ/L)</content> Chloride 98-107 <content [facility] [Moles/volume] in styleCode="Bold"> Dagoberto phs Serum or Plasma Chloride Medical </content>104 Center MEQ/L<content styleCode="Italic s"> (98-107 MEQ/L)</content> Carbon dioxide, 22-30 <content [facility] total styleCode="Bold"> [place]anda [Moles/volume] in Carbon Dioxide Medical Serum or Plasma </content>26 Center MEQ/L<content styleCode="Italic s"> (22-30 MEQ/L)</content> UNK 9-20 <content Saint styleCode="Bold"> [facility] BUN </content>14 Medical MG/DL<content Center styleCode="Italic s"> (9-20 MG/DL)</content> Potassium 3.5-5.3 <content [facility] [Moles/volume] in styleCode="Bold"> Dagoberto phs Serum or Plasma Potassium Medical </content>3.6 Center MEQ/L<content styleCode="Italic s"> (3.5-5.3 MEQ/L)</content> Glucose 74-106 <content [facility] [Mass/volume] in styleCode="Bold"> Sancho hs Serum or Plasma Glucose Medical </content>102 Center MG/DL<content styleCode="Italic s"> (74-106 MG/DL)</content> Creatinine 0.5-1.3 <content [facility] [Mass/volume] in styleCode="Bold"> Sancho hs Serum or Plasma Creatinine Medical </content>1.0 Center MG/DL<content styleCode="Italic s"> (0.5-1.3 MG/DL)</content> Alkaline 38-126 <content [facility] phosphatase styleCode="Bold"> [place]anda [Enzymatic Alkaline Medical activity/volume] Phosphatase (ALP) Cente r in Serum or Plasma </content>85 IU/L<content styleCode="Italic s"> (38-126 IU/L)</content> UNK > 60 <content [facility] styleCode="Bold"> [place] EGFR </content>84 Medical GFR<content Center styleCode="Italic s"> (> 60 GFR)</content> Aspartate 17-59 Above high <content [facility] aminotransferase normal styleCode="Bold"> Sancho hs [Enzymatic Aspartate Medical activity/volume] Aminotransferase Center in Serum or Plasma (AST) </content>64 IU/L H<content styleCode="Italic s"> (17-59 IU/L)</content> Alanine 7-50 Above high <content [facility] aminotransferase normal styleCode="Bold"> Sancho hs [Enzymatic Alanine Medical activity/volume] Aminotransferase Center in Serum or Plasma (ALT) </content>76 IU/L H<content styleCode="Italic s"> (7-50 IU/L)</content> Calcium 8.4-10. <content [facility] [Mass/volume] in 2 styleCode="Bold"> Sancho hs Serum or Plasma Calcium Medical </content>9.3 Center MG/DL<content styleCode="Italic s"> (8.4-10.2 MG/DL)</content> Albumin 3.5-5.0 <content [facility] [Mass/volume] in styleCode="Bold"> S[facility] hs Serum or Plasma Albumin Medical </content>4.5 Center G/DL<content styleCode="Italic s"> (3.5-5.0 G/DL)</content> Bilirubin.total 0.2-1.3 <content [facility] [Mass/volume] in styleCode="Bold"> Sancho hs Serum or Plasma Bilirubin Total Medical </content>0.5 Center MG/DL<content styleCode="Italic s"> (0.2-1.3 MG/DL)</content> ID Date Data Source Liver 06/17/2020 06:39:00 AM EDT [facility] Profile.[id number] Name Value Range Interpretation Description Data Sup porting Code Source(s) Document(s ) Alanine 7-50 Above high <content [facility] aminotransferase normal styleCode="Bold"> Sancho hs [Enzymatic Alanine Medical activity/volume] Aminotransferase Center in Serum or Plasma (ALT) </content>55 IU/L H<content styleCode="Italic s"> (7-50 IU/L)</content> Alkaline 38-126 <content [facility] phosphatase styleCode="Bold"> Lashanda [Enzymatic Alkaline Medical activity/volume] Phosphatase (ALP) Cente r in Serum or Plasma </content>67 IU/L<content styleCode="Italic s"> (38-126 IU/L)</content> Aspartate 17-59 Above high <content [facility] aminotransferase normal styleCode="Bold"> Sancho hs [Enzymatic Aspartate Medical activity/volume] Aminotransferase Center in Serum or Plasma (AST) </content>61 IU/L H<content styleCode="Italic s"> (17-59 IU/L)</content> Bilirubin.total 0.2-1.3 <content [facility] [Mass/volume] in styleCode="Bold"> Sancho hs Serum or Plasma Bilirubin Total Medical </content>0.8 Center MG/DL<content styleCode="Italic s"> (0.2-1.3 MG/DL)</content> Albumin 3.5-5.0 Below low <content [facility] [Mass/volume] in normal styleCode="Bold"> Sancho hs Serum or Plasma Albumin Medical </content>3.4 Center G/DL L<content styleCode="Italic s"> (3.5-5.0 G/DL)</content> ID Date Data Source HematologyRou.[id number] 06/17/2020 06:39:00 AM EDT [facility] 0400 Name Value Range Interpretation Description Data Sup porting Code Source(s) Document(s ) Leukocytes 4.4-11.0 <content [facility] [#/volume] in styleCode="Bold Lashanda Blood by ">White Blood Medical Automated count Cell Count Center </content>6.29 KCUMM<content styleCode="Ital ics"> (4.4-11.0 KCUMM)</content > Erythrocytes 4.4-5.9 <content [facility] [#/volume] in styleCode="Bold Lashanda Blood by ">Red Blood Medical Automated count Cell Count Center </content>4.42 MCUMM<content styleCode="Ital ics"> (4.4-5.9 MCUMM)</content > Hematocrit 41.0-53. <content [facility] [Volume 0 styleCode="Bold Lashanda Fraction] of ">Hematocrit Medical Blood by </content>42.9 Center Automated count %<content styleCode="Ital ics"> (41.0-53.0 %)</content> Hemoglobin 13.5-17. <content [facility] [Mass/volume] in 5 styleCode="Bold Lashanda Blood ">Hemoglobin Medical </content>14.3 Center G/DL<content styleCode="Ital ics"> (13.5-17.5 G/DL)</content> Erythrocyte mean 26.0-34. <content [facility] corpuscular 0 styleCode="Bold Lashanda hemoglobin ">Mean Medical [Entitic mass] Corposcular Center by Automated Hemoglobin count </content>32.4 PG<content styleCode="Ital ics"> (26.0-34.0 PG)</content> Erythrocyte mean 32.0-37. <content [facility] corpuscular 0 styleCode="Bold Lashanda hemoglobin ">Mean Corpus. Medical concentration Hgb Center [Mass/volume] by Concentration Automated count (MCHC) </content>33.3 G/DL<content styleCode="Ital ics"> (32.0-37.0 G/DL)</content> Erythrocyte mean 80.0-100 <content [facility] corpuscular .0 styleCode="Bold Lashanda volume [Entitic ">Mean Medical volume] by Corpuscular Center Automated count Volume </content>97.1 FL<content styleCode="Ital ics"> (80.0-100.0 FL)</content> Erythrocyte 11.5-14. <content [facility] distribution 5 styleCode="Bold Lashanda width [Ratio] by ">Red Cell Medical Automated count Distribution Center Width </content>13.0 %<content styleCode="Ital ics"> (11.5-14.5 %)</content> Platelets 130-400 <content [facility] [#/volume] in styleCode="Bold Lashanda Blood by ">Platelet Medical Automated count Count Center </content>193 KCUMM<content styleCode="Ital ics"> (130-400 KCUMM)</content > UNK 1.6-7.3 <content [facility] styleCode="Bold Lashanda ">Neutrophil Medical Count Center </content>3.74 KCUMM<content styleCode="Ital ics"> (1.6-7.3 KCUMM)</content > UNK 1.0-4.8 <content [facility] styleCode="Bold Lashanda ">Lymphocyte Medical Count Center </content>1.64 KCUMM<content styleCode="Ital ics"> (1.0-4.8 KCUMM)</content > Platelet mean 8.0-11.0 <content [facility] volume [Entitic styleCode="Bold Lashanda volume] in Blood ">Mean Platelet Medical by Automated Volume Center count </content>10.6 FL<content styleCode="Ital ics"> (8.0-11.0 FL)</content> Neutrophils 36-66 <content [facility] [#/volume] in styleCode="Bold Lashanda Blood by ">Neutrophil Medical Automated count </content>59.4 Center %<content styleCode="Ital ics"> (36-66 %)</content> Lymphocytes 24.0-44. <content [facility] [#/volume] in 0 styleCode="Bold Lashanda Blood by ">Lymphocyte Medical Automated count </content>26.1 Center %<content styleCode="Ital ics"> (24.0-44.0 %)</content> Eosinophils 0-5.0 Above high <content [facility] [#/volume] in normal styleCode="Bold Lashanda Blood by ">Eosinophil Medical Automated count </content>5.6 % Center H<content styleCode="Ital ics"> (0-5.0 %)</content> Monocytes 3.0-10.0 <content [facility] [#/volume] in styleCode="Bold Lashanda Blood by ">Monocyte Medical Automated count </content>7.6 Center %<content styleCode="Ital ics"> (3.0-10.0 %)</content> UNK 0.2-0.9 <content [facility] styleCode="Bold Lashanda ">Monocyte Medical Count Center </content>0.48 KCUMM<content styleCode="Ital ics"> (0.2-0.9 KCUMM)</content > UNK 0.0-0.3 <content [facility] styleCode="Bold Lashanda ">Basophil Medical Count Center </content>0.07 KCUMM<content styleCode="Ital ics"> (0.0-0.3 KCUMM)</content > Basophils 0.0-1.0 Above high <content [facility] [#/volume] in normal styleCode="Bold Lashanda Blood by ">Basophil Medical Automated count </content>1.1 % Center H<content styleCode="Ital ics"> (0.0-1.0 %)</content> UNK 0 <content [facility] styleCode="Bold Lashanda ">Nucleated Red Medical Blood Cell Center </content>0.0 /100<content styleCode="Ital ics"> (0 /100)</content> UNK 0.0-0.6 <content [facility] styleCode="Bold Lashanda ">Eosinophil Medical Count Center </content>0.35 KCUMM<content styleCode="Ital ics"> (0.0-0.6 KCUMM)</content > UNK 0-0.1 <content [facility] styleCode="Bold Lashanda ">Immature Medical Granulocyte Center Count </content>0.01 KCUMM<content styleCode="Ital ics"> (0-0.1 KCUMM)</content > UNK < 1 <content [facility] styleCode="Bold Lashanda ">Immature Medical Granulocyte Center Ratio </content>0.2 %<content styleCode="Ital ics"> (< 1 %)</content> UNK 0.0 <content [facility] styleCode="Bold Lashanda ">Nucleated Red Medical Blood Cell Center Count </content>0.00 KCUMM<content styleCode="Ital ics"> (0.0 KCUMM)</content > ID Date Data Source GFR(Creatinine).[id number] 06/17/2020 06:39:00 AM EDT [facility] 0-0400 Name Value Range Interpretation Code Description Data Denise rce(s) Supporting Document(s ) UNK > 60 <content [facility] styleCode="Bold"> Medical Cent er EGFR </content>108 GFR<content styleCode="Italic s"> (> 60 GFR)</content> ID Date Data Source CHMROUTINECCDA.[id number] 06/17/2020 06:39:00 AM EDT [facility] -0400 Name Value Range Interpretation Description Data Sup porting Code Source(s) Document(s ) UNK >= 1.0 <content [facility] styleCode="Junie Lashanda d">AG Ratio Medical </content>1.2 Center <content styleCode="Nella lics"> (>= 1.0 )</content> UNK 2.3-3.5 <content [facility] styleCode="Junie Lashanda d">Globulin Medical </content>2.8 Center G/DL<content styleCode="Nella lics"> (2.3-3.5 G/DL)</content > Protein 6.3-8.2 Below low normal <content [facility] [Mass/volume] styleCode="Junie Toledos in Serum or d">Total Medical Plasma Protein Center </content>6.2 G/DL L<content styleCode="Nella lics"> (6.3-8.2 G/DL)</content > Magnesium 1.6-2.3 <content [facility] [Mass/volume] styleCode="Junie Toledos in Serum or d">Magnesium Medical Plasma </content>2.0 Center MG/DL<content styleCode="Nella lics"> (1.6-2.3 MG/DL)</conten t> ID Date Data Source [facility].[id number] 06/17/2020 06:39:00 AM EDT [facility] Center Name Value Range Interpretation Description Data Sup porting Code Source(s) Document(s ) Sodium 137-145 <content [facility] [Moles/volume] in styleCode="Bold"> [facility] Serum or Plasma Sodium Medical </content>137 Center MEQ/L<content styleCode="Italic s"> (137-145 MEQ/L)</content> Carbon dioxide, 22-30 <content [facility] total styleCode="Bold"> Lashanda [Moles/volume] in Carbon Dioxide Medical Serum or Plasma </content>29 Center MEQ/L<content styleCode="Italic s"> (22-30 MEQ/L)</content> Potassium 3.5-5.3 <content [facility] [Moles/volume] in styleCode="Bold"> [facility] Serum or Plasma Potassium Medical </content>3.5 Center MEQ/L<content styleCode="Italic s"> (3.5-5.3 MEQ/L)</content> UNK 9-20 Below low <content [facility] normal styleCode="Bold"> [facility] BUN </content>6 Medical MG/DL L<content Center styleCode="Italic s"> (9-20 MG/DL)</content> Creatinine 0.5-1.3 <content [facility] [Mass/volume] in styleCode="Bold"> Sancho hs Serum or Plasma Creatinine Medical </content>0.8 Center MG/DL<content styleCode="Italic s"> (0.5-1.3 MG/DL)</content> Chloride 98-107 <content [facility] [Moles/volume] in styleCode="Bold"> [facility] Serum or Plasma Chloride Medical </content>106 Center MEQ/L<content styleCode="Italic s"> (98-107 MEQ/L)</content> Glucose 74-106 Above high <content [facility] [Mass/volume] in normal styleCode="Bold"> Sancho hs Serum or Plasma Glucose Medical </content>127 Center MG/DL H<content styleCode="Italic s"> (74-106 MG/DL)</content> Aspartate 17-59 Above high <content [facility] aminotransferase normal styleCode="Bold"> Sancho hs [Enzymatic Aspartate Medical activity/volume] Aminotransferase Center in Serum or Plasma (AST) </content>61 IU/L H<content styleCode="Italic s"> (17-59 IU/L)</content> Calcium 8.4-10. <content [facility] [Mass/volume] in 2 styleCode="Bold"> Sancho hs Serum or Plasma Calcium Medical </content>8.7 Center MG/DL<content styleCode="Italic s"> (8.4-10.2 MG/DL)</content> UNK > 60 <content [facility] styleCode="Bold"> [facility] EGFR Medical </content>108 Center GFR<content styleCode="Italic s"> (> 60 GFR)</content> Alanine 7-50 Above high <content [facility] aminotransferase normal styleCode="Bold"> Sancho hs [Enzymatic Alanine Medical activity/volume] Aminotransferase Center in Serum or Plasma (ALT) </content>55 IU/L H<content styleCode="Italic s"> (7-50 IU/L)</content> Bilirubin.total 0.2-1.3 <content [facility] [Mass/volume] in styleCode="Bold"> Sancho hs Serum or Plasma Bilirubin Total Medical </content>0.8 Center MG/DL<content styleCode="Italic s"> (0.2-1.3 MG/DL)</content> Alkaline 38-126 <content [facility] phosphatase styleCode="Bold"> Lashanda [Enzymatic Alkaline Medical activity/volume] Phosphatase (ALP) Cente r in Serum or Plasma </content>67 IU/L<content styleCode="Italic s"> (38-126 IU/L)</content> Albumin 3.5-5.0 Below low <content [facility] [Mass/volume] in normal styleCode="Bold"> Sancho hs Serum or Plasma Albumin Medical </content>3.4 Center G/DL L<content styleCode="Italic s"> (3.5-5.0 G/DL)</content> ID Date Data Source [employer].[id number] 06/16/2020 01:45:00 PM EDT [facility] -0400 Name Value Range Interpretation Description Data Sup porting Code Source(s) Document(s ) Troponin < 0.034 <content [facility] I.cardiac styleCode="Bold Lashanda [Mass/volume ">Troponin I Medical ] in Serum </content>< Center or Plasma 0.012 NG/ML<content styleCode="Ital ics"> (< 0.034 NG/ML)</content > ID Date Data Source Urinalysis.[id number] 06/16/2020 01:40:00 PM EDT [facility] 0 Name Value Range Interpretation Description Data Sup porting Code Source(s) Document(s ) Color of Urine YELLOW <content [facility] styleCode="Junie Lashanda d">Color, Medical Urine Center </content>YELL OW <content styleCode="Nella lics"> (YELLOW )</content> UNK CLEAR <content [facility] styleCode="Junie Lashanda d">Urine Medical Clarity Center </content>GAYATRI R <content styleCode="Nella lics"> (CLEAR )</content> UNK NEGATIVE <content [facility] styleCode="Junie Lashanda d">Urine Medical Bilirubin Center </content>NEGA TIVE <content styleCode="Nella lics"> (NEGATIVE )</content> Specific 1.015-1.02 <content [facility] gravity of 5 styleCode="Junie Toledos Urine by Test d">Urine Medical strip Specific Center [place] </content>1.02 0 <content styleCode="Nella lics"> (1.015-1.025 )</content> Hemoglobin NEGATIVE <content [facility] [Presence] in styleCode="Junie Lashanda Urine by Test d">Urine Blood Medical strip </content>TRAC Center E <content styleCode="Nella lics"> (NEGATIVE )</content> Ketones NEGATIVE <content [facility] [Mass/volume] styleCode="Junie Lashanda in Urine by d">Urine Medical Test strip Ketone Center </content>NEGA TIVE MG/DL<content styleCode="Nella lics"> (NEGATIVE MG/DL)</conten t> Glucose NEGATIVE <content [facility] [Mass/volume] styleCode="Junie Lashanda in Urine by d">Urine Medical Test strip Glucose Center </content>NEGA TIVE MG/DL<content styleCode="Nella lics"> (NEGATIVE MG/DL)</conten t> Protein NEGATIVE <content [facility] [Mass/volume] styleCode="Junie Lashanda in Urine by d">Urine Medical Test strip Protein Center </content>NEGA TIVE MG/DL<content styleCode="Nella lics"> (NEGATIVE MG/DL)</conten t> Nitrite NEGATIVE <content [facility] [Presence] in styleCode="Junie Toledos Urine by Test d">Urine Medical strip Nitrite Center </content>NEGA TIVE <content styleCode="Nella lics"> (NEGATIVE )</content> Urobilinogen 0.2-1.0 <content [facility] [Units/volume] styleCode="Junie Lashanda in Urine by d">Urine Medical Test strip Urobilinogen Center </content>1.0 MG/DL<content styleCode="Nella lics"> (0.2-1.0 MG/DL)</conten t> pH of Urine by 4.5-8.0 <content [facility] Test strip styleCode="Junie Lashanda d">Urine pH Medical </content>7.0 Center <content styleCode="Nella lics"> (4.5-8.0 )</content> Leukocyte NEGATIVE <content [facility] esterase styleCode="Junie Pyle [Presence] in d">Urine Medical Urine by Test Leukocyte Center strip </content>NEGA TIVE <content styleCode="Nella lics"> (NEGATIVE )</content> UNK 0-3 <content [facility] styleCode="Junie Lashanda d">Urine Red Medical Blood Cell Center </content>0-3 HPF<content styleCode="Nella lics"> (0-3 HPF)</content> UNK 0-3 <content [facility] styleCode="Junie Lashanda d">Urine White Medical Blood Cell Center </content>0-3 HPF<content styleCode="Nella lics"> (0-3 HPF)</content> ID Date Data [id number] 06/16/2020 10:19:00 AM EDT [facility] -0400 Name Value Range Interpretation Description Data Sup porting Code Source(s) Document(s ) Cannabinoids <content [facility] [Presence] in styleCode="Junie Pyle Urine by Screen d">Cannabinoid Medical method >50 ng/mL s Center </content>NEGA TIVE NG/ML (Reference Range: not available)<br/ > ID Date Data Source HematologyRou.[id number] 06/16/2020 08:54:00 AM EDT [facility] 0400 Name Value Range Interpretation Description Data Sup porting Code Source(s) Document(s ) Erythrocytes 4.4-5.9 Below low normal <content [facility] [#/volume] in styleCode="Bold Lashanda Blood by ">Red Blood Medical Automated count Cell Count Center </content>4.39 MCUMM L<content styleCode="Ital ics"> (4.4-5.9 MCUMM)</content > Leukocytes 4.4-11.0 <content [facility] [#/volume] in styleCode="Bold Lashanda Blood by ">White Blood Medical Automated count Cell Count Center </content>8.16 KCUMM<content styleCode="Ital ics"> (4.4-11.0 KCUMM)</content > Hemoglobin 13.5-17. <content [facility] [Mass/volume] in 5 styleCode="Bold Lashanda Blood ">Hemoglobin Medical </content>14.3 Center G/DL<content styleCode="Ital ics"> (13.5-17.5 G/DL)</content> Erythrocyte mean 26.0-34. <content [facility] corpuscular 0 styleCode="Bold Lashanda hemoglobin ">Mean Medical [Entitic mass] Corposcular Center by Automated Hemoglobin count </content>32.6 PG<content styleCode="Ital ics"> (26.0-34.0 PG)</content> Hematocrit 41.0-53. <content [facility] [Volume 0 styleCode="Bold Lashanda Fraction] of ">Hematocrit Medical Blood by </content>42.5 Center Automated count %<content styleCode="Ital ics"> (41.0-53.0 %)</content> Erythrocyte mean 80.0-100 <content [facility] corpuscular .0 styleCode="Bold Lashanda volume [Entitic ">Mean Medical volume] by Corpuscular Center Automated count Volume </content>96.8 FL<content styleCode="Ital ics"> (80.0-100.0 FL)</content> Erythrocyte mean 32.0-37. <content [facility] corpuscular 0 styleCode="Bold Lashanda hemoglobin ">Mean Corpus. Medical concentration Hgb Center [Mass/volume] by Concentration Automated count (MCHC) </content>33.6 G/DL<content styleCode="Ital ics"> (32.0-37.0 G/DL)</content> Platelet mean 8.0-11.0 <content [facility] volume [Entitic styleCode="Bold Lashanda volume] in Blood ">Mean Platelet Medical by Automated Volume Center count </content>10.3 FL<content styleCode="Ital ics"> (8.0-11.0 FL)</content> Erythrocyte 11.5-14. <content [facility] distribution 5 styleCode="Bold Lashanda width [Ratio] by ">Red Cell Medical Automated count Distribution Center Width </content>13.0 %<content styleCode="Ital ics"> (11.5-14.5 %)</content> Platelets 130-400 <content [facility] [#/volume] in styleCode="Bold Lashanda Blood by ">Platelet Medical Automated count Count Center </content>220 KCUMM<content styleCode="Ital ics"> (130-400 KCUMM)</content > UNK 0 <content [facility] styleCode="Bold Lashanda ">Nucleated Red Medical Blood Cell Center </content>0.0 /100<content styleCode="Ital ics"> (0 /100)</content> UNK 0.0 <content [facility] styleCode="Bold Lashanda ">Nucleated Red Medical Blood Cell Center Count </content>0.00 KCUMM<content styleCode="Ital ics"> (0.0 KCUMM)</content > ID Date Data Source GFR(Creatinine).[id number] 06/16/2020 08:54:00 AM EDT [facility] 0-0400 Name Value Range Interpretation Code Description Data Denise rce(s) Supporting Document(s ) UNK > 60 <content [facility] styleCode="Bold"> Medical Cent er EGFR </content>126 GFR<content styleCode="Italic s"> (> 60 GFR)</content> ID Date Data Source [facility].[id number] 06/16/2020 08:54:00 AM EDT [facility] Name Value Range Interpretation Description Data Sup porting Code Source(s) Document(s ) Chloride 98-107 <content [facility] [Moles/volume] styleCode="Junie Lashanda in Serum or d">Chloride Medical Plasma </content>106 Center MEQ/L<content styleCode="Nella lics"> (98-107 MEQ/L)</conten t> Carbon 22-30 <content [facility] dioxide, total styleCode="Junie Lashanda [Moles/volume] d">Carbon Medical in Serum or Dioxide Center Plasma </content>25 MEQ/L<content styleCode="Nella lics"> (22-30 MEQ/L)</conten t> Sodium 137-145 <content [facility] [Moles/volume] styleCode="Junie Lashanda in Serum or d">Sodium Medical Plasma </content>140 Center MEQ/L<content styleCode="Nella lics"> (137-145 MEQ/L)</conten t> Potassium 3.5-5.3 <content [facility] [Moles/volume] styleCode="Junie Toledos in Serum or d">Potassium Medical Plasma </content>3.8 Center MEQ/L<content styleCode="Nella lics"> (3.5-5.3 MEQ/L)</conten t> UNK 9-20 Below low normal <content [facility] styleCode="Junie Toledos d">BUN Medical </content>6 Center MG/DL L<content styleCode="Nella lics"> (9-20 MG/DL)</conten t> Calcium 8.4-10.2 <content [facility] [Mass/volume] styleCode="Junie Toledos in Serum or d">Calcium Medical Plasma </content>8.9 Center MG/DL<content styleCode="Nella lics"> (8.4-10.2 MG/DL)</conten t> UNK > 60 <content [facility] styleCode="Junie Toledos d">EGFR Medical </content>126 Center GFR<content styleCode="Nella lics"> (> 60 GFR)</content> Glucose 74-106 <content [facility] [Mass/volume] styleCode="Junie Toledos in Serum or d">Glucose Medical Plasma </content>93 Center MG/DL<content styleCode="Nella lics"> (74-106 MG/DL)</conten t> Creatinine 0.5-1.3 <content [facility] [Mass/volume] styleCode="Junie Toledos in Serum or d">Creatinine Medical Plasma </content>0.7 Center MG/DL<content styleCode="Nella lics"> (0.5-1.3 MG/DL)</conten t> ID Date Data Source Urinalysis.[id number] 06/04/2020 11:45:00 AM EDT [facility] 0 Name Value Range Interpretation Description Data Sup porting Code Source(s) Document(s ) UNK CLEAR <content [facility] styleCode="Junie Toledos d">Urine Medical Clarity Center </content>GAYATRI R <content styleCode="Nella lics"> (CLEAR )</content> Color of Urine YELLOW <content [facility] styleCode="Junie Lashanda d">Color, Medical Urine Center </content>YELL OW <content styleCode="Nella lics"> (YELLOW )</content> UNK NEGATIVE <content [facility] styleCode="Junie Lashanda d">Urine Medical Bilirubin Center </content>NEGA TIVE <content styleCode="Nella lics"> (NEGATIVE )</content> Specific 1.015-1.02 <content [facility] gravity of 5 styleCode="Junie Toledos Urine by Test d">Urine Medical strip Specific Center [place] </content>1.02 5 <content styleCode="Nella lics"> (1.015-1.025 )</content> Glucose NEGATIVE <content [facility] [Mass/volume] styleCode="Junie Toledos in Urine by d">Urine Medical Test strip Glucose Center </content>NEGA TIVE MG/DL<content styleCode="Nella lics"> (NEGATIVE MG/DL)</conten t> Hemoglobin NEGATIVE <content [facility] [Presence] in styleCode="Junie Toledos Urine by Test d">Urine Blood Medical strip </content>SMAL Center L <content styleCode="Nella lics"> (NEGATIVE )</content> Ketones NEGATIVE <content [facility] [Mass/volume] styleCode="Junie Toledos in Urine by d">Urine Medical Test strip Ketone Center </content>TRAC E MG/DL<content styleCode="Nella lics"> (NEGATIVE MG/DL)</conten t> Protein NEGATIVE <content [facility] [Mass/volume] styleCode="Junie Lashanda in Urine by d">Urine Medical Test strip Protein Center </content>NEGA TIVE MG/DL<content styleCode="Nella lics"> (NEGATIVE MG/DL)</conten t> Nitrite NEGATIVE <content [facility] [Presence] in styleCode="Junie Toledos Urine by Test d">Urine Medical strip Nitrite Center </content>NEGA TIVE <content styleCode="Nella lics"> (NEGATIVE )</content> Leukocyte NEGATIVE <content [facility] esterase styleCode="Junie Pyle [Presence] in d">Urine Medical Urine by Test Leukocyte Center strip </content>NEGA TIVE <content styleCode="Nella lics"> (NEGATIVE )</content> pH of Urine by 4.5-8.0 <content [facility] Test strip styleCode="Junie Lashanda d">Urine pH Medical </content>6.0 Center <content styleCode="Nella lics"> (4.5-8.0 )</content> Urobilinogen 0.2-1.0 <content [facility] [Units/volume] styleCode="Junie Toledos in Urine by d">Urine Medical Test strip Urobilinogen Center </content>1.0 MG/DL<content styleCode="Nella lics"> (0.2-1.0 MG/DL)</conten t> UNK 0-3 <content [facility] styleCode="Junie Lashanda d">Urine White Medical Blood Cell Center </content>0-3 HPF<content styleCode="Nella lics"> (0-3 HPF)</content> UNK 0-3 <content [facility] styleCode="Junie Lashanda d">Urine Red Medical Blood Cell Center </content>3-5 HPF<content styleCode="Nella lics"> (0-3 HPF)</content> ID Date Data Source Liver 06/04/2020 11:45:00 AM EDT [facility] Profile.[id number] Name Value Range Interpretation Description Data Sup porting Code Source(s) Document(s ) Alanine 7-50 <content [facility] aminotransferase styleCode="Bold"> Sancho hs [Enzymatic Alanine Medical activity/volume] Aminotransferase Center in Serum or Plasma (ALT) </content>44 IU/L<content styleCode="Italic s"> (7-50 IU/L)</content> Aspartate 17-59 <content [facility] aminotransferase styleCode="Bold"> Sancho hs [Enzymatic Aspartate Medical activity/volume] Aminotransferase Center in Serum or Plasma (AST) </content>51 IU/L<content styleCode="Italic s"> (17-59 IU/L)</content> Alkaline 38-126 <content [facility] phosphatase styleCode="Bold"> Lashanda [Enzymatic Alkaline Medical activity/volume] Phosphatase (ALP) Cente r in Serum or Plasma </content>67 IU/L<content styleCode="Italic s"> (38-126 IU/L)</content> Bilirubin.total 0.2-1.3 <content [facility] [Mass/volume] in styleCode="Bold"> Sancho hs Serum or Plasma Bilirubin Total Medical </content>0.6 Center MG/DL<content styleCode="Italic s"> (0.2-1.3 MG/DL)</content> Albumin 3.5-5.0 <content [facility] [Mass/volume] in styleCode="Bold"> Sancho hs Serum or Plasma Albumin Medical </content>4.3 Center G/DL<content styleCode="Italic s"> (3.5-5.0 G/DL)</content> ID Date Data Source HematologyRou.[id number] 06/04/2020 11:45:00 AM EDT [facility] 0400 Name Value Range Interpretation Description Data Sup porting Code Source(s) Document(s ) Leukocytes 4.4-11.0 <content [facility] [#/volume] in styleCode="Bold Lash[facility] Blood by ">White Blood Medical Automated count Cell Count Center </content>7.48 KCUMM<content styleCode="Ital ics"> (4.4-11.0 KCUMM)</content > Erythrocytes 4.4-5.9 <content [facility] [#/volume] in styleCode="Bold Lashanda Blood by ">Red Blood Medical Automated count Cell Count Center </content>4.61 MCUMM<content styleCode="Ital ics"> (4.4-5.9 MCUMM)</content > Hematocrit 41.0-53. <content [facility] [Volume 0 styleCode="Bold [facility] Fraction] of ">Hematocrit Medical Blood by </content>45.3 Center Automated count %<content styleCode="Ital ics"> (41.0-53.0 %)</content> Hemoglobin 13.5-17. <content [facility] [Mass/volume] in 5 styleCode="Bold Lashanda Blood ">Hemoglobin Medical </content>15.1 Center G/DL<content styleCode="Ital ics"> (13.5-17.5 G/DL)</content> Erythrocyte mean 32.0-37. <content [facility] corpuscular 0 styleCode="Bold Lashanda hemoglobin ">Mean Corpus. Medical concentration Hgb Center [Mass/volume] by Concentration Automated count (MCHC) </content>33.3 G/DL<content styleCode="Ital ics"> (32.0-37.0 G/DL)</content> Erythrocyte 11.5-14. <content [facility] distribution 5 styleCode="Bold Lashanda width [Ratio] by ">Red Cell Medical Automated count Distribution Center Width </content>13.2 %<content styleCode="Ital ics"> (11.5-14.5 %)</content> Platelets 130-400 <content [facility] [#/volume] in styleCode="Bold Lashanda Blood by ">Platelet Medical Automated count Count Center </content>232 KCUMM<content styleCode="Ital ics"> (130-400 KCUMM)</content > Erythrocyte mean 26.0-34. <content [facility] corpuscular 0 styleCode="Bold Lashanda hemoglobin ">Mean Medical [Entitic mass] Corposcular Center by Automated Hemoglobin count </content>32.8 PG<content styleCode="Ital ics"> (26.0-34.0 PG)</content> Erythrocyte mean 80.0-100 <content [facility] corpuscular .0 styleCode="Bold Lashanda volume [Entitic ">Mean Medical volume] by Corpuscular Center Automated count Volume </content>98.3 FL<content styleCode="Ital ics"> (80.0-100.0 FL)</content> UNK 0.0 <content Saint styleCode="Bold Lashanda ">Nucleated Red Medical Blood Cell Center Count </content>0.00 KCUMM<content styleCode="Ital ics"> (0.0 KCUMM)</content > UNK 0 <content Saint styleCode="Bold Lashanda ">Nucleated Red Medical Blood Cell Center </content>0.0 /100<content styleCode="Ital ics"> (0 /100)</content> Platelet mean 8.0-11.0 <content [facility] volume [Entitic styleCode="Bold Lashanda volume] in Blood ">Mean Platelet Medical by Automated Volume Center count </content>10.3 FL<content styleCode="Ital ics"> (8.0-11.0 FL)</content> ID Date Data Source GFR(Creatinine).[id number] 06/04/2020 11:45:00 AM EDT [facility] 0-0400 Name Value Range Interpretation Code Description Data Denise rce(s) Supporting Document(s ) UNK > 60 <content [facility] styleCode="Bold"> Medical Cent er EGFR </content>95 GFR<content styleCode="Italic s"> (> 60 GFR)</content> ID Date Data Source Coagulation 06/04/2020 11:45:00 AM [facility] ical Center Rout.[id number] EDT Name Value Range Interpretation Description Data Sup porting Code Source(s) Document(s ) UNK 9.0-13.0 <content [facility] styleCode="Bold" Lashanda >Protime Medical </content>11.7 Center SEC<content styleCode="Itali cs"> (9.0-13.0 SEC)</content> INR in 0.80-1.2 <content [facility] Platelet poor 0 styleCode="Bold" Lashanda plasma by >INR Medical Coagulation </content>1.05 Center assay #<content styleCode="Itali cs"> (0.80-1.20 #)</content> aPTT in 25.1-36. <content [facility] Platelet poor 5 styleCode="Bold" Lashanda plasma by >Partial Medical Coagulation Thromboplastin Center assay Time </content>33.8 SEC<content styleCode="Itali cs"> (25.1-36.5 SEC)</content> ID Date Data Source CHMROUTINECCDA.[id number] 06/04/2020 11:45:00 AM EDT [facility] -0400 Name Value Range Interpretation Description Data Sup porting Code Source(s) Document(s ) UNK >= 1.0 <content [facility] styleCode="Junie Toledos d">AG Ratio Medical </content>1.3 Center <content styleCode="Nella lics"> (>= 1.0 )</content> Natriuretic < 125 <content [facility] peptide.B styleCode="Junie [facility]yle prohormone d">NT Pro BNP Medical N-Terminal </content>47.3 Center [Mass/volume] PG/ML<content in Serum or styleCode="Nella Plasma lics"> (< 125 PG/ML)</conten t> Protein 6.3-8.2 <content [facility] [Mass/volume] styleCode="Junie Lashanda in Serum or d">Total Medical Plasma Protein Center </content>7.5 G/DL<content styleCode="Nella lics"> (6.3-8.2 G/DL)</content > Cannabinoids <content [facility] [Presence] in styleCode="Junie [facility] Urine by Screen d">Cannabinoid Medical method >50 s Center ng/mL </content>NEGA TIVE NG/ML (Reference Range: not available)<br/ > UNK 2.3-3.5 <content [facility] styleCode="Junie Lashanda d">Globulin Medical </content>3.2 Center G/DL<content styleCode="Nella lics"> (2.3-3.5 G/DL)</content > Lipase 23-300 <content [facility] [Enzymatic styleCode="Junie Lashanda activity/volume d">Lipase Medical ] in Serum or </content>60 Center Plasma IU/L<content styleCode="Nella lics"> (23-300 IU/L)</content > ID Date Data Source [employer].[id number] 06/04/2020 11:45:00 AM EDT [facility] -0400 Name Value Range Interpretation Description Data Sup porting Code Source(s) Document(s ) Creatine 55-170 Above high normal <content [facility] kinase styleCode="Bold Lashanda [Enzymatic ">CK Medical activity/vol </content>474 Center ume] in IU/L H<content Serum or styleCode="Ital Plasma ics"> (55-170 IU/L)</content> Troponin < 0.034 <content [facility] I.cardiac styleCode="Bold Lashanda [Mass/volume ">Troponin I Medical ] in Serum </content>< Center or Plasma 0.012 NG/ML<content styleCode="Ital ics"> (< 0.034 NG/ML)</content > ID Date Data Source [facility].[id number] 06/04/2020 11:45:00 AM EDT [facility] Center Name Value Range Interpretation Description Data Sup porting Code Source(s) Document(s ) Sodium 137-145 <content [facility] [Moles/volume] in styleCode="Bold"> Dagoberto phs Serum or Plasma Sodium Medical </content>142 Center MEQ/L<content styleCode="Italic s"> (137-145 MEQ/L)</content> Chloride 98-107 Above high <content [facility] [Moles/volume] in normal styleCode="Bold"> Dagoberto phs Serum or Plasma Chloride Medical </content>110 Center MEQ/L H<content styleCode="Italic s"> (98-107 MEQ/L)</content> Carbon dioxide, 22-30 <content [facility] total styleCode="Bold"> Lashanda [Moles/volume] in Carbon Dioxide Medical Serum or Plasma </content>23 Center MEQ/L<content styleCode="Italic s"> (22-30 MEQ/L)</content> Creatinine 0.5-1.3 <content [facility] [Mass/volume] in styleCode="Bold"> Sancho hs Serum or Plasma Creatinine Medical </content>0.9 Center MG/DL<content styleCode="Italic s"> (0.5-1.3 MG/DL)</content> UNK 9-20 <content Saint styleCode="Bold"> Lashanda BUN </content>13 Medical MG/DL<content Center styleCode="Italic s"> (9-20 MG/DL)</content> Potassium <content [facility] [Moles/volume] in styleCode="Bold"> Dagoberto phs Serum or Plasma Potassium Medical </content>Test Center not performed. MEQ/L (Reference Range: not available)
UNK > 60 <content Saint styleCode="Bold"> Lashanda EGFR </content>95 Medical GFR<content Center styleCode="Italic s"> (> 60 GFR)</content> Glucose 74-106 <content [facility] [Mass/volume] in styleCode="Bold"> Sancho hs Serum or Plasma Glucose Medical </content>86 Center MG/DL<content styleCode="Italic s"> (74-106 MG/DL)</content> Alanine 7-50 <content [facility] aminotransferase styleCode="Bold"> Sancho hs [Enzymatic Alanine Medical activity/volume] Aminotransferase Center in Serum or Plasma (ALT) </content>44 IU/L<content styleCode="Italic s"> (7-50 IU/L)</content> Aspartate 17-59 <content [facility] aminotransferase styleCode="Bold"> Sancho hs [Enzymatic Aspartate Medical activity/volume] Aminotransferase Center in Serum or Plasma (AST) </content>51 IU/L<content styleCode="Italic s"> (17-59 IU/L)</content> Calcium 8.4-10. <content [facility] [Mass/volume] in 2 styleCode="Bold"> Sancho hs Serum or Plasma Calcium Medical </content>9.0 Center MG/DL<content styleCode="Italic s"> (8.4-10.2 MG/DL)</content> Bilirubin.total 0.2-1.3 <content [facility] [Mass/volume] in styleCode="Bold"> Sancho hs Serum or Plasma Bilirubin Total Medical </content>0.6 Center MG/DL<content styleCode="Italic s"> (0.2-1.3 MG/DL)</content> Albumin 3.5-5.0 <content [facility] [Mass/volume] in styleCode="Bold"> Sancho hs Serum or Plasma Albumin Medical </content>4.3 Center G/DL<content styleCode="Italic s"> (3.5-5.0 G/DL)</content> Alkaline 38-126 <content [facility] phosphatase styleCode="Bold"> Lashanda [Enzymatic Alkaline Medical activity/volume] Phosphatase (ALP) Cente r in Serum or Plasma </content>67 IU/L<content styleCode="Italic s"> (38-126 IU/L)</content> ID Date Data Source [id number] 06/04/2020 12:00:00 AM EDT [facility] Name Value Range Interpretation Code Description Data Denise rce(s) Supporting Document(s ) 2019-nCoV [facility] RNA XXX ALEXIA+probe- Imp This lab was ordered by [facility] and reported by [email or web address]. ID Date Data Source [id number] 05/30/2020 10:40:00 PM EDT [facility] Name Value Range Interpretation Description Data Sup porting Code Source(s) Document(s ) SARS [facility] coronavirus 2 RNA This lab was ordered by [facility] and reported by [facility]. ID Date Data Source [id number] 04/23/2020 05:30:00 PM EDT [facility] Name Value Range Interpretation Description Data Sup porting Code Source(s) Document(s ) SARS [facility] coronavirus 2 RNA This lab was ordered by [facility] and reported by [facility]. Procedure Social History Code Duration Value Status Description Data Source(s ) Smoking 06/27/2020 Denies Ever completed Denies Ever Smoked [facility] 02:20:00 AM EDT Smoked Medical C enter Smoking 06/27/2020 Denies Ever completed Denies Ever Smoked [facility] 01:11:00 AM EDT Smoked Medical C enter Smoking 06/27/2020 Denies Ever completed Denies Ever Smoked [facility] 01:03:00 AM EDT Smoked Medical C enter Smoking 06/16/2020 Daily Smoker completed Daily Smoker [facility] 03:55:00 PM EDT Medical C enter Smoking 06/16/2020 Daily Smoker completed Daily Smoker [facility] 01:31:00 PM EDT Medical C enter Smoking 06/16/2020 Denies Ever completed Denies Ever Smoked [facility] 08:27:00 AM EDT Smoked Medical C enter Smoking 06/16/2020 Denies Ever completed Denies Ever Smoked [facility] 08:26:00 AM EDT Smoked Medical C enter Smoking 06/04/2020 Daily Smoker completed Daily Smoker [facility] 03:17:00 PM EDT Medical C enter Smoking 06/04/2020 Daily Smoker completed Daily Smoker [facility] 01:41:00 PM EDT Medical C enter Smoking 06/04/2020 Denies Ever completed Denies Ever Smoked [facility] 12:08:00 PM EDT Smoked Medical C enter Smoking 06/04/2020 Denies Ever completed Denies Ever Smoked [facility] 11:09:00 AM EDT Smoked Medical C enter Smoking 06/04/2020 Denies Ever completed Denies Ever Smoked [facility] 11:09:00 AM EDT Smoked Medical C enter Vital Signs ID Date Data Source UNK Name Value Range Interpretation Code Description Data Source(s) Body temperature 36.285185 Angela 36.541743 Angela [facility] Respiratory rate 17 /min 17 /min [facility] Oxygen 97 % 97 % [facility] saturation in Medical Arterial blood Center by Pulse oximetry Heart rate 98 /min 98 /min [facility] Diastolic blood 87 mm[Hg] 87 mm[Hg] [facility] Systolic blood 154 mm[Hg] 154 mm[Hg] [facility] Body temperature 36.788018 Angela 36.959854 Angela [facility] Respiratory rate 20 /min 20 /min [facility] Heart rate 60 /min 60 /min [facility] Diastolic blood 80 mm[Hg] 80 mm[Hg] [facility] Systolic blood 125 mm[Hg] 125 mm[Hg] [facility] Body temperature 36.788109 Angela 36.060059 Angela [facility] Respiratory rate 18 /min 18 /min [facility] Heart rate 67 /min 67 /min [facility] Diastolic blood 69 mm[Hg] 69 mm[Hg] [facility] Systolic blood 117 mm[Hg] 117 mm[Hg] [facility] Body temperature 36.041964 Angela 36.581282 Angela [facility] Respiratory rate 18 /min 18 /min [facility] Heart rate 68 /min 68 /min [facility] Diastolic blood 70 mm[Hg] 70 mm[Hg] [facility] Systolic blood 128 mm[Hg] 128 mm[Hg] [facility] Body temperature 36.684774 Angela 36.980063 Angela [facility] Respiratory rate 20 /min 20 /min [facility] Heart rate 65 /min 65 /min [facility] Diastolic blood 76 mm[Hg] 76 mm[Hg] [facility] Systolic blood 122 mm[Hg] 122 mm[Hg] [facility] Body temperature 36.832430 Angela 36.494590 Angela [facility] Respiratory rate 20 /min 20 /min [facility] Heart rate 60 /min 60 /min [facility] Diastolic blood 83 mm[Hg] 83 mm[Hg] [facility] Medical [place] Systolic blood 128 mm[Hg] 128 mm[Hg] [facility] Body temperature 36.904542 Angela 36.410335 Angela [facility] Respiratory rate 18 /min 18 /min [facility] Heart rate 67 /min 67 /min [facility] Diastolic blood 85 mm[Hg] 85 mm[Hg] [facility] Systolic blood 124 mm[Hg] 124 mm[Hg] [facility] Body weight 99.202091 kg 99.969196 kg [facility] Body height 180.033928 cm 180.231431 cm [facility] Body mass index 30.59 kg/m2 30.59 kg/m2 [facility] (BMI) [Ratio] Medical Center Body temperature 36.429466 Angela 36.210860 Angela [facility] Respiratory rate 20 /min 20 /min [facility] Heart rate 75 /min 75 /min [facility] Diastolic blood 81 mm[Hg] 81 mm[Hg] [facility] Systolic blood 142 mm[Hg] 142 mm[Hg] [facility] Oxygen 98 % 98 % [facility] saturation in Medical Arterial blood Center by Pulse oximetry Body temperature 36.198448 Angela 36.453457 Angela [facility] Respiratory rate 18 /min 18 /min [facility] Heart rate 80 /min 80 /min [facility] Diastolic blood 76 mm[Hg] 76 mm[Hg] [facility] Center Systolic blood 112 mm[Hg] 112 mm[Hg] [facility] Oxygen 98 % 98 % [facility] saturation in Medical Arterial blood Center by Pulse oximetry Body temperature 36.285095 Angela 36.068911 Angela [facility] Respiratory rate 18 /min 18 /min [facility] Heart rate 80 /min 80 /min [facility] Diastolic blood 80 mm[Hg] 80 mm[Hg] [facility] Center Systolic blood 130 mm[Hg] 130 mm[Hg] [facility] Body weight 90.992367 kg 90.137325 kg [facility] Oxygen 100 % 100 % [facility] saturation in Medical Arterial blood Center by Pulse oximetry Body height 180.373912 cm 180.696487 cm [facility] Body mass index 27.8 kg/m2 27.8 kg/m2 [facility] (BMI) [Ratio] Medical Center Body temperature 36.335672 Angela 36.013106 Angela [facility] Respiratory rate 20 /min 20 /min [facility] Heart rate 51 /min 51 /min [facility] Diastolic blood 88 mm[Hg] 88 mm[Hg] [facility] Center Systolic blood 124 mm[Hg] 124 mm[Hg] [facility] Body temperature 36.985325 Angela 36.094419 Angela [facility] Respiratory rate 18 /min 18 /min [facility] Oxygen 94 % 94 % [facility] saturation in Medical Arterial blood Center by Pulse oximetry Heart rate 61 /min 61 /min [facility] Diastolic blood 66 mm[Hg] 66 mm[Hg] [facility] Center Systolic blood 115 mm[Hg] 115 mm[Hg] [facility] Center Body temperature 36.421421 Angela 36.131470 Angela [facility] Respiratory rate 20 /min 20 /min [facility] Heart rate 54 /min 54 /min [facility] Diastolic blood 84 mm[Hg] 84 mm[Hg] [facility] Center Systolic blood 124 mm[Hg] 124 mm[Hg] [facility] Body temperature 36.256513 Angela 36.710399 Angela [facility] Respiratory rate 20 /min 20 /min [facility] Heart rate 50 /min 50 /min [facility] Diastolic blood 62 mm[Hg] 62 mm[Hg] [facility] Systolic blood 98 mm[Hg] 98 mm[Hg] [facility] Body temperature 36.857919 Angela 36.536965 Angela [facility] Respiratory rate 19 /min 19 /min [facility] Heart rate 65 /min 65 /min [facility] Diastolic blood 78 mm[Hg] 78 mm[Hg] [facility] Systolic blood 118 mm[Hg] 118 mm[Hg] [facility] Body temperature 36.644225 Angela 36.232437 Angela [facility] Respiratory rate 16 /min 16 /min [facility] Heart rate 50 /min 50 /min [facility] Diastolic blood 52 mm[Hg] 52 mm[Hg] [facility] Systolic blood 101 mm[Hg] 101 mm[Hg] [facility] Body temperature 36.665287 Angela 36.651508 Angela [facility] Respiratory rate 20 /min 20 /min [facility] Heart rate 56 /min 56 /min [facility] Diastolic blood 71 mm[Hg] 71 mm[Hg] [facility] Systolic blood 110 mm[Hg] 110 mm[Hg] [facility] Oxygen 98 % 98 % [facility] saturation in [facility] Arterial blood Center by Pulse oximetry Body temperature 37.287285 Angela 37.579490 Angela [facility] Respiratory rate 18 /min 18 /min [facility] Heart rate 54 /min 54 /min [facility] Diastolic blood 55 mm[Hg] 55 mm[Hg] [facility] Systolic blood 97 mm[Hg] 97 mm[Hg] [facility] Body weight 101.424717 kg 101.710537 kg [facility] Body height 180.933829 cm 180.857479 cm [facility] Body mass index 31.09 kg/m2 31.09 kg/m2 [facility] (BMI) [Ratio] Medical [place] Body temperature 36.425576 Angela 36.783940 Angela [facility] Respiratory rate 19 /min 19 /min [facility] Heart rate 60 /min 60 /min [facility] Diastolic blood 87 mm[Hg] 87 mm[Hg] [facility] pressure Medical Center Systolic blood 137 mm[Hg] 137 mm[Hg] [facility] Center Oxygen 98 % 98 % [facility] saturation in Medical Arterial blood Center by Pulse oximetry Oxygen 97 % 97 % [facility] saturation in Medical Arterial blood Center by Pulse oximetry Respiratory rate 18 /min 18 /min [facility] Heart rate 68 /min 68 /min [facility] Diastolic blood 79 mm[Hg] 79 mm[Hg] [facility] pressure Medical Center Systolic blood 130 mm[Hg] 130 mm[Hg] [facility] Body weight 113.614248 kg 113.966503 kg [facility] Measured Medical Center Oxygen 98 % 98 % [facility] saturation in Medical Arterial blood Center by Pulse oximetry Body height 172.140822 cm 172.259340 cm [facility] Body mass index 38.0 kg/m2 38.0 kg/m2 [facility] (BMI) [Ratio] Medical Center Body temperature 36.364938 Angela 36.977982 Angela [facility] Diastolic blood 83 mmHg 83 mmHg [facility] Systolic blood 116 mmHg 116 mmHg [facility] Respiratory rate 18 bpm 18 bpm [facility] Heart rate 70 bpm 70 bpm [facility] Body temperature 96.6 Fahrenheit 96.6 [facility] Patient Treatment Plan of Care Planned Activity Planned Date Details Description Data Source (s) multivitamin with foLIC Acid [facility] 400 mcg Tablet, Ordered By: TIFFANIE Fieldsirections: 1 tablet oral daily Phenytoin sodium 100 MG [facility] Extended Release Oral Capsule Center Omeprazole 40 MG Delayed [facility] Medical Release Oral Capsule Center albuterol sulfate 90 mcg HFA [facility] Aerosol Inhaler, Ordered By: TIFFANIE Fieldsirections: 1 puff by inhalation every six hours PRN SHORTNESS OF BREATH 60 ACTUAT Fluticasone [facility] propionate 0.25 MG/ACTUAT / Center salmeterol 0.05 MG/ACTUAT Dry Powder Inhaler Phenytoin sodium 100 MG [facility] Extended Release Oral Capsule Center Phenytoin sodium 100 MG [facility] Extended Release Oral Capsule Center Phenytoin sodium 100 MG [facility] Extended Release Oral Capsule Center methylPREDNISolone 4 mg [facility] tablets,dose pack, Ordered By: TIFFANIE Hansonirections: 1 tablet oral daily 60 ACTUAT Fluticasone [facility] propionate 0.25 MG/ACTUAT / Center salmeterol 0.05 MG/ACTUAT Dry Powder Inhaler albuterol sulfate 90 mcg HFA [facility] Aerosol Inhaler, Ordered By: TIFFANIE Hansonirections: 1 puff by inhalation every six hours PRN SHORTNESS OF BREATH
[2020-06-27] MEDS ORDERED: ALBUTEROL SO4 HFA INHALER IH ONE ×2 (05:08→05:25)
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
[2020-06-27] MEDS ORDERED: FAMOTIDINE 20 MG TABLET PO ONE (05:34)
[2020-06-27 06:17] VITALS: BP 129/72; PULSE 72; TEMP 98.5
== END 2020-06-27 06:42 | disposition home or self-care (01) ==
LOC: JER 04:09
DX: J45.909 Unspecified asthma, uncomplicated (principal); F10.20 Alcohol dependence, uncomplicated
CPT/HCPCS: 99283-25